=== PATIENT | female | born 1955 | race Caucasian/White ===

== ENCOUNTER 2019-09-16 08:37 | Outpatient (CLI) | payer OTHER, SELFPAY ==
--- NOTE | 2019-09-16 08:45 | USCV_ITS ---
Eda Gann Age: 64 Gender: F : 1955 Exam Date: 09/16/2019 09:03 Ordering Phys: Jess Green MD ([email or web address]) Technologist: Sally Porter [place] [facility] [place]: heart disease. atherosclerosis BP: / HR: 49 Rhythm: Sinus Technical Quality: Good MEASUREMENTS (Male / Female) Normal Values 2D ECHO LV Diastolic Diameter PLAX 4.3 cm 4.2 - 5.9 / 3.9 - 5.3 cm LV Systolic Diameter PLAX 2.2 cm IVS Diastolic Thickness 0.7 cm 0.6 - 1.0 / 0.6 - 0.9 cm IVS Systolic Thickness 1.8 cm LVPW Diastolic Thickness 1.2 cm 0.6 - 1.0 / 0.6 - 0.9 cm LVPW Systolic Thickness 1.7 cm LVOT Diameter 2.0 cm LV Ejection Fraction 2D Teich 79.7 % LV Ejection Fraction MOD 2C 79.7 % LV Ejection Fraction 2C AL 80.2 % LA Diameter 2.0 cm LA Width 2.8 cm LA Height 4.9 cm RA Width 2.8 cm RA Height 3.9 cm M-MODE LV Diastolic Diameter MM 5.1 cm 4.2 - 5.9 / 3.9 - 5.3 cm LV Systolic Diameter MM 3.0 cm LV Ejection Fraction MM Teich 72.5 % IVS Diastolic Thickness MM 0.7 cm 0.6 - 1.0 / 0.6 - 0.9 cm IVS Systolic Thickness MM 1.3 cm LVPW Diastolic Thickness MM 1.1 cm 0.6 - 1.0 / 0.6 - 0.9 cm LVPW Systolic Thickness MM 2.0 cm Aortic Annulus Diameter 2.3 cm LA Ao Ratio MM 0.9 MV E Point Septal Separation 1.1 cm DOPPLER AV Peak Velocity 162.0 cm/s LVOT Peak Velocity 104.0 cm/s AV Area Cont Eq vti 2.1 cm squared AV Area Cont Eq pk 2.0 cm squared MV Peak Velocity 130.0 cm/s MV Area PHT 3.7 cm squared Mitral E to A Ratio 1.2 MV E' Velocity 95.0 cm/s TR Peak Velocity 100.0 cm/s TR Peak Gradient 4.0 mmHg Right Atrial Pressure 3.0 mmHg Pulmonary Artery Systolic Pressu 7.0 mmHg PV Peak Velocity 108.0 cm/s RV Acceleration Time 0.1 s FINDINGS Left Ventricle Normal left ventricular size and systolic function, EF 79 %. No regional wall motion abnormalities. Right Ventricle The right ventricle is normal in size and function. Right Atrium The right atrium is normal in size. Left Atrium The left atrium is normal in size. Mitral Valve Trace to mild mitral valve regurgitation. Aortic Valve Moderate aortic valve regurgitation. Thickened aortic valve. Tricuspid Valve Structurally normal tricuspid valve without significant stenosis or regurgitation. Pulmonary artery systolic pressure is normal. Pulmonic Valve No gross abnormalities noted Pericardium Normal pericardium without effusion. Aorta Normal ascending aorta dimension. CONCLUSIONS Normal left ventricular size and systolic function, EF 79 %. No regional wall motion abnormalities. Thickened aortic valves Moderate aortic valve regurgitation. Trace to mild mitral valve regurgitation. There is no pericardial effusion. There are no intracardiac masses. No previous study is available for comparison. Dr Jess Green MD [facility] (Electronically Signed) Final Date: 17 September 2019 18:15 S
--- NOTE | 2019-09-16 08:51 | USCV_ITS ---
Eda Gann Age: 64 Gender: F : 1955 Exam Date: 09/16/2019 09:28 Ordering Phys: Jess Green MD ([email or web address]) Technologist: Sally Porter [place] [facility] [place]: old CVA, carotid stenosis Risk Factors: Previous Vascular Surgery: Right Brachial BP: / Left Brachial BP: / Right Left Velocity (cm/s) Spectral Plaque Velocity (cm/s) Spectral Plaque Syst/Diast Broadening Syst/Diast Broadening 118.00/23.20 Prox CCA 66.20 / 7.70 92.60/ 20.90 Hetro Mid CCA 45.10 / 5.40 86.00/ 19.80 Homo Distal CCA 77.70 / 10.90 Hetro 129.00/35.70 Hetro Prox ICA 653.20/ 203.20 Hetro 115.00/26.40 Mid ICA 302.70/ 90.30 Hetro 69.50/ 17.60 Distal ICA 80.80 / 19.40 79.40 ECA 101.20 1.09 ICA/CCA 8.46 Antegrade Vertebral Antegrade 44.30/ 7.00 cm/s 99.10/ 14.50 cm/s Tri Subclavian Tri 172.5 114.4 0 0 FINDINGS Heavy heterogeneous plaques of the left bifurcation and proximal internal carotid artery. Moderate heavy plaque at the right bifurcation and proximal internal carotid artery. Mild diffuse plaques in the common carotid arteries bilaterally. Antegrade flow in the vertebral arteries bilaterally. Normal Doppler flow velocities in the external carotid arteries bilaterally CONCLUSIONS Heavy heterogeneous plaques of the left bifurcation and proximal internal carotid artery with velocity elevation consistent with 80-99% stenosis. Moderate heavy plaque at the right bifurcation and proximal internal carotid arterywith velocity elevation consistent with 50-79% stenosis. Mild diffuse plaques in the common carotid arteries bilaterally. No previous studies are available for comparison. Dr Jess Green MD [facility] (Electronically Signed) Final Date: 18 September 2019 06:53 S
== END 2019-09-16 08:38 | disposition home or self-care (01) ==
LOC: RAD 08:42
PROVIDERS: PCP Family Medicine; Visit Provider Internal Medicine Cardiovascular Disease
DX: I25.119 Atherosclerotic heart disease of native coronary artery with unspecified angina pectoris (principal); I65.23 Occlusion and stenosis of bilateral carotid arteries; I08.0 Rheumatic disorders of both mitral and aortic valves
CPT/HCPCS: 93306; 93880

== ENCOUNTER 2020-12-28 09:38 | Outpatient (CLI) | payer MEDICAID, SELFPAY ==
--- NOTE | 2020-12-28 10:00 | CT_ITS ---
WS: [id number] CT ANGIOGRAM CEREBRAL AND CAROTID ARTERIES HISTORY: H54.7 - Unspecified visual loss TECHNIQUE: CT angiogram is performed of the carotid and cerebral arteries. During arterial injection imaging is obtained from the skull vertex to the aortic arch in 1.25 mm imaging. Coronal and sagittal reformats are submitted. Additional multi planar reformats of the carotid and cerebral arteries are submitted, MIP imaging also reviewed. NASCET criteria utilized. All CT scans at [facility] use at least one of these dose optimization techniques: automated exposure control; mA and/or kV ad justment per patient size (includes targeted exams where dose is matched to clinical indication); or iterative reconstruction. CONTRAST: Visipaque 320; 95 mL IV. DLP: 2971.73 mGy.cm COMPARISON: None available. Noncontrast CT of the brain is negative for acute hemorrhage. No mass effect. Ventricles are normal s ize. Carotid Angiogram: Right carotid: Common carotid artery: Short segment of the proximal RIGHT common carotid artery is poorly opacified but this is due to artifact from patient's shoulders. Otherwise. Mild atherosclerotic plaque. Internal carotid artery: Small amount of calcified plaque at the bifurcation. External carotid artery: Patent. Left carotid: Common carotid artery: Small amount of calcified plaque at the origin. Mild atherosclerotic plaque in the mid common carotid artery but no high-grade stenosis. Internal carotid artery: Short segment very high-grade stenosis involving the origin of the LEFT ICA. Stenosis estimated at 90%. External carotid artery: Patent. Right vertebral artery: Small amount of plaque at the origin. No stenosis or occlusion. Left vertebral artery: Unremarkable. Arises normally from the subclavian artery. Subclavian arteries: Calcified plaque at the origins. No high-grade stenosis. Upper thorax: Chronic emphysema. Thyroid gland: Normal. Osseous structures: Reversal the normal cervical lordosis centered at C4-5. Mild encroachment upon th e ventral cervical canal due to osteophytes at C5 and C6. CEREBRAL ANGIOGRAM: Intracranial vertebral arteries: Normal with no significant atherosclerosis. Basilar artery: No significant stenosis or occlusion. No aneurysm. Intracranial Internal carotid arteries: Moderate amount of calcified plaque through the cavernous and supraclinoid carotid arteries. Stenosis near 50% on the LEFT and under 50% on the RIGHT. Middle cerebral arteries: Normal. Anterior cerebral arteries and ACOM: Normal. Posterior cerebral arteries and PCOM's: Normal. Dural venous sinuses are normally enhancing. Mastoid air cells: Small amount of soft tissue in the LEFT mastoid air cells. No destruction. Paranasal sinuses: Normal. Calvarium: Normal. Soft tissue nodule in the LEFT frontal scalp measuring 7 mm. Probably benign sebac eous cyst. CT/CT angio headneck* [id number] IMPRESSION: 1. High-grade stenosis proximal LEFT ICA, 90%. 2. Mild atherosclerotic plaque through the intracranial carotid arteries. Slig htly greater on the LEFT than the RIGHT. 3. No intracranial hemorrhage or edema. Notified Jess Green MD at 12/28/2020 12:02 PM.
[2020-12-28 10:47] LABS: Blood Urea Nitrogen 14 mg/dL (8-23); Glomerular Filtration Rate 63.2 mL/min (90-130)
[2020-12-28] MEDS: iodixanol 320 mg/mL 100mL Btl IV (11:04)
== END 2020-12-28 09:39 | disposition home or self-care (01) ==
LOC: RAD 09:44
PROVIDERS: PCP Family Medicine; Visit Provider Internal Medicine Cardiovascular Disease
DX: H54.7 Unspecified visual loss (principal); Z01.812 Encounter for preprocedural laboratory examination; I65.23 Occlusion and stenosis of bilateral carotid arteries
CPT/HCPCS: 36415; 70496; 70498; 82565; 84520

== ENCOUNTER → 2021-01-01 11:23 | Outpatient (BNVA) | payer MEDICAID, SELFPAY | PROVIDERS: PCP Family Medicine; Visit Provider Thoracic Surgery (Cardiothoracic Vascular Surgery) | DX: I65.23 Occlusion and stenosis of bilateral carotid arteries (principal); Z20.822 Contact with and (suspected) exposure to COVID-19 | CPT/HCPCS: 87635 ==

== ENCOUNTER 2021-01-06 15:52 | Inpatient (IN) | payer MEDICAID, SELFPAY ==
[2021-01-01 12:16] VITALS: BMI 25.7
--- NOTE | 2021-01-01 12:43 | ECG_ITS ---
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 Measurements Intervals [place] Rate: 79 P: 76 CT: 152 QRS: 75 QRSD: 90 T: 60 QT: 398 QTc: 457 Interpretive Statements SINUS RHYTHM POSSIBLE LEFT ATRIAL ENLARGEMENT [-0.1mV P WAVE IN V1/V2] Compared to ECG 05/15/2017 12:08:26 No significant changes Electronically Signed On 01-01-2021 14:24:01 CDT by Maria D Dowling M.D. [id number]
--- NOTE | 2021-01-01 12:49 | P.ANESASSM_ITS ---
Pre-Anesthetic Assessment Pre-Anesthetic Assessment: Height/Weight: Height 1.6 m Weight 65.771 kg Preop Diagnosis: Left carotid artery stenosis Proposed Procedure: Operation Date: 01/06/21 12:00 Proposed Procedures p left Carotid Endarterectomy(Left) - El Pierce MD Familial anesthetic complications: PONV Social: Social History: Tobacco and No alcohol Exam: Pre-Anes Outpt Exam: alert, oriented x 3, clear to auscultation bilaterally and regular rate & rhythm Airway: Cervical ROM: WNL MP: 3 Dentition: False Pulmonary: Pulmonary: COPD CV/HEM: CV/HEM: Angina (Stable), CAD (stent > 1 year), CHF and HTN Comments: Patient is wearing a holter monitor for tachycardia and sob/dizziness. Prerna aware. It comes off january 08 Metabolic: Metabolic: Hyperlipidemia Neuropsych: Neuropsych: TIA (yaers ago) Comments: LETICIA PFSH Anesthesia PFSH: Medical History Abuse of smoked substance Anxiety ASHD (arteriosclerotic heart disease) Atherosclerotic heart disease of [place] coronary artery with angina pectoris The EKG done today showed sinus bradycardia with a rate of [address]-T changes. Benign essential HTN Carotid artery stenosis with cerebral infarction over 8 weeks ago History of CVA in 2008? came to [facility] [place] Chronic diastolic heart failure secondary to coronary artery disease Congestive heart failure COPD (chronic obstructive pulmonary disease) Dementia has appointment to see Neurology on September 12 Heart attack Hyperthyroidism Intermittent palpitations Mixed hyperlipidemia Surgical History H/O tubal ligation History of appendectomy History of heart artery stent Hx of cholecystectomy Hx of tonsillectomy Family History Mother CAD (coronary artery disease) Lung disease Grandmother Cancer Dementia Stroke Diabetes Grandfather Cancer Family/Other Dementia Other Hyperlipidemia Hypertension Denies family history of Clotting disorder Chronic kidney disease (CKD) Suicide Anesthesia complication Bleeding disorder Social History Smoking and tobacco status: current some day smoker Alcohol intake: never Data Anesthesia Cardiac Studies: Holter Monitor 09/23/19
[2021-01-01 13:30] LABS: Add Urine Microscopic? NO; Charge for UA Resulting for Rev
[2021-01-01 13:34] LABS: Basophils # 0.1 10^3/uL (0.0-0.1); Basophils % 0.4 %; Eosinophils # 0.3 10^3/uL (0.0-0.8); Eosinophils % 2.3 %; Hematocrit 45.7 % (37.0-47.0); Hemoglobin 16.1 g/dL (11.5-15.3); Lymphocytes # 3.8 10^3/uL (0.8-4.8); Mean Corpuscular HGB Conc 35.2 g/dL (30.0-36.0); Mean Corpuscular Hemoglobin 33.7 pg (28.0-34.0); Mean Corpuscular Volume 95.6 fL (81-99); Mean Platelet Volume 9.4 fL (7.4-10.4); Monocytes # 1.2 10^3/uL (0.2-0.9); Neutrophils # 8.08 10^3/uL (1.8-7.7); Nucleated Red Blood Cells % 0 %; Platelet Count 390 10^3/cmm (130-400); Red Blood Count 4.78 10^6/uL (4.1-5.3); Red Cell Distribution Width 13.6 % (12.1-15.1); White Blood Count 13.5 10^3/uL (4.0-10.0)
[2021-01-01 13:36] LABS: Bilirubin Urine Neg (Negative); Blood Urine Neg (Negative); Glucose Urine UA Norm (Normal); Ketones Urine Negative (Negative); Leukocyte Esterase Urine Negative (Negative); Nitrate Urine Negative (Negative); Protein Urine Neg (Negative); Specific Gravity, Urine 1.005 (1.005-1.030); Urine Appearance Clear (CLEAR); Urine Color Yellow (Yellow); Urobilinogen Urine Norm (Negative); pH Urine 7 (5-7)
[2021-01-01 13:47] LABS: INR 0.85 (0.8-1.2)
[2021-01-01 13:53] LABS: Anion Gap 17.8 (5-19); Blood Urea Nitrogen 10 mg/dL (8-23); Calcium 9.2 mg/dL (8.5-10.5); Carbon Dioxide 23 mmol/L (22-29); Chloride 95 mmol/L (98-107); Glomerular Filtration Rate 72.4 mL/min (90-130); Glucose 102 mg/dL (65-115); Osmolality Calculated 273 mOsm/kg (285-295); Potassium 3.8 mmol/L (3.5-5.1); Sodium 132 mmol/L (136-145)
[2021-01-06] VITALS (82 sets, daily range): BP systolic 89–147; BP diastolic 36–115; PULSE 69–91; RESP 11–30; TEMP 36.5–36.6; O2SAT 89–97
--- NOTE | 2021-01-06 10:43 | XR_ITS ---
WS: [id number] Chest 2 views, 01/06/2021 Clinical Data: Left carotid endarterectomy Comparison: Portable chest, 05/15/2017. Findings: No nodules, masses or effusions are seen. The heart is normal. The pulmonary vascularity is not increased. No pneumonia or pneumothorax is seen. The diaphragms are flattened. There are clips i n the right upper quadrant from a cholecystectomy. XR/XR chest 2V* [id number] Impression: Hyperinflation.
[2021-01-06] MEDS: sodium chloride 0.9% 1,000 ML 30 ML IV (11:28)
--- NOTE | 2021-01-06 12:04 | W.PM.OPSUD ---
Surgery/Procedure H&P Update DATE OF PROCEDURE: January 06, 2021 DATE H&P PERFORMED: 01/01/21 H&P UPDATE INFORMATION: I have reviewed H&P completed within last 30 days, I have examined patient prior to procedure and No changes to prior documentation PREOP DIAGNOSIS: Left carotid artery stenosis PLANNED PROCEDURE: Operation Date: 01/06/21 12:00 Proposed Procedures p left Carotid Endarterectomy(Left) - El Pierce MD
[2021-01-06] MEDS: scopolamine 1.5 Patch 1 PATCH TRANSDERMA (12:30)
--- NOTE | 2021-01-06 12:49 | P.ANESUD_ITS ---
Pre-Anesthetic Update Pre-Anesthetic Assessment: Date of Surgery/Procedure: 01/06/21 Preop Delia gnosis: Left carotid artery stenosis Proposed Procedure: Operation Date: 01/06/21 12:00 Proposed Procedures p left Carotid Endarterectomy(Left) - El Pierce MD Any changes to Pre-Anesthetic Assessment?: No Last Intake: Intake Last Liquid Date 01/05/21 Last Liquid Time 22:30 Last Solid Date 01/05/21 Last Solid Time 22:30 Labs Last 48hrs: Laboratory Results - last 48 hr 01/01/21 12:39 Blood Type O Negative Rho(D) Type Negative / 0 Antibody Screen Negative Crossmatch See Detail Vitals: Temperature 97.7 F 01/06/21 10:53 Temperature Source Temporal Artery S can 01/06/21 10:53 Pulse Rate 79 01/06/21 10:53 Pulse Rhythm 01/06/21 10:53 Pulse Strength 3+ Normal 01/06/21 10:53 Respiratory Rate 16 01/06/21 10:53 Blood Pressure 147/60 01/06/21 10:53 Blood Pressure Cecy n 89 01/06/21 10:53 Pulse Oximetry 97 01/06/21 10:53 Oxygen Delivery Me thod 01/06/21 10:53 Exam: Pre-Anes Outpt Exam: alert, oriented x 3, clear to auscultation bilaterally and regular rate & rhythm Cardiac Studies: Holter Monitor 09/23/19
--- NOTE | 2021-01-06 12:49 | ANES.PROC ---
Anesthesia Procedures Procedure/Date: 01/06/21 Arterial Line: Time Out Performed: Yes Consent: requested by attending/covering physician, from patient, risks and benefits reviewed and patient agrees to proceed Size (Gauge): 20 Technique Used: guide wire technique Post-Procedure: dry sterile dressing placed Patient Tolerated Procedure: well Complications: other (hematoma) Site: left and radial Additional Comments: Attempted right radial several times, ultimately successful on left with US.
[2021-01-06] MEDS: vancomycin 1,000 MG SDV 1000 MG IRRIGATION (13:17)
--- NOTE | 2021-01-06 14:43 | SUR.OPER ---
1430 attempted to call family (jeanne bobby) and there was no answer.
--- NOTE | 2021-01-06 14:52 | SUR.OPER ---
1452 report given to rach ellis, all questions answered, ready to recieve pt.
--- NOTE | 2021-01-06 15:57 | ANE.PACU2 ---
Inpatient post-anesthesia follow up: Airway intact: Yes Vital signs: Temperature 97.7 F Pulse Rate 79 Respiratory Rate 16 Blood Pressure 147/60 Pulse Oximetry 97 Oxygen Delivery Me thod Room Air Oxygen Flow Rate Fraction of Inspir ed Oxygen Hydration adequate: Yes Nausea and vomiting: No Pain level: 2 Additional Comments: Sedated, BP stable, ICU.
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
[2021-01-06] MEDS: morphine 4 mg/mL SDV 1 mL 1 MG IVP ×2 (17:18→20:12)
[2021-01-06] MEDS: lactated ringers 1,000 ML 75 ML IV (17:19)
[2021-01-06] MEDS: aspirin 81 mg Chew Tablet PO (17:52)
--- NOTE | 2021-01-06 18:35 | PC.NURSE ---
Patient was brought to unit at 1518. Patient was drowsy and not following commands at that time. Art line and JUNIOR drain in place and patient . Dressing around incision on left neck was dry and intact. Before leaving room patient was able to follow commands and had no neurological deficits.
[2021-01-06] MEDS: ceFAZolin 1,000 MG in sodium chloride 0.9% (plus) 50 ML 100 MG IV (20:13)
[2021-01-06] MEDS: HYDROcodone-acetaminophen 5-325 mg Tablet 1 TAB PO (23:16)
[2021-01-07] VITALS (39 sets, daily range): BP systolic 145; BP diastolic 67; PULSE 66–104; RESP 14–24; TEMP 36.6–36.8; O2SAT 89–99
--- NOTE | 2021-01-07 03:00 | PC.NURSE ---
Art line removed per MD Kari orders. Patient tolerated fine. Line in tact. Insertion site cleansed and dressed with no observable bleeding. Site assessed frequently after removal. No episodes to report.
[2021-01-07] MEDS: morphine 4 mg/mL SDV 1 mL 1 MG IVP (03:17)
[2021-01-07] MEDS: ceFAZolin 1,000 MG in sodium chloride 0.9% (plus) 50 ML 100 MG IV (03:18)
--- NOTE | 2021-01-07 06:36 | PM.PN ---
Subjective Subjective: Interval history: POD #1 status post left carotid endarterectomy with patch angioplasty. Rested well last night. Postoperative discomfort under good control. Neurologically intact. Low JUNIOR drain output. Vitals/I&O/Wt Last Vital Signs Temp 98.3 F 01/07/21 03:38 Pulse 86 01/07/21 06:00 Resp 18 01/07/21 05:40 BP 145/67 01/07/21 06:15 Pulse Ox 95 01/07/21 06:15 01/06/21 01/06/21 01/07/21 14:59 22:59 06:59 Intake Total 50 / 50 600 / 650 1150 / 1800 Output Total 200 / 200 1415 / 1615 Balance 50 / 50 400 / 450 -265 / 185 Physical Exam Neck/C-Spine: OTHER: Minimal postoperative swelling. No ecchymosis. JUNIOR drain was removed. Incision is clean, dry, and intact. Incision painted with Betadine and recovered. Neuro: COMMON NORMALS: no focal motor deficits and no sensory deficits noted OTHER: Tongue is midline with protrusion. Face is symmetrical. Voice quality is normal. No swallowing difficulties. Urinary Catheter Management^: [place]: Cath Placed During This Visit: yes Reason for Continuing Indwelling Catheter: Accurate Measurement of Urinary Output in Critically Ill Patients Urinary Catheter Date of Insertion: 01/06/21 Urinary Catheter Time of Insertion: 12:45 Data : 01/01/21 13:00 01/01/21 13:00 A&P Assessment and plan (1) S/P carotid endarterectomy: POD #1 status post left carotid endarterectomy Plan: Breakfast this morning. DC [place] catheter. Will discharge home today. Follow-up in my clinic in 1 week. Status: Acute Attestations Medical Necessity Statement*: POD #1 status post left carotid endarterectomy Time Spent in Patient Care: 16 - 35 minutes Procedures Arterial Line Size (Gauge): 20 Coding Level of Care Code Acute Rehabilitation Physician for Michelleg Fwjeremie Diagnoses S/P carotid endarterectomy Z98.890
--- NOTE | 2021-01-07 06:38 | P.DS_ITS ---
Discharge Providers Date of Admission: 01/06/21 15:52 Date of Discharge: January 07, 2021 Attending Provider at Admission: El Pierce MD Attending Provider at Discharge: El Pierce MD Primary Care Provider: Bull Vásquez Diagnoses at Discharge Discharge Diagnosis (1) S/P carotid endarterectomy: Status: Acute Reason for Visit Reason for Visit: left Carotid Endarterectomy Hospital Course Hospital Course Ms. Gann is a pleasant 65-year-old female referred to our service for a high- grade left ICA stenosis of greater than 90% with a string sign on CTA of the neck performed on December 28. She underwent careful outpatient evaluation and was electively admitted for planned endarterectomy. This was performed yesterday on January 06. Postoperatively, she remained neurologically intact. She convalesced in the ICU for close neurological evaluation. She did well overnight. No phonation or swallowing difficulties. Low JUNIOR drain output. Face is symmetrical. Tongue is midline with protrusion. JUNIOR drain was discontinued this morning. Vital signs are stable. She did receive aspirin last night and again this morning. She will be discharged home today in stable condition. She will follow-up in my clinic in 1 week. Physical Exam Const: COMMON NORMALS: patient oriented x3 Neck/C-Spine: OTHER: Surgical incision line is clean, dry, and intact. Minimal swelling. No ecchymosis. Resp: COMMON NORMALS: normal respiratory effort, No retractions and clear to auscultation bilaterally AUSCULTATION: clear to auscultation bilaterally Cardio: COMMON NORMALS: regular rate, regular rhythm, S1 normal heart sound present, No murmurs present (Cardio) and No rub (Cardio) RATE: regular rate RHYTHM: regular rhythm HEART SOUNDS: S1 normal heart sound present Neuro: COMMON NORMALS: patient oriented x3, moves all extremities, no focal motor deficits and no sensory deficits noted OTHER: Tongue is midline with protrusion. Patient is symmetrical. No swallowing or phonation difficulties. Urinary Catheter Management^: Sev[place]: Cath Placed During This Visit: yes Reason for Continuing Indwelling Catheter: Accurate Measurement of Urinary Output in Critically Ill Patients Urinary Catheter Date of Insertion: 01/06/21 Urinary Catheter Time of Insertion: 12:45 Discharge Data Data Completed and Pending: Completed Studies During Hospitalization Category Date Time Status XR chest 2V* 7104 6 Routine Exams 01/06/21 10:43 Completed Pending at discharge Category Date Time Status Leukocyte Reduced RBC Routine Lab 01/01/21 12:39 Results Type and Screen - Cardiac Routine Lab 01/01/21 12:39 Results Pathology: Surgic al [PTH] Routine Pth 01/06/21 15:26 Ordered Labs from last 24 hours 01/01/21 12:39 Blood Type O Negative Rho(D) Type Negative / 0 Antibody Screen Negative Crossmatch See Detail Vitals: Last Vital Signs Temp 98.3 F 01/07/21 03:38 Pulse 86 01/07/21 06:00 Resp 18 01/07/21 05:40 BP 145/67 01/07/21 06:15 Pulse Ox 95 01/07/21 06:15 Discharge Plan Discharge Patient Disposition: Home Condition: Stable Prescriptions: New hydrocodone-acetaminophen 5-325 mg Tablet 1 tab PO Q6H PRN (Reason: Moderate Pain) Qty: 16 RF: 0 Continued cetirizine [24Hour Allergy] 10 mg tablet 10 mg PO DAILY RF: 0 Combivent Respimat 20-100 mcg/actuation mist 1 puff INHALATION Q6H RF: 0 hydrochlorothiazide 25 mg tablet 25 mg PO DAILY RF: 0 ibuprofen 600 mg tablet 600 mg PO Q8H PRN (Reason: Pain) RF: 0 nitroglycerin [Nitrostat] 0.4 mg tablet, sublingual 0.4 mg SUBLINGUAL Q5M PRN (Reason: Chest Pain) RF: 0 simvastatin 20 mg tablet 20 mg PO DAILY RF: 0 metoprolol tartrate 25 mg tablet 25 mg PO DAILY RF: 0 fluticasone propion-salmeterol [Advair Diskus] 250-50 mcg/dose blister with device 1 inh inhalation BID RF: 0 diphenhydramine HCl [Benadryl] 25 mg capsule 25 mg PO Q8H Qty: 3 RF: 0 Aspirin Low Dose 81 mg PO DAILY RF: 0 Discharge Orders: Discharge Order (Routine); Ordered 01/07/21 Ordered By: El Pierce Referrals: El Pierce MD [Physician] - 1 week Discharge Diet: Usual diet Discharge Activity: Limit activity as instructed Patient Instructions: Opioid Safety Activity Restrictions/Additional Instructions: May remove bandage in 2 days May begin daily showers in 2 days No swimming or tub baths x 2 weeks No ointments on incision Report drainage, redness, heat, increased pain, or swelling to clinic No heavy lifting or pulling x2 weeks Discharge Attestations Time Spent in Discharge Care*: less than 30 min Specific Discharge Activities: educating patient, discussing with casework manager/social workers/dc planners, documenting/other paperwork and evaluating patient/reviewing data Time Spent in Smoking Cessation: 3 to 10 minutes Status at Discharge: Cognitive status at discharge: cognitively intact , Behavioral status at discharge: cooperative , Functional status at discharge: independent ambulation Overall status at discharge: patient is back to baseline Quality Metrics Clinical Quality Measures During this hospital stay, did patient experience: None Coding Level of Care Code Acute Chg FW DC note Diagnoses S/P carotid endarterectomy Z98.890
--- NOTE | 2021-01-07 06:41 | PC.NURSE ---
MD Kari at bedside rounding on patient. JUNIOR Drain removed by MD without incident. Dressing placed over site. Sevilla removed by RN with 10mL removed from balloon. New orders received to give pt baby aspirin. Plan is to discharge later this AM.
[2021-01-07] MEDS: HYDROcodone-acetaminophen 5-325 mg Tablet 1 TAB PO (07:07)
[2021-01-07] MEDS: aspirin 81 mg Chew Tablet PO (07:37)
--- NOTE | 2021-01-07 08:57 | PC.CHAP ---
Pastoral Care Encounter/Spiritual Assessment Type of Contact [] Declined helicopter dispatcher visit [] Patient/Family/Request visit [] Outpatient visit [] Follow-up visit [] Physician referral [] Code/Alert [x] Routine visit [] Staff referral [] Actively dying [] Patient sleeping [x] Family support [] [] Out of room [] Palliative care [] [] Receiving care in room [] Pre-surgical visit [] Trauma [] Long length of stay [x] ICU visit [] Other: Relational/Emotional Strength [] Patient feels connected with others/family/visitors/staff [] Distress [] Loneliness/isolation [] Abandonment Spirituality of Patient [x] Person of Rowena [] Attends Gnosticism of their Rowena [] Believes in Prayer [] Reads Bible or Adventist materials [] There are Spiritual issues to be addressed Invertebrate Paleontologist Interventions [x] Prayer [x] Active listening [x] Non-anxious presence [x] Spiritual/emotional support [] Crisis/trauma care [] Spiritual counseling [] Bereavement support [] Provided bereavement packet [] Provided Bible/devotional materials [] Provided toy/stuffed animal, coloring book to patient or family member [] Provided Communion [] Anointing/[place] [] Salvation [x] Completed spiritual assessment [] Other: Impact on Illness or Injury [] Angry [] Fearful [] Anxious [] Often cries [] Exhaustion [] Unable to work [] Unable to attend quaker [] Unable to walk/stand [] Unable to read [] Unable to drive [] Unable to eat/drink [] Unable to sleep [] Unable to be with family [] Patient intubated [] Other: Summary patient feeling so much better...very encouraged Time spent with patient
[2021-01-07] MEDS: atorvastatin 40 mg Tablet 20 MG PO (09:30)
[2021-01-07] MEDS: hydroCHLOROthiazide 25 mg Tablet PO (09:30)
[2021-01-07] MEDS: cetirizine 10 mg Tablet PO (09:30)
[2021-01-07] MEDS: metoprolol tartrate 25 mg Tablet PO (09:30)
[2021-01-07] MEDS: pantoprazole DR 40 mg Tablet PO (09:30)
--- NOTE | 2021-01-08 09:49 | PC.RESP ---
SMOKING CESSATION AND PULMONARY REHAB INFORMATION SENT TO PATIENT.
== END 2021-01-07 10:05 | disposition home or self-care (01) | DRG 39 ==
LOC: ICU 15:53
PROVIDERS: Admitting Provider Thoracic Surgery (Cardiothoracic Vascular Surgery); PCP Family Medicine; Visit Provider Thoracic Surgery (Cardiothoracic Vascular Surgery)
PROC: 03CL0ZZ Extirpation of Matter from Left Internal Carotid Artery, Open Approach (ICD-10-PCS; CPT 35301; principal; 2021-01-06 12:00)
DX: I65.22 Occlusion and stenosis of left carotid artery (principal); Z79.82 Long term (current) use of aspirin
CPT/HCPCS: 36415; 51702; 71046; 80048; 81003; 85025; 85610; 86850; 86900; 86920; 88304; 88311; 93005; 94640; 96365; J0330; J0360; J0690; J1100; J1170; J2270; J2405; J2704; J3010; J3370; J3490; J3535; J7030

== ENCOUNTER 2021-02-05 08:10 | Outpatient (CLI) | payer MEDICAID, SELFPAY ==
[2021-02-05 08:43] VITALS: BMI 24.4
--- NOTE | 2021-02-05 08:43 | ECG_ITS ---
[facility] Test Date: 2021-02-05 Pat Name: Eda Gann Department: Room: Gender: Female Beach Attendant: : 1955 Requested By: Jess Green Order Number: [id number] Hector MD: Jess Green M.D. Interpretive Statements NAME OF STUDY: LEXISCAN SESTAMIBI STRESS TEST INDICATION: Shortness of Breath, PROCEDURE: At the baseline, the EKG revealed normal sinus rhythm with normal ST Ts. The baseline blood pressure was 138/65 mm Hg with a heart rate of 65 beats/min. Lexiscan was infused over a period of 20 seconds. A total of 0.4 milligrams of Lexiscan was infused. The stress phase was continued for a total of 5 minutes. Heart rate at the end of the stress phase was 91 with a blood pressure 139/64. The EKG at the peak infusion revealed no significant changes. Sestamibi was injected 20 seconds after the Lexiscan infusion. Blood pressure at the end of the recovery phase was 172/68 with a heart rate of 64 per minute. CONCLUSION: 1. No significant EKG changes with the LexiScan infusion 2. No LexiScan induced chest pain or cardiac arrhythmia 3. Normal blood pressure and heart rate response 4. Sestamibi/sestamibi perfusion scan pending; see separate report. Electronically Signed On 02-05-2021 16:47:59 CDT by Jess Green M.D. [email or web address]
--- NOTE | 2021-02-05 08:44 | NMCV_ITS ---
NM mau perf SPECT r/s* [id number] Eda Gann Age: 66 Gender: F : 1955 Exam Date: 02/05/2021 09:16 Ordering Phys: Jess Green MD ([email or web address]) Technologist: ANNA Martinez Exam Location: [facility] Indications: SHORTNESS OF BREATH STRESS TEST Please see separate stress test report in [facility] for full findings IMAGE PROTOCOL Rest/Stress 1 Lexiscan Day Radiopharmaceutical Dose (mCi) Administration Site Administered by Rest: Tc-99m 10.8 IV ANNA Martinez Sestamibi Stress:Tc-99m 32.5 IV ANNA Martinez Sestamibi Rest: 05-Feb-2021 60 Discovery 630 Stress: 05-Feb-2021 30 Discovery 630 0.4mg Lexiscan. Images obtained in supine and prone position. SPECT RESULTS Technical Quality: Excellent Raw Data Analysis: Normal Image Corrections: No attenuation or motion correction applied Summed Stress Score: 0 Summed Rest Score: 5 Summed Difference Score: 0 PERFUSION FINDINGS Small areas of decreased tracer uptake in the apical inferior, apical septal and LV apex. No significant reversibility was noted in these regions. FUNCTIONAL RESULTS (calculated via Gated SPECT) Stress Image LV EF (%): 64 Stress EDV (mL):84 TID: 1.06 Stress ESV (mL):30 FUNCTIONAL FINDINGS: Segmental wall motion analysis revealing no gross wall motion normalities. IMPRESSIONS 1. Myocardial perfusion imaging revealing small areas of persistent decreasesed tracer uptake in the apical segments, suggestive of myocardial scarring versus attenuation artifact . 2. Normal LV ejection fraction of 64%. 3. LV wall motion analysis revealing no gross wall motion normalities. 4. Normal LV volume. No significant coronary ischemia, based on the above findings Dr Jess Green MD [facility] (Electronically Signed) Final Date: 05 February 2021 15:41 S
[2021-02-05] MEDS: regadenoson 0.4 Mg/5 ml Syringe IVP (10:24)
[2021-02-05] MEDS: ondansetron 2 mg/ML SDV 2 mL 4 MG IVP (10:24)
[2021-02-05 10:32] VITALS: BP 172/68; PULSE 84
== END 2021-02-05 08:11 | disposition home or self-care (01) ==
LOC: CDL 08:14
PROVIDERS: PCP Internal Medicine; Visit Provider Internal Medicine Cardiovascular Disease
DX: R06.02 Shortness of breath (principal)
CPT/HCPCS: 78452; 93017; A9500; J2405; J2785

== ENCOUNTER 2021-02-22 09:09 | Outpatient (CLI) | payer MEDICAID, SELFPAY ==
[2021-02-22 10:07] LABS: Chol HDL Ratio 3.35 mg/dL (0.0-4.40); Cholesterol 161 mg/dL (0-200); HDL Cholesterol 48 mg/dL (60-100); LDL Cholesterol Calculated 82 mg/dL (50-129); Triglycerides 154 mg/dL (0-150); VLDL Cholestrol Calculation 31 mg/dL (0-30)
== END 2021-02-22 09:10 | disposition home or self-care (01) ==
LOC: LAB 09:15
PROVIDERS: PCP Internal Medicine; Visit Provider Internal Medicine Cardiovascular Disease
DX: E78.2 Mixed hyperlipidemia (principal)
CPT/HCPCS: 36415; 80061

== ENCOUNTER 2021-03-19 13:10 | Outpatient (CLI) | payer MEDICAID, SELFPAY ==
--- NOTE | 2021-03-19 13:30 | USCV_ITS ---
Eda Gann Age: 66 Gender: F : 1955 Exam Date: 03/19/2021 13:20 Ordering Phys: El Pierce MD (Andy) [place][email or web address] [place] Technologist: Hannah Lozano Exam Location: [facility] [place] Indication: OCCLUSION AND STENOSIS OF CAROTID ARTERIES Risk Factors: Previous Vascular Surgery: L CEA 2020 Right Brachial BP: / Left Brachial BP: / Right Left Velocity (cm/s) Spectral Plaque Velocity (cm/s) Spectral Plaque Syst/Diast Broadening Syst/Diast Broadening 118.00/19.80 Prox CCA 115.70/ 24.10 106.20/28.00 Mid CCA 106.60/ 22.90 107.80/25.00 Distal CCA 97.40 / 21.80 119.70/20.10 Prox ICA 75.70 / 12.30 90.55/ 25.75 Mid ICA 86.90 / 15.30 95.90/ 29.80 Distal ICA 61.80 / 13.30 102.50 ECA 307.90 1.13 ICA/CCA 0.82 Antegrade Vertebral Antegrade 69.10/ 17.10 cm/s 89.40/ 16.90 cm/s Tri Subclavian Bi 150.5 156.7 0 0 CONCLUSIONS Right ICA stenosis <50%. Mild calcified atheromatous plaque right carotid bulb/ICA. Left ICA stenosis <50%. Mild atheromatous plaque left carotid bulb/ICA. Normal antegrade Doppler flow noted in the right vertebral artery. Normal antegrade Doppler flow noted in the left vertebral artery. Maykel Castillo MD (Electronically Signed) Final Date: 19 March 2021 17:14 S
== END 2021-03-19 13:11 | disposition home or self-care (01) ==
LOC: US 13:13
PROVIDERS: PCP Family Medicine; Visit Provider Thoracic Surgery (Cardiothoracic Vascular Surgery)
DX: I65.23 Occlusion and stenosis of bilateral carotid arteries (principal)
CPT/HCPCS: 93880

== ENCOUNTER 2021-03-22 10:00 | Outpatient (CLI) | payer MEDICAID, SELFPAY ==
--- NOTE | 2021-03-22 10:15 | USCV_ITS ---
Eda Gann Age: 66 Gender: F : 1955 Exam Date: 03/22/2021 10:20 Ordering Phys: Jess Green MD ([email or web address]/[facility]) Technologist: Karina Meza [place] [facility] [place]: PVD, BLE WEAKNESS Risk Factors: Previous Vascular Surgery: RIGHT LEFT BP: 115.0 / BP: 117.0/ 0 0 Waveform Velocity (cm/s) Velocity (cm/s) Waveform Triphasic 93.2 Iliac Prox 113.8 Triphasic Biphasic 86.9 Iliac Mid 116.2 Triphasic Biphasic 98.3 Iliac Distal 113.4 Biphasic Biphasic 106.3 MIXER OPERATOR VACUUM PAN SALT 165.9 Biphasic Biphasic 81.6 SFA Prox 144.6 Biphasic Biphasic 80.0 SFA Mid 155.1 Triphasic Biphasic 47.3 SFA Dist 118.0 Biphasic Biphasic 38.1 POP 64.8 Biphasic Biphasic 28.9 FIELD SERVICE COORDINATOR 72.6 Biphasic Biphasic 30.2 DPA 69.2 Biphasic 0.8 JUSTIN 0.9 FINDINGS Right Pop Fossa Espinoza's cyst seen-hypoechoic area measuring 2.96 x 0.82 cm Mild to moderate diffuse plaques in the iliac and femoral arteries bilaterally. Minimally diminished resting ABIs bilaterally of 0.8 on the right side and 0.9 on the left side CONCLUSIONS 1. Mild to moderate diffuse plaques in the iliac and femoral arteries bilaterally. 2. Abnormal resting ABIs bilaterally, suggesting mild peripheral artery disease No similar previous studies are available for comparison Dr Jess Green MD [facility] (Electronically Signed) Final Date: 24 March 2021 07:17 S
== END 2021-03-22 10:01 | disposition home or self-care (01) ==
LOC: US 10:01
PROVIDERS: PCP Family Medicine; Visit Provider Internal Medicine Cardiovascular Disease
DX: I73.9 Peripheral vascular disease, unspecified (principal); R53.1 Weakness; I70.8 Atherosclerosis of other arteries
CPT/HCPCS: 93925

== ENCOUNTER 2021-10-07 13:20 | Outpatient (CLI) | payer MEDICARE, MEDICAID, SELFPAY ==
--- NOTE | 2021-10-07 13:31 | USCV_ITS ---
Eda Gann Age: 66 Gender: F : 1955 Exam Date: 10/07/2021 13:38 Ordering Phys: El Pierce MD (Andy) ([email or web address]/[facility] [place]) Technologist: OLVIN Exam Location[place] [facility] [place] Indication: H/O LT CEA, EVAL FOR STENOSIS Risk Factors: Previous Vascular Surgery: Right Brachial BP: / Left Brachial BP: / Right Left Velocity (cm/s) Spectral Plaque Velocity (cm/s) Spectral Plaque Syst/Diast Broadening Syst/Diast Broadening 86.30/ 12.80 Prox CCA 103.60/ 16.50 118.80/15.40 Mid CCA 97.00 / 17.60 86.30/ 12.80 Distal CCA 100.30/ 16.50 87.20/ 17.80 Prox ICA 75.10 / 11.00 77.70/ 18.60 Mid ICA 80.60 / 20.20 87.00/ 22.50 Distal ICA 68.40 / 20.90 70.10 ECA 160.00 0.73 ICA/CCA 0.78 Antegrade Vertebral Antegrade 52.80/ 11.70 cm/s 35.00/ 6.20 cm/s Tri Subclavian Tri 188.3 182.9 0 0 FINDINGS Comparison:. 03/19/21 No significant elevation of systolic or diastolic velocities. Mild bilateral atheromatous plaque, no progression since the prior exam. Antegrade vertebral arteries. CONCLUSIONS Bilateral ICA stenosis less than 50%. No interval change in stenosis since prior exam. Dr. Jeannine Story DO (Electronically Signed) Final Date: 07 October 2021 16:05 S
== END 2021-10-07 13:21 | disposition home or self-care (01) ==
PROVIDERS: PCP Family Medicine; Visit Provider Thoracic Surgery (Cardiothoracic Vascular Surgery)
DX: I65.23 Occlusion and stenosis of bilateral carotid arteries (principal)
CPT/HCPCS: 93880

== ENCOUNTER → 2021-10-28 09:55 | Outpatient (BNVA) | payer MEDICARE, MEDICAID, SELFPAY | PROVIDERS: PCP Family Medicine; Visit Provider Thoracic Surgery (Cardiothoracic Vascular Surgery) | DX: Z98.890 Other specified postprocedural states (principal); F17.210 Nicotine dependence, cigarettes, uncomplicated | CPT/HCPCS: 99212; 99213 ==

== ENCOUNTER 2022-09-07 12:15 | Outpatient (CLI) | payer MEDICARE, MEDICAID, SELFPAY ==
--- NOTE | 2022-09-07 12:45 | USCV_ITS ---
Eda Gann Age: 67 Gender: F : 1955 Exam Date: 09/07/2022 12:27 Ordering Phys: El Pierce MD (Andy) [email or web address] [place] Technologist: ADELAIDA [place] [facility] [place]ication: HISTORY OF LCEA Risk Factors: Previous Vascular Surgery: Right Brachial BP: / Left Brachial BP: / Right Left Velocity (cm/s) Spectral Plaque Velocity (cm/s) Spectral Plaque Syst/Diast Broadening Syst/Diast Broadening 77.90/ 18.30 Homo Prox CCA 117.50/ 27.10 Hetro 142.00/26.90 Mid CCA 86.50 / 21.90 151.00/12.00 Distal CCA 76.20 / 21.90 Hetro 134.50/29.90 Prox ICA 142.60/ 25.50 Hetro 115.10/19.40 Mid ICA 113.70/ 27.20 76.90/ 17.40 Distal ICA 115.40/ 32.20 124.10 ECA 246.50 0.95 ICA/CCA 1.65 Antegrade Vertebral Antegrade 55.90/ 18.30 cm/s 71.90/ 11.20 cm/s Bi Subclavian Bi 131.7 252.3 0 0 FINDINGS Comparison:. 10/07/21. Increase in amount of soft plaque in the right CCA since the prior exam. Otherwise diffuse bilateral scattered calcified plaque and intimal thickening throughout the common carotid arteries and extending through the bifurcation. Antegrade vertebral arteries. CONCLUSIONS Bilateral ICA stenosis less than 50%. Increase in soft plaque right CCA. Dr. Jeannine Story DO (Electronically Signed) Final Date: 07 September 2022 15:04 S
== END 2022-09-07 12:16 | disposition home or self-care (01) ==
LOC: RAD 12:20
PROVIDERS: PCP Family Medicine; Visit Provider Thoracic Surgery (Cardiothoracic Vascular Surgery)
DX: I65.23 Occlusion and stenosis of bilateral carotid arteries (principal)
CPT/HCPCS: 93880

== ENCOUNTER → 2022-11-24 10:13 | Outpatient (BNVA) | payer MEDICARE, MEDICAID, SELFPAY | PROVIDERS: PCP Family Medicine; Visit Provider Thoracic Surgery (Cardiothoracic Vascular Surgery) | DX: Z98.890 Other specified postprocedural states (principal); F17.200 Nicotine dependence, unspecified, uncomplicated | CPT/HCPCS: 99213 ==

== ENCOUNTER 2023-07-18 13:14 | Outpatient (CLI) | payer OTHER, MEDICAID, SELFPAY ==
--- NOTE | 2023-07-18 13:23 | XR_ITS ---
WS: [id number] SCREENING DEXA SCAN [facility] CLINICAL INFORMATION: SCREENING FOR OSTEOPOROSIS COMPARISON: None. FINDINGS: The L1-L4 bone mineral density measures 1.114 g/cm2. This corresponds to a T score score of -0.6 and Z score of 1.3. Left femoral neck bone mineral density measures 1.003 g/cm2. This corresponds to a T score of 0.0 and Z score of 1.4. Right femoral neck bone mineral density measures 0.893 g/cm2. This corresponds to a T score -0.9of an d Z score of 0.5. Mean femoral neck bone mineral density measures 0.948 g/cm2. This corresponds to a T score of -0.5 an d Z score of 1.0. IMPRESSION: Normal bone mineralization. Patient's FRAX calculated 10 year probability for major osteoporotic fracture is 14.8% and osteoporot ic hip fracture is 2.8%.
== END 2023-07-18 13:15 | disposition home or self-care (01) ==
LOC: RAD 13:15
PROVIDERS: PCP Family Medicine; Visit Provider Nurse Practitioner Family
DX: Z13.820 Encounter for screening for osteoporosis (principal)
CPT/HCPCS: 77080

== ENCOUNTER 2023-07-26 08:44 | Outpatient (CLI) | payer OTHER, MEDICAID, SELFPAY ==
--- NOTE | 2023-07-26 08:50 | CT_ITS ---
WS: [id number] LDCT LUNG CANCER SCREENING HISTORY: HX OF TOBACCO USE/NICOTINE DEPENDENCE,CIGARETTES TECHNIQUE: Axial imaging performed from the apices to 1 cm below the costophrenic angles. Coronal and sagittal reformats are submitted with axial MIP series. All CT scans at [facility] use at least one of these dose optimization techniques: automated exposure control; mA and/or kV adjustment per patient size (includes targeted exams where dose is matched to clinical indication); or iterativ e reconstruction. DLP: 52.09 mGy.cm DIvol: Mean CTDIvol: 0.90 (mGy) COMPARISON: None available. Diagnostic quality: Satisfactory Lungs: Hyperexpanded lungs from emphysema. 7 mm nodule RIGHT upper lobe closely associated with the b ronchus. This is best seen on image 112 of series 4. There are a few additional small, noncalcified n odules towards the apex which are less than 4 mm. There are a few calcified granulomata also. Heart: Normal size heart with no pericardial effusion.. No pericardial effusion. Coronary artery calc ifications. Other findings: Small mediastinal and hilar lymph nodes. No adenopathy. No effusion. Small hiatal her sue. No adrenal mass. Prior cholecystectomy. IMPRESSION: CT/CT lung screening 99117 LUNG-RADS: 3-Probably Benign FOLLOW UP: 6 Month LDCT OTHER FINDINGS (S MODIFIER): None.
== END 2023-07-26 08:45 | disposition home or self-care (01) ==
LOC: RAD 08:45
PROVIDERS: PCP Family Medicine; Visit Provider Nurse Practitioner Family
DX: F17.210 Nicotine dependence, cigarettes, uncomplicated (principal)
CPT/HCPCS: 71271

== ENCOUNTER 2024-05-09 18:10 | Emergency (ER) | payer MEDICARE, MEDICAID, SELFPAY ==
[2024-05-09 19:06] VITALS: BP 131/52; PULSE 68; TEMP 36.7; O2SAT 92; BMI 23.8
--- NOTE | 2024-05-09 19:27 | XRR_ITS ---
PROCEDURE INFORMATION: Exam: XR Right Foot Exam date and time: 05/09/2024 7:36 PM Age: 69 years old Clinical indication: Pain; Foot; Right TECHNIQUE: Imaging protocol: Radiologic exam of the right foot. Views: 3 or more views. COMPARISON: No relevant prior studies available. FINDINGS: Bones/joints: Normal. Soft tissues: Normal. XR/XR foot RT min 3V* [id number] IMPRESSION: No acute findings.
--- NOTE | 2024-05-09 19:27 | USR_ITS ---
PROCEDURE INFORMATION: Exam: US Duplex Right Lower Extremity Veins, Limited Exam date and time: 05/09/2024 8:51 PM Age: 69 years old Clinical indication: Pain; Leg, lower; Right; Additional info: Atraumatic pain radiating proximally TECHNIQUE: Imaging protocol: Real-time duplex ultrasound of the right extremity with 2-D lawrence scale, color Doppler flow and spectral waveform analysis including responses to compression and other maneuvers (when performed) with image documentation. Limited exam was focused on the right lower extremity veins. COMPARISON: CR (LOW EXM, ) 05/09/2024 7:36 PM FINDINGS: Right deep veins: Unremarkable. The common femoral, femoral, proximal profunda femoral and popliteal veins are patent without thrombus. Normal Doppler waveforms. Normal compressibility and/or augmentation response. Visualized posterior tibial peroneal veins of the calf appear unremarkable. Superficial veins: Greater saphenous vein at the saphenofemoral junction is patent without thrombus. Soft tissues: Unremarkable. US/[place] [id number] IMPRESSION: No evidence of deep vein thrombosis.
--- NOTE | 2024-05-09 19:32 | ED_ITS ---
HPI - Extremity Problem General: Chief complaint: Extremity Problem,Nontraumatic Stated complaint: right foot is Time Seen by Provider: 05/09/24 19:05 Source: patient Mode of arrival: ambulatory Limitations: no limitations History of Present Illness: Patient is a 69-year-old female who presents to the emergency department complaining of atraumatic right lower extremity pain and numbness beginning today. She denies prolonged sedentary lifestyle, recent long trips, or other history of blood clots. She denies any injury or trauma. She states that she took an edible before coming in and this did improve her pain quite a bit, however when she was having pain it was reportedly debilitating. Pain is reported to be to the right dorsal foot, but does note that it seems to wrap around to her calf at 1 point and radiate up to the back of her right knee. She is also reporting swelling. She does have a history of atherosclerotic disease. She denies personal history of diabetes but states her A1c has been running high, has never been told she has neuropathy. MD Complaint: extremity pain and extremity swelling Onset (ago): hour(s) Location: right and lower extremity Radiation: proximal Exacerbating factors: range of motion Associated symptoms: Deny chest pain, fever(s) or rash Related Data Home Medications Medication Instructions Recorded Confirmed hydrochlorothiazide 25 mg tablet 25 mg PO DAILY 08/19/19 11/24/22 ibuprofen 600 mg tablet 600 mg PO Q8H PRN Pain 08/19/19 11/24/22 nitroglycerin 0.4 mg sublingual 0.4 mg sublingual Q5M PRN Chest 08/19/19 11/24/22 tablet (Nitrostat) Pain cetirizine 10 mg tablet (24Hour 10 mg PO DAILY 10/23/19 11/24/22 Allergy) metoprolol tartrate 25 mg tablet 25 mg PO DAILY 12/09/20 11/24/22 fluticasone 250 mcg-salmeterol 50 1 inh inhalation BID 01/01/21 11/24/22 mcg/dose blistr powdr for inhalation (Advair Diskus) Aspirin Low Dose 81 mg PO DAILY 01/06/21 11/24/22 alprazolam 0.5 mg tablet (Xanax) 0.5 mg PO BID PRN 10/28/21 11/24/22 albuterol sulfate 2.5 mg/3 mL 2.5 mg inhalation Q4H PRN 11/24/22 11/24/22 (0.083 %) solution for nebulization donepezil 10 mg tablet 10 mg PO DAILY 11/24/22 11/24/22 fluoxetine 20 mg capsule 20 mg PO DAILY 11/24/22 11/24/22 rosuvastatin 20 mg tablet 20 mg PO DAILY 11/24/22 11/24/22 Previous Rx's Medication Instructions Recorded diphenhydramine HCl 25 mg capsule 25 mg PO Q8H #3 caps 12/09/20 (Benadryl) isosorbide mononitrate 30 mg 15 mg (1/2 x 30 mg) PO DAILY #45 02/09/21 tablet,extended release 24 hr tabs ipratropium 20 mcg-albuterol 100 1 puff inhalation Q6H #4 grams 02/22/21 mcg/actuation mist for inhalation (Combivent Respimat) naproxen 500 mg tablet 500 mg PO BID PRN pain #30 tabs 05/09/24 Allergies Allergy/AdvReac Type Severity Reaction Status Date / Time nalbuphine [From N[place]] Allergy Unknown unknown Verified 05/09/24 19:15 shellfish derived Allergy Unknown unknown Verified 05/09/24 19:15 Iodinated Contrast Media Allergy thought I Verified 05/09/24 19:15 was going to Review of Systems General: Reports: 10 or more systems reviewed and unremarkable except in HPI and below Const: Denies: fever(s) or chills Card: Denies: chest pain Resp: Denies: dyspnea or productive cough GI: Denies: abdominal pain, nausea, vomiting or diarrhea : Denies: flank pain Musc: Reports: extremity pain and extremity swelling; Denies: neck pain, back pain, joint pain, joint swelling, joint redness, joint warmth, limited range of motion or muscle weakness Skin/Breast: Denies: rash Neuro: Denies: headache(s), numbness in extremities or weakness in extremities PFSH ED PFSH: Medical History Intermittent palpitations Carotid artery stenosis with cerebral infarction over 8 weeks ago History of CVA in 2008? [place] [facility] [place] smoked substance Chronic diastolic heart failure secondary to coronary artery disease Atherosclerotic heart disease of [place] coronary artery with angina pectoris The EKG done today showed sinus bradycardia with a rate of [address]-T changes. Mixed hyperlipidemia Benign essential HTN Dementia has appointment to see Neurology on September 12 Hyperthyroidism Heart attack Anxiety Congestive heart failure COPD (chronic obstructive pulmonary disease) ASHD (arteriosclerotic heart disease) Surgical History S/P carotid endarterectomy Hx of tonsillectomy History of appendectomy Hx of cholecystectomy History of heart artery stent H/O tubal ligation Family History Mother CAD (coronary artery disease) Lung disease Grandmother Cancer Dementia Stroke Diabetes Grandfather Cancer Family/Other Dementia Other Hyperlipidemia Hypertension Denies family history of Clotting disorder Chronic kidney disease (CKD) Suicide Anesthesia complication Bleeding disorder Social History Smoking and tobacco/nicotine status: current every day tobacco/nicotine user Alcohol intake: never Substance/Drug Use: never Physical Exam Const: COMMON NORMALS: no acute distress, patient oriented x3 and no limitations GENERAL APPEARANCE: cooperative, comfortable and well developed ORIENTATION/CONSCIOUSNESS: Yes awake, Yes oriented to person, Yes oriented to place and Yes oriented to time HENMT: COMMON NORMALS: normocephalic, atraumatic and hearing grossly normal bilaterally HEAD & SCALP: normocephalic and atraumatic Eye: COMMON NORMALS: Equal, round and reactive pupils present, EOMs intact bilaterally and conjunctivae normal CONJUNCTIVA: Yes conjunctivae normal PUPIL: Yes Equal, round and reactive pupils present Neck/C-Spine: COMMON NORMALS: full ROM, supple and no JVD Resp: COMMON NORMALS: normal respiratory effort, No retractions, No use of accessory muscles and clear to auscultation bilaterally AUSCULTATION: clear to auscultation bilaterally Cardio: COMMON NORMALS: no JVD, regular rate, regular rhythm, No clicks present (Cardio), No murmurs present (Cardio) and No rub (Cardio) RATE: regular rate RHYTHM: regular rhythm Extremity: COMMON NORMALS: normal to inspection, full ROM and capillary refill normal NARRATIVE EXTREMITY EXAM: Weak pulses bilaterally, very mild reproducible tenderness to palpation of the dorsum of the right foot. No significant calf tenderness to palpation, no swelling noted. Good strength. Endorsing some diminished sensation to the plantar aspect of the right foot. Neuro: COMMON NORMALS: patient oriented x3, moves all extremities and no focal motor deficits SENSORIUM/ORIENTATION: Yes oriented to person, Yes oriented to place and Yes oriented to time Psych: COMMON NORMALS: mental status grossly normal and Normal thought process present THOUGHT PROCESS: Normal thought process present Skin: COMMON NORMALS: no rashes or lesions noted GENERAL SKIN EXAM: no rashes or lesions noted Course Vital Signs: Vital signs: Vital Signs Temperature 98.1 F 05/09/24 19:06 Pulse Rate 59 L 05/09/24 21:30 Respiratory Rate 14 05/09/24 21:30 Blood Pressure 121/56 05/09/24 21:30 Pulse Oximetry 97 05/09/24 21:30 Oxygen Delivery Me thod Room Air 05/09/24 19:06 MDM - Extremity (Nontraumatic) Medical Decision Making Patient presenting with atraumatic right lower extremity pain. Ultrasound ruled out a clot, and her x-rays were negative. She does not have a history of diabetes, but does state that her last A1c was very high and she has been told she may have prediabetes. Cannot rule out that this is a peripheral neuropathy, though unlikely due to it being unilateral. She also noted a history of plantar fasciitis, no previous surgeries or fractures to the foot. She did report quite a bit of relief after taking an edible and essentially has been pain-free throughout the ED stay, so I informed her to follow-up with primary care for further evaluation. Does not seem to be any emergent cause of her pain at this time, but did give her return precautions. Lab Data Radiology Impressions Foot X-Ray 05/09/24 19:27 IMPRESSION: No acute findings. Venous Duplex 05/09/24 19:27 IMPRESSION: No evidence of deep vein thrombosis. All radiology interpretation(s) finalized by discharge Discharge Plan Discharge Patient Disposition: Home Clinical Impression: Acute pain of right lower extremity Condition: Stable Prescriptions: New naproxen 500 mg tablet 500 mg PO BID PRN (Reason: pain) Qty: 30 0RF No Action cetirizine [24Hour Allergy] 10 mg tablet 10 mg PO DAILY alprazolam [Xanax] 0.5 mg tablet 0.5 mg PO BID PRN hydrochlorothiazide 25 mg tablet 25 mg PO DAILY ibuprofen 600 mg tablet 600 mg PO Q8H PRN (Reason: Pain) nitroglycerin [Nitrostat] 0.4 mg tablet, sublingual 0.4 mg SUBLINGUAL Q5M PRN (Reason: Chest Pain) metoprolol tartrate 25 mg tablet 25 mg PO DAILY fluticasone propion-salmeterol [Advair Diskus] 250-50 mcg/dose blister with device 1 inh inhalation BID rosuvastatin 20 mg tablet 20 mg PO DAILY donepezil 10 mg tablet 10 mg PO DAILY fluoxetine 20 mg capsule 20 mg PO DAILY albuterol sulfate 2.5 mg /3 mL (0.083 %) solution for nebulization 2.5 mg inhalation Q4H PRN diphenhydramine HCl [Benadryl] 25 mg capsule 25 mg PO Q8H Qty: 3 0RF Rx Instructions: Take 1 capsule by mouth every 8 hrs x 3 doses prior to CTA head/neck isosorbide mononitrate 30 mg tablet extended release 24 hr 15 mg PO DAILY Qty: 45 3RF Combivent Respimat 20-100 mcg/actuation mist 1 puff INHALATION Q6H Qty: 4 3RF Aspirin Low Dose 81 mg PO DAILY Discharge Orders: Discharge ED (Routine); Ordered 05/09/24 Ordered By: Storm Quiroz Referrals: Dae Singh Jr, MD [Primary Care Provider] - Patient Instructions: Pain Management Activity Restrictions/Additional Instructions: Take medications as prescribed. Continue your home medications. Elevate the extremity and apply ice/heat. Please follow-up with primary care as discussed for further evaluation. If you develop any shortness of breath, severe worsening of pain, or other symptoms please return for reevaluation. Coding Level of Care Code ED Vice President Of Development for Yuli Beauchamp
[2024-05-09 21:30] VITALS: BP 121/56; PULSE 59; RESP 14; O2SAT 97
== END 2024-05-09 21:27 | disposition home or self-care (01) ==
PROVIDERS: Emergency Provider Physician Assistant; PCP Family Medicine
DX: M79.661 Pain in right lower leg (principal); Z79.82 Long term (current) use of aspirin; I25.119 Atherosclerotic heart disease of native coronary artery with unspecified angina pectoris; I11.0 Hypertensive heart disease with heart failure; I50.32 Chronic diastolic (congestive) heart failure; Z72.0 Tobacco use; J44.9 Chronic obstructive pulmonary disease, unspecified
CPT/HCPCS: 73630; 93971; 99284

== ENCOUNTER 2024-10-27 16:20 | Inpatient (IN) | payer MEDICARE, MEDICAID, SELFPAY ==
[2024-10-27] VITALS (24 sets, daily range): BP systolic 100–163; BP diastolic 40–72; PULSE 60–83; RESP 12–25; TEMP 36.4; O2SAT 88–99; BMI 29.2
--- NOTE | 2024-10-27 16:24 | XRR_ITS ---
PROCEDURE INFORMATION: Exam: XR Chest Exam date and time: 10/27/2024 5:05 PM Age: 69 years old Clinical indication: Shortness of breath; Respiratory failure; Possible sepsis TECHNIQUE: Imaging protocol: Radiologic exam of the chest. Views: 1 view. COMPARISON: CT lung screening [id number] 07/26/2023 9:05 AM FINDINGS: Lungs: Unremarkable. No consolidation or mass. Pleural spaces: Unremarkable. No pleural effusion. No pneumothorax. Heart/Mediastinum: Unremarkable. No cardiomegaly. Bones/joints: Unremarkable. XR/XR chest 1V portable [id number] IMPRESSION: No acute findings.
[2024-10-27 16:26] LABS: Glucose Point of Care 225 mg/dL (70-110)
--- NOTE | 2024-10-27 16:27 | W.ED.SOB ---
HPI - SOB/Dyspnea General: Chief Complaint: Shortness of Breath/Dyspnea Stated Complaint: unresponsive Time Seen by Provider: 10/27/24 16:24 History of Present Illness: HPI Narrative: 69-year-old female brought in from [facility] by EMS. EMS reports that staff had noticed she was short of breath. When they went to check on her later, she was reportedly unconscious. When EMS arrived, she was minimally responsive but breathing and had a pulse. They report that she had V. tach when they arrived. They have 150 mg of amiodarone hanging. The patient appeared obtunded coming into the emergency department but as soon as we got her to the room, a single sternal rub woke her up and she was able to maintain a sitting position. She reports she feels nauseated and feels like she is going to vomit. She reports she does have a headache. She has a significant amount of crackles and increased work of breathing with accessory muscle usage. Her oxygenation is actually 97% on room air. She does have a long smoking history. Over the 15-minute transport, EMS says she never said a word. They had her on a nonrebreather mask on arrival. They do not have any rhythm strips capturing the V. tach. They state that the monitor alarmed for V. tach and she seemed to get weaker all of a sudden. They were getting out CPR equipment anticipating a code but she never lost her pulse. Therefore they initiated amiodarone (she's gotten about 75mg). On arrival, she's in NSR. Pt does have dementia and is in memory care unit. Related Data Home Medications ?Medication ?Instructions ?Recorded ?Confirmed hydrochlorothiazide 25 mg tablet 25 mg PO DAILY 08/19/19 11/24/22 ibuprofen 600 mg tablet 600 mg PO Q8H PRN Pain 08/19/19 11/24/22 nitroglycerin 0.4 mg sublingual 0.4 mg sublingual Q5M PRN Chest 08/19/19 11/24/22 tablet (Nitrostat) Pain cetirizine 10 mg tablet (24Hour 10 mg PO DAILY 10/23/19 11/24/22 Allergy) metoprolol tartrate 25 mg tablet 25 mg PO DAILY 12/09/20 11/24/22 fluticasone 250 mcg-salmeterol 50 1 inh inhalation BID 01/01/21 11/24/22 mcg/dose blistr powdr for inhalation (Advair Diskus) Aspirin Low Dose 81 mg PO DAILY 01/06/21 11/24/22 alprazolam 0.5 mg tablet (Xanax) 0.5 mg PO BID PRN 10/28/21 11/24/22 albuterol sulfate 2.5 mg/3 mL 2.5 mg inhalation Q4H PRN 11/24/22 11/24/22 (0.083 %) solution for nebulization donepezil 10 mg tablet 10 mg PO DAILY 11/24/22 11/24/22 fluoxetine 20 mg capsule 20 mg PO DAILY 11/24/22 11/24/22 rosuvastatin 20 mg tablet 20 mg PO DAILY 11/24/22 11/24/22 Previous Rx's ?Medication ?Instructions ?Recorded diphenhydramine HCl 25 mg capsule 25 mg PO Q8H #3 caps 12/09/20 (Benadryl) isosorbide mononitrate 30 mg 15 mg (1/2 x 30 mg) PO DAILY #45 02/09/21 tablet,extended release 24 hr tabs ipratropium 20 mcg-albuterol 100 1 puff inhalation Q6H #4 grams 02/22/21 mcg/actuation mist for inhalation (Combivent Respimat) naproxen 500 mg tablet 500 mg PO BID PRN pain #30 tabs 05/09/24 Allergies Allergy/AdvReac Type Severity Reaction Status Date / Time nalbuphine (From Nubain) Allergy Unknown unknown Verified 05/09/24 19:15 shellfish derived Allergy Unknown unknown Verified 05/09/24 19:15 Iodinated Contrast Media Allergy thought I Verified 05/09/24 19:15 was going to Review of Systems General: Reports: ROS unobtainable due to medical condition (resp distress) and ROS unobtainable due to mental status (dementia) PFSH ED PFSH: Medical History Intermittent palpitations Carotid artery stenosis with cerebral infarction over 8 weeks ago History of CVA in 2008? [place] [facility] [place] of [place] substance Chronic diastolic heart failure secondary to coronary artery disease Atherosclerotic heart disease of [place] coronary artery with angina pectoris The EKG done today showed sinus bradycardia with a rate of [address]-T changes. Mixed hyperlipidemia Benign essential HTN Dementia has appointment to see Neurology on September 12 Hyperthyroidism Heart attack Anxiety Congestive heart failure COPD (chronic obstructive pulmonary disease) ASHD (arteriosclerotic heart disease) Surgical History S/P carotid endarterectomy Hx of tonsillectomy History of appendectomy Hx of cholecystectomy History of heart artery stent H/O tubal ligation Family History Mother CAD (coronary artery disease) Lung disease Grandmother Cancer Dementia Stroke Diabetes Grandfather Cancer Family/Other Dementia Other Hyperlipidemia Hypertension Denies family history of Clotting disorder Chronic kidney disease (CKD) Suicide Anesthesia complication Bleeding disorder Social History Smoking and tobacco/nicotine status: current every day tobacco/nicotine user Alcohol intake: never Substance/Drug Use: never Physical Exam Narrative: EXAM NARRATIVE: Patient appeared unconscious originally coming into the emergency department. I gave her a single rub on the sternum and she woke up. She is now maintaining a seated position by herself and moving all extremities. She does know her name and that she is in the hospital. Her skin is warm, flushed, clammy. Her pupils are equal and round. Her heart rate is in the 80s and feels regular. She has increased work of breathing with respiratory distress, accessory muscle use, prolonged expiratory phase, crackles. There is a small amount of JVD. No significant peripheral edema. No calf tenderness or swelling. Const: COMMON NORMALS: no limitations and well nourished HENMT: COMMON NORMALS: normocephalic, atraumatic and external ears normal HEAD & SCALP: normocephalic and atraumatic EXTERNAL EAR: Yes external ears normal MOUTH: no muffled voice Eye: COMMON NORMALS: conjunctivae normal and no scleral icterus CONJUNCTIVA: Yes conjunctivae normal Neck/C-Spine: GENERAL: Yes normal visual inspection and Yes trachea midline Cardio: COMMON NORMALS: regular rate and regular rhythm RATE: regular rate RHYTHM: regular rhythm GI: COMMON NORMALS: Soft to palpation and non-tender PALPATION: Yes Soft to palpation and No Guarding due to palpation present (GI) Extremity: COMMON NORMALS: normal to inspection Neuro: COMMON NORMALS: moves all extremities, no focal motor deficits and no sensory deficits noted SPEECH: speech normal Skin: COMMON NORMALS: no rashes or lesions noted, turgor normal and no jaundice GENERAL SKIN EXAM: no rashes or lesions noted and turgor normal Course Vital Signs: Vital signs: Vital Signs Temperature 97.6 F 10/27/24 16:25 Pulse Rate 63 10/27/24 18:00 Respiratory Rate 14 10/27/24 18:00 Blood Pressure 104/51 10/27/24 18:00 Pulse Oximetry 89 L 10/27/24 18:00 Oxygen Delivery Me thod BiPAP 10/27/24 17:15 Oxygen Flow Rate 3 10/27/24 16:25 Fraction of Inspir ed Oxygen 40 10/27/24 17:50 MDM - SOB/Dyspnea Medical Decision Making Differential diagnosis includes hypoxia, hypercapnia, arrhythmia, CHF, pneumonia, respiratory distress, pulmonary hypertension, pericardial effusion, pleural effusion, pneumothorax, sepsis, large differential diagnosis. EKG obtained at 1624 shows sinus rhythm, rate 78, QRS 89 ms, normal axis, QTc within normal limits, no concerning ST segment elevations, some minimal concave upward ST depressions CT head without was obtained due to the loss of consciousness. No subarachnoid hemorrhage visualized. I do not see any acute disease. Radiology to over read. Chest x-ray 1 view. EP interpretation. Not hyperexpanded. No infiltrates. No pneumothorax. No pulmonary edema. No effusions. D-dimer slightly elevated. CT angiogram of the chest was performed. EP interpretation. I do not see any pulmonary emboli. Minimal dependent atelectasis right lower lung. I did not see any sign of pneumonia. White blood cell count is normal, hemoglobin normal, platelets normal. ABG after about 45 minutes of BiPAP still showed a respiratory acidosis. Patient ended up needing supplemental oxygen soon after arrival. It was like she was hyperoxygenated and as that resolved, she needed more supplemental oxygen. She was up to 50% FiO2 on her BiPAP for a while and it is being reduced as tolerated. Anion gap is 25.6 with a normal bicarb. The glucose is elevated at 205. Unlikely DKA. More likely to be metabolic acidosis from the elevated lactate. Lactate level is 5.6. Patient did have altered mental status. The working diagnosis at this point is that the patient had hypoxia and hypercapnia that led to her altered mental status. She has transaminitis. We do not have any old LFTs. Her T. bili is normal; it is not an obstructive process. I am guessing that she had low perfusion. There is also the question of whether she had V. tach. This certainly would have caused a lactic acidosis and potentially shock liver. Patient's troponin was not significantly elevated. Her urine did have some white blood cells and bacteria. Possible UTI but would be unlikely to be the cause of her symptoms today. She does not appear to be in heart failure. Therefore she was given IV fluid resuscitation for her lactate. I did order blood cultures. We are going to repeat her lactic after the IV fluids are finished. I discussed with Dr. Del Valle, hospitalist. At this time we are going to empirically cover her with antibiotics and admit her to the ICU while we are monitoring for any arrhythmias, underlying infection, treating for COPD exacerbation, correcting her on BiPAP, etc. Lab Data 10/27/24 16:37 10/27/24 16:37 Labs/Radiology: Radiology Impressions Chest X-Ray 10/27/24 16:24 IMPRESSION: No acute findings. Laboratory Results WBC 7.49 10^3/uL (3.29-11.43) 10/27/24 16:37 RBC 4.25 10^6/uL (3.85-5.65) 10/27/24 16:37 Hgb 12.20 g/dL (11.27-16.99) 10/27/24 16:37 Hct 39.1 % (36-47) 10/27/24 16:37 MCV 92.0 fl (85-98) 10/27/24 16:37 MCH 28.7 pg (27-33) 10/27/24 16:37 MCHC 31.2 g/dL (30-55) 10/27/24 16:37 RDW 17.7 % (12.1-15.1) H 10/27/24 16:37 Plt Count 303 10^3/cmm (157-399) 10/27/24 16:37 MPV 9.5 fL (7.4-10.4) 10/27/24 16:37 Neut % (Auto) 49.5 % 10/27/24 16:37 Lymph % (Auto) 31.0 % 10/27/24 16:37 Wells % (Auto) 8.7 % 10/27/24 16:37 Eos % (Auto) 9.2 % 10/27/24 16:37 Baso % (Auto) 1.2 % 10/27/24 16:37 Neut # (Auto) 3.71 10^3/uL (1.8-7.7) 10/27/24 16:37 Lymph # (Auto) 2.3 10^3/uL (0.8-4.8) 10/27/24 16:37 Wells # (Auto) 0.7 10^3/uL (0.2-0.9) 10/27/24 16:37 Eos # (Auto) 0.7 10^3/uL (0.0-0.8) 10/27/24 16:37 Baso # (Auto) 0.1 10^3/uL (0.0-0.1) 10/27/24 16:37 Nucleated RBC % (auto) 0 % 10/27/24 16:37 Nucleated RBCs # 0.0 /100WBC 10/27/24 16:37 PT 12.40 SECONDS (12.1-14.9) 10/27/24 16:37 INR 0.86 (0.8-1.2) 10/27/24 16:37 D-Dimer 0.86 ug/mLFEU (0-0.59) H 10/27/24 16:37 Specimen Type Arterial 10/27/24 16:58 Sample Site Brachial, right 10/27/24 16:58 ABG pH 7.29 (7.35-7.45) L 10/27/24 16:58 ABG pCO2 60.6 mmHg (35-45) H* 10/27/24 16:58 ABG pO2 81.8 mmHg (80.0-100.0) 10/27/24 16:58 ABG PO2/FiO2 Ratio 163 10/27/24 16:58 ABG HCO3 29.3 mmol/L (22-26) H 10/27/24 16:58 ABG O2 Saturation 94.3 10/27/24 16:58 ABG Base Excess 1.4 mmol/L (-2.0-2.0) 10/27/24 16:58 Boris Test N/a 10/27/24 16:58 A-a O2 Gradient 25.7 mmHg (5-10) H 10/27/24 16:58 Hematocrit 39.1 % (37-47) 10/27/24 16:58 Hgb O2 Saturation 92.6 % (95-100) L 10/27/24 16:58 Carboxyhemoglobin 0.8 %THgb (0.4-20.1) 10/27/24 16:58 Methemoglobin 1.0 % (0.4-1.5) 10/27/24 16:58 Total Hemoglobin 12.8 g/dL (12-16) 10/27/24 16:58 Sodium 137.0 mmol/L (131-143) 10/27/24 16:58 Potassium 3.7 mmol/L (3.5-5.0) 10/27/24 16:58 Glucose 147.0 mg/dL (70-115) H 10/27/24 16:58 Ionized Calcium 1.2 mmol/L (1.1-1.4) 10/27/24 16:58 O2 Delivery Device Bipap 10/27/24 16:58 FiO2 50.0 % 10/27/24 16:58 Pantograph Setter ID Amh 10/27/24 16:58 Sodium 137 mmol/L (136-145) 10/27/24 16:37 Potassium 4.6 mmol/L (3.5-5.1) 10/27/24 16:37 Chloride 94 mmol/L (98-107) L 10/27/24 16:37 Carbon Dioxide 22 mmol/L (22-29) 10/27/24 16:37 Anion Gap 25.6 (5-19) H 10/27/24 16:37 BUN 11 mg/dL (8-23) 10/27/24 16:37 Creatinine 1.1 mg/dL (0.5-0.9) H 10/27/24 16:37 GFR Calculation 49.5 mL/min (90-130) L 10/27/24 16:37 Glucose 205 mg/dL (65-115) H 10/27/24 16:37 POC Glucose 225 mg/dL (70-110) H 10/27/24 16:22 Calculated Osmolality 289 mOsm/kg (285-295) 10/27/24 16:37 Lactic Acid 5.6 mmol/L (0.5-2.2) H* 10/27/24 16:37 Calcium 9.3 mg/dL (8.5-10.5) 10/27/24 16:37 Phosphorus 8.5 mg/dL (2.5-4.5) H* 10/27/24 16:37 Magnesium 2.6 mg/dL (1.7-2.3) H 10/27/24 16:37 Total Bilirubin 0.3 mg/dL (0.15-1.2) 10/27/24 16:37 AST 91 U/L (0-32) H 10/27/24 16:37 ALT 152 U/L (0-33) H 10/27/24 16:37 Alkaline Phosphatase 137 U/L (35-105) H 10/27/24 16:37 Troponin T Baseline 11 ng/L (0-10) H 10/27/24 16:37 NT-Pro-B Natriuret Pep 541 pg/mL (0-125) H 10/27/24 16:37 Total Protein 7.1 g/dL (6.6-8.7) 10/27/24 16:37 Albumin 4.7 g/dL (3.5-5.2) 10/27/24 16:37 Globulin 2.4 g/dL (1.3-4.6) 10/27/24 16:37 Urine Color Yellow (Yellow) 10/27/24 17:35 Urine Appearance Clear (CLEAR) 10/27/24 17:35 Urine pH 6.0 (5-7) 10/27/24 17:35 Ur Specific [place] 1.017 (1.005-1.030) 10/27/24 17:35 Urine Protein 3+ (Negative) A 10/27/24 17:35 Urine Glucose (UA) 1+ (Normal) H 10/27/24 17:35 Urine Ketones Negative (Negative) 10/27/24 17:35 Urine Blood 1+ (Negative) A 10/27/24 17:35 Urine Nitrate Negative (Negative) 10/27/24 17:35 Urine Bilirubin Negative (Negative) 10/27/24 17:35 Urine Urobilinogen 0.2 mg/dL (Negative) 10/27/24 17:35 Ur Leukocyte Esterase Negative (Negative) 10/27/24 17:35 Urine RBC 0-2 /hpf (0-2) 10/27/24 17:35 Urine WBC 11-20 /hpf (0-5) H 10/27/24 17:35 Ur Squamous Epith Cells 6-10 /hpf (0-5) 10/27/24 17:35 Amorphous Sediment Not Reportable 10/27/24 17:35 Urine Bacteria 1+ /hpf (NONE) H 10/27/24 17:35 Hyaline Casts 11.57 /lpf 10/27/24 17:35 Coarse Granular Casts 5-10 /lpf H 10/27/24 17:35 XR interpretation done by ED provider, pending radiology final review Critical Care Time Critical Care Time: Critical Care Time: Yes Total Critical Care Time: 60 Attestation: This case had a high probability of a clinically significant, sudden, or life threatening deterioration of this patient's condition which required my full and direct attention, intervention and personal management. Patient had altered mental status, possible ventricular tachycardia, acute hypoxic hypercapnic respiratory failure Discharge Plan Discharge Patient Disposition: Admitted As Inpatient Admit Provider: Viraj Sarkar Clinical Impression: Altered level of consciousness, Acute respiratory failure with hypoxia and hypercapnia, COPD with acute exacerbation, Acidosis, lactic, Transaminitis, Abnormal urinalysis Condition: Stable Coding Level of Care Code ED Wrapper Rewinder for Yuli Beauchamp
--- NOTE | 2024-10-27 16:30 | ECG_ITS ---
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 Measurements Intervals [place] Rate: 78 P: 69 MA: 150 QRS: 76 QRSD: 89 T: 67 QT: 385 QTc: 440 Interpretive Statements SINUS RHYTHM LOW QRS VOLTAGE IN PRECORDIAL LEADS [QRS DEFLECTION < 1.0 mV IN CHEST LEADS] MINIMAL ST DEPRESSION [0.025+ mV ST DEPRESSION] INTERPRETATION BASED ON A DEFAULT AGE OF 40 YEARS Compared to ECG 01/01/2021 12:47:29 Low QRS voltage now present ST (T wave) deviation now present Electronically Signed On 10-30-2024 20:08:41 CDT by Jess Green M.D. [email or web address] [id number]
[2024-10-27] MEDS: ondansetron 2 mg/ML SDV 2 mL 4 MG IVP (16:42)
[2024-10-27] MEDS: ipratropium-albuterol 3 mL Neb INHALATION ×2 (16:45→21:12)
[2024-10-27 16:46] LABS: Basophils # 0.1 10^3/uL (0.0-0.1); Basophils % 1.2 %; Eosinophils # 0.7 10^3/uL (0.0-0.8); Eosinophils % 9.2 %; Hematocrit 39.1 % (36-47); Lymphocytes # 2.3 10^3/uL (0.8-4.8); Mean Corpuscular HGB Conc 31.2 g/dL (30-55); Mean Corpuscular Hemoglobin 28.7 pg (27-33); Mean Platelet Volume 9.5 fL (7.4-10.4); Monocytes # 0.7 10^3/uL (0.2-0.9); Monocytes % 8.7 %; Neutrophils # 3.71 10^3/uL (1.8-7.7); Neutrophils % 49.5 %; Nucleated Red Blood Cells % 0 %; Platelet Count 303 10^3/cmm (157-399); Red Blood Count 4.25 10^6/uL (3.85-5.65); Red Cell Distribution Width 17.7 % (12.1-15.1); White Blood Count 7.49 10^3/uL (3.29-11.43)
[2024-10-27 16:57] LABS: INR 0.86 (0.8-1.2)
[2024-10-27 17:02] LABS: Lactic Sepsis W/Reflex 5.6 mmol/L (0.5-2.2); Troponin(5th) Baseline 11 ng/L (0-10)
[2024-10-27 17:04] LABS: D Dimer 0.86 ug/mLFEU (0-0.59)
[2024-10-27 17:10] LABS: ABG PCO2 60.6 mmHg (35-45); ABG PH Result 7.29 (7.35-7.45); Alveolar-Arterial Oxygen Gradi 25.7 mmHg (5-10); Arterial Blood Gas Hematocrit 39.1 % (37-47); Base Excess ABG 1.4 mmol/L (-2.0-2.0); Blood Gas Operator Identificat AMH; Blood Gas Sample Site Brachial, right; Blood Gas Sample Type Arterial; Carboxyhemoglobin 0.8 %THgb (0.4-20.1); HCO3 ABG 29.3 mmol/L (22-26); HGB O2 Sat 92.6 % (95-100); Ionized Calcium Level - ABG 1.2 mmol/L (1.1-1.4); Oxygen Device BIPAP; Oxygen Saturation ABG 94.3; PO2 ABG 81.8 mmHg (80.0-100.0); PO2 FiO2 Ratio Arterial Blood 163; Potassium Level - ABG 3.7 mmol/L (3.5-5.0); Total Hemoglobin 12.8 g/dL (12-16)
[2024-10-27 17:14] LABS: Alanine Aminotransferase 152 U/L (0-33); Albumin Level 4.7 g/dL (3.5-5.2); Alkaline Phosphatase 137 U/L (35-105); Blood Urea Nitrogen 11 mg/dL (8-23); Calcium 9.3 mg/dL (8.5-10.5); Carbon Dioxide 22 mmol/L (22-29); Chloride 94 mmol/L (98-107); Creatinine Clr Calc Pharmacy 46.2946; Globulin 2.4 g/dL (1.3-4.6); Glomerular Filtration Rate 49.5 mL/min (90-130); Glucose 205 mg/dL (65-115); Magnesium 2.6 mg/dL (1.7-2.3); NT Pro B Type Natriuretic Pept 541 pg/mL (0-125); Osmolality Calculated 289 mOsm/kg (285-295); Sodium 137 mmol/L (136-145); Total Bilirubin 0.3 mg/dL (0.15-1.2); Total Protein 7.1 g/dL (6.6-8.7)
[2024-10-27 17:16] LABS: Anion Gap 25.6 (5-19); Aspartate Amino Transferase 91 U/L (0-32); Potassium 4.6 mmol/L (3.5-5.1)
[2024-10-27 17:17] LABS: Phosphorus 8.5 mg/dL (2.5-4.5)
[2024-10-27 17:28] LABS: Reflex Lactate Order REFLEX LACTIC ORDERD
--- NOTE | 2024-10-27 17:40 | CTR_ITS ---
PROCEDURE INFORMATION: Exam: CTA Chest With Contrast Exam date and time: 10/27/2024 6:13 PM Age: 69 years old Clinical indication: Shortness of breath; Additional info: Loc + resp failure TECHNIQUE: Imaging protocol: Computed tomographic angiography of the chest with contrast. Exam focused on the arteries. 3D rendering (Not supervised by radiologist): MIP and/or 3D reconstructed images were created by the technologist. Radiation optimization: All CT scans at this facility use at least one of these dose optimization techniques: automated exposure control; mA and/or kV adjustment per patient size (includes targeted exams where dose is matched to clinical indication); or iterative reconstruction. Contrast material: OMNIPAQUE 350; Contrast volume: 55 ml; Contrast route: INTRAVENOUS (IV); COMPARISON: CT lung screening [id number] 07/26/2023 9:05 AM RADIATION DOSE METRICS: Total DLP (mGy-cm): 1068.18 FINDINGS: Pulmonary arteries: Evaluation for pulmonary thromboembolism is limited beyond the segmental level due to respiratory motion. No evidence of PE. Aorta: No evidence of aneurysmal dilatation. Detailed evaluation for acute aortic abnormality is limited by the paucity of intraluminal contrast given tailoring of the exam for evaluation of PE. Thyroid: Grossly unremarkable. Lungs: No focal consolidation. Mild-moderate emphysematous changes. There is mild bronchial wall thickening bilaterally, particularly in the lower lobes as well as the posterior segment right upper lobe (for example, image 198 of series 6). Pleural spaces: No evidence of pleural effusion. No pneumothorax. Heart: No cardiomegaly. No pericardial effusion. Mediastinal space: No evidence of mediastinal mass, fluid collection or hematoma. Lymph nodes: Multiple raising mildly prominent mediastinal and hilar nodes, possibly reactive. Bones/joints: No evidence of acute fracture or aggressive osseous lesion. Soft tissues: No evidence of fluid collection or hematoma in the superficial soft tissues. Other findings: No evidence of acute abnormality in the upper abdomen. CT/CT angio chest PE protcl [id number] IMPRESSION: 1. No evidence of PE. 2. Bronchial wall thickening raising the question of bronchitis. There is focal irregular bronchial wall thickening in the posterior segment right upper lobe. Consider follow-up CT of the chest in 4-6 weeks to assess for improvement. 3. Emphysematous changes. The presence of pulmonary emphysema on CT is an independent risk factor for lung cancer. In the absence of a history or active diagnosis of lung cancer, it is recommended that this patient with emphysema be evaluated for enrollment in a low dose CT lung cancer screening program.
--- NOTE | 2024-10-27 17:40 | CTR_ITS ---
PROCEDURE INFORMATION: Exam: CT Head Without Contrast Exam date and time: 10/27/2024 6:11 PM Age: 69 years old Clinical indication: Altered mental status/memory loss; Confusion or disorientation; Additional info: AMS TECHNIQUE: Imaging protocol: Computed tomography of the head without contrast. Radiation optimization: All CT scans at this facility use at least one of these dose optimization techniques: automated exposure control; mA and/or kV adjustment per patient size (includes targeted exams where dose is matched to clinical indication); or iterative reconstruction. COMPARISON: CT angio headneck* [id number] 12/28/2020 11:01 AM RADIATION DOSE METRICS: Total DLP (mGy-cm): 289 FINDINGS: Brain: No evidence of intra-axial or extra-axial hemorrhage. No mass effect or midline shift. Focal right cerebellar hemispheric encephalomalacia. Vu-white differentiation is otherwise maintained. Basilar cisterns are patent. Cerebral ventricles: No hydrocephalus. Paranasal sinuses: The visualized paranasal sinuses are well aerated. Mastoid air cells: The visualized mastoids and middle ears are clear. Bones: Calvarium is intact. No evidence of acute fracture. Soft tissues: No gross soft tissue abnormality. CT/CT head wo con* [id number] IMPRESSION: 1. No acute intracranial abnormality.
[2024-10-27 17:41] LABS: Bilirubin Urine Negative (Negative); Blood Urine 1+ (Negative); Glucose Urine UA 1+ (Normal); Ketones Urine Negative (Negative); Leukocyte Esterase Urine Negative (Negative); Nitrate Urine Negative (Negative); Protein Urine 3+ (Negative); Specific Gravity, Urine 1.017 (1.005-1.030); Urine Appearance Clear (CLEAR); Urine Color Yellow (Yellow); Urobilinogen Urine 0.2 mg/dL (Negative)
[2024-10-27 17:43] LABS: Add Urine Microscopic? YES; Bacteria Urine 1+ /hpf; Hyaline Casts Urine 11.57 /lpf; RBC Urine 0-2 /hpf (0-2)
[2024-10-27 17:53] LABS: UA Slide Review UA Slide Review Perf
[2024-10-27 17:54] LABS: Add Urine Culture? Yes
[2024-10-27] MEDS: sodium chloride 0.9% 1,000 ML 999 ML IV ×2 (17:56→18:10)
[2024-10-27] MEDS: methylPREDNISolone sod succ 125 mg/2 mL INJ IVP (17:57)
[2024-10-27] MEDS: diphenhydrAMINE 50 mg/mL SDV 1mL 25 MG IVP (17:59)
[2024-10-27] MEDS: acetaminophen 1,000 MG/100 ML PIGGYBACK 400 MG IV (18:00)
[2024-10-27] MEDS: cefTRIAXone 2,000 mg SDV 2000 MG IVP (18:00)
[2024-10-27] MEDS: azithromycin 250 MG in sodium chloride 0.9% 250 ML IV (18:05)
[2024-10-27] MEDS: iohexol 350 mg/mL 500 mL Btl (per mL) IV (18:25)
--- NOTE | 2024-10-27 18:47 | ECG_ITS ---
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 Measurements Intervals [place] Rate: 64 P: 76 SC: 168 QRS: 75 QRSD: 90 T: 52 QT: 448 QTc: 464 Interpretive Statements SINUS RHYTHM NONSPECIFIC T-WAVE ABNORMALITY Compared to ECG 10/27/2024 16:24:48 T-wave abnormality now present ST (T wave) deviation no longer present Electronically Signed On 10-30-2024 20:01:40 CDT by Jess Green M.D. [id number] [id number]
[2024-10-27 18:52] LABS: Estmated Average Glucose 143; Hemoglobin A1C 6.6 % (4.0-6.0)
[2024-10-27 19:01] LABS: Troponin 5 2HR 36.89 ng/L (0-10)
[2024-10-27 19:06] LABS: Troponin 5 2HR Delta 25.89 ABS# (0-10)
[2024-10-27 19:08] LABS: Procalcitonin 0.08 ng/mL (0-0.5); Thyroid Stimulating Hormone 3.83 uIU/mL (0.27-4.20); Vitamin B12 555 pg/mL (232-1245)
[2024-10-27] MEDS: piperacillin-tazobactam 3.375 GM in sodium chloride 0.9% (plus) 50 ML IV (19:12)
[2024-10-27] MEDS: heparin 5,000 unit/mL INJ 1 mL 5000 UNIT SUBCUT (19:13)
[2024-10-27] MEDS: pantoprazole 40 mg SDV IVP (19:13)
--- NOTE | 2024-10-27 19:14 | PM.HP ---
Providers/Chief Complaint Admitting Physician: Viraj Sarkar MD Primary Care Provider: Dae Singh Jr, MD Chief Complaint: unresponsive History of Present Illness Eda Gann is a 69 year old female with past medical history of advanced dementia, intermediate resident, COPD, hypertension, carotid artery stenosis post enterectomy, Hypothyroidism, diastolic congestive heart failure presents to the ER from intermediate today because of altered mental status. As per the report from the nursing staff at intermediate she was reportedly unconscious. When EMS arrived she was minimally responsive but was able to maintain her airway. Apparently en route patient had an episode of V. tach. She was started on 150 of amiodarone. On presentation to the ER patient was somnolent but responded and woke up to sternal rub and was able to sit up by herself. She reported nausea, vomiting, difficulty in breathing and headache. In the ER she was found to be in normal sinus rhythm. ABG showed hypercapnia so patient was placed on BiPAP. Currently on examination patient is on BiPAP, waking up to verbal stimulus but not able to have conversation. Review of Systems General: Reports: ROS unobtainable due to mental status Medications/Allergies Home Medications ?Medication ?Instructions ?Recorded ?Confirmed ?Last Taken ?Type hydrochlorothiazide 25 mg tablet 25 mg PO DAILY 08/19/19 11/24/22 01/05/21 History ibuprofen 600 mg tablet 600 mg PO Q8H PRN Pain 08/19/19 11/24/22 01/05/21 History nitroglycerin 0.4 mg sublingual 0.4 mg sublingual Q5M PRN Chest 08/19/19 11/24/22 Unknown History tablet (Nitrostat) Pain cetirizine 10 mg tablet (24Hour 10 mg PO DAILY 10/23/19 11/24/22 01/05/21 History Allergy) diphenhydramine HCl 25 mg capsule 25 mg PO Q8H #3 caps 12/09/20 11/24/22 Unknown Rx (Benadryl) metoprolol tartrate 25 mg tablet 25 mg PO DAILY 12/09/20 11/24/22 01/06/21 08:00 History fluticasone 250 mcg-salmeterol 50 1 inh inhalation BID 01/01/21 11/24/22 01/05/21 History mcg/dose blistr powdr for inhalation (Advair Diskus) Aspirin Low Dose 81 mg PO DAILY 01/06/21 11/24/22 01/06/21 08:00 History isosorbide mononitrate 30 mg 15 mg (1/2 x 30 mg) PO DAILY #45 02/09/21 11/24/22 Unknown Rx tablet,extended release 24 hr tabs ipratropium 20 mcg-albuterol 100 1 puff inhalation Q6H #4 grams 02/22/21 11/24/22 Unknown Rx mcg/actuation mist for inhalation (Combivent Respimat) alprazolam 0.5 mg tablet (Xanax) 0.5 mg PO BID PRN 10/28/21 11/24/22 Unknown History albuterol sulfate 2.5 mg/3 mL 2.5 mg inhalation Q4H PRN 11/24/22 11/24/22 Unknown History (0.083 %) solution for nebulization donepezil 10 mg tablet 10 mg PO DAILY 11/24/22 11/24/22 Unknown History fluoxetine 20 mg capsule 20 mg PO DAILY 11/24/22 11/24/22 Unknown History rosuvastatin 20 mg tablet 20 mg PO DAILY 11/24/22 11/24/22 Unknown History naproxen 500 mg tablet 500 mg PO BID PRN pain #30 tabs 05/09/24 Unknown Rx Allergies Allergy/AdvReac Type Severity Reaction Status Date / Time nalbuphine (From Nubain) Allergy Unknown unknown Verified 05/09/24 19:15 shellfish derived Allergy Unknown unknown Verified 05/09/24 19:15 Iodinated Contrast Media Allergy thought I Verified 05/09/24 19:15 was going to PFSH Acute PFSH: Medical History (Updated 10/27/24 @ 22:45 by Viraj Sarkar MD) Intermittent palpitations Carotid artery stenosis with cerebral infarction over 8 weeks ago History of CVA in 2008? came to [facility] Abuse of smoked substance Chronic diastolic heart failure secondary to coronary artery disease Atherosclerotic heart disease of [place] coronary artery with angina pectoris The EKG done today showed sinus bradycardia with a rate of [address]-T changes. Mixed hyperlipidemia Benign essential HTN Dementia has appointment to see Neurology on September 12 Hyperthyroidism Heart attack Anxiety Congestive heart failure COPD (chronic obstructive pulmonary disease) ASHD (arteriosclerotic heart disease) Surgical History (Updated 10/27/24 @ 22:45 by Viraj Sarkar MD) History of surgery on wrist S/P carotid endarterectomy Hx of tonsillectomy History of appendectomy Hx of cholecystectomy History of heart artery stent H/O tubal ligation Family History Mother CAD (coronary artery disease) Lung disease Grandmother Cancer Dementia Stroke Diabetes Grandfather Cancer Family/Other Dementia Other Hyperlipidemia Hypertension Denies family history of Clotting disorder Chronic kidney disease (CKD) Suicide Anesthesia complication Bleeding disorder Social History Smoking and tobacco/nicotine status: current every day tobacco/nicotine user Alcohol intake: never Substance/Drug Use: never Vitals/I&O/Wt Last Vital Signs Temp 97.6 F 10/27/24 16:25 Pulse 80 10/27/24 18:56 Resp 14 10/27/24 18:00 BP 117/57 10/27/24 18:56 Pulse Ox 91 10/27/24 18:56 O2 Del Method BiPAP 10/27/24 17:15 O2 Flow Rate 3 10/27/24 16:25 FiO2 40 10/27/24 17:50 10/27/24 10/27/24 10/27/24 06:59 14:59 22:59 Intake Total 333.1 / 333.1 Balance 333.1 / 333.1 Weight last 48 hrs Weight 72.575 kg Physical Exam Narrative: General: No acute distress on BiPAP ventilation HEENT: PERRLA, pupils bilaterally equal and reactive Chest: Bronchial breath sounds all over lung [place] with occasional rhonchi, coarse crackles present bilaterally right more than left mostly in lower zone CVS: S1-S2 regular, no murmurs, no tachycardia, no gallops, no rubs Abdomen: Soft, nontender, no organomegaly, bowel sounds present Neuro: No focal deficits, no facial deformity, moving all limbs on BiPAP Data 10/27/24 16:37 10/27/24 16:37 Micro: Microbiology 10/27/24 17:11 Blood Culture - Preliminary Blood SPECIMEN COLLECTED 10/27/24 16:37 Blood Culture - Preliminary Blood SPECIMEN COLLECTED A&P Assessment and plan (1) Acute respiratory failure with hypoxia and hypercapnia: (2) Altered mental status: (3) COPD with acute exacerbation: (4) Chronic diastolic heart failure secondary to coronary artery disease: (5) Benign essential HTN: (6) Arrhythmia: (7) Transaminitis: Plan 69-year-old female with past medical history of COPD, chronic smoker, CAD, diastolic heart failure was sent into the ER from [facility] today because of altered mental status, decreased responsiveness was found to have possible arrhythmia en route to the ER and found to be in hypercapnic hypoxic respiratory failure. Acute hypoxic and hypercapnic respiratory failure: Most likely in setting of COPD exacerbation. Cannot rule out mild diastolic heart failure. D-dimer mildly elevated. Associated with respiratory acidosis. Continue with BiPAP ventilation for now. Repeat ABG in 2 hours. Check CTA given D-dimer elevated to rule out PE, pneumonia. Check sputum culture, blood culture, MRSA swab, respiratory viral panel. Empirically start patient on IV Zosyn for now. If MRSA swab positive will add vancomycin. Solu-Medrol 40 mg every 6 hourly. DuoNeb every 6 hour, Pulmicort twice daily. Patient received 1 L of IV fluid bolus in the ER. Hold off on fluids. Check echocardiogram. Strict input output charting, daily weights. Fluid restriction to less than 1500 cc. Arrhythmia: Possible arrhythmia though no rhythm strips available. Does have occasional VPC. Currently normal sinus rhythm. Check troponin cycle. Echocardiogram as above. If troponin cycled positive or echocardiogram shows regional wall motion normality will start on heparin drip. Monitor electrolytes. Maintain potassium around 4, magnesium around 2. Telemetry. Transaminitis: Unknown cause. Check liver ultrasound, hepatitis panel. Could be in setting of congestive heart failure. CODE STATUS: Full code as per paperwork. NPO. Heparin for DVT prophylaxis. Protonix or PUD prophylaxis. PDMP PDMP Reviewed: Not Reviewed Attestations Medical Necessity Statement*: Admission for more than 2 midnights for management of acute on chronic hypoxic and hypercapnic respiratory failure in setting of COPD exacerbation, altered mental status, arrhythmia Critical Care Time: The high probability of a clinically significant, sudden or life threatening deterioration of the patient's [pulmonary, cardiac] system(s) required my full and direct attention, intervention and personal management. The critical care time is as shown. This time is in addition to time spent performing any reported procedures but includes the following: [x] Data and vital sign review and interpretation [x] Patient assessment, examination and intervention [x] Documentation [x] Medication orders and management Critical Care Time (min): 80 Coding Level of Care Code Acute Code for Chg Fwd Diagnoses Acute respiratory failure with hypoxia and hypercapnia J96.01; J96.02 Altered mental status R41.82 COPD with acute exacerbation J44.1 Chronic diastolic heart failure secondary to coronary artery disease I50.32; I25.10 Benign essential HTN I10 Arrhythmia I49.9 Transaminitis R74.01
[2024-10-27 19:19] LABS: Iron 73 ug/dL (37-145)
[2024-10-27 19:26] LABS: Total Iron Binding Capacity 424.00001 mcg/dl; Unsaturated Iron Binding > 351 ug/dL (112-347)
[2024-10-27 19:58] LABS: Hepatitis A Antibody IgM Non-Reactive (Nonreactive); Hepatitis B Core AB, Total Non-Reactive (Nonreactive); Hepatitis B Surface AB < 3.5 (11.5-1000); Hepatitis B Surface Antigen Non-Reactive (Nonreactive); Hepatitis C Virus Antibody Non-Reactive (Nonreactive)
[2024-10-27 20:19] LABS: Lactic Acid level (Lactate) 3.4 mmol/L (0.5-2.2)
[2024-10-27 20:22] LABS: Glucose Point of Care 128 mg/dL (70-110)
[2024-10-27] MEDS: heparin drip 25,000 UNIT/500 ML PREMIX 18 UNIT IV (21:02)
[2024-10-27 21:27] LABS: ABG PCO2 54.4 mmHg (35-45); ABG PH Result 7.27 (7.35-7.45); Base Excess ABG -2.3 mmol/L (-2.0-2.0); Blood Gas Allen Test Pos; Blood Gas Operator Identificat JDB; Blood Gas Sample Site Radial, right; Blood Gas Sample Type Arterial; Carboxyhemoglobin 0.9 %THgb (0.4-20.1); HGB O2 Sat 93.3 % (95-100); Ionized Calcium Level - ABG 1.1 mmol/L (1.1-1.4); Oxygen Device NC; Oxygen Saturation ABG 95.1; Potassium Level - ABG 3.5 mmol/L (3.5-5.0); Total Hemoglobin 10.4 g/dL (12-16)
[2024-10-27 22:52] LABS: Troponin 5 6HR 70.86 ng/L (0-10)
[2024-10-27 22:55] LABS: Troponin 5 6HR Delta 59.86 ng/L (0-12)
[2024-10-27 23:09] LABS: Amphetamines Screen Urine Negative (Negative); Barbiturates Screen Urine Negative (Negative); Benzodiazepines Screen Urine Positive (Negative); Cocaine Screen Urine Negative (Negative); Opiate Screen Urine Positive (Negative); PCP Screen Urine Negative (Negative); THC Screen Urine Positive (Negative)
[2024-10-27 23:19] LABS: MRSA PCR OZH (swab) MRSA Detected (Not Detecte)
--- NOTE | 2024-10-27 23:33 | ECG_ITS ---
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 Measurements Intervals [place] Rate: 63 P: 79 IN: 177 QRS: 76 QRSD: 90 T: 89 QT: 435 QTc: 448 Interpretive Statements SINUS RHYTHM NONSPECIFIC ST & T-WAVE ABNORMALITY Compared to ECG 10/27/2024 18:47:49 No significant changes Electronically Signed On 10-30-2024 20:00:28 CDT by Jess Green M.D. [email or web address]
[2024-10-27 23:46] LABS: Adenovirus Not Detected (NOT DETECT); Chlamydia Pneumoniae Not Detected (NOT DETECT); Coronavirus 229E,HKU1,NL63,OC4 Not Detected (NOT DETECT); Human Metapneumovirus Not Detected (NOT DETECT); Human Rhinovirus/Enterovirus Detected (NOT DETECT); Influenza A Not Detected (NOT DETECT); Influenza A H1 Not Detected (NOT DETECT); Influenza A H1-2009 Not Detected (NOT DETECT); Influenza A H3 Not Detected (NOT DETECT); Influenza B Not Detected (NOT DETECT); Mycoplasma Pneumoniae Not Detected (NOT DETECT); Parainfluenza Virus Type 1 Not Detected (NOT DETECT); Parainfluenza Virus Type 2 Not Detected (NOT DETECT); Parainfluenza Virus Type 3 Not Detected (NOT DETECT); Parainfluenza Virus Type 4 Not Detected (NOT DETECT); Respiratory Syncytial Virus A Not Detected (NOT DETECT); Respiratory Syncytial Virus B Not Detected (NOT DETECT); SARS-COV-2 Not Detected (NOT DETECT)
[2024-10-28] VITALS (56 sets, daily range): BP systolic 95–141; BP diastolic 36–61; PULSE 60–86; RESP 0–30; TEMP 36.4–37; O2SAT 78–99
[2024-10-28] MEDS: methylPREDNISolone sod succ 40 mg/mL INJ IVP ×4 (00:44→17:57)
[2024-10-28 00:58] LABS: Glucose Point of Care 161 mg/dL (70-110)
[2024-10-28] MEDS: insulin lispro 100 unit/1 mL SUBCUT ×4 (01:14→21:15)
[2024-10-28] MEDS: ipratropium-albuterol 3 mL Neb INHALATION ×4 (02:51→19:15)
[2024-10-28 04:37] LABS: Basophils % 0.1 %; Eosinophils % 0.1 %; Hematocrit 32.9 % (36-47); Lymphocytes # 0.5 10^3/uL (0.8-4.8); Mean Corpuscular HGB Conc 32.2 g/dL (30-55); Mean Corpuscular Volume 89.9 fl (85-98); Mean Platelet Volume 9.7 fL (7.4-10.4); Monocytes # 0.1 10^3/uL (0.2-0.9); Monocytes % 1.1 %; Neutrophils # 8.34 10^3/uL (1.8-7.7); Nucleated Red Blood Cells % 0 %; Platelet Count 265 10^3/cmm (157-399); Red Blood Count 3.66 10^6/uL (3.85-5.65); Red Cell Distribution Width 17.5 % (12.1-15.1); White Blood Count 8.97 10^3/uL (3.29-11.43)
[2024-10-28] MEDS: piperacillin-tazobactam 3.375 GM in sodium chloride 0.9% (plus) 50 ML IV ×3 (04:40→17:55)
[2024-10-28 04:55] LABS: Alanine Aminotransferase 108 U/L (0-33); Albumin Level 3.9 g/dL (3.5-5.2); Alkaline Phosphatase 88 U/L (35-105); Anion Gap 16.8 (5-19); Aspartate Amino Transferase 45 U/L (0-32); Blood Urea Nitrogen 12 mg/dL (8-23); Calcium 7.8 mg/dL (8.5-10.5); Carbon Dioxide 22 mmol/L (22-29); Chloride 100 mmol/L (98-107); Chol HDL Ratio 1.97 mg/dL (0.0-4.40); Cholesterol 136 mg/dL (0-200); Creatinine Clr Calc Pharmacy 53.6809; Globulin 2.4 g/dL (1.3-4.6); Glomerular Filtration Rate 62.5 mL/min (90-130); Glucose 158 mg/dL (65-115); HDL Cholesterol 69 mg/dL (60-100); LDL Cholesterol Calculated 59 mg/dL (50-129); LDL HDL Ratio 0.86 RATIO (0.00-3.22); Magnesium 1.9 mg/dL (1.7-2.3); Osmolality Calculated 283 mOsm/kg (285-295); Phosphorus 2.7 mg/dL (2.5-4.5); Potassium 3.8 mmol/L (3.5-5.1); Sodium 135 mmol/L (136-145); Total Bilirubin 0.2 mg/dL (0.15-1.2); Total Protein 6.3 g/dL (6.6-8.7); Triglycerides 38 mg/dL (0-150)
[2024-10-28 04:56] LABS: Partial Thromboplastin Time 93.5 SECONDS (23.9-36.7)
[2024-10-28 05:02] LABS: Procalcitonin 0.42 ng/mL (0-0.5)
[2024-10-28 06:02] LABS: Folate Level 12.5 ng/mL (4.8-37.3)
[2024-10-28] MEDS: morphine 4 mg/mL SDV 1 mL 2 MG IVP ×4 (07:22→21:16)
[2024-10-28 08:13] LABS: Glucose Point of Care 158 mg/dL (70-110)
[2024-10-28] MEDS: aspirin 81 mg EC Tablet PO (09:02)
[2024-10-28] MEDS: budesonide 0.5 mg/2 mL Neb INHALATION ×2 (09:50→19:15)
[2024-10-28 11:11] LABS: HIV 1 & 2 Antibody Non-Reactive (Non-Reactiv); HIV 1 & 2 Antigen Non-Reactive (Non-Reactiv)
[2024-10-28 11:13] LABS: Hepatitis C Virus Antibody Non-Reactive (Nonreactive)
[2024-10-28 11:14] LABS: Hepatitis B Surface Antigen Non-Reactive (Nonreactive)
[2024-10-28 11:22] LABS: Glucose Point of Care 158 mg/dL (70-110)
--- NOTE | 2024-10-28 12:15 | P.PN_ITS ---
Subjective 2 Subjective: Patient was seen this morning, she is alert oriented x 3, following all commands, denies any fevers, chills, no cough she does report a history of CAD status post stenting, no chest pain this morning, discussed events resulting in hospitalization, currently denies any palpitations Vitals/I&O/Wt Last Vital Signs Temp 97.6 F 10/28/24 08:30 Pulse 75 10/28/24 09:50 Resp 14 10/28/24 11:14 BP 126/42 10/28/24 09:00 Pulse Ox 95 10/28/24 11:14 O2 Del Method Nasal Cannula 10/28/24 09:50 O2 Flow Rate 2 10/28/24 09:50 FiO2 40 10/28/24 03:00 10/27/24 10/28/24 10/28/24 22:59 06:59 14:59 Intake Total 1333.1 / 1333.1 465 / 1798.1 50 / 50 Balance 1333.1 / 1333.1 465 / 1798.1 50 / 50 Weight last 48 hrs Weight 64.864 kg Weight 64.864 kg Weight 65 kg Weight 72.575 kg Physical Exam 2 Const: COMMON NORMALS: no acute distress and patient oriented x3 Resp: COMMON NORMALS: normal respiratory effort, No retractions and No use of accessory muscles AUSCULTATION: crackles and wheezes Cardio: COMMON NORMALS: regular rate, regular rhythm, S1 normal heart sound present and S2 normal heart sound present RATE: regular rate RHYTHM: r egular rhythm HEART SOUNDS: S1 normal heart sound present and S2 normal heart sound present GI: COMMON NORMALS: Normal to inspection, nondistended, normoactive bowel sounds present and non-tender Extremity: COMMON NORMALS: no pedal edema Neuro: COMMON NORMALS: patient oriented x3, CN's II-XII intact bilaterally and moves all extremities Psych: COMMON NORMALS: mental status grossly normal Urinary Catheter Management: [place]: Cath Placed During This Visit: yes Urinary Catheter Date of Insertion: 10/27/24 Urinary Catheter Time of Insertion: 22:00 Data 10/28/24 04:29 10/28/24 04:29 Micro: Microbiology 10/27/24 17:35 Urine Culture - Preliminary Urine,Clean Catch 10/27/24 17:35 Bacterial Antigens - Final Urine Kidney 10/28/24 04:30 Gram Stain - Final Sputum - Expectorated Sputum 10/27/24 17:11 Blood Culture - Preliminary Blood SPECIMEN COLLECTED 10/27/24 16:37 Blood Culture - Preliminary Blood SPECIMEN COLLECTED A&P Assessment and plan (1) Acute respiratory failure with hypoxia and hypercapnia: (2) Altered mental status: (3) COPD with acute exacerbation: (4) Chronic diastolic heart failure secondary to coronary artery disease: (5) Benign essential HTN: (6) Arrhythmia: (7) Transaminitis: (8) Acute encephalopathy: (9) Ventricular tachycardia: Plan 69-year-old female with past medical history of COPD, chronic smoker, CAD, diastolic heart failure [facility] because of altered mental status, decreased responsiveness was found to have possible arrhythmia en route to the ER and found to be in hypercapnic hypoxic respiratory failure. Unresponsive episode, ventricular tachycardia - Status post 150 mg amiodarone - Converted to normal sinus rhythm - Continue telemetry monitoring NSTEMI - With history of CAD status post stenting - Continue aspirin, statin, beta-briseida - Heparin drip - Cardiac echo Acute hypoxic and hypercapnic respiratory failure: Component of COPD Component of CHF, systolic diastolic Pneumonia CT/CT angio chest PE protcl [id number] IMPRESSION: 1. No evidence of PE. 2. Bronchial wall thickening raising the question of bronchitis. There is focal irregular bronchial wall thickening in the posterior segment right upper lobe. Consider follow-up CT of the chest in 4-6 weeks to assess for improvement. 3. Emphysematous changes. The presence of pulmonary emphysema on CT is an independent risk factor for lung cancer. In the absence of a history or active diagnosis of lung cancer, it is recommended that this patient with emphysema be evaluated for enrollment in a low dose CT lung cancer screening program. Plan - Continue BiPAP as needed - Continue Zosyn -MRSA nares positive start vancomycin - Monitor respiratory status closely - Solu-Medrol 40 mg IV every 8 hours - DuoNeb, Pulmicort - Patient appears euvolemic hold off on further diuresis Transaminitis: Liver ultrasound CODE STATUS: Full code as per paperwork. NPO. Heparin for DVT prophylaxis. Protonix or PUD prophylaxis. PDMP PDMP Reviewed: Not Reviewed Attestations 2 Medical Necessity Statement*: Plan for today, monitor clinically, PT OT, cardiac monitoring cardiology consulted, IV antibiotics, heparin drip, cardiac echo Patient requires hospitalization for unresponsive episode, bacterial tachycardia, NSTEMI, acute respiratory failure, pneumonia Diagnoses Acute respiratory failure with hypoxia and hypercapnia J96.01; J96.02 Altered mental status R41.82 COPD with acute exacerbation J44.1 Chronic diastolic heart failure secondary to coronary artery disease I50.32; I25.10 Benign essential HTN I10 Arrhythmia I49.9 Transaminitis R74.01 Acute encephalopathy G93.40 Ventricular tachycardia I47.20
--- NOTE | 2024-10-28 12:33 | PM.CONSULT ---
Providers/Reason For Consult Consulting Physician/Specialty*: Eugenie Green MD/cardiology Reason for Consult*: Patient with CHF, elevated troponin T and history of PCI Requesting Physician: Dr. Aguilar Attending Physician: Logan Aguilar MD Primary Care Provider: Dae Singh Jr, MD History of Present Illness History of Present Illness Eda Gann is a 69 year old female who is admitted to the hospital through the emergency room where she presented with the complaints of shortness of breath and altered mental status. She was found to have features of COPD exacerbation and congestive heart failure. She also has an elevated troponin T. Cardiology consult is requested for further cardiac evaluation and recommendations. This patient has a history of atherosclerotic heart diseas and diastolic heart failure. [facility]. According the patient, she was sent to the [facility] after surgical intervention for clot removal in her leg, elsewhere. Subsequently she got infected at the surgical site. So she was admitted to the [facility] for recuperation. As per the patient, she was getting short of breath yesterday and was wanting to get a nebulizer treatment. While waiting for the breathing treatment, she became more short of breath and? Passed out. Patient does not recall the details afterwards. She was brought to the emergency room by ambulance. Patient was found to have some altered mental status and poor oxygenation in the emergency room. She was placed on BiPAP. Her oxygenation has significantly improved. She never had any chest pain. No palpitations. En route to the hospital, she fairly had a an episode of irregular tachycardia. She was placed on IV amiodarone. Currently she seems to be staying in the normal sinus rhythm. Her initial troponin T level was within normal limits. Patient had a 2-hour delta of 29 and 6-hour delta of 60. She has a history of coronary disease which was diagnosed in 2010 when she presented with an acute myocardial infarction complicated with heart failure. She underwent angiogram followed by PCI of the circumflex artery. Since then, she apparently missed any active cardiac follow-up up until 2019 when she was seen by me in the office. Subsequent to this visit, she canceled many of the follow-up appointments. The exact reasons are not known. She has not had a recent cardiac evaluations. She denies any chest pain or chest tightness. No palpitations, dizziness or syncopal episodes. Has a history of hypertension, dyslipidemia, coronary artery disease and heart failure as mentioned above, COPD, carotid artery disease, status post carotid endarterectomy [place] [address] Pierce. She used to smoke a pack a day for 45 years or so. She quit a year ago. No alcohol abuse or any other substance abuse. Review of Systems Narrative: CONSTITUTIONAL: No fever or chills. EYES: No blurring of vision or other visual disturbances lately. ENT: No hoarseness of voice, auditory disturbances or sore throat. CARDIOVASCULAR: As mentioned above. RESPIRATORY: As mentioned above GASTROINTESTINAL: No hematemesis or melena. GENITOURINARY: No dysuria or hematuria. INTEGUMENTARY: No skin rashes or history of skin cancer. NEURO: She has a remote history of seizure disorder PSYCHIATRIC: No history of psychosis or major depression. HEMATOLOGIC: No bleeding disorders or significant anemia. ENDOCRINE: No history of polyuria or polydipsia. MUSCULOSKELETAL: No recent joint pain or swelling. ALLERGY/IMMUNOLOGY: As mentioned above. Medications/Allergies Home Medications ?Medication ?Instructions ?Recorded ?Confirmed ?Last Taken ?Type metoprolol tartrate 25 mg tablet 12.5 mg PO BID 12/09/20 10/28/24 01/06/21 08:00 History alprazolam 0.5 mg tablet (Xanax) 0.5 mg PO Q8H PRN Anxiety 10/28/21 10/28/24 10/27/24 History aluminum-mag hydroxide-simethicone 30 ml PO Q4H PRN Constipation 10/28/24 10/28/24 Unknown History 400 mg-400 mg-40 mg/5 mL oral susp (Mylanta Maximum Strength) aspirin 81 mg tablet,delayed 81 mg PO DAILY 10/28/24 10/28/24 Unknown History release bisacodyl 5 mg tablet,delayed 10 mg PO DAILY 10/28/24 10/28/24 Unknown History release (Dulcolax (bisacodyl)) donepezil 10 mg tablet 10 mg PO DAILY 10/28/24 10/28/24 Unknown History duloxetine 60 mg capsule,delayed 60 mg PO DAILY 10/28/24 10/28/24 Unknown History release fluticasone 250 mcg-salmeterol 50 1 ea inhalation BID 10/28/24 10/28/24 Unknown History mcg/dose blistr powdr for inhalation (Advair Diskus) gabapentin 400 mg capsule 400 mg PO BID 10/28/24 10/28/24 10/27/24 History hydrochlorothiazide 25 mg tablet 25 mg PO DAILY 10/28/24 10/28/24 Unknown History hydrocodone 5 mg-acetaminophen 325 1 tab PO Q6H PRN Pain 10/28/24 10/28/24 10/27/24 History mg tablet ipratropium 20 mcg-albuterol 100 1 puff inhalation QID 10/28/24 10/28/24 Unknown History mcg/actuation mist for inhalation (Combivent Respimat) isosorbide dinitrate 30 mg tablet 30 mg PO QAM 10/28/24 10/28/24 10/27/24 History loperamide 2 mg tablet 2 mg PO Q4H PRN Constipation 10/28/24 10/28/24 Unknown History magnesium 250 mg tablet 250 mg PO DAILY 10/28/24 10/28/24 Unknown History melatonin 3 mg capsule 3 mg PO DAILY 10/28/24 10/28/24 Unknown History ondansetron HCl 4 mg tablet 4 mg PO Q4H PRN Nausea 10/28/24 10/28/24 Unknown History rosuvastatin 10 mg tablet 10 mg PO DAILY 10/28/24 10/28/24 10/26/24 History Allergies Allergy/AdvReac Type Severity Reaction Status Date / Time nalbuphine (From [place]) Allergy Unknown unknown Verified 05/09/24 19:15 shellfish derived Allergy Unknown unknown Verified 05/09/24 19:15 Iodinated Contrast Media Allergy thought I Verified 05/09/24 19:15 was going to Current Medications Generic Name Dose Route Start Last Admin Trade Name Freq PRN Reason Stop Dose Admin Albuterol/Ipratropium 3 ml 10/27/24 20:00 10/28/24 09:50 Ipratropium-Albuterol 3 Ml Neb INHALATION 3 ml Q6H.RESP HERB Administration Aspirin 81 mg 10/28/24 09:00 10/28/24 09:02 Aspirin 81 Mg Ec Tablet PO 81 mg DAILY HERB Administration Budesonide 0.5 mg 10/28/24 09:00 10/28/24 09:50 Budesonide 0.5 Mg/2 Ml Neb INHALATION 0.5 mg BID HERB Administration Docusate Sodium 100 mg 10/28/24 09:00 10/28/24 09:01 Docusate Sodium 100 Mg Capsule PO Not Given BID HERB Piperacillin Sod/Tazobactam 50 mls @ 12.5 mls/hr 10/27/24 18:22 10/28/24 09:43 Sod 3.375 gm/ Sodium Chloride IV 12.5 mls/hr Q8H HERB Administration Heparin Sodium/Sodium Chloride 25,000 unit in 500 mls @ 0 mls/hr 10/27/24 21:00 10/28/24 06:12 Heparin Drip IV 11.54 unit/kg/hr CONT HERB 15 mls/hr Titration Protocol Per Protocol Insulin Human Lispro 0 unit 10/27/24 18:51 10/28/24 09:02 Insulin Lispro 100 Unit/1 Ml SUBCUT 2 unit Q6H HERB Administration Protocol Methylprednisolone Sodium Succinate 40 mg 10/28/24 00:00 10/28/24 06:13 Methylprednisolone Sod Succ 40 Mg/Ml Inj IVP 40 mg Q6H HERB Administration Morphine Sulfate 2 mg 10/27/24 18:51 10/28/24 11:14 Morphine 4 Mg/Ml Sdv 1 Ml IVP 2 mg Q4H PRN Administration SEVERE PAIN Pantoprazole Sodium 40 mg 10/27/24 18:51 10/27/24 19:13 Pantoprazole 40 Mg Sdv IVP 40 mg Q24H HERB Administration PFSH Acute PFSH: Medical History Intermittent palpitations Carotid artery stenosis with cerebral infarction over 8 weeks ago History of CVA in 2008? came to [facility] Abuse of smoked substance Chronic diastolic heart failure secondary to coronary artery disease Atherosclerotic heart disease of [place] coronary artery with angina pectoris The EKG done today showed sinus bradycardia with a rate of [address]-T changes. Mixed hyperlipidemia Benign essential HTN Dementia has appointment to see Neurology on September 12 Hyperthyroidism Heart attack Anxiety Congestive heart failure COPD (chronic obstructive pulmonary disease) ASHD (arteriosclerotic heart disease) Surgical History History of surgery on wrist S/P carotid endarterectomy Hx of tonsillectomy History of appendectomy Hx of cholecystectomy History of heart artery stent H/O tubal ligation Family History Mother CAD (coronary artery disease) Lung disease Grandmother Cancer Dementia Stroke Diabetes Grandfather Cancer Family/Other Dementia Other Hyperlipidemia Hypertension Denies family history of Clotting disorder Chronic kidney disease (CKD) Suicide Anesthesia complication Bleeding disorder Social History Smoking and tobacco/nicotine status: current every day tobacco/nicotine user Alcohol intake: never Substance/Drug Use: never Vitals/I&O/Wt Last Vital Signs Temp 98.0 F 10/28/24 12:00 Pulse 71 10/28/24 12:00 Resp 17 10/28/24 12:00 BP 134/53 10/28/24 12:00 Pulse Ox 95 10/28/24 11:14 O2 Del Method Nasal Cannula 10/28/24 09:50 O2 Flow Rate 2 10/28/24 09:50 FiO2 40 10/28/24 03:00 10/27/24 10/28/24 10/28/24 22:59 06:59 14:59 Intake Total 1333.1 / 1333.1 465 / 1798.1 50 / 50 Balance 1333.1 / 1333.1 465 / 1798.1 50 / 50 Weight last 48 hrs Weight 143 lb Weight 143 lb Weight 143 lb 4.807 oz Weight 160 lb Physical Exam Narrative: GENERAL: The patient is alert and oriented times three. Not in any acute distress. HEENT: No significant pallor, icterus or lymphadenopathy.Oral cavity: There are no mucous membrane lesions. NECK: Trachea appears to be central. No masses noted. No JVD or thyromegaly appreciated. RESPIRATORY: Chest is symmetrical. No intercostals muscle retraction or any accessory muscle activation. There is no chest wall tenderness. Breath sounds are heard bilaterally. No rales or rhonchi heard. No evidence of any consolidation. BREASTS: Deferred. HEART: The heart sounds are normal. No S3 or S4. No significant murmurs. No pericardial rub ABDOMEN: No vessel pulsations or distention. No tenderness. No organomegaly appreciated. Bowel sounds are normally heard. : Deferred. RECTAL: Deferred. LYMPHATIC: No lymphadenopathy noted in the neck. EXTREMITIES: No edema or cyanosis. Peripheral pulses are palpable but weak bilaterally MUSCULOSKELETAL: No acute joint deformities or swelling SKIN: There are no significant rashes or ecchymosis NEUROPSYCHIATRIC: The patient is alert and oriented x3. Appears to be in a good mood. No tremors or rigidity noted. Urinary Catheter Management: [place] Latex: Cath Placed During This Visit: yes Urinary Catheter Date of Insertion: 10/27/24 Urinary Catheter Time of Insertion: 22:00 Data 10/28/24 04:29 10/28/24 04:29 Other Labs: Laboratory Last Values WBC 8.97 10^3/uL (3.29-11.43) 10/28/24 04:29 RBC 3.66 10^6/uL (3.85-5.65) L 10/28/24 04:29 Hgb 10.60 g/dL (11.27-16.99) L 10/28/24 04:29 Hct 32.9 % (36-47) L 10/28/24 04:29 MCV 89.9 fl (85-98) 10/28/24 04: MCH 29.0 pg (27-33) 10/28/24 04:29 MCHC 32.2 g/dL (30-55) 10/28/24 04:29 RDW 17.5 % (12.1-15.1) H 10/28/24 04:29 Plt Count 265 10^3/cmm (157-399) 10/28/24 04:29 MPV 9.7 fL (7.4-10.4) 10/28/24 04: Neut % (Auto) 93.0 % 10/28/24 04: Lymph % (Auto) 5.0 % 10/28/24 04:29 [place] % (Auto) 1.1 % 10/28/24 04:29 Eos % (Auto) 0.1 % 10/28/24 04:29 Baso % (Auto) 0.1 % 10/28/24 04:29 Neut # (Auto) 8.34 10^3/uL (1.8-7.7) H 10/28/24 04:29 Lymph # (Auto) 0.5 10^3/uL (0.8-4.8) L 10/28/24 04:29 [place] # (Auto) 0.1 10^3/uL (0.2-0.9) L 10/28/24 04:29 Eos # (Auto) 0.0 10^3/uL (0.0-0.8) 10/28/24 04:29 Baso # (Auto) 0.0 10^3/uL (0.0-0.1) 10/28/24 04: Nucleated RBC % (auto) 0 % 10/28/24 04: Nucleated RBCs # 0.0 /100WBC 10/28/24 04:29 PT 12.40 SECONDS (12.1-14.9) 10/27/24 16:37 INR 0.86 (0.8-1.2) 10/27/24 16:37 APTT 78.5 SECONDS (23.9-36.7) H 10/28/24 11:57 D-Dimer 0.86 ug/mLFEU (0-0.59) H 10/27/24 16:37 Specimen Type Arterial 10/27/24 21:15 Sample Site Radial, right 10/27/24 21:15 ABG pH 7.27 (7.35-7.45) L 10/27/24 21:15 ABG pCO2 54.4 mmHg (35-45) H 10/27/24 21:15 ABG pO2 84.0 mmHg (80.0-100.0) 10/27/24 21:15 ABG PO2/FiO2 Ratio 163 10/27/24 16:58 ABG HCO3 25.0 mmol/L (22-26) 10/27/24 21:15 ABG O2 Saturation 95.1 10/27/24 21:15 ABG Base Excess -2.3 mmol/L (-2.0-2.0) L 10/27/24 21:15 Boris Test Pos 10/27/24 21:15 A-a O2 Gradient Not Reportable 10/27/24 21:15 Hematocrit 32.0 % (37-47) L 10/27/24 21:15 Hgb O2 Saturation 93.3 % (95-100) L 10/27/24 21:15 Carboxyhemoglobin 0.9 %THgb (0.4-20.1) 10/27/24 21:15 Methemoglobin 1.0 % (0.4-1.5) 10/27/24 21:15 Total Hemoglobin 10.4 g/dL (12-16) L 10/27/24 21:15 Sodium 139.0 mmol/L (131-143) 10/27/24 21:15 Potassium 3.5 mmol/L (3.5-5.0) 10/27/24 21:15 Glucose 133.0 mg/dL (70-115) H 10/27/24 21:15 Ionized Calcium 1.1 mmol/L (1.1-1.4) 10/27/24 21:15 O2 Delivery Device Nc 10/27/24 21:15 O2 Liters/Min 3.0 % 10/27/24 21:15 FiO2 50.0 % 10/27/24 16:58 Funeral Counselor ID Jdb 10/27/24 21:15 Sodium 135 mmol/L (136-145) L 10/28/24 04:29 Potassium 3.8 mmol/L (3.5-5.1) 10/28/24 04:29 Chloride 100 mmol/L (98-107) 10/28/24 04:29 Carbon Dioxide 22 mmol/L (22-29) 10/28/24 04:29 Anion Gap 16.8 (5-19) 10/28/24 04:29 BUN 12 mg/dL (8-23) 10/28/24 04:29 Creatinine 0.9 mg/dL (0.5-0.9) 10/28/24 04:29 GFR Calculation 62.5 mL/min (90-130) L 10/28/24 04:29 Glucose 158 mg/dL (65-115) H 10/28/24 04:29 POC Glucose 158 mg/dL (70-110) H 10/28/24 11:18 Estimat Average Glucose 143 10/27/24 16:37 Hemoglobin A1c 6.6 % (4.0-6.0) H 10/27/24 16:37 Calculated Osmolality 283 mOsm/kg (285-295) L 10/28/24 04:29 Lactic Acid 5.6 mmol/L (0.5-2.2) H* 10/27/24 16:37 Lactic Acid (Sepsis) 3.4 mmol/L (0.5-2.2) H 10/27/24 19:55 Calcium 7.8 mg/dL (8.5-10.5) L 10/28/24 04:29 Phosphorus 2.7 mg/dL (2.5-4.5) D 04/21/25 04: Magnesium 1.9 mg/dL (1.7-2.3) 10/28/24 04:29 Iron 73 ug/dL (37-145) 10/27/24 16:37 TIBC 424.08149 mcg/dl 10/27/24 16:37 % Saturation 17.0 % (20-50) L 10/27/24 16:37 Unsat Iron Binding > 351 ug/dL (112-347) H 10/27/24 16:37 Total Bilirubin 0.2 mg/dL (0.15-1.2) 10/28/24 04:29 AST 45 U/L (0-32) H 10/28/24 04:29 ALT 108 U/L (0-33) H 10/28/24 04:29 Alkaline Phosphatase 88 U/L (35-105) 10/28/24 04:29 Troponin T Baseline 11 ng/L (0-10) H 10/27/24 16:37 Troponin T 120 Minute 36.89 ng/L (0-10) H 10/27/24 18:29 Delta Troponin T 25.89 ABS# (0-10) H* 10/27/24 18:29 Troponin T Hi Sens 6Hr 70.86 ng/L (0-10) H 10/27/24 22:29 Troponin T Hi Sens 6Hr Delta 59.86 ng/L (0-12) H* 10/27/24 22:29 NT-Pro-B Natriuret Pep 541 pg/mL (0-125) H 10/27/24 16:37 Total Protein 6.3 g/dL (6.6-8.7) L 10/28/24 04:29 Albumin 3.9 g/dL (3.5-5.2) 10/28/24 04:29 Globulin 2.4 g/dL (1.3-4.6) 10/28/24 04:29 Triglycerides 38 mg/dL (0-150) 10/28/24 04:29 Cholesterol 136 mg/dL (0-200) 10/28/24 04:29 LDL Cholesterol, Calc 59 mg/dL (50-129) 10/28/24 04:29 HDL Cholesterol 69 mg/dL (60-100) 10/28/24 04:29 LDL/HDL Ratio 0.86 RATIO (0.00-3.22) 10/28/24 04: Cholesterol/HDL Ratio 1.97 mg/dL (0.0-4.40) 10/28/24 04: Vitamin B12 555 pg/mL (232-1245) 10/27/24 16:37 Folate 12.5 ng/mL (4.8-37.3) 10/28/24 04: Procalcitonin 0.42 ng/mL (0-0.5) 10/28/24 04: TSH 3.83 uIU/mL (0.27-4.20) 10/27/24 16:37 Urine Color Yellow (Yellow) 10/27/24 17:35 Urine Appearance Clear (CLEAR) 10/27/24 17: Urine pH 6.0 (5-7) 10/27/24 17:35 Ur Specific [place] 1.017 (1.005-1.030) 10/27/24 17:35 Urine Protein 3+ (Negative) A 10/27/24 17: Urine Glucose (UA) 1+ (Normal) H 10/27/24 17:35 Urine Ketones Negative (Negative) 10/27/24 17:35 Urine Blood 1+ (Negative) A 10/27/24 17: Urine Nitrate Negative (Negative) 10/27/24 17: Urine Bilirubin Negative (Negative) 10/27/24 17:35 Urine Urobilinogen 0.2 mg/dL (Negative) 10/27/24 17:35 Ur Leukocyte Esterase Negative (Negative) 10/27/24 17:35 Urine RBC 0-2 /hpf (0-2) 10/27/24 17:35 Urine WBC 11-20 /hpf (0-5) H 10/27/24 17:35 Ur Squamous Epith Cells 6-10 /hpf (0-5) 10/27/24 17:35 Amorphous Sediment Not Reportable 10/27/24 17:35 Urine Bacteria 1+ /hpf (NONE) H 10/27/24 17:35 Hyaline Casts 11.57 /lpf 10/27/24 17:35 Coarse Granular Casts 5-10 /lpf H 10/27/24 17:35 Nasal MRSA (PCR) Mrsa detected (Not Detecte) A 10/27/24 21:25 Urine Opiates Screen Positive ng/mL (Negative) H 10/27/24 21:25 Ur Barbiturates Screen Negative ng/mL (Negative) 10/27/24 21:25 Ur Phencyclidine Scrn Negative ng/mL (Negative) 10/27/24 21:25 Ur Amphetamines Screen Negative ng/mL (Negative) 10/27/24 21:25 U Benzodiazepines Scrn Positive ng/mL (Negative) H 10/27/24 21:25 Urine Cocaine Screen Negative ng/mL (Negative) 10/27/24:25 U Marijuana (THC) Screen Positive ng/mL (Negative) H 10/27/24 21:25 Adenovirus (PCR) Not detected (NOT DETECT) 10/27/24 21: C. pneumoniae DNA (PCR) Not detected (NOT DETECT) 10/27/24: Coronavirus 229E (PCR) Not detected (NOT DETECT) 10/27/24 21:25 Hepatitis A IgM Ab Non-reactive (Nonreactive) 10/27/24 16:37 Hep Bs Antigen Non-reactive (Nonreactive) 10/28/24 09:50 Hep Bs Antibody < 3.5 (11.5-1000) L 10/27/24 16:37 Hep B Core Total Ab Non-reactive (Nonreactive) 10/27/24 16:37 Hepatitis C Antibody Non-reactive (Nonreactive) 10/28/24 09:50 HIV 1&2 Ab & HIV 1 Ag Non-reactive (Non-Reactiv) 10/28/24 09:50 HIV 1&2 Antibody Non-reactive (Non-Reactiv) 10/28/24 09:50 Human Metapneumovir PCR Not detected (NOT DETECT) 10/27/24:25 Influenza A (H1) PCR Not detected (NOT DETECT) 10/27/24 21:25 Influ A (H1/09) PCR Not detected (NOT DETECT) 10/27/24 21: Influenza A (H3) PCR Not detected (NOT DETECT) 10/27/24:25 Influenza Type A (PCR) Not detected (NOT DETECT) 10/27/24 21:25 Influenza Type B (PCR) Not detected (NOT DETECT) 10/27/24 21:25 M. pneumoniae (PCR) Not detected (NOT DETECT) 10/27/24: Parainfluenza 1 (PCR) Not detected (NOT DETECT) 10/27/24 21:25 Parainfluenza 2 (PCR) Not detected (NOT DETECT) 10/27/24 21:25 Parainfluenza 3 (PCR) Not detected (NOT DETECT) 10/27/24 21:25 Parainfluenza 4 (PCR) Not detected (NOT DETECT) 10/27/24 21:25 RSV Type A (PCR) Not detected (NOT DETECT) 10/27/24 21:25 RSV Type B (PCR) Not detected (NOT DETECT) 10/27/24 21:25 Entero/Rhino (PCR) Detected (NOT DETECT) A 10/27/24 21:25 SARS-CoV-2 (PCR) Not detected (NOT DETECT) 10/27/24 21:25 Micro: Microbiology 10/27/24 17:35 Urine Culture - Preliminary Urine,Clean Catch 10/27/24 17:35 Bacterial Antigens - Final Urine Kidney 10/28/24 04:30 Gram Stain - Final Sputum - Expectorated Sputum 10/27/24 17:11 Blood Culture - Preliminary Blood SPECIMEN COLLECTED 10/27/24 16:37 Blood Culture - Preliminary Blood SPECIMEN COLLECTED Other data: The EKG revealed sinus rhythm with some nonspecific T wave changes. A&P Assessment and plan (1) Elevated troponin: The elevated troponin T could be related to non-ST elevation myocardial infarction. The EKG changes are nonspecific. In view of the patient's history of previous HI and PCI, this is a very likely possibility. Possibility of a type II HI also is a consideration. Patient mated with subcu Lovenox, beta-briseida, aspirin, Plavix, statin and other symptomatic measures. (2) Atherosclerotic heart disease of [place] coronary artery without angina pectoris: Patient had PCI of the circumflex artery in 2011. May consider repeat angiogram, if the echocardiogram shows significant wall motion abnormalities.. Qualifiers: [place] vs. transplanted heart: [place] heart Qualified Code(s): I25.10 - Atherosclerotic heart disease of [place] coronary artery without angina pectoris (3) Ventricular tachycardia: Hypoxia/ischemia causing the arrhythmia is a consideration. Since the patient has no recurrence of arrhythmia, I may hold off on any medication changes at this time. Current medications may be continued. (4) Peripheral arterial disease: Clinically stable. Continue on the current management. (5) Chronic diastolic heart failure secondary to coronary artery disease: Patient currently has no evidence of any decompensated heart failure. May continue on the current management (6) Mixed hyperlipidemia: Continue on the current management. (7) Benign essential HTN: Currently normotensive. Will continue on the current medications. (8) S/P carotid endarterectomy: The most recent Doppler examination in 2022 revealed less than 50% stenosis bilaterally. (9) Acute on chronic diastolic heart failure: Currently the heart failure seems to be compensated. Continue the current management. Plan Echocardiogram today. Continue on the medications as mentioned above. Based on the clinical progress, further recommendations will be made. Thank you for the opportunity to evaluate this patient and make these recommendations PDMP PDMP Reviewed: Not Reviewed Consult Attestations Medical Necessity Statement: Patient requires continued hospital stay for close monitoring and further management Coding Level of Care Code 47634 Diagnoses Elevated troponin R79.89 Atherosclerosis of [place] coronary artery of [place] heart without angina pectoris I25.10 [place] vs. transplanted heart: [place] heart Ventricular tachycardia I47.20 Peripheral arterial disease I73.9 Chronic diastolic heart failure secondary to coronary artery disease I50.32; I25.10 Mixed hyperlipidemia E78.2 Benign essential HTN I10 S/P carotid endarterectomy Z98.890 Acute on chronic diastolic heart failure I50.33 Time Spent (min) 65
--- NOTE | 2024-10-28 12:33 | PHA.VACGOAL ---
Vancomycin Goal - Goal Vancomycin Goal:: 15-20 mg/L Vancomycin Indication:: Other - Therapy Current therapy:: Pip/Tazo Day of therpy:: Day []of [] . Actual body weight (kg): 143 lb - Data Labs: WBC 8.97 10^3/uL (3.29-11.43) 10/28/24 04:29 RBC 3.66 10^6/uL (3.85-5.65) L 10/28/24 04:29 Hgb 10.60 g/dL (11.27-16.99) L 10/28/24 04:29 Hct 32.9 % (36-47) L 10/28/24 04:29 MCV 89.9 fl (85-98) 10/28/24 04:29 MCH 29.0 pg (27-33) 10/28/24 04:29 MCHC 32.2 g/dL (30-55) 10/28/24 04:29 RDW 17.5 % (12.1-15.1) H 10/28/24 04:29 Sodium 135 mmol/L (136-145) L 10/28/24 04:29 Potassium 3.8 mmol/L (3.5-5.1) 10/28/24 04:29 Chloride 100 mmol/L (98-107) 10/28/24 04:29 Carbon Dioxide 22 mmol/L (22-29) 10/28/24 04:29 Anion Gap 16.8 (5-19) 10/28/24 04:29 BUN 12 mg/dL (8-23) 10/28/24 04:29 Creatinine 0.9 mg/dL (0.5-0.9) 10/28/24 04:29 GFR Calculation 62.5 mL/min (90-130) L 10/28/24 04:29 Laboratory Tests 10/27/24 21:25 Nasal MRSA (PCR) Mrsa detected A Last dialysis session:: N/A Treatment plan:: new consult Regimen:: INITIAL LOADING DOSE OF 2000 MG X 1 MAINTENANCE DOSE OF 500 MG Q12H PER DOSING PROTOCOL Follow up:: WILL CONTINUE TO MONITOR AND FOLLOW UP DAILY
[2024-10-28 12:34] LABS: Partial Thromboplastin Time 78.5 SECONDS (23.9-36.7)
[2024-10-28] MEDS: metoprolol tartrate 25 mg Tablet 12.5 MG PO (12:58)
[2024-10-28] MEDS: vancomycin 2,000 MG/400 ML PIGGYBACK 200 MG IV (12:58)
[2024-10-28] MEDS: ALPRAZolam 0.5 mg Tablet PO ×2 (13:13→21:16)
[2024-10-28 17:43] LABS: Glucose Point of Care 152 mg/dL (70-110)
[2024-10-28] MEDS: gabapentin 400 mg Capsule PO (17:53)
--- NOTE | 2024-10-28 18:11 | USCV_ITS ---
Eda Gann Age: 69 Gender: F : 1955 Exam Date: 10/28/2024 08:24 Ordering Phys: Viraj Sarkar MD Technologist: [place]am [place] [facility] [place]: CHF BP: 105 / 39 HR: 64 Rhythm: Sinus Technical Quality: Adequate MEASUREMENTS (Male / Female) Normal Values 2D ECHO LV Diastolic Diameter PLAX 5.6 cm 4.2 - 5.9 / 3.9 - 5.3 cm IVS Diastolic Thickness 0.8 cm 0.6 - 1.0 / 0.6 - 0.9 cm IVS Systolic Thickness 1.8 cm LVPW Diastolic Thickness 0.8 cm 0.6 - 1.0 / 0.6 - 0.9 cm LVPW Systolic Thickness 1.2 cm LVOT Diameter 2.0 cm LV Ejection Fraction 2D Teich 66.3 % LV Ejection Fraction MOD 4C 71.0 % LV Ejection Fraction MOD 2C 59.1 % LV Ejection Fraction 2C AL 59.0 % LA Diameter 2.9 cm RA Systolic Volume 4C AL 27.7 ml RA Systolic Volume 4C MOD 27.0 ml LA Sys Volume AL 51.1 cm cubed LA Sys Volume Index AL 30.0 cm cubed/m squared Aorta at Sinotubular Diameter 2.6 cm IVC Diameter 1.6 cm M-MODE LA Ao Ratio MM 1.4 AV Cusp Separation MM 1.1 cm DOPPLER AV Peak Velocity 182.0 cm/s LVOT Peak Velocity 121.0 cm/s AV Area Cont Eq vti 2.5 cm squared AV Area Cont Eq pk 2.2 cm squared MV Peak Velocity 165.0 cm/s MV Area PHT 3.1 cm squared Mitral E to A Ratio 0.9 TR Peak Velocity 95.0 cm/s TR Peak Gradient 3.6 mmHg TV Peak E Velocity 79.0 cm/s PV Peak Velocity 91.0 cm/s FINDINGS Left Ventricle Normal left ventricular size with a borderline low ejection fraction of 50 to 55%, visual. Relative hypokinesis of the septum. Mild left ventricular hypertrophy. Grade I/IV diastolic dysfunction (abnormal relaxation filling pattern), normal to mildly elevated filling pressures. Right Ventricle Normal right ventricular size and systolic function. Right Atrium Normal right atrial size. Left Atrium Mildly increased left atrial size. Mitral Valve Trace mitral valve regurgitation. Aortic Valve Mild aortic valve regurgitation. Thickened aortic valve. Tricuspid Valve No gross abnormalities noted Pulmonic Valve Pulmonic valve not well visualized. Pericardium No pericardial effusion. Aorta Normal aortic annulus size. IVC Normal IVC dimension with <50% respiratory change of the inferior vena cava. CONCLUSIONS Normal left ventricular size with a borderline low ejection fraction of 50 to 55%, visual. Relative hypokinesis of the septum. Mild left ventricular hypertrophy. Grade I/IV diastolic dysfunction (abnormal relaxation filling pattern), normal to mildly elevated filling pressures. Mildly increased left atrial size. Mild aortic valve regurgitation. Thickened aortic valve. Trace mitral valve regurgitation. Compared to the study from 09/16/2019, there appears to be a drop in the LV ejection fraction. Dr Jess Green MD [facility] (Electronically Signed) Final Date: 29 October 2024 08:20 S
[2024-10-28 18:44] LABS: Partial Thromboplastin Time 56.9 SECONDS (23.9-36.7)
--- NOTE | 2024-10-28 18:50 | PC.NURSE ---
PTT order placed per protocol for 2359.
--- NOTE | 2024-10-28 19:13 | US_ITS ---
WS: [id number] Exam: US liver [id number] Date/Time of Exam: 10/28/2024 7:59 AM Reason For Exam: transaminitis The liver is unremarkable and measures 14.5 cm in greatest dimension. No intrahepatic ductal dilatation. No hepatic nodules or masses identified. The common bile duct is not dilated and measures 7 mm in greatest diameter. The IVC is patent. Hepatopetal flow in the portal vein. Normal-appearing RIGHT kidney measures 8.8 x 4.5 x 5 cm. Abdominal aorta was normal in caliber. No masses in the region of the pancreas. Gallbladder surgically absent. US/US liver [id number] IMPRESSION: 1. Unremarkable hepatic sonogram.
[2024-10-28 21:03] LABS: Glucose Point of Care 188 mg/dL (70-110)
[2024-10-28] MEDS: pantoprazole 40 mg SDV IVP (21:14)
[2024-10-28] MEDS: donepezil 5 MG Tablet 10 MG PO (21:15)
[2024-10-28] MEDS: atorvastatin 40 mg Tablet PO (21:15)
[2024-10-28] MEDS: duloxetine 60 mg Capsule PO (21:16)
[2024-10-29] VITALS (18 sets, daily range): BP systolic 122–164; BP diastolic 38–58; PULSE 63–81; RESP 13–22; TEMP 36.4–36.8; O2SAT 92–98
[2024-10-29 00:19] LABS: Partial Thromboplastin Time 49.4 SECONDS (23.9-36.7)
[2024-10-29] MEDS: vancomycin 500 MG in sodium chloride 0.9% (plus) 100 ML 200 MG IV (00:51)
[2024-10-29] MEDS: methylPREDNISolone sod succ 40 mg/mL INJ IVP ×2 (00:51→06:17)
[2024-10-29] MEDS: piperacillin-tazobactam 3.375 GM in sodium chloride 0.9% (plus) 50 ML IV ×3 (02:05→20:31)
[2024-10-29] MEDS: morphine 4 mg/mL SDV 1 mL 2 MG IVP ×4 (02:06→22:21)
[2024-10-29] MEDS: ipratropium-albuterol 3 mL Neb INHALATION ×4 (02:17→20:15)
[2024-10-29] MEDS: heparin drip 25,000 UNIT/500 ML PREMIX 15 UNIT IV (04:59)
[2024-10-29 06:03] LABS: Glucose Point of Care 176 mg/dL (70-110)
--- NOTE | 2024-10-29 06:22 | ECG_ITS ---
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 Measurements Intervals [place] Rate: 66 P: 74 SD: 159 QRS: 70 QRSD: 94 T: -59 QT: 452 QTc: 475 Interpretive Statements SINUS RHYTHM ST DEVIATION AND MODERATE T-WAVE ABNORMALITY, CONSIDER INFERIOR ISCHEMIA [-0.1+ mV T-WAVE IN II/aVF] Compared to ECG 10/27/2024 23:33:42 Possible ischemia now present T-wave abnormality still present Electronically Signed On 10-29-2024 21:21:56 CDT by Jess Green M.D. [email or web address]
[2024-10-29] MEDS: ALPRAZolam 0.5 mg Tablet PO ×2 (06:48→16:49)
[2024-10-29 07:19] LABS: Partial Thromboplastin Time 59.2 SECONDS (23.9-36.7)
[2024-10-29 07:22] LABS: Basophils % 0.1 %; Hematocrit 33.3 % (36-47); Lymphocytes # 0.7 10^3/uL (0.8-4.8); Lymphocytes % 3.8 %; Mean Corpuscular HGB Conc 31.8 g/dL (30-55); Mean Corpuscular Hemoglobin 29.3 pg (27-33); Mean Platelet Volume 9.6 fL (7.4-10.4); Monocytes # 0.5 10^3/uL (0.2-0.9); Monocytes % 2.7 %; Neutrophils # 16.27 10^3/uL (1.8-7.7); Neutrophils % 92.8 %; Nucleated Red Blood Cells % 0 %; Platelet Count 276 10^3/cmm (157-399); Red Blood Count 3.62 10^6/uL (3.85-5.65); Red Cell Distribution Width 18.2 % (12.1-15.1); White Blood Count 17.53 10^3/uL (3.29-11.43)
[2024-10-29 07:31] LABS: NT Pro B Type Natriuretic Pept 2916 pg/mL (0-125); Procalcitonin 0.28 ng/mL (0-0.5)
[2024-10-29 07:41] LABS: Alanine Aminotransferase 76 U/L (0-33); Albumin Level 4.2 g/dL (3.5-5.2); Alkaline Phosphatase 71 U/L (35-105); Anion Gap 16.7 (5-19); Aspartate Amino Transferase 23 U/L (0-32); Blood Urea Nitrogen 11 mg/dL (8-23); Calcium 8.4 mg/dL (8.5-10.5); Carbon Dioxide 26 mmol/L (22-29); Chloride 99 mmol/L (98-107); Creatinine Clr Calc Pharmacy 60.9383; Globulin 2.6 g/dL (1.3-4.6); Glomerular Filtration Rate 83.5 mL/min (90-130); Glucose 154 mg/dL (65-115); Magnesium 2.1 mg/dL (1.7-2.3); Osmolality Calculated 288 mOsm/kg (285-295); Phosphorus 2.6 mg/dL (2.5-4.5); Potassium 3.7 mmol/L (3.5-5.1); Sodium 138 mmol/L (136-145); Total Bilirubin 0.2 mg/dL (0.15-1.2); Total Protein 6.8 g/dL (6.6-8.7)
[2024-10-29 07:45] LABS: C Reactive Protein 3.9 mg/L (0.0-4.9)
[2024-10-29] MEDS: donepezil 5 MG Tablet 10 MG PO (08:50)
[2024-10-29] MEDS: insulin lispro 100 unit/1 mL SUBCUT ×2 (08:51→16:49)
[2024-10-29] MEDS: aspirin 81 mg EC Tablet PO (08:52)
[2024-10-29] MEDS: docusate sodium 100 mg Capsule PO (08:52)
[2024-10-29] MEDS: gabapentin 400 mg Capsule PO ×2 (08:52→16:34)
[2024-10-29] MEDS: duloxetine 60 mg Capsule PO (08:53)
[2024-10-29] MEDS: metoprolol tartrate 25 mg Tablet 12.5 MG PO ×2 (08:53→16:35)
[2024-10-29] MEDS: budesonide 0.5 mg/2 mL Neb INHALATION ×2 (08:56→20:15)
--- NOTE | 2024-10-29 09:32 | PM.PN ---
Subjective Subjective: patient is feeling better. No chest pain or chest tightness. Shortness of breath is improving. Remaining afebrile. Vitals are stable. Medications: Medication Review Details: Current Medications Acetaminophen (Acetaminophen 325 Mg Tablet) 650 mg PO Q6H PRN PRN Reason: Mild/Mod Pain Or Temp >/= 101 Albuterol/Ipratropium (Ipratropium-Albuterol 3 Ml Neb) 3 ml INHALATION Q6H.RESP [facility] Last Admin: 10/29/24 08:56 Dose: 3 ml Alprazolam (Alprazolam 0.5 Mg Tablet) 0.5 mg PO Q8H PRN PRN Reason: Anxiety Last Admin: 10/29/24 06:48 Dose: 0.5 mg Aspirin (Aspirin 81 Mg Ec Tablet) 81 mg PO DAILY [facility] Last Admin: 10/29/24 08:52 Dose: 81 mg Atorvastatin Calcium (Atorvastatin 40 Mg Tablet) 40 mg PO BEDTIME [facility] Last Admin: 10/28/24 21:15 Dose: 40 mg Budesonide (Budesonide 0.5 Mg/2 Ml Neb) 0.5 mg INHALATION BID [facility] Last Admin: 10/29/24 08:56 Dose: 0.5 mg Docusate Sodium (Docusate Sodium 100 Mg Capsule) 100 mg PO BID [facility] Last Admin: 10/29/24 08:52 Dose: 100 mg Donepezil HCl (Donepezil 5 Mg Tablet) 10 mg PO DAILY [facility] Last Admin: 10/29/24 08:50 Dose: 10 mg Duloxetine HCl (Duloxetine 60 Mg Capsule) 60 mg PO DAILY [facility] Last Admin: 10/29/24 08:53 Dose: 60 mg Gabapentin (Gabapentin 400 Mg Capsule) 400 mg PO BID [facility] Last Admin: 10/29/24 08:52 Dose: 400 mg Glucagon (Glucagon 1 Mg/Ml Kit 1 Ml) 1 mg IM ONCE PRN; Protocol PRN Reason: Adult Acute Hypoglycemia Nursing Prot. Heparin Sodium (Porcine) (Heparin 5,000 Unit/Ml Inj 1 Ml) 0 unit IVP PRN PRN; Protocol PRN Reason: Heparin Weight Based Protocol -Subsequent Bolus Piperacillin Sod/Tazobactam (Sod 3.375 gm/ Sodium Chloride) 50 mls @ 12.5 mls/hr IV Q8H [facility] Last Infusion: 10/29/24 06:40 Dose: Infused Dextrose (D5w) 500 mls @ 0 mls/hr IV ONCE PRN; Protocol PRN Reason: Adult Acute Hypoglycemia Prot Dextrose (D10w) 125 mls @ 750 mls/hr IV PRN PRN; Protocol PRN Reason: Adult Acute Hypoglycemia Nursing Protocol Dextrose (D10w) 250 mls @ 1,000 mls/hr IV PRN PRN; Protocol PRN Reason: Adult Acute Hypoglycemia Nursing Protocol Heparin Sodium/Sodium Chloride (Heparin Drip) 25,000 unit in 500 mls @ 0 mls/hr IV CONT HERB; Protocol Last Admin: 10/29/24 04:59 Dose: 11.54 unit/kg/hr, 15 mls/hr Vancomycin HCl 750 mg/ Sodium (Chloride) 250 mls @ 250 mls/hr IV Q12H HERB Insulin Human Lispro (Insulin Lispro 100 Unit/1 Ml) 0 unit SUBCUT WM&BEDTIME HERB; Protocol Last Admin: 10/29/24 08:51 Dose: 2 unit Lactulose (Lactulose Oral Liq 20 Gm/30 Ml Udc) 10 gm PO DAILY PRN; Protocol PRN Reason: Constipation (see protocol) Magnesium Hydroxide (Magnesium Hydroxide 30 Ml Udc) 30 ml PO DAILY PRN; Protocol PRN Reason: Constipation (see protocol) Metoprolol Tartrate (Metoprolol Tartrate 25 Mg Tablet) 12.5 mg PO BID [facility] Last Admin: 10/29/24 08:53 Dose: 12.5 mg Morphine Sulfate (Morphine 4 Mg/Ml Sdv 1 Ml) 2 mg IVP Q4H PRN PRN Reason: SEVERE PAIN Last Admin: 10/29/24 06:18 Dose: 2 mg Ondansetron HCl (Ondansetron 2 Mg/Ml Sdv 2 Ml) 4 mg IVP Q6H PRN PRN Reason: vomiting, or N/V if npo Pantoprazole Sodium (Pantoprazole 40 Mg Sdv) 40 mg IVP Q24H [facility] Last Admin: 10/28/24 21:14 Dose: 40 mg Prednisone (Prednisone 20 Mg Tablet) 40 mg PO DAILY [facility] Vitals/I&O/Wt Last Vital Signs Temp 97.8 F 10/29/24 07:15 Pulse 70 10/29/24 08:00 Resp 16 10/29/24 08:00 BP 138/52 10/29/24 07:15 Pulse Ox 92 10/29/24 08:00 O2 Del Method Nasal Cannula 10/29/24 08:00 O2 Flow Rate 3 10/29/24 08:00 FiO2 40 10/28/24 03:00 10/28/24 10/29/24 10/29/24 22:59 06:59 14:59 Intake Total 486.567 / 682.567 646.95 / 1329.517 360 / 360 Output Total 1000 / 1000 Balance 486.567 / 682.567 -353.05 / 329.517 360 / 360 Weight last 48 hrs Weight 146 lb 1.6 oz Weight 143 lb Weight 143 lb Weight 143 lb 4.807 oz Weight 160 lb Physical Exam Narrative: GENERAL: The patient is alert and oriented times three. Not in any acute distress. HEENT: No significant pallor, icterus or lymphadenopathy.Oral cavity: There are no mucous membrane lesions. NECK: Trachea appears to be central. No masses noted. No JVD or thyromegaly appreciated. RESPIRATORY: Chest is symmetrical. No intercostals muscle retraction or any accessory muscle activation. There is no chest wall tenderness. Breath sounds are heard bilaterally. No rales or rhonchi heard. No evidence of any consolidation. BREASTS: Deferred. HEART: The heart sounds are normal. No S3 or S4. No significant murmurs. No pericardial rub ABDOMEN: No vessel pulsations or distention. No tenderness. No organomegaly appreciated. Bowel sounds are normally heard. : Deferred. RECTAL: Deferred. LYMPHATIC: No lymphadenopathy noted in the neck. EXTREMITIES: No edema or cyanosis. Peripheral pulses are palpable but weak bilaterally MUSCULOSKELETAL: No acute joint deformities or swelling SKIN: There are no significant rashes or ecchymosis NEUROPSYCHIATRIC: The patient is alert and oriented x3. Appears to be in a good mood. No tremors or rigidity noted. Urinary Catheter Management: [place] Latex: Cath Placed During This Visit: yes Reason for Continuing Indwelling Catheter: Accurate Measurement of Urinary Output in Critically Ill Patients Urinary Catheter Date of Insertion: 10/27/24 Urinary Catheter Time of Insertion: 22:00 Data 10/29/24 06:55 10/29/24 06:55 Other Labs: Laboratory Last Values WBC 17.53 10^3/uL (3.29-11.43) H 10/29/24 06:55 RBC 3.62 10^6/uL (3.85-5.65) L 10/29/24 06:55 Hgb 10.60 g/dL (11.27-16.99) L 10/29/24 06:55 Hct 33.3 % (36-47) L 10/29/24 06:55 MCV 92.0 fl (85-98) 10/29/24 06:55 MCH 29.3 pg (27-33) 10/29/24 06:55 MCHC 31.8 g/dL (30-55) 10/29/24 06:55 RDW 18.2 % (12.1-15.1) H 10/29/24 06:55 Plt Count 276 10^3/cmm (157-399) 10/29/24 06:55 MPV 9.6 fL (7.4-10.4) 10/29/24 06:55 Neut % (Auto) 92.8 % 10/29/24 06:55 Lymph % (Auto) 3.8 % 10/29/24 06:55 [place] % (Auto) 2.7 % 10/29/24 06:55 Eos % (Auto) 0.0 % 10/29/24 06:55 Baso % (Auto) 0.1 % 10/29/24 06:55 Neut # (Auto) 16.27 10^3/uL (1.8-7.7) H 10/29/24 06:55 Lymph # (Auto) 0.7 10^3/uL (0.8-4.8) L 10/29/24 06:55 [place] # (Auto) 0.5 10^3/uL (0.2-0.9) 10/29/24 06:55 Eos # (Auto) 0.0 10^3/uL (0.0-0.8) 10/29/24 06:55 Baso # (Auto) 0.0 10^3/uL (0.0-0.1) 10/29/24 06:55 Nucleated RBC % (auto) 0 % 10/29/24 06:55 Nucleated RBCs # 0.0 /100WBC 10/29/24 06:55 PT 12.40 SECONDS (12.1-14.9) 10/27/24 16:37 INR 0.86 (0.8-1.2) 10/27/24 16:37 APTT 59.2 SECONDS (23.9-36.7) H 10/29/24 06:55 D-Dimer 0.86 ug/mLFEU (0-0.59) H 10/27/24 16:37 Specimen Type Arterial 10/27/24 21:15 Sample Site Radial, right 10/27/24 21:15 ABG pH 7.27 (7.35-7.45) L 10/27/24 21:15 ABG pCO2 54.4 mmHg (35-45) H 10/27/24 21:15 ABG pO2 84.0 mmHg (80.0-100.0) 10/27/24 21:15 ABG PO2/FiO2 Ratio 163 10/27/24 16:58 ABG HCO3 25.0 mmol/L (22-26) 10/27/24 21:15 ABG O2 Saturation 95.1 10/27/24 21:15 ABG Base Excess -2.3 mmol/L (-2.0-2.0) L 10/27/24 21:15 Boris Test Pos 10/27/24 21:15 A-a O2 Gradient Not Reportable 10/27/24 21:15 Hematocrit 32.0 % (37-47) L 10/27/24 21:15 Hgb O2 Saturation 93.3 % (95-100) L 10/27/24 21:15 Carboxyhemoglobin 0.9 %THgb (0.4-20.1) 10/27/24 21:15 Methemoglobin 1.0 % (0.4-1.5) 10/27/24 21:15 Total Hemoglobin 10.4 g/dL (12-16) L 10/27/24 21:15 Sodium 139.0 mmol/L (131-143) 10/27/24 21:15 Potassium 3.5 mmol/L (3.5-5.0) 10/27/24 21:15 Glucose 133.0 mg/dL (70-115) H 10/27/24 21:15 Ionized Calcium 1.1 mmol/L (1.1-1.4) 10/27/24 21:15 O2 Delivery Device Nc 10/27/24 21:15 O2 Liters/Min 3.0 % 10/27/24 21:15 FiO2 50.0 % 10/27/24 16:58 Firmware Engineer ID [id number] 10/27/24 21:15 Sodium 138 mmol/L (136-145) 10/29/24 06:55 Potassium 3.7 mmol/L (3.5-5.1) 10/29/24 06:55 Chloride 99 mmol/L (98-107) 10/29/24 06:55 Carbon Dioxide 26 mmol/L (22-29) 10/29/24 06:55 Anion Gap 16.7 (5-19) 10/29/24 06:55 BUN 11 mg/dL (8-23) 10/29/24 06:55 Creatinine 0.7 mg/dL (0.5-0.9) 10/29/24 06:55 GFR Calculation 83.5 mL/min (90-130) L 10/29/24 06:55 Glucose 154 mg/dL (65-115) H 10/29/24 06:55 POC Glucose 176 mg/dL (70-110) H 10/29/24 05:53 Estimat Average Glucose 143 10/27/24 16:37 Hemoglobin A1c 6.6 % (4.0-6.0) H 10/27/24 16:37 Calculated Osmolality 288 mOsm/kg (285-295) 10/29/24 06:55 Lactic Acid 5.6 mmol/L (0.5-2.2) H* 10/27/24 16:37 Lactic Acid (Sepsis) 3.4 mmol/L (0.5-2.2) H 10/27/24 19:55 Calcium 8.4 mg/dL (8.5-10.5) L 10/29/24 06:55 Phosphorus 2.6 mg/dL (2.5-4.5) 10/29/24 06:55 Magnesium 2.1 mg/dL (1.7-2.3) 10/29/24 06:55 Iron 73 ug/dL (37-145) 10/27/24 16:37 TIBC 424.89424 mcg/dl 10/27/24 16:37 % Saturation 17.0 % (20-50) L 10/27/24 16:37 Unsat Iron Binding > 351 ug/dL (112-347) H 10/27/24 16:37 Total Bilirubin 0.2 mg/dL (0.15-1.2) 10/29/24 06:55 AST 23 U/L (0-32) 10/29/24 06:55 ALT 76 U/L (0-33) H 10/29/24 06:55 Alkaline Phosphatase 71 U/L (35-105) 10/29/24 06:55 Troponin T Baseline 11 ng/L (0-10) H 10/27/24 16:37 Troponin T 120 Minute 36.89 ng/L (0-10) H 10/27/24 18:29 Delta Troponin T 25.89 ABS# (0-10) H* 10/27/24 18:29 Troponin T Hi Sens 6Hr 70.86 ng/L (0-10) H 10/27/24 22:29 Troponin T Hi Sens 6Hr Delta 59.86 ng/L (0-12) H* 10/27/24 22:29 C-Reactive Protein 3.9 mg/L (0.0-4.9) 10/29/24 06:55 NT-Pro-B Natriuret Pep 2916 pg/mL (0-125) H 10/29/24 06:55 Total Protein 6.8 g/dL (6.6-8.7) 10/29/24 06:55 Albumin 4.2 g/dL (3.5-5.2) 10/29/24 06:55 Globulin 2.6 g/dL (1.3-4.6) 10/29/24 06:55 Triglycerides 38 mg/dL (0-150) 10/28/24 04:29 Cholesterol 136 mg/dL (0-200) 10/28/24 04:29 LDL Cholesterol, Calc 59 mg/dL (50-129) 10/28/24 04:29 HDL Cholesterol 69 mg/dL (60-100) 10/28/24 04:29 LDL/HDL Ratio 0.86 RATIO (0.00-3.22) 10/28/24 04:29 Cholesterol/HDL Ratio 1.97 mg/dL (0.0-4.40) 10/28/24 04:29 Vitamin B12 555 pg/mL (232-1245) 10/27/24 16:37 Folate 12.5 ng/mL (4.8-37.3) 10/28/24 04:29 Procalcitonin 0.28 ng/mL (0-0.5) 10/29/24 06:55 TSH 3.83 uIU/mL (0.27-4.20) 10/27/24 16:37 Urine Color Yellow (Yellow) 10/27/24 17:35 Urine Appearance Clear (CLEAR) 10/27/24 17:35 Urine pH 6.0 (5-7) 10/27/24 17:35 Ur Specific [place] 1.017 (1.005-1.030) 10/27/24 17:35 Urine Protein 3+ (Negative) A 10/27/24 17:35 Urine Glucose (UA) 1+ (Normal) H 10/27/24 17:35 Urine Ketones Negative (Negative) 10/27/24 17:35 Urine Blood 1+ (Negative) A 10/27/24 17:35 Urine Nitrate Negative (Negative) 10/27/24 17:35 Urine Bilirubin Negative (Negative) 10/27/24 17:35 Urine Urobilinogen 0.2 mg/dL (Negative) 10/27/24 17:35 Ur Leukocyte Esterase Negative (Negative) 10/27/24 17:35 Urine RBC 0-2 /hpf (0-2) 10/27/24 17:35 Urine WBC 11-20 /hpf (0-5) H 10/27/24 17:35 Ur Squamous Epith Cells 6-10 /hpf (0-5) 10/27/24 17:35 Amorphous Sediment Not Reportable 10/27/24 17:35 Urine Bacteria 1+ /hpf (NONE) H 10/27/24 17:35 Hyaline Casts 11.57 /lpf 10/27/24 17:35 Coarse Granular Casts 5-10 /lpf H 10/27/24 17:35 Nasal MRSA (PCR) [place] detected (Not Detecte) A 10/27/24 21:25 Urine Opiates Screen Positive ng/mL (Negative) H 10/27/24 21:25 Ur Barbiturates Screen Negative ng/mL (Negative) 10/27/24 21:25 Ur Phencyclidine Scrn Negative ng/mL (Negative) 10/27/24 21:25 Ur Amphetamines Screen Negative ng/mL (Negative) 10/27/24 21:25 U Benzodiazepines Scrn Positive ng/mL (Negative) H 10/27/24 21:25 Urine Cocaine Screen Negative ng/mL (Negative) 10/27/24 21:25 U Marijuana (THC) Screen Positive ng/mL (Negative) H 10/27/24 21:25 Adenovirus (PCR) Not detected (NOT DETECT) 10/27/24 21: C. pneumoniae DNA (PCR) Not detected (NOT DETECT) 10/27/24 21: Coronavirus 229E (PCR) Not detected (NOT DETECT) 10/27/24 21:25 Hepatitis A IgM Ab Non-reactive (Nonreactive) 10/27/24 16:37 Hep Bs Antigen Non-reactive (Nonreactive) 10/28/24 09:50 Hep Bs Antibody < 3.5 (11.5-1000) L 10/27/24 16:37 Hep B Core Total Ab Non-reactive (Nonreactive) 10/27/24 16:37 Hepatitis C Antibody Non-reactive (Nonreactive) 10/28/24 09:50 HIV 1&2 Ab & HIV 1 Ag Non-reactive (Non-Reactiv) 10/28/24 09:50 HIV 1&2 Antibody Non-reactive (Non-Reactiv) 10/28/24 09:50 Human Metapneumovir PCR Not detected (NOT DETECT) 10/27/24 21: Influenza A (H1) PCR Not detected (NOT DETECT) 10/27/24 21: Influ A (H1/09) PCR Not detected (NOT DETECT) 10/27/24 21: Influenza A (H3) PCR Not detected (NOT DETECT) 10/27/24 21:25 Influenza Type A (PCR) Not detected (NOT DETECT) 10/27/24 21: Influenza Type B (PCR) Not detected (NOT DETECT) 10/27/24 21: M. pneumoniae (PCR) Not detected (NOT DETECT) 10/27/24 21:25 Parainfluenza 1 (PCR) Not detected (NOT DETECT) 10/27/24 21:25 Parainfluenza 2 (PCR) Not detected (NOT DETECT) 10/27/24 21:25 Parainfluenza 3 (PCR) Not detected (NOT DETECT) 10/27/24 21:25 Parainfluenza 4 (PCR) Not detected (NOT DETECT) 10/27/24 21:25 RSV Type A (PCR) Not detected (NOT DETECT) 10/27/24 21: RSV Type B (PCR) Not detected (NOT DETECT) 04/20/25 21:25 Entero/Rhino (PCR) Detected (NOT DETECT) A 10/27/24 21:25 SARS-CoV-2 (PCR) Not detected (NOT DETECT) 10/27/24 21:25 Micro: Microbiology 10/27/24 17:11 Blood Culture - Preliminary Blood NEGATIVE TO DATE 10/27/24 16:37 Blood Culture - Preliminary Blood NEGATIVE TO DATE 10/27/24 17:35 Urine Culture - Preliminary Urine,Clean Catch 10/27/24 17:35 Bacterial Antigens - Final Urine Kidney 10/28/24 04:30 Gram Stain - Final Sputum - Expectorated Sputum Other data: Echocardiogram from 10/28/2024 Normal left ventricular size with a borderline low ejection fraction of 50 to 55%, visual. Relative hypokinesis of the septum. Mild left ventricular hypertrophy. Grade I/IV diastolic dysfunction (abnormal relaxation filling pattern), normal to mildly elevated filling pressures. Mildly increased left atrial size. Mild aortic valve regurgitation. Thickened aortic valve. Trace mitral valve regurgitation. Compared to the study from 09/16/2019, there appears to be a drop in the LV ejection fractio A&P Assessment and plan (1) Elevated troponin: The elevated troponin T could be related to non-ST elevation myocardial infarction. The EKG changes are nonspecific. In view of the patient's history of previous VA and PCI, this is a very likely possibility. Possibility of a type II VA also is a consideration. Patient mated with subcu Lovenox, beta-briseida, aspirin, Plavix, statin and other symptomatic measures. The echocardiogram revealed LV ejection fraction of 50 to 55%. This seems to be a significant change from the study on 09/16/2019 (2) Atherosclerotic heart disease of [place] coronary artery without angina pectoris: Patient had PCI of the circumflex artery in 2011. In view of the elevated troponin T and the abnormal echocardiogram, in order to further evaluate the coronary status, a cardiac catheterization would be appropriate. Qualifiers: [place] vs. transplanted heart: [place] heart Qualified Code(s): I25.10 - Atherosclerotic heart disease of [place] coronary artery without angina pectoris (3) Ventricular tachycardia: Hypoxia/ischemia causing the arrhythmia is a consideration. Since the patient has no recurrence of arrhythmia, I may hold off on any medication changes at this time. Current medications may be continued. (4) Peripheral arterial disease: Clinically stable. Continue on the current management. (5) Chronic diastolic heart failure secondary to coronary artery disease: Patient currently has no evidence of any decompensated heart failure. May continue on the current management. (6) Mixed hyperlipidemia: Continue on the current management. (7) Benign essential HTN: Currently normotensive. Will continue on the current medications. (8) S/P carotid endarterectomy: The most recent Doppler examination in 2022 revealed less than 50% stenosis bilaterally. (9) Acute on chronic diastolic heart failure: Currently the heart failure seems to be compensated. Continue the current management. Plan in view of the elevated troponin T and the abnormal echocardiogram, in order to further evaluate the coronary status, a cardiac catheterization would be a better diagnosis test. this was discussed with the patient in detail which she understood well. At this point, we may hold off on any invasive procedures till the infection is properly treated.. May continue on the current management for the time being. PDMP PDMP Reviewed: Not Reviewed Attestations Medical Necessity Statement*: Deferred to the primary Coding Level of Care Code 70814 Diagnoses Elevated troponin R79.89 Atherosclerosis of [place] coronary artery of [place] heart without angina pectoris I25.10 [place] vs. transplanted heart: [place] heart Ventricular tachycardia I47.20 Peripheral arterial disease I73.9 Chronic diastolic heart failure secondary to coronary artery disease I50.32; I25.10 Mixed hyperlipidemia E78.2 Benign essential HTN I10 S/P carotid endarterectomy Z98.890 Acute on chronic diastolic heart failure I50.33
--- NOTE | 2024-10-29 10:41 | PC.CHAP ---
Pastoral Care Encounter/Spiritual Assessment Type of Contact [] Declined fish farm manager visit [] Patient/Family/Request visit [] Outpatient visit [] Follow-up visit [] Physician referral [] Code/Alert [x] Routine visit [] Staff referral [] Actively dying [] Patient sleeping [] Family support [] [] Out of room [] Palliative care [] [] Receiving care in room [] Pre-surgical visit [] Trauma [] Long length of stay [] ICU visit [] Other: Relational/Emotional Strength [x] Patient feels connected with others/family/visitors/staff [] Distress [] Loneliness/isolation [] Abandonment Spirituality of Patient [x] Person of [place] [] Attends Anglican of their [place] [x] Believes in Prayer [] Reads Bible or Religion materials [] There are Spiritual issues to be addressed [employer]oir [employer] Advisor Interventions [x] Prayer [x] Active listening [] Non-anxious presence [x] Spiritual/emotional support [] Crisis/trauma care [] Spiritual counseling [] Bereavement support [] Provided bereavement packet [] Provided Bible/devotional materials [] Provided toy/stuffed animal, coloring book to patient or family member [] Provided Communion [] Anointing/[place] [] Salvation [x] Completed spiritual assessment [] Other: Impact on Illness or Injury [] Angry [] Fearful [] Anxious [] Often cries [] Exhaustion [] Unable to work [] Unable to attend congregation [] Unable to walk/stand [] Unable to read [] Unable to drive [] Unable to eat/drink [] Unable to sleep [] Unable to be with family [] Patient intubated [] Other: Summary Time spent with patient 5 vmin
[2024-10-29 11:45] LABS: Glucose Point of Care 139 mg/dL (70-110)
[2024-10-29] MEDS: FUROsemide 10 mg/mL SDV 4mL 40 MG IVP (12:18)
[2024-10-29] MEDS: VANCOMYCIN ADD-Vantage 750 MG in 0.9% NaCl ADD-Vantage 250 ML 250 MG IV (12:18)
[2024-10-29 13:28] LABS: Add Urine Microscopic? NO
[2024-10-29 13:45] LABS: Bilirubin Urine Negative (Negative); Blood Urine Negative (Negative); Glucose Urine UA Negative (Normal); Ketones Urine Negative (Negative); Leukocyte Esterase Urine Negative (Negative); Nitrate Urine Negative (Negative); Protein Urine Negative (Negative); Specific Gravity, Urine 1.006 (1.005-1.030); Urine Appearance Clear (CLEAR); Urine Color Yellow (Yellow); Urobilinogen Urine 0.2 mg/dL (Negative); pH Urine 6.5 (5-7)
[2024-10-29 13:50] LABS: Add Urine Culture? No; Bacteria Urine None Seen /hpf; Charge for UA Resulting for Rev; Hyaline Casts Urine 0-4 /lpf; RBC Urine 0-2 /hpf (0-2); Squamous Epithelial Cell Urine 0-5 /hpf (0-5); WBC Urine 0-5 /hpf (0-5)
--- NOTE | 2024-10-29 15:34 | PM.PN ---
Subjective Subjective: Patient was seen this morning, she is alert oriented x 3, following commands, does report edema, some shortness of breath, no chest pain, she does report episodes like hot flashes during the night, Vitals/I&O/Wt Last Vital Signs Temp 98.2 F 10/29/24 11:24 Pulse 80 10/29/24 14:00 Resp 22 H 10/29/24 14:00 BP 145/47 10/29/24 11:24 Pulse Ox 94 10/29/24 14:00 O2 Del Method Nasal Cannula 10/29/24 14:00 O2 Flow Rate 3 10/29/24 14:00 FiO2 40 10/28/24 03:00 10/29/24 10/29/24 10/29/24 06:59 14:59 22:59 Intake Total 646.95 / 1329.517 980.75 / 980.75 Output Total 1000 / 1000 Balance -353.05 / 329.517 980.75 / 980.75 Weight last 48 hrs Weight 66.27 kg Weight 64.864 kg Weight 64.864 kg Weight 65 kg Weight 72.575 kg Physical Exam Const: COMMON NORMALS: no acute distress and patient oriented x3 Resp: COMMON NORMALS: normal respiratory effort, No retractions, No use of accessory muscles and clear to auscultation bilaterally AUSCULTATION: clear to auscultation bilaterally Cardio: COMMON NORMALS: regular rate, regular rhythm, S1 normal heart sound present and S2 normal heart sound present RATE: regular rate RHYTHM: regular rhythm HEART SOUNDS: S1 normal heart sound present and S2 normal heart sound present GI: COMMON NORMALS: Normal to inspection, nondistended, normoactive bowel sounds present and non-tender Extremity: COMMON NORMALS: no pedal edema Neuro: COMMON NORMALS: patient oriented x3 Psych: COMMON NORMALS: mental status grossly normal Urinary Catheter Management: [place] Latex: Cath Placed During This Visit: yes Reason for Continuing Indwelling Catheter: Accurate Measurement of Urinary Output in Critically Ill Patients Urinary Catheter Date of Insertion: 10/27/24 Urinary Catheter Time of Insertion: 22:00 Data 10/29/24 06:55 10/29/24 06:55 Micro: Microbiology 10/28/24 04:30 Gram Stain - Final Sputum - Expectorated Sputum Sputum Culture - Preliminary 10/27/24 17:35 Urine Culture - Final Urine,Clean Catch 10/27/24 17:11 Blood Culture - Preliminary Blood NEGATIVE TO DATE 10/27/24 16:37 Blood Culture - Preliminary Blood NEGATIVE TO DATE A&P Assessment and plan (1) Acute respiratory failure with hypoxia and hypercapnia: (2) Altered mental status: (3) COPD with acute exacerbation: (4) Chronic diastolic heart failure secondary to coronary artery disease: (5) Benign essential HTN: (6) Arrhythmia: (7) Transaminitis: (8) Acute encephalopathy: (9) Ventricular tachycardia: Plan 69-year-old female with past medical history of COPD, chronic smoker, CAD, diastolic heart failure was sent into the ER from skilled nursing today because of altered mental status, decreased responsiveness was found to have possible arrhythmia en route to the ER and found to be in hypercapnic hypoxic respiratory failure. Unresponsive episode, ventricular tachycardia - Status post 150 mg amiodarone - Converted to normal sinus rhythm - Continue telemetry monitoring NSTEMI - With history of CAD status post stenting - Continue aspirin, statin, beta-briseida - Heparin drip - Cardiac echo CONCLUSIONS Normal left ventricular size with a borderline low ejection fraction of 50 to 55%, visual. Relative hypokinesis of the septum. Mild left ventricular hypertrophy. Grade I/IV diastolic dysfunction (abnormal relaxation filling pattern), normal to mildly elevated filling pressures. Mildly increased left atrial size. Mild aortic valve regurgitation. Thickened aortic valve. Trace mitral valve regurgitation. Compared to the study from 09/16/2019, there appears to be a drop in the LV ejection fraction. - Will await cardiology's recommendation Acute hypoxic and hypercapnic respiratory failure: Component of COPD Component of CHF, systolic diastolic Pneumonia CT/CT angio chest PE protcl [id number] IMPRESSION: 1. No evidence of PE. 2. Bronchial wall thickening raising the question of bronchitis. There is focal irregular bronchial wall thickening in the posterior segment right upper lobe. Consider follow-up CT of the chest in 4-6 weeks to assess for improvement. 3. Emphysematous changes. The presence of pulmonary emphysema on CT is an independent risk factor for lung cancer. In the absence of a history or active diagnosis of lung cancer, it is recommended that this patient with emphysema be evaluated for enrollment in a low dose CT lung cancer screening program. Plan - Continue BiPAP as needed - Continue Zosyn -MRSA nares positive , vancomycin - Monitor respiratory status closely - De-escalate to prednisone 40 mg daily - DuoNeb, Pulmicort - Fluid overloaded today Lasix Transaminitis: Liver ultrasound CODE STATUS: Full code as per paperwork. Cardiac diet Heparin for DVT prophylaxis. Protonix or PUD prophylaxis. Patient requires hospitalization for acute hypoxic respiratory failure, NSTEMI, nonsustained V. tach PDMP PDMP Reviewed: Not Reviewed Attestations Medical Necessity Statement*: Patient requires hospitalization for acute hypoxic respiratory failure, NSTEMI, nonsustained V. tach Diagnoses Acute respiratory failure with hypoxia and hypercapnia J96.01; J96.02 Altered mental status R41.82 COPD with acute exacerbation J44.1 Chronic diastolic heart failure secondary to coronary artery disease I50.32; I25.10 Benign essential HTN I10 Arrhythmia I49.9 Transaminitis R74.01 Acute encephalopathy G93.40 Ventricular tachycardia I47.20
[2024-10-29 15:49] LABS: Glucose Point of Care 169 mg/dL (70-110)
[2024-10-29] MEDS: pantoprazole 40 mg SDV IVP (19:09)
[2024-10-29 20:03] LABS: Glucose Point of Care 122 mg/dL (70-110)
[2024-10-29] MEDS: heparin 5,000 unit/mL INJ 1 mL IVP (20:30)
[2024-10-29] MEDS: atorvastatin 40 mg Tablet PO (20:30)
[2024-10-30] VITALS (14 sets, daily range): BP systolic 128–185; BP diastolic 47–77; PULSE 57–91; RESP 16–21; TEMP 36.4–36.7; O2SAT 89–99
[2024-10-30] MEDS: ALPRAZolam 0.5 mg Tablet PO ×4 (01:09→21:50)
[2024-10-30] MEDS: VANCOMYCIN ADD-Vantage 750 MG in 0.9% NaCl ADD-Vantage 250 ML 250 MG IV ×2 (02:09→13:09)
[2024-10-30] MEDS: ipratropium-albuterol 3 mL Neb INHALATION ×4 (02:18→21:15)
[2024-10-30 02:21] LABS: Basophils % 0.1 %; Eosinophils % 0.1 %; Hematocrit 32.2 % (36-47); Lymphocytes # 0.8 10^3/uL (0.8-4.8); Lymphocytes % 5.2 %; Mean Corpuscular Hemoglobin 29.2 pg (27-33); Mean Corpuscular Volume 91.2 fl (85-98); Mean Platelet Volume 9.5 fL (7.4-10.4); Monocytes # 0.9 10^3/uL (0.2-0.9); Monocytes % 6.1 %; Neutrophils # 13.44 10^3/uL (1.8-7.7); Neutrophils % 87.8 %; Nucleated Red Blood Cells % 0 %; Platelet Count 284 10^3/cmm (157-399); Red Blood Count 3.53 10^6/uL (3.85-5.65); Red Cell Distribution Width 18.2 % (12.1-15.1); White Blood Count 15.31 10^3/uL (3.29-11.43)
[2024-10-30 02:43] LABS: Partial Thromboplastin Time 88.4 SECONDS (23.9-36.7)
[2024-10-30 02:47] LABS: Alanine Aminotransferase 59 U/L (0-33); Albumin Level 4.2 g/dL (3.5-5.2); Alkaline Phosphatase 66 U/L (35-105); Anion Gap 12.4 (5-19); Aspartate Amino Transferase 18 U/L (0-32); Blood Urea Nitrogen 17 mg/dL (8-23); Calcium 8.6 mg/dL (8.5-10.5); Carbon Dioxide 31 mmol/L (22-29); Chloride 98 mmol/L (98-107); Creatinine Clr Calc Pharmacy 54.1674; Globulin 2.5 g/dL (1.3-4.6); Glomerular Filtration Rate 62.5 mL/min (90-130); Glucose 131 mg/dL (65-115); Magnesium 2.1 mg/dL (1.7-2.3); Osmolality Calculated 289 mOsm/kg (285-295); Phosphorus 2.3 mg/dL (2.5-4.5); Potassium 3.4 mmol/L (3.5-5.1); Sodium 138 mmol/L (136-145); Total Bilirubin 0.2 mg/dL (0.15-1.2); Total Protein 6.7 g/dL (6.6-8.7)
[2024-10-30 03:00] LABS: NT Pro B Type Natriuretic Pept 3012 pg/mL (0-125)
--- NOTE | 2024-10-30 04:09 | PC.NURSE ---
Patient was having anxiety and stated that she would like for her xanax to be q6hr instead of q8hr. Dr Sanchez was notified of patient request and new orders where placed.
[2024-10-30] MEDS: piperacillin-tazobactam 3.375 GM in sodium chloride 0.9% (plus) 50 ML IV ×3 (05:22→21:49)
[2024-10-30 06:26] LABS: Glucose Point of Care 124 mg/dL (70-110)
[2024-10-30] MEDS: budesonide 0.5 mg/2 mL Neb INHALATION ×2 (08:10→21:15)
[2024-10-30] MEDS: gabapentin 400 mg Capsule PO ×2 (08:34→16:51)
[2024-10-30] MEDS: potassium chloride ER 20 mEq Tablet PO (08:34)
[2024-10-30] MEDS: aspirin 81 mg EC Tablet PO (08:34)
[2024-10-30] MEDS: docusate sodium 100 mg Capsule PO (08:34)
[2024-10-30] MEDS: FUROsemide 10 mg/mL SDV 2mL 20 MG IVP (08:34)
[2024-10-30] MEDS: metoprolol tartrate 25 mg Tablet 12.5 MG PO ×2 (08:35→16:51)
[2024-10-30] MEDS: donepezil 5 MG Tablet 10 MG PO (08:35)
[2024-10-30] MEDS: predniSONE 20 mg Tablet 40 MG PO (08:35)
[2024-10-30] MEDS: duloxetine 60 mg Capsule PO (08:35)
--- NOTE | 2024-10-30 08:53 | PM.PN ---
Subjective Subjective: Patient is feeling okay. Remains afebrile. No chest pain or chest tightness. The white cell count is elevated to 15,000. No arrhythmias on the monitor. Medications: Medication Review Details: Current Medications Acetaminophen (Acetaminophen 325 Mg Tablet) 650 mg PO Q6H PRN PRN Reason: Mild/Mod Pain Or Temp >/= 101 Albuterol/Ipratropium (Ipratropium-Albuterol 3 Ml Neb) 3 ml INHALATION Q6H.RESP HERB Last Admin: 10/30/24 08:10 Dose: 3 ml Alprazolam (Alprazolam 0.5 Mg Tablet) 0.5 mg PO Q6H PRN PRN Reason: Anxiety Last Admin: 10/30/24 01:09 Dose: 0.5 mg Aspirin (Aspirin 81 Mg Ec Tablet) 81 mg PO DAILY HERB Last Admin: 10/30/24 08:34 Dose: 81 mg Atorvastatin Calcium (Atorvastatin 40 Mg Tablet) 40 mg PO BEDTIME HERB Last Admin: 10/29/24 20:30 Dose: 40 mg Budesonide (Budesonide 0.5 Mg/2 Ml Neb) 0.5 mg INHALATION BID.RESPIRATORY HERB Last Admin: 10/30/24 08:10 Dose: 0.5 mg Docusate Sodium (Docusate Sodium 100 Mg Capsule) 100 mg PO BID HERB Last Admin: 10/30/24 08:34 Dose: 100 mg Donepezil HCl (Donepezil 5 Mg Tablet) 10 mg PO DAILY HERB Last Admin: 10/30/24 08:35 Dose: 10 mg Duloxetine HCl (Duloxetine 60 Mg Capsule) 60 mg PO DAILY HERB Last Admin: 10/30/24 08:35 Dose: 60 mg Gabapentin (Gabapentin 400 Mg Capsule) 400 mg PO BID HERB Last Admin: 10/30/24 08:34 Dose: 400 mg Glucagon (Glucagon 1 Mg/Ml Kit 1 Ml) 1 mg IM ONCE PRN; Protocol PRN Reason: Adult Acute Hypoglycemia Nursing Prot. Heparin Sodium (Porcine) (Heparin 5,000 Unit/Ml Inj 1 Ml) 0 unit IVP PRN PRN; Protocol PRN Reason: Heparin Weight Based Protocol -Subsequent Bolus Last Admin: 10/29/24 20:30 Dose: 2,600 unit Piperacillin Sod/Tazobactam (Sod 3.375 gm/ Sodium Chloride) 50 mls @ 12.5 mls/hr IV Q8H HERB Last Admin: 10/30/24 05:22 Dose: 12.5 mls/hr Dextrose (D5w) 500 mls @ 0 mls/hr IV ONCE PRN; Protocol PRN Reason: Adult Acute Hypoglycemia Prot Dextrose (D10w) 125 mls @ 750 mls/hr IV PRN PRN; Protocol PRN Reason: Adult Acute Hypoglycemia Nursing Protocol Dextrose (D10w) 250 mls @ 1,000 mls/hr IV PRN PRN; Protocol PRN Reason: Adult Acute Hypoglycemia Nursing Protocol Heparin Sodium/Sodium Chloride (Heparin Drip) 25,000 unit in 500 mls @ 0 mls/hr IV CONT HERB; Protocol Last Admin: 10/30/24 06:15 Dose: Not Given Vancomycin HCl 750 mg/ Sodium (Chloride) 250 mls @ 250 mls/hr IV Q12H [facility] Last Infusion: 10/30/24 04:07 Dose: Infused Insulin Human Lispro (Insulin Lispro 100 Unit/1 Ml) 0 unit SUBCUT WM&BEDTIME [facility]; Protocol Last Admin: 10/30/24 08:28 Dose: Not Given Lactulose (Lactulose Oral Liq 20 Gm/30 Ml Udc) 10 gm PO DAILY PRN; Protocol PRN Reason: Constipation (see protocol) Magnesium Hydroxide (Magnesium Hydroxide 30 Ml Udc) 30 ml PO DAILY PRN; Protocol PRN Reason: Constipation (see protocol) Metoprolol Tartrate (Metoprolol Tartrate 25 Mg Tablet) 12.5 mg PO BID [facility] Last Admin: 10/30/24 08:35 Dose: 12.5 mg Morphine Sulfate (Morphine 4 Mg/Ml Sdv 1 Ml) 2 mg IVP Q4H PRN PRN Reason: SEVERE PAIN Last Admin: 10/29/24 22:21 Dose: 2 mg Ondansetron HCl (Ondansetron 2 Mg/Ml Sdv 2 Ml) 4 mg IVP Q6H PRN PRN Reason: vomiting, or N/V if npo Pantoprazole Sodium (Pantoprazole 40 Mg Sdv) 40 mg IVP Q24H [facility] Last Admin: 10/29/24 19:09 Dose: 40 mg Prednisone (Prednisone 20 Mg Tablet) 40 mg PO DAILY [facility] Last Admin: 10/30/24 08:35 Dose: 40 mg Vitals/I&O/Wt Last Vital Signs Temp 97.8 F 10/30/24 07:56 Pulse 62 10/30/24 08:10 Resp 18 10/30/24 08:10 BP 160/63 10/30/24 07:56 Pulse Ox 98 10/30/24 08:10 O2 Del Method Nasal Cannula 10/30/24 08:10 O2 Flow Rate 3 10/30/24 08:10 FiO2 40 10/28/24 03:00 10/29/24 10/30/24 10/30/24 22:59 06:59 14:59 Intake Total 565.2 / 1545.95 402.133 / 1948.083 Output Total 500 / 500 Balance 65.2 / 1045.95 402.133 / 1448.083 Weight last 48 hrs Weight 148 lb 9.6 oz Weight 146 lb 1.6 oz Physical Exam Narrative: GENERAL: The patient is alert and oriented times three. Not in any acute distress. HEENT: No significant pallor, icterus or lymphadenopathy.Oral cavity: There are no mucous membrane lesions. NECK: Trachea appears to be central. No masses noted. No JVD or thyromegaly appreciated. RESPIRATORY: Extensive bilateral expiratory wheezing. BREASTS: Deferred. HEART: The heart sounds are normal. No S3 or S4. No significant murmurs. No pericardial rub ABDOMEN: No vessel pulsations or distention. No tenderness. No organomegaly appreciated. Bowel sounds are normally heard. : Deferred. RECTAL: Deferred. LYMPHATIC: No lymphadenopathy noted in the neck. EXTREMITIES: No edema or cyanosis. Peripheral pulses are palpable but weak bilaterally MUSCULOSKELETAL: No acute joint deformities or swelling SKIN: There are no significant rashes or ecchymosis NEUROPSYCHIATRIC: The patient is alert and oriented x3. Appears to be in a good mood. No tremors or rigidity noted. Urinary Catheter Management: [place] Latex: Cath Placed During This Visit: yes, but has since been removed by the nurse Reason for Continuing Indwelling Catheter: Decision to DC Catheter Urinary Catheter Date of Insertion: 10/27/24 Urinary Catheter Time of Insertion: 22:00 Date Urinary Catheter Removed: 10/29/24 Time Urinary Catheter Discontinued: 19:15 Data 10/30/24 02:06 10/30/24 02:06 Other Labs: Laboratory Last Values WBC 15.31 10^3/uL (3.29-11.43) H 10/30/24 02:06 RBC 3.53 10^6/uL (3.85-5.65) L 10/30/24 02:06 Hgb 10.30 g/dL (11.27-16.99) L 10/30/24 02:06 Hct 32.2 % (36-47) L 10/30/24 02:06 MCV 91.2 fl (85-98) 10/30/24 02:06 MCH 29.2 pg (27-33) 10/30/24 02:06 MCHC 32.0 g/dL (30-55) 10/30/24 02:06 RDW 18.2 % (12.1-15.1) H 10/30/24 02:06 Plt Count 284 10^3/cmm (157-399) 10/30/24 02:06 MPV 9.5 fL (7.4-10.4) 10/30/24 02:06 Neut % (Auto) 87.8 % 10/30/24 02:06 Lymph % (Auto) 5.2 % 10/30/24 02:06 Riley % (Auto) 6.1 % 10/30/24 02:06 Eos % (Auto) 0.1 % 10/30/24 02:06 Baso % (Auto) 0.1 % 10/30/24 02:06 Neut # (Auto) 13.44 10^3/uL (1.8-7.7) H 10/30/24 02:06 Lymph # (Auto) 0.8 10^3/uL (0.8-4.8) 10/30/24 02:06 Riley # (Auto) 0.9 10^3/uL (0.2-0.9) 10/30/24 02:06 Eos # (Auto) 0.0 10^3/uL (0.0-0.8) 10/30/24 02:06 Baso # (Auto) 0.0 10^3/uL (0.0-0.1) 10/30/24 02:06 Nucleated RBC % (auto) 0 % 10/30/24 02:06 Nucleated RBCs # 0.0 /100WBC 10/30/24 02:06 PT 12.40 SECONDS (12.1-14.9) 10/27/24 16:37 INR 0.86 (0.8-1.2) 10/27/24 16:37 APTT 88.4 SECONDS (23.9-36.7) H D 10/30/24 02:02 D-Dimer 0.86 ug/mLFEU (0-0.59) H 10/27/24 16:37 Specimen Type Arterial 10/27/24 21:15 Sample Site Radial, right 10/27/24 21:15 ABG pH 7.27 (7.35-7.45) L 10/27/24 21:15 ABG pCO2 54.4 mmHg (35-45) H 10/27/24 21:15 ABG pO2 84.0 mmHg (80.0-100.0) 10/27/24 21:15 ABG PO2/FiO2 Ratio 163 10/27/24 16:58 ABG HCO3 25.0 mmol/L (22-26) 10/27/24 21:15 ABG O2 Saturation 95.1 10/27/24 21:15 ABG Base Excess -2.3 mmol/L (-2.0-2.0) L 10/27/24 21:15 Boris Test Pos 10/27/24 21:15 A-a O2 Gradient Not Reportable 10/27/24 21:15 Hematocrit 32.0 % (37-47) L 10/27/24 21:15 Hgb O2 Saturation 93.3 % (95-100) L 10/27/24 21:15 Carboxyhemoglobin 0.9 %THgb (0.4-20.1) 10/27/24 21:15 Methemoglobin 1.0 % (0.4-1.5) 10/27/24 21:15 Total Hemoglobin 10.4 g/dL (12-16) L 10/27/24 21:15 Sodium 139.0 mmol/L (131-143) 10/27/24 21:15 Potassium 3.5 mmol/L (3.5-5.0) 10/27/24 21:15 Glucose 133.0 mg/dL (70-115) H 10/27/24 21:15 Ionized Calcium 1.1 mmol/L (1.1-1.4) 10/27/24 21:15 O2 Delivery Device Nc 10/27/24 21:15 O2 Liters/Min 3.0 % 10/27/24 21:15 FiO2 50.0 % 10/27/24 16:58 Infection Control Specialist ID [email or web address] 10/27/24 21:15 Sodium 138 mmol/L (136-145) 10/30/24 02:06 Potassium 3.4 mmol/L (3.5-5.1) L 10/30/24 02:06 Chloride 98 mmol/L (98-107) 10/30/24 02:06 Carbon Dioxide 31 mmol/L (22-29) H 10/30/24 02:06 Anion Gap 12.4 (5-19) 10/30/24 02:06 BUN 17 mg/dL (8-23) 10/30/24 02:06 Creatinine 0.9 mg/dL (0.5-0.9) 10/30/24 02:06 GFR Calculation 62.5 mL/min (90-130) L 10/30/24 02:06 Glucose 131 mg/dL (65-115) H 10/30/24 02:06 POC Glucose 124 mg/dL (70-110) H 10/30/24 06:04 Estimat Average Glucose 143 10/27/24 16:37 Hemoglobin A1c 6.6 % (4.0-6.0) H 10/27/24 16:37 Calculated Osmolality 289 mOsm/kg (285-295) 10/30/24 02:06 Lactic Acid 5.6 mmol/L (0.5-2.2) H* 10/27/24 16:37 Lactic Acid (Sepsis) 3.4 mmol/L (0.5-2.2) H 10/27/24 19:55 Calcium 8.6 mg/dL (8.5-10.5) 10/30/24 02:06 Phosphorus 2.3 mg/dL (2.5-4.5) L 10/30/24 02:06 Magnesium 2.1 mg/dL (1.7-2.3) 10/30/24 02:06 Iron 73 ug/dL (37-145) 10/27/24 16:37 TIBC 424.12721 mcg/dl 10/27/24 16:37 % Saturation 17.0 % (20-50) L 10/27/24 16:37 Unsat Iron Binding > 351 ug/dL (112-347) H 10/27/24 16:37 Total Bilirubin 0.2 mg/dL (0.15-1.2) 10/30/24 02:06 AST 18 U/L (0-32) 10/30/24 02:06 ALT 59 U/L (0-33) H 10/30/24 02:06 Alkaline Phosphatase 66 U/L (35-105) 10/30/24 02:06 Troponin T Baseline 11 ng/L (0-10) H 10/27/24 16:37 Troponin T 120 Minute 36.89 ng/L (0-10) H 10/27/24 18:29 Delta Troponin T 25.89 ABS# (0-10) H* 10/27/24 18:29 Troponin T Hi Sens 6Hr 70.86 ng/L (0-10) H 10/27/24 22:29 Troponin T Hi Sens 6Hr Delta 59.86 ng/L (0-12) H* 10/27/24 22:29 C-Reactive Protein 3.0 mg/L (0.0-4.9) 10/30/24 02:06 NT-Pro-B Natriuret Pep 3012 pg/mL (0-125) H 10/30/24 02:06 Total Protein 6.7 g/dL (6.6-8.7) 10/30/24 02:06 Albumin 4.2 g/dL (3.5-5.2) 10/30/24 02:06 Globulin 2.5 g/dL (1.3-4.6) 10/30/24 02:06 Triglycerides 38 mg/dL (0-150) 10/28/24 04:29 Cholesterol 136 mg/dL (0-200) 10/28/24 04:29 LDL Cholesterol, Calc 59 mg/dL (50-129) 10/28/24 04:29 HDL Cholesterol 69 mg/dL (60-100) 10/28/24 04:29 LDL/HDL Ratio 0.86 RATIO (0.00-3.22) 10/28/24 04:29 Cholesterol/HDL Ratio 1.97 mg/dL (0.0-4.40) 10/28/24 04:29 Vitamin B12 555 pg/mL (232-1245) 10/27/24 16:37 Folate 12.5 ng/mL (4.8-37.3) 10/28/24 04:29 Procalcitonin 0.20 ng/mL (0-0.5) 10/30/24 02:06 TSH 3.83 uIU/mL (0.27-4.20) 10/27/24 16:37 Urine Color Yellow (Yellow) 10/29/24 13:05 Urine Appearance Clear (CLEAR) 10/29/24 13:05 Urine pH 6.5 (5-7) 10/29/24 13:05 Ur Specific [place] 1.006 (1.005-1.030) 10/29/24 13:05 Urine Protein Negative (Negative) 10/29/24 13:05 Urine Glucose (UA) Negative (Normal) 10/29/24 13:05 Urine Ketones Negative (Negative) 10/29/24 13:05 Urine Blood Negative (Negative) 10/29/24 13:05 Urine Nitrate Negative (Negative) 10/29/24 13:05 Urine Bilirubin Negative (Negative) 10/29/24 13:05 Urine Urobilinogen 0.2 mg/dL (Negative) 10/29/24 13:05 Ur Leukocyte Esterase Negative (Negative) 10/29/24 13:05 Urine RBC 0-2 /hpf (0-2) 10/29/24 13:05 Urine WBC 0-5 /hpf (0-5) 10/29/24 13:05 Ur Squamous Epith Cells 0-5 /hpf (0-5) 10/29/24 13:05 Amorphous Sediment Not Reportable 10/29/24 13:05 Urine Bacteria None seen /hpf (NONE) 10/29/24 13:05 Hyaline Casts 0-4 /lpf H 10/29/24 13:05 Coarse Granular Casts 5-10 /lpf H 10/27/24 17:35 Nasal MRSA (PCR) [place] detected (Not Detecte) A 10/27/24 21:25 Urine Opiates Screen Positive ng/mL (Negative) H 10/27/24 21:25 Ur Barbiturates Screen Negative ng/mL (Negative) 10/27/24 21:25 Ur Phencyclidine Scrn Negative ng/mL (Negative) 10/27/24 21:25 Ur Amphetamines Screen Negative ng/mL (Negative) 10/27/24 21:25 U Benzodiazepines Scrn Positive ng/mL (Negative) H 10/27/24 21:25 Urine Cocaine Screen Negative ng/mL (Negative) 10/27/24 U Marijuana (THC) Screen Positive ng/mL (Negative) H 10/27/24 Adenovirus (PCR) Not detected (NOT DETECT) 10/27/24 C. pneumoniae DNA (PCR) Not detected (NOT DETECT) 10/27/24 Coronavirus 229E (PCR) Not detected (NOT DETECT) 10/27/24: Hepatitis A IgM Ab Non-reactive (Nonreactive) 10/27/24 16:37 Hep Bs Antigen Non-reactive (Nonreactive) 10/28/24 09:50 Hep Bs Antibody < 3.5 (11.5-1000) L 10/27/24 16:37 Hep B Core Total Ab Non-reactive (Nonreactive) 10/27/24 16:37 Hepatitis C Antibody Non-reactive (Nonreactive) 10/28/24 09:50 HIV 1&2 Ab & HIV 1 Ag Non-reactive (Non-Reactiv) 10/28/24 09:50 HIV 1&2 Antibody Non-reactive (Non-Reactiv) 10/28/24 09:50 Human Metapneumovir PCR Not detected (NOT DETECT) 10/27/24 Influenza A (H1) PCR Not detected (NOT DETECT) 10/27/24: Influ A (H1/09) PCR Not detected (NOT DETECT) 10/27/24 Influenza A (H3) PCR Not detected (NOT DETECT) 10/27/24: Influenza Type A (PCR) Not detected (NOT DETECT) 10/27/24: Influenza Type B (PCR) Not detected (NOT DETECT) 10/27/24 M. pneumoniae (PCR) Not detected (NOT DETECT) 10/27/24: Parainfluenza 1 (PCR) Not detected (NOT DETECT) 10/27/24: Parainfluenza 2 (PCR) Not detected (NOT DETECT) 10/27/24 Parainfluenza 3 (PCR) Not detected (NOT DETECT) 10/27/24: Parainfluenza 4 (PCR) Not detected (NOT DETECT) 10/27/24: RSV Type A (PCR) Not detected (NOT DETECT) 10/27/24: RSV Type B (PCR) Not detected (NOT DETECT) 04/20/25 21:25 Entero/Rhino (PCR) Detected (NOT DETECT) A 10/27/24 21:25 SARS-CoV-2 (PCR) Not detected (NOT DETECT) 10/27/24 21:25 Micro: Microbiology 10/28/24 04:30 Gram Stain - Final Sputum - Expectorated Sputum Sputum Culture - Preliminary 10/27/24 17:35 Urine Culture - Final Urine,Clean Catch A&P Assessment and plan (1) Elevated troponin: The elevated troponin T could be related to non-ST elevation myocardial infarction. The EKG changes are nonspecific. In view of the patient's history of previous WA and PCI, this is a very likely possibility. Possibility of a type II WA also is a consideration. Patient mated with subcu Lovenox, beta-briseida, aspirin, Plavix, statin and other symptomatic measures. The echocardiogram revealed LV ejection fraction of 50 to 55%. This seems to be a significant change from the study on 09/16/2019 (2) Atherosclerotic heart disease of [place] coronary artery without angina pectoris: Patient had PCI of the circumflex artery in 2011. In view of the elevated troponin T and the abnormal echocardiogram, in order to further evaluate the coronary status, a cardiac catheterization would be appropriate. Patient is agreeable. I would like to see her respiratory status and possible pneumonia appropriately treated, before taking her to the [facility]. Qualifiers: [place] vs. transplanted heart: [place] heart Qualified Code(s): I25.10 - Atherosclerotic heart disease of [place] coronary artery without angina pectoris (3) Ventricular tachycardia: Hypoxia/ischemia causing the arrhythmia is a consideration. Since the patient has no recurrence of arrhythmia, I may hold off on any medication changes at this time. Current medications may be continued. (4) Peripheral arterial disease: Clinically stable. Continue on the current management. Currently has no specific symptoms. (5) Chronic diastolic heart failure secondary to coronary artery disease: Patient currently has no evidence of any decompensated heart failure. May continue on the current management. (6) Mixed hyperlipidemia: Continue on the current management. (7) Benign essential HTN: Currently normotensive. Will continue on the current medications. (8) S/P carotid endarterectomy: The most recent Doppler examination in 2022 revealed less than 50% stenosis bilaterally. (9) Acute on chronic diastolic heart failure: Currently the heart failure seems to be compensated. May be treated with IV Lasix on a as needed basis Plan Plavix 300 mg p.o. now followed by 75 mg p.o. daily Continue on your current medications. Will be reevaluating her respiratory status tomorrow. Optimize her bronchodilator treatment Cardiac catheterization, when the respiratory status is stable PDMP PDMP Reviewed: Not Reviewed Attestations Medical Necessity Statement*: Deferred to the primary Coding Level of Care Code 00795 Diagnoses Elevated troponin R79.89 Atherosclerosis of [place] coronary artery of [place] heart without angina pectoris I25.10 [place] vs. transplanted heart: [place] heart Ventricular tachycardia I47.20 Peripheral arterial disease I73.9 Chronic diastolic heart failure secondary to coronary artery disease I50.32; I25.10 Mixed hyperlipidemia E78.2 Benign essential HTN I10 S/P carotid endarterectomy Z98.890 Acute on chronic diastolic heart failure I50.33
[2024-10-30] MEDS: morphine 4 mg/mL SDV 1 mL 2 MG IVP ×2 (08:55→16:52)
--- NOTE | 2024-10-30 09:05 | PC.SOCIAL ---
IMM Updated Updated pt on IMM. No questions voiced. Provided pt a copy. Initialed, dated, & timed copy in chart.
[2024-10-30 09:21] LABS: Partial Thromboplastin Time 57.7 SECONDS (23.9-36.7)
[2024-10-30 11:53] LABS: Glucose Point of Care 140 mg/dL (70-110)
[2024-10-30 12:56] LABS: Vancomycin Trough 13.2 ug/mL (10-15)
--- NOTE | 2024-10-30 15:06 | P.PN_ITS ---
Subjective 2 Subjective: - Patient was seen this morning, she is alert oriented x 3, following all commands - Did have episodes of shortness of naeem th, but no chest pain, no palpitations - We discussed her leukocytosis she does not report that she has been under investigation for aspiration in the past, she tells me that at the group home she does a chin tuck, she is on aspiration precautions but she tells me that despite this she continues to have episodes of choking coughing at times with swallowing, no globus sensation, but she has not had more evaluation for her swallowing - Discussed the possibility of her pneum onia, her leukocytosis as a result of recurrent aspiration, aspiration pneumonitis, aspiration pneumonia - Discussed switching her diet to dyspha chencho diet, and having speech therapy see her, she is in agreement - She also reports severe anxiety since going to the group home, she has had anxiety episodes are difficult to control with with alprazolam, she takes it 0.5 3 times daily, at the group home she has been using it more scheduled, she is also on Cymbalta, gabapentin, she tells me that she has a severe anxiety episodes are very difficult to control at times, and that Xanax is not working anymore for - She denies any chest pain, we discusse d the plans on potentially proceeding with coronary angiography tomorrow as long as her respiratory status is stable and her white blood cell count continues to trend downward, discussed risk and benefits, she voiced understanding, all questions answered, agreed to proceed Vitals/I&O/Wt Last Vital Signs Temp 98.0 F 10/30/24 11:34 Pulse 91 10/30/24 13:25 Resp 18 10/30/24 13:18 BP 172/50 10/30/24 11:34 Pulse Ox 99 10/30/24 13:18 O2 Del Method Nasal Cannula 10/30/24 13:18 O2 Flow Rate 2 10/30/24 13:18 FiO2 40 10/28/24 03:00 10/30/24 10/30/24 10/30/24 06:59 14:59 22:59 Intake Total 402.133 / 1948.083 386.45 / 386.45 Balance 402.133 / 1448.083 386.45 / 386.45 Weight last 48 hrs Weight 67.404 kg Weight 66.27 kg Physical Exam 2 Const: COMMON NORMALS: no acute distress and patient oriented x3 Resp: COMMON NORMALS: normal respiratory effort, No retractions and No use of accessory muscles AUSCULTATION: wheezes Cardio: COMMON NORMALS: regular rate, regular rhythm, S1 normal heart sound present and S2 normal heart sound present RATE: regular rate RHYTHM: r egular rhythm HEART SOUNDS: S1 normal heart sound present and S2 normal heart sound present GI: COMMON NORMALS: Normal to inspection, nondistended, normoactive bowel sounds present and non-tender Extremity: COMMON NORMALS: no pedal edema Neuro: COMMON NORMALS: patient oriented x3 Psych: COMMON NORMALS: mental status grossly normal Urinary Catheter Management: [place] Latex: Cath Placed During This Visit: yes, but has since been removed by the nurse Reason for Continuing Indwelling Catheter: Decision to DC Catheter Urinary Catheter Date of Insertion: 10/27/24 Urinary Catheter Time of Insertion: 22:00 Date Urinary Catheter Removed: 10/29/24 Time Urinary Catheter Discontinued: 19:15 Data 10/30/24 02:06 10/30/24 02:06 Micro: Microbiology 10/28/24 04:30 Gram Stain - Final Sputum - Expectorated Sputum Sputum Culture - Final 10/27/24 17:35 Urine Culture - Final Urine,Clean Catch A&P Assessment and plan (1) Acute respiratory failure with hypoxia and hypercapnia: (2) Altered mental status: (3) COPD with acute exacerbation: (4) Chronic diastolic heart failure secondary to coronary artery disease: (5) Benign essential HTN: (6) Arrhythmia: (7) Transaminitis: (8) Acute encephalopathy: (9) Ventricular tachycardia: Plan 69-year-old female with past medical history of COPD, chronic smoker, CAD, diastolic heart failure was sent into the ER from group home today because of altered mental status, decreased responsiveness was found to have possible arrhythmia en route to the ER and found to be in hypercapnic hypoxic respiratory failure. Unresponsive episode, ventricular tachycardia - Status post 150 mg amiodarone - Converted to normal sinus rhythm - Continue telemetry monitoring - Plans on possible coronary angiography tomorrow NSTEMI - With history of CAD status post stenting - Continue aspirin, statin, beta-briseida - Heparin drip - Cardiac echo CONCLUSIONS Normal left ventricular size with a borderline low ejection fraction of 50 to 55%, visual. Relative hypokinesis of the septum. Mild left ventricular hypertrophy. Grade I/IV diastolic dysfunction (abnormal relaxation filling pattern), normal to mildly elevated filling pressures. Mildly increased left atrial size. Mild aortic valve regurgitation. Thickened aortic valve. Trace mitral valve regurgitation. Compared to the study from 09/16/2019, there appears to be a drop in the LV ejection fraction. - Possible coronary angiography tomorrow Acute hypoxic and hypercapnic respiratory failure: Component of COPD Component of CHF, systolic diastolic Pneumonia CT/CT angio chest PE protcl 92000 IMPRESSION: 1. No evidence of PE. 2. Bronchial wall thickening raising the question of bronchitis. There is focal irregular bronchial wall thickening in the posterior segment right upper lobe. Consider follow-up CT of the chest in 4-6 weeks to assess for improvement. 3. Emphysematous changes. The presence of pulmonary emphysema on CT is an independent risk factor for lung cancer. In the absence of a history or active diagnosis of lung cancer, it is recommended that this patient with emphysema be evaluated for enrollment in a low dose CT lung cancer screening program. Plan - Continue BiPAP as needed - Continue Zosyn -MRSA nares positive , vancomycin - Monitor respiratory status closely - De-escalate to prednisone 40 mg daily - DuoNeb, Pulmicort - Fluid overloaded today Lasix 1 dose Concerns for aspiration pneumonia/aspiration pneumonitis - Continue Zosyn as above - Aspiration precautions - Dysphagia level 4 diet, moderately thickened - Modified barium swallow - Speech therapy consulted - Budesonide Anxiety, depression, consult psychiatry, continue Xanax, duloxetine, gabapentin Transaminitis: Liver ultrasound no acute findings CODE STATUS: Full code as per paperwork. Cardiac diet Heparin for DVT prophylaxis. Protonix or PUD prophylaxis. Patient requires hospitalization for acute hypoxic respiratory failure, NSTEMI, nonsustained V. tach PDMP PDMP Reviewed: Last Reviewed 10/30/24 15:04 by Logan Aguilar MD Attestations 2 Medical Necessity Statement*: Patient requires hospitalization for acute hypoxic respiratory failure concerning for aspiration pneumonia, aspiration pneumonitis, with persistent wheezing, plans on coronary angiography given nonsustained V. tach of NSTEMI, fluid overload requiring Lasix, spoke to Dr. Cat, spoke to Dr. Green Diagnoses Acute respiratory failure with hypoxia and hypercapnia J96.01; J96.02 Altered mental status R41.82 COPD with acute exacerbation J44.1 Chronic diastolic heart failure secondary to coronary artery disease I50.32; I25.10 Benign essential HTN I10 Arrhythmia I49.9 Transaminitis R74.01 Acute encephalopathy G93.40 Ventricular tachycardia I47.20
[2024-10-30 15:54] LABS: Glucose Point of Care 144 mg/dL (70-110)
[2024-10-30] MEDS: heparin drip 25,000 UNIT/500 ML PREMIX 13 UNIT IV (16:10)
[2024-10-30 16:21] LABS: Partial Thromboplastin Time 37.9 SECONDS (23.9-36.7)
[2024-10-30] MEDS: heparin 5,000 unit/mL INJ 1 mL IVP (16:38)
[2024-10-30] MEDS: insulin lispro 100 unit/1 mL SUBCUT (16:51)
[2024-10-30 21:21] LABS: Glucose Point of Care 143 mg/dL (70-110)
[2024-10-30] MEDS: guaiFENesin 600 mg Tablet 1200 MG PO (21:50)
[2024-10-30] MEDS: clopidogrel 300 mg Tablet PO (21:50)
[2024-10-30] MEDS: atorvastatin 40 mg Tablet PO (21:50)
[2024-10-30] MEDS: pantoprazole 40 mg SDV IVP (21:50)
[2024-10-30 23:38] LABS: Partial Thromboplastin Time 94.3 SECONDS (23.9-36.7)
[2024-10-31] VITALS (18 sets, daily range): BP systolic 110–183; BP diastolic 47–72; PULSE 56–78; RESP 16–24; TEMP 36.3–36.6; O2SAT 91–100
[2024-10-31] MEDS: morphine 4 mg/mL SDV 1 mL 2 MG IVP ×4 (00:27→21:40)
[2024-10-31] MEDS: VANCOMYCIN ADD-Vantage 750 MG in 0.9% NaCl ADD-Vantage 250 ML 250 MG IV ×2 (00:27→12:46)
[2024-10-31 04:54] LABS: Basophils % 0.1 %; Eosinophils % 0.1 %; Hematocrit 34.8 % (36-47); Lymphocytes # 1.5 10^3/uL (0.8-4.8); Lymphocytes % 15.2 %; Mean Corpuscular HGB Conc 31.3 g/dL (30-55); Mean Corpuscular Hemoglobin 29.3 pg (27-33); Mean Corpuscular Volume 93.5 fl (85-98); Mean Platelet Volume 9.6 fL (7.4-10.4); Monocytes # 0.8 10^3/uL (0.2-0.9); Monocytes % 7.9 %; Neutrophils # 7.56 10^3/uL (1.8-7.7); Neutrophils % 76.2 %; Nucleated Red Blood Cells % 0 %; Platelet Count 281 10^3/cmm (157-399); Red Blood Count 3.72 10^6/uL (3.85-5.65); Red Cell Distribution Width 18.1 % (12.1-15.1); White Blood Count 9.92 10^3/uL (3.29-11.43)
[2024-10-31 05:08] LABS: Partial Thromboplastin Time 49.8 SECONDS (23.9-36.7)
[2024-10-31 05:20] LABS: Alanine Aminotransferase 45 U/L (0-33); Albumin Level 4.1 g/dL (3.5-5.2); Alkaline Phosphatase 59 U/L (35-105); Blood Urea Nitrogen 11 mg/dL (8-23); Calcium 8.3 mg/dL (8.5-10.5); Carbon Dioxide 29 mmol/L (22-29); Chloride 98 mmol/L (98-107); Creatinine Clr Calc Pharmacy 61.6807; Glomerular Filtration Rate 83.5 mL/min (90-130); Glucose 102 mg/dL (65-115); Osmolality Calculated 284 mOsm/kg (285-295); Sodium 137 mmol/L (136-145); Total Bilirubin 0.2 mg/dL (0.15-1.2); Total Protein 6.1 g/dL (6.6-8.7)
[2024-10-31 05:22] LABS: Anion Gap 13.9 (5-19); Aspartate Amino Transferase 19 U/L (0-32); Potassium 3.9 mmol/L (3.5-5.1)
[2024-10-31] MEDS: piperacillin-tazobactam 3.375 GM in sodium chloride 0.9% (plus) 50 ML IV ×3 (05:22→21:40)
[2024-10-31 05:25] LABS: NT Pro B Type Natriuretic Pept 4333 pg/mL (0-125)
[2024-10-31 05:26] LABS: Procalcitonin 0.11 ng/mL (0-0.5)
[2024-10-31 06:10] LABS: Glucose Point of Care 108 mg/dL (70-110)
[2024-10-31] MEDS: ipratropium-albuterol 3 mL Neb INHALATION ×3 (07:36→20:49)
[2024-10-31] MEDS: budesonide 0.5 mg/2 mL Neb INHALATION ×2 (07:36→20:49)
[2024-10-31] MEDS: predniSONE 20 mg Tablet 40 MG PO ×2 (07:54→15:12)
[2024-10-31] MEDS: donepezil 5 MG Tablet 10 MG PO (07:54)
[2024-10-31] MEDS: gabapentin 400 mg Capsule PO ×2 (07:54→16:51)
[2024-10-31] MEDS: ALPRAZolam 0.5 mg Tablet PO ×3 (07:55→21:40)
[2024-10-31] MEDS: clopidogrel 75 mg Tablet PO (07:55)
[2024-10-31] MEDS: metoprolol tartrate 25 mg Tablet 12.5 MG PO ×2 (07:56→16:50)
[2024-10-31] MEDS: aspirin 81 mg EC Tablet PO (07:56)
[2024-10-31] MEDS: guaiFENesin 600 mg Tablet 1200 MG PO ×2 (07:56→16:50)
[2024-10-31] MEDS: duloxetine 60 mg Capsule PO (07:56)
--- NOTE | 2024-10-31 08:49 | PM.PN ---
Subjective Subjective: Patient is feeling better. Still has significant wheezing in the lungs. She has a history of anaphylactic reaction to iodide. However with the premedications, she did not have any reactions in the past. Medications: Medication Review Details: Current Medications Acetaminophen (Acetaminophen 325 Mg Tablet) 650 mg PO Q6H PRN PRN Reason: Mild/Mod Pain Or Temp >/= 101 Albuterol/Ipratropium (Ipratropium-Albuterol 3 Ml Neb) 3 ml INHALATION Q6H.RESP HERB Last Admin: 10/31/24 07:36 Dose: 3 ml Alprazolam (Alprazolam 0.5 Mg Tablet) 0.5 mg PO Q6H PRN PRN Reason: Anxiety Last Admin: 10/31/24 07:55 Dose: 0.5 mg Aspirin (Aspirin 81 Mg Ec Tablet) 81 mg PO DAILY HERB Last Admin: 10/31/24 07:56 Dose: 81 mg Atorvastatin Calcium (Atorvastatin 40 Mg Tablet) 40 mg PO BEDTIME HERB Last Admin: 10/30/24 21:50 Dose: 40 mg Budesonide (Budesonide 0.5 Mg/2 Ml Neb) 0.5 mg INHALATION BID.RESPIRATORY HERB Last Admin: 10/31/24 07:36 Dose: 0.5 mg Clopidogrel Bisulfate (Clopidogrel 75 Mg Tablet) 75 mg PO DAILY HERB Last Admin: 10/31/24 07:55 Dose: 75 mg Docusate Sodium (Docusate Sodium 100 Mg Capsule) 100 mg PO BID HERB Last Admin: 10/30/24 17:01 Dose: Not Given Donepezil HCl (Donepezil 5 Mg Tablet) 10 mg PO DAILY HERB Last Admin: 10/31/24 07:54 Dose: 10 mg Duloxetine HCl (Duloxetine 60 Mg Capsule) 60 mg PO DAILY HERB Last Admin: 10/31/24 07:56 Dose: 60 mg Gabapentin (Gabapentin 400 Mg Capsule) 400 mg PO BID HERB Last Admin: 10/31/24 07:54 Dose: 400 mg Glucagon (Glucagon 1 Mg/Ml Kit 1 Ml) 1 mg IM ONCE PRN; Protocol PRN Reason: Adult Acute Hypoglycemia Nursing Prot. Guaifenesin (Guaifenesin 600 Mg Tablet) 1,200 mg PO BID PRN PRN Reason: congestion Last Admin: 10/31/24 07:56 Dose: 1,200 mg Heparin Sodium (Porcine) (Heparin 5,000 Unit/Ml Inj 1 Ml) 0 unit IVP PRN PRN; Protocol PRN Reason: Heparin Weight Based Protocol -Subsequent Bolus Last Admin: 10/30/24 16:38 Dose: 2,600 unit Piperacillin Sod/Tazobactam (Sod 3.375 gm/ Sodium Chloride) 50 mls @ 12.5 mls/hr IV Q8H HERB Last Admin: 10/31/24 05:22 Dose: 12.5 mls/hr Dextrose (D5w) 500 mls @ 0 mls/hr IV ONCE PRN; Protocol PRN Reason: Adult Acute Hypoglycemia Prot Dextrose (D10w) 125 mls @ 750 mls/hr IV PRN PRN; Protocol PRN Reason: Adult Acute Hypoglycemia Nursing Protocol Dextrose (D10w) 250 mls @ 1,000 mls/hr IV PRN PRN; Protocol PRN Reason: Adult Acute Hypoglycemia Nursing Protocol Heparin Sodium/Sodium Chloride (Heparin Drip) 25,000 unit in 500 mls @ 0 mls/hr IV CONT HERB; Protocol Last Titration: 10/31/24 05:27 Dose: 10.77 unit/kg/hr, 14 mls/hr Vancomycin HCl 750 mg/ Sodium (Chloride) 250 mls @ 250 mls/hr IV Q12H HERB Last Infusion: 10/31/24 01:49 Dose: Infused Insulin Human Lispro (Insulin Lispro 100 Unit/1 Ml) 0 unit SUBCUT WM&BEDTIME HERB; Protocol Last Admin: 10/31/24 07:41 Dose: Not Given Lactulose (Lactulose Oral Liq 20 Gm/30 Ml Udc) 10 gm PO DAILY PRN; Protocol PRN Reason: Constipation (see protocol) Magnesium Hydroxide (Magnesium Hydroxide 30 Ml Udc) 30 ml PO DAILY PRN; Protocol PRN Reason: Constipation (see protocol) Metoprolol Tartrate (Metoprolol Tartrate 25 Mg Tablet) 12.5 mg PO BID [facility] Last Admin: 10/31/24 07:56 Dose: 12.5 mg Morphine Sulfate (Morphine 4 Mg/Ml Sdv 1 Ml) 2 mg IVP Q4H PRN PRN Reason: SEVERE PAIN Last Admin: 10/31/24 00:27 Dose: 2 mg Ondansetron HCl (Ondansetron 2 Mg/Ml Sdv 2 Ml) 4 mg IVP Q6H PRN PRN Reason: vomiting, or N/V if npo Pantoprazole Sodium (Pantoprazole 40 Mg Sdv) 40 mg IVP Q24H [facility] Last Admin: 10/30/24 21:50 Dose: 40 mg Prednisone (Prednisone 20 Mg Tablet) 40 mg PO DAILY [facility] Last Admin: 10/31/24 07:54 Dose: 40 mg Vitals/I&O/Wt Last Vital Signs Temp 97.6 F 10/31/24 04:00 Pulse 67 10/31/24 07:51 Resp 18 10/31/24 07:38 BP 151/54 10/31/24 04:00 Pulse Ox 95 10/31/24 07:38 O2 Del Method Nasal Cannula 10/31/24 07:38 O2 Flow Rate 2 10/31/24 07:38 FiO2 40 10/28/24 03:00 10/30/24 10/31/24 10/31/24 22:59 06:59 14:59 Intake Total 141.534 / 527.984 938.567 / 1466.551 Balance 141.534 / 527.984 938.567 / 1466.551 Weight last 48 hrs Weight 149 lb 3.2 oz Weight 149 lb 14.4 oz Weight 148 lb 9.6 oz Physical Exam Narrative: GENERAL: The patient is alert and oriented times three. Not in any acute distress. HEENT: No significant pallor, icterus or lymphadenopathy.Oral cavity: There are no mucous membrane lesions. NECK: Trachea appears to be central. No masses noted. No JVD or thyromegaly appreciated. RESPIRATORY: Extensive bilateral expiratory wheezing. BREASTS: Deferred. HEART: The heart sounds are normal. No S3 or S4. No significant murmurs. No pericardial rub ABDOMEN: No vessel pulsations or distention. No tenderness. No organomegaly appreciated. Bowel sounds are normally heard. : Deferred. RECTAL: Deferred. LYMPHATIC: No lymphadenopathy noted in the neck. EXTREMITIES: No edema or cyanosis. Peripheral pulses are palpable but weak bilaterally MUSCULOSKELETAL: No acute joint deformities or swelling SKIN: There are no significant rashes or ecchymosis NEUROPSYCHIATRIC: The patient is alert and oriented x3. Appears to be in a good mood. No tremors or rigidity noted. Urinary Catheter Management: [place] Latex: Cath Placed During This Visit: yes, but has since been removed by the nurse Reason for Continuing Indwelling Catheter: Decision to DC Catheter Urinary Catheter Date of Insertion: 10/27/24 Urinary Catheter Time of Insertion: 22:00 Date Urinary Catheter Removed: 10/29/24 Time Urinary Catheter Discontinued: 19:15 Data 10/31/24 04:43 10/31/24 04:43 Other Labs: Laboratory Last Values WBC 9.92 10^3/uL (3.29-11.43) 10/31/24 04:43 RBC 3.72 10^6/uL (3.85-5.65) L 10/31/24 04:43 Hgb 10.90 g/dL (11.27-16.99) L 10/31/24 04:43 Hct 34.8 % (36-47) L 10/31/24 04:43 MCV 93.5 fl (85-98) 10/31/24 04:43 MCH 29.3 pg (27-33) 10/31/24 04:43 MCHC 31.3 g/dL (30-55) 10/31/24 04:43 RDW 18.1 % (12.1-15.1) H 10/31/24 04:43 Plt Count 281 10^3/cmm (157-399) 10/31/24 04:43 MPV 9.6 fL (7.4-10.4) 10/31/24 04:43 Neut % (Auto) 76.2 % 10/31/24 04:43 Lymph % (Auto) 15.2 % 10/31/24 04:43 [place] % (Auto) 7.9 % 10/31/24 04:43 Eos % (Auto) 0.1 % 10/31/24 04:43 Baso % (Auto) 0.1 % 10/31/24 04:43 Neut # (Auto) 7.56 10^3/uL (1.8-7.7) 10/31/24 04:43 Lymph # (Auto) 1.5 10^3/uL (0.8-4.8) 10/31/24 04:43 [place] # (Auto) 0.8 10^3/uL (0.2-0.9) 10/31/24 04:43 Eos # (Auto) 0.0 10^3/uL (0.0-0.8) 10/31/24 04:43 Baso # (Auto) 0.0 10^3/uL (0.0-0.1) 10/31/24 04:43 Nucleated RBC % (auto) 0 % 10/31/24 04:43 Nucleated RBCs # 0.0 /100WBC 10/31/24 04:43 PT 12.40 SECONDS (12.1-14.9) 10/27/24 16:37 INR 0.86 (0.8-1.2) 10/27/24 16:37 APTT 49.8 SECONDS (23.9-36.7) H 10/31/24 04:43 D-Dimer 0.86 ug/mLFEU (0-0.59) H 10/27/24 16:37 Specimen Type Arterial 10/27/24 21:15 Sample Site Radial, right 10/27/24 21:15 ABG pH 7.27 (7.35-7.45) L 10/27/24 21:15 ABG pCO2 54.4 mmHg (35-45) H 10/27/24 21:15 ABG pO2 84.0 mmHg (80.0-100.0) 10/27/24 21:15 ABG PO2/FiO2 Ratio 163 10/27/24 16:58 ABG HCO3 25.0 mmol/L (22-26) 10/27/24 21:15 ABG O2 Saturation 95.1 10/27/24 21:15 ABG Base Excess -2.3 mmol/L (-2.0-2.0) L 10/27/24 21:15 Boris Test Pos 10/27/24 21:15 A-a O2 Gradient Not Reportable 10/27/24 21:15 Hematocrit 32.0 % (37-47) L 10/27/24 21:15 Hgb O2 Saturation 93.3 % (95-100) L 10/27/24 21:15 Carboxyhemoglobin 0.9 %THgb (0.4-20.1) 10/27/24 21:15 Methemoglobin 1.0 % (0.4-1.5) 10/27/24 21:15 Total Hemoglobin 10.4 g/dL (12-16) L 10/27/24 21:15 Sodium 139.0 mmol/L (131-143) 10/27/24 21:15 Potassium 3.5 mmol/L (3.5-5.0) 10/27/24 21:15 Glucose 133.0 mg/dL (70-115) H 10/27/24 21:15 Ionized Calcium 1.1 mmol/L (1.1-1.4) 10/27/24 21:15 O2 Delivery Device Nc 10/27/24 21:15 O2 Liters/Min 3.0 % 10/27/24 21:15 FiO2 50.0 % 10/27/24 16:58 Traffic Routing Engineer ID [email or web address] 10/27/24 21:15 Sodium 137 mmol/L (136-145) 10/31/24 04:43 Potassium 3.9 mmol/L (3.5-5.1) 10/31/24 04:43 Chloride 98 mmol/L (98-107) 10/31/24 04:43 Carbon Dioxide 29 mmol/L (22-29) 10/31/24 04:43 Anion Gap 13.9 (5-19) 10/31/24 04:43 BUN 11 mg/dL (8-23) 10/31/24 04:43 Creatinine 0.7 mg/dL (0.5-0.9) 10/31/24 04:43 GFR Calculation 83.5 mL/min (90-130) L 10/31/24 04:43 Glucose 102 mg/dL (65-115) 10/31/24 04:43 POC Glucose 108 mg/dL (70-110) 10/31/24 05:58 Estimat Average Glucose 143 10/27/24 16:37 Hemoglobin A1c 6.6 % (4.0-6.0) H 10/27/24 16:37 Calculated Osmolality 284 mOsm/kg (285-295) L 10/31/24 04:43 Lactic Acid 5.6 mmol/L (0.5-2.2) H* 10/27/24 16:37 Lactic Acid (Sepsis) 3.4 mmol/L (0.5-2.2) H 10/27/24 19:55 Calcium 8.3 mg/dL (8.5-10.5) L 10/31/24 04:43 Phosphorus 2.3 mg/dL (2.5-4.5) L 10/30/24 02:06 Magnesium 2.1 mg/dL (1.7-2.3) 10/30/24 02:06 Iron 73 ug/dL (37-145) 10/27/24 16:37 TIBC 424.33299 mcg/dl 10/27/24 16:37 % Saturation 17.0 % (20-50) L 10/27/24 16:37 Unsat Iron Binding > 351 ug/dL (112-347) H 10/27/24 16:37 Total Bilirubin 0.2 mg/dL (0.15-1.2) 10/31/24 04:43 AST 19 U/L (0-32) 10/31/24 04:43 ALT 45 U/L (0-33) H 10/31/24 04:43 Alkaline Phosphatase 59 U/L (35-105) 10/31/24 04:43 Troponin T Baseline 11 ng/L (0-10) H 10/27/24 16:37 Troponin T 120 Minute 36.89 ng/L (0-10) H 10/27/24 18:29 Delta Troponin T 25.89 ABS# (0-10) H* 10/27/24 18:29 Troponin T Hi Sens 6Hr 70.86 ng/L (0-10) H 10/27/24 22:29 Troponin T Hi Sens 6Hr Delta 59.86 ng/L (0-12) H* 10/27/24 22:29 C-Reactive Protein 3.0 mg/L (0.0-4.9) 10/31/24 04:43 NT-Pro-B Natriuret Pep 4333 pg/mL (0-125) H 10/31/24 04:43 Total Protein 6.1 g/dL (6.6-8.7) L 10/31/24 04:43 Albumin 4.1 g/dL (3.5-5.2) 10/31/24 04:43 Globulin 2.0 g/dL (1.3-4.6) 10/31/24 04:43 Triglycerides 38 mg/dL (0-150) 10/28/24 04:29 Cholesterol 136 mg/dL (0-200) 10/28/24 04:29 LDL Cholesterol, Calc 59 mg/dL (50-129) 10/28/24 04:29 HDL Cholesterol 69 mg/dL (60-100) 10/28/24 04:29 LDL/HDL Ratio 0.86 RATIO (0.00-3.22) 10/28/24 04:29 Cholesterol/HDL Ratio 1.97 mg/dL (0.0-4.40) 10/28/24 04:29 Vitamin B12 555 pg/mL (232-1245) 10/27/24 16:37 Folate 12.5 ng/mL (4.8-37.3) 10/28/24 04:29 Procalcitonin 0.11 ng/mL (0-0.5) 10/31/24 04:43 TSH 3.83 uIU/mL (0.27-4.20) 10/27/24 16:37 Urine Color Yellow (Yellow) 10/29/24 13:05 Urine Appearance Clear (CLEAR) 10/29/24 13:05 Urine pH 6.5 (5-7) 10/29/24 13:05 Ur Specific [place] 1.006 (1.005-1.030) 10/29/24 13:05 Urine Protein Negative (Negative) 10/29/24 13:05 Urine Glucose (UA) Negative (Normal) 10/29/24 13:05 Urine Ketones Negative (Negative) 10/29/24 13:05 Urine Blood Negative (Negative) 10/29/24 13:05 Urine Nitrate Negative (Negative) 10/29/24 13:05 Urine Bilirubin Negative (Negative) 10/29/24 13:05 Urine Urobilinogen 0.2 mg/dL (Negative) 10/29/24 13:05 Ur Leukocyte Esterase Negative (Negative) 10/29/24 13:05 Urine RBC 0-2 /hpf (0-2) 10/29/24 13:05 Urine WBC 0-5 /hpf (0-5) 10/29/24 13:05 Ur Squamous Epith Cells 0-5 /hpf (0-5) 10/29/24 13:05 Amorphous Sediment Not Reportable 10/29/24 13:05 Urine Bacteria None seen /hpf (NONE) 10/29/24 13:05 Hyaline Casts 0-4 /lpf H 10/29/24 13:05 Coarse Granular Casts 5-10 /lpf H 10/27/24 17:35 Nasal MRSA (PCR) Mrsa detected (Not Detecte) A 10/27/24 21:25 Vancomycin Trough 13.2 ug/mL (10-15) 04/23/25 12:20 Urine Opiates Screen Positive ng/mL (Negative) H 10/27/24 21:25 Ur Barbiturates Screen Negative ng/mL (Negative) 10/27/24 21:25 Ur Phencyclidine Scrn Negative ng/mL (Negative) 10/27/24 21:25 Ur Amphetamines Screen Negative ng/mL (Negative) 10/27/24 21:25 U Benzodiazepines Scrn Positive ng/mL (Negative) H 10/27/24 21:25 Urine Cocaine Screen Negative ng/mL (Negative) 10/27/24 21:25 U Marijuana (THC) Screen Positive ng/mL (Negative) H 10/27/24 21:25 Adenovirus (PCR) Not detected (NOT DETECT) 10/27/24 21:25 C. pneumoniae DNA (PCR) Not detected (NOT DETECT) 10/27/24 21:25 Coronavirus 229E (PCR) Not detected (NOT DETECT) 10/27/24 21:25 Hepatitis A IgM Ab Non-reactive (Nonreactive) 10/27/24 16:37 Hep Bs Antigen Non-reactive (Nonreactive) 10/28/24 09:50 Hep Bs Antibody < 3.5 (11.5-1000) L 10/27/24 16:37 Hep B Core Total Ab Non-reactive (Nonreactive) 10/27/24 16:37 Hepatitis C Antibody Non-reactive (Nonreactive) 10/28/24 09:50 HIV 1&2 Ab & HIV 1 Ag Non-reactive (Non-Reactiv) 10/28/24 09:50 HIV 1&2 Antibody Non-reactive (Non-Reactiv) 10/28/24 09:50 Human Metapneumovir PCR Not detected (NOT DETECT) 10/27/24 21:25 Influenza A (H1) PCR Not detected (NOT DETECT) 10/27/24 21:25 Influ A (H1/09) PCR Not detected (NOT DETECT) 10/27/24 21:25 Influenza A (H3) PCR Not detected (NOT DETECT) 10/27/24 21:25 Influenza Type A (PCR) Not detected (NOT DETECT) 10/27/24 21:25 Influenza Type B (PCR) Not detected (NOT DETECT) 10/27/24 21:25 M. pneumoniae (PCR) Not detected (NOT DETECT) 10/27/24 21:25 Parainfluenza 1 (PCR) Not detected (NOT DETECT) 10/27/24 21:25 Parainfluenza 2 (PCR) Not detected (NOT DETECT) 10/27/24 21:25 Parainfluenza 3 (PCR) Not detected (NOT DETECT) 10/27/24 21:25 Parainfluenza 4 (PCR) Not detected (NOT DETECT) 10/27/24 21:25 RSV Type A (PCR) Not detected (NOT DETECT) 10/27/24 21:25 RSV Type B (PCR) Not detected (NOT DETECT) 10/27/24 21:25 Entero/Rhino (PCR) Detected (NOT DETECT) A 10/27/24 21:25 SARS-CoV-2 (PCR) Not detected (NOT DETECT) 10/27/24 21:25 Micro: Microbiology 10/28/24 04:30 Gram Stain - Final Sputum - Expectorated Sputum Sputum Culture - Final A&P Assessment and plan (1) Elevated troponin: Most likely related to non-ST elation myocardial infarction. Currently seems to be stable. Patient is on Plavix and aspirin. (2) Atherosclerotic heart disease of [place] coronary artery without angina pectoris: Patient had PCI of the circumflex artery in 2011. In view of the clinical presentation of non-ST elevation myocardial infarction and ventricular arrhythmia it would be appropriate to do a cardiac catheterization to reevaluate the coronary status and decide on further management Qualifiers: [place] vs. transplanted heart: [place] heart Qualified Code(s): I25.10 - Atherosclerotic heart disease of [place] coronary artery without angina pectoris (3) Ventricular tachycardia: Hypoxia/ischemia causing the arrhythmia is a consideration. Since the patient has no recurrence of arrhythmia, I may hold off on any medication changes at this time. Current medications may be continued. (4) Peripheral arterial disease: Clinically stable. Continue on the current management. Currently has no specific symptoms. (5) Chronic diastolic heart failure secondary to coronary artery disease: Patient currently has no evidence of any decompensated heart failure. May continue on the current management. (6) Mixed hyperlipidemia: Continue on the current management. (7) Benign essential HTN: The blood pressure stays in the normal range. Will continue on the current medications. (8) S/P carotid endarterectomy: The most recent Doppler examination in 2022 revealed less than 50% stenosis bilaterally. Plan , I discussed with the patient about the cardiac catheterization, possible risks, benefits and alternatives. The risk of bleeding, hematoma, vascular injury, myocardial infarction, myocardial perforation, malignant cardiac arrhythmias ,CVA, renal failure and other concomitant complications were explained in detail. Because of the history of bilaterality, she carries a higher risk for anaphylactic reaction even after premedication. Since she did not have any problems in the past with the premedications, we may go ahead with the procedure. Patient also understands that if she needs surgical revascularization, she needs to be transferred to another facility, since we do not have cardiac surgery available in this hospital at this time Prednisone 40 mg p.o. every 8 hours, famotidine 20 mg p.o. twice daily, Benadryl 25 mg p.o. 3 times daily Continue on her current medications. BMP in the morning. If she remains stable, will do the cardiac catheterization in the morning Based on the angiogram findings, further recommendations will be made PDMP PDMP Reviewed: Not Reviewed Attestations Medical Necessity Statement*: Patient requires continued hospital stay for close monitoring and further management Coding Level of Care Code 95634 Diagnoses Elevated troponin R79.89 Atherosclerosis of [place] coronary artery of [place] heart without angina pectoris I25.10 [place] vs. transplanted heart: [place] heart Ventricular tachycardia I47.20 Peripheral arterial disease I73.9 Chronic diastolic heart failure secondary to coronary artery disease I50.32; I25.10 Mixed hyperlipidemia E78.2 Benign essential HTN I10 S/P carotid endarterectomy Z98.890
[2024-10-31] MEDS: diphenhydrAMINE 25 mg Capsule PO ×2 (10:41→16:51)
[2024-10-31 11:13] LABS: Glucose Point of Care 131 mg/dL (70-110)
--- NOTE | 2024-10-31 14:23 | PM.PN ---
Subjective Subjective: Patient was seen this morning, she does report wheezing, no shortness of breath, no chest pain, no palpitations, no lightheadedness, no dizziness, no nausea, no vomiting Vitals/I&O/Wt Last Vital Signs Temp 97.6 F 10/31/24 12:00 Pulse 75 10/31/24 13:34 Resp 18 10/31/24 13:25 BP 182/62 10/31/24 12:00 Pulse Ox 98 10/31/24 13:25 O2 Del Method Nasal Cannula 10/31/24 13:25 O2 Flow Rate 2 10/31/24 13:25 FiO2 40 10/28/24 03:00 10/30/24 10/31/24 10/31/24 22:59 06:59 14:59 Intake Total 141.534 / 527.984 938.567 / 1466.551 420 / 420 Output Total 625 / 625 Balance 141.534 / 527.984 938.567 / 1466.551 -205 / -205 Weight last 48 hrs Weight 67.676 kg Weight 67.993 kg Weight 67.404 kg Physical Exam Const: COMMON NORMALS: no acute distress and patient oriented x3 Resp: COMMON NORMALS: normal respiratory effort, No retractions, No use of accessory muscles and clear to auscultation bilaterally AUSCULTATION: clear to auscultation bilaterally Cardio: COMMON NORMALS: regular rate, regular rhythm, S1 normal heart sound present and S2 normal heart sound present RATE: regular rate RHYTHM: regular rhythm HEART SOUNDS: S1 normal heart sound present and S2 normal heart sound present GI: COMMON NORMALS: Normal to inspection, nondistended, normoactive bowel sounds present and non-tender Extremity: COMMON NORMALS: no pedal edema Neuro: COMMON NORMALS: patient oriented x3 Psych: COMMON NORMALS: mental status grossly normal Urinary Catheter Management: [place] Latex: Cath Placed During This Visit: yes, but has since been removed by the nurse Reason for Continuing Indwelling Catheter: Decision to DC Catheter Urinary Catheter Date of Insertion: 10/27/24 Urinary Catheter Time of Insertion: 22:00 Date Urinary Catheter Removed: 10/29/24 Time Urinary Catheter Discontinued: 19:15 Data 10/31/24 04:43 10/31/24 04:43 Micro: Microbiology 10/28/24 04:30 Gram Stain - Final Sputum - Expectorated Sputum Sputum Culture - Final A&P Assessment and plan (1) Acute respiratory failure with hypoxia and hypercapnia: (2) Altered mental status: (3) COPD with acute exacerbation: (4) Chronic diastolic heart failure secondary to coronary artery disease: (5) Benign essential HTN: (6) Arrhythmia: (7) Transaminitis: (8) Acute encephalopathy: (9) Ventricular tachycardia: Plan 69-year-old female with past medical history of COPD, chronic smoker, CAD, diastolic heart failure was sent into the ER from correction today because of altered mental status, decreased responsiveness was found to have possible arrhythmia en route to the ER and found to be in hypercapnic hypoxic respiratory failure. Unresponsive episode, ventricular tachycardia - Status post 150 mg amiodarone - Converted to normal sinus rhythm - Continue telemetry monitoring - Plans on possible coronary angiography tomorrow NSTEMI - With history of CAD status post stenting - Continue aspirin, statin, beta-briseida - Heparin drip - Cardiac echo CONCLUSIONS Normal left ventricular size with a borderline low ejection fraction of 50 to 55%, visual. Relative hypokinesis of the septum. Mild left ventricular hypertrophy. Grade I/IV diastolic dysfunction (abnormal relaxation filling pattern), normal to mildly elevated filling pressures. Mildly increased left atrial size. Mild aortic valve regurgitation. Thickened aortic valve. Trace mitral valve regurgitation. Compared to the study from 09/16/2019, there appears to be a drop in the LV ejection fraction. - Possible coronary angiography tomorrow Acute hypoxic and hypercapnic respiratory failure: Component of COPD Component of CHF, systolic diastolic Pneumonia CT/CT angio chest PE protcl [id number] IMPRESSION: 1. No evidence of PE. 2. Bronchial wall thickening raising the question of bronchitis. There is focal irregular bronchial wall thickening in the posterior segment right upper lobe. Consider follow-up CT of the chest in 4-6 weeks to assess for improvement. 3. Emphysematous changes. The presence of pulmonary emphysema on CT is an independent risk factor for lung cancer. In the absence of a history or active diagnosis of lung cancer, it is recommended that this patient with emphysema be evaluated for enrollment in a low dose [place] lung cancer screening program. Plan - Continue BiPAP as needed - Continue Zosyn -MRSA nares positive , vancomycin - Monitor respiratory status closely - prednisone 40 mg daily - DuoNeb, Pulmicort - Fluid overloaded today Lasix 1 dose Concerns for aspiration pneumonia/aspiration pneumonitis - Continue Zosyn as above - Aspiration precautions - Dysphagia level 4 diet, moderately thickened - Modified barium swallow today - Speech therapy consulted - Budesonide Anxiety, depression, consult psychiatry, continue Xanax, duloxetine, gabapentin Transaminitis: Liver ultrasound no acute findings CODE STATUS: Full code as per paperwork. Cardiac diet Heparin for DVT prophylaxis. Protonix or PUD prophylaxis. Plan for today, add hydralazine 10 3 times daily, add 1 dose of Lasix, prednisone will be given, epi midnight, for angiogram tomorrow, modified barium swallow today PDMP PDMP Reviewed: Last Reviewed 10/30/24 15:04 by Logan Aguilar MD Attestations Medical Necessity Statement*: Patient requires hospitalization for acute respiratory failure, secondary to COPD, CHF, admitted midnight for angiogram tomorrow Diagnoses Acute respiratory failure with hypoxia and hypercapnia J96.01; J96.02 Altered mental status R41.82 COPD with acute exacerbation J44.1 Chronic diastolic heart failure secondary to coronary artery disease I50.32; I25.10 Benign essential HTN I10 Arrhythmia I49.9 Transaminitis R74.01 Acute encephalopathy G93.40 Ventricular tachycardia I47.20
--- NOTE | 2024-10-31 14:42 | FL_ITS ---
WS: [id number] Exam: FL barium swallow modifd [id number] Date/Time of Exam: 10/31/2024 11:39 AM Reason For Exam: Oral dysphagia Fluoroscopy time: 4min [id number] minutes # of spot films: 0 Modified barium swallow was performed in conjunction with the speech therapy service. The patient experienced penetration and aspiration of thin liquid barium on at least one episode of swallowing. The patient tolerated the remaining consistencies of barium mixture foodstuffs without difficulty. The patient swallowed a barium tablet without complication. FL/FL barium swallow modifd [id number] IMPRESSION: 1. The patient experienced penetration and aspiration with 1 episode of swallow ing thin liquid barium. A separate report will follow from the speech therapy service with recommendati ons.
[2024-10-31] MEDS: dilTIAZem 30 mg Tablet PO ×2 (15:12→21:39)
[2024-10-31] MEDS: FUROsemide 10 mg/mL SDV 4mL 40 MG IVP (15:12)
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
[2024-10-31 16:26] LABS: Partial Thromboplastin Time 36.8 SECONDS (23.9-36.7)
[2024-10-31] MEDS: heparin 5,000 unit/mL INJ 1 mL IVP (16:49)
[2024-10-31] MEDS: famotidine 20 mg Tablet 40 MG PO (16:50)
[2024-10-31 18:13] LABS: Glucose Point of Care 133 mg/dL (70-110)
[2024-10-31 20:11] LABS: Glucose Point of Care 181 mg/dL (70-110)
[2024-10-31] MEDS: atorvastatin 40 mg Tablet PO (21:39)
[2024-10-31] MEDS: insulin lispro 100 unit/1 mL SUBCUT (21:39)
[2024-10-31] MEDS: pantoprazole 40 mg SDV IVP (21:40)
[2024-10-31 22:07] LABS: Partial Thromboplastin Time 86.5 SECONDS (23.9-36.7)
[2024-11-01] VITALS (15 sets, daily range): BP systolic 135–159; BP diastolic 49–67; PULSE 56–77; RESP 15–25; TEMP 36.4–37; O2SAT 93–98
[2024-11-01] MEDS: VANCOMYCIN ADD-Vantage 750 MG in 0.9% NaCl ADD-Vantage 250 ML 250 MG IV (01:01)
[2024-11-01] MEDS: predniSONE 20 mg Tablet 40 MG PO ×2 (01:01→09:03)
[2024-11-01] MEDS: diphenhydrAMINE 25 mg Capsule PO (01:01)
[2024-11-01] MEDS: dilTIAZem 30 mg Tablet PO ×4 (01:02→21:07)
[2024-11-01] MEDS: heparin drip 25,000 UNIT/500 ML PREMIX 14 UNIT IV (02:10)
[2024-11-01] MEDS: ipratropium-albuterol 3 mL Neb INHALATION ×3 (02:21→20:40)
[2024-11-01] MEDS: piperacillin-tazobactam 3.375 GM in sodium chloride 0.9% (plus) 50 ML IV (04:36)
[2024-11-01] MEDS: ALPRAZolam 0.5 mg Tablet PO ×3 (04:37→18:21)
[2024-11-01] MEDS: morphine 4 mg/mL SDV 1 mL 2 MG IVP ×3 (04:37→22:46)
[2024-11-01 05:18] LABS: Hematocrit 35.1 % (36-47); Mean Corpuscular HGB Conc 32.2 g/dL (30-55); Mean Corpuscular Hemoglobin 28.8 pg (27-33); Mean Corpuscular Volume 89.3 fl (85-98); Mean Platelet Volume 9.7 fL (7.4-10.4); Monocytes # 0.5 10^3/uL (0.2-0.9); Monocytes % 5.5 %; Neutrophils # 7.22 10^3/uL (1.8-7.7); Neutrophils % 82.8 %; Nucleated Red Blood Cells % 0 %; Platelet Count 325 10^3/cmm (157-399); Red Blood Count 3.93 10^6/uL (3.85-5.65); Red Cell Distribution Width 17.4 % (12.1-15.1); White Blood Count 8.72 10^3/uL (3.29-11.43)
[2024-11-01 05:25] LABS: Partial Thromboplastin Time 53.9 SECONDS (23.9-36.7)
[2024-11-01 05:37] LABS: Alanine Aminotransferase 39 U/L (0-33); Albumin Level 4.4 g/dL (3.5-5.2); Alkaline Phosphatase 67 U/L (35-105); Anion Gap 16.6 (5-19); Aspartate Amino Transferase 14 U/L (0-32); Blood Urea Nitrogen 17 mg/dL (8-23); Calcium 8.8 mg/dL (8.5-10.5); Carbon Dioxide 31 mmol/L (22-29); Chloride 96 mmol/L (98-107); Creatinine Clr Calc Pharmacy 53.6633; Globulin 2.3 g/dL (1.3-4.6); Glomerular Filtration Rate 62.5 mL/min (90-130); Glucose 143 mg/dL (65-115); Osmolality Calculated 294 mOsm/kg (285-295); Potassium 3.6 mmol/L (3.5-5.1); Sodium 140 mmol/L (136-145); Total Bilirubin 0.3 mg/dL (0.15-1.2); Total Protein 6.7 g/dL (6.6-8.7)
[2024-11-01 05:39] LABS: NT Pro B Type Natriuretic Pept 4551 pg/mL (0-125)
[2024-11-01 06:07] LABS: Glucose Point of Care 163 mg/dL (70-110)
--- NOTE | 2024-11-01 07:00 | XACV_ITS ---
Exam Room: 2 Ht: 157 cm Wt: 68 kg BSA: 1.74 m2 Gender: Female : 1955 Any Known Allergies: Shellfish Exam Priority: Routine Procedure(s): Procedure Description: Diagnostic procedure Procedure Description: Left Heart Catheterization Procedure Description: Left ventriculography Procedure Description: Coronary Angiography Peter CARR; Diagnostic Cath Status: Urgent Diagnostic Findings * Left main is a medium caliber vessel with minimal intimal irregularities. No significant stenotic lesions. * The left-sided descending artery is a medium caliber vessel which appears to have mild diffuse disease in the mid and distal segment. The artery appears to wraparound the LV apex minimally. No significant is noted which were noted. It gives off multiple diagonal branches proximally. Mild to moderate diffuse disease were noted in the proximal segments of these arteries. No significant stenotic lesions.. * The circumflex artery appears to have mild diffuse disease proximally. It gives off 2 small obtuse marginal branches proximally. Then the artery appears to be totally occluded. * The right coronary artery is a medium caliber vessel, dominant with mild diffuse disease. Grade 2-3 [id number] collaterals were noted filling of the circumflex artery. * The LV gram was performed in ARVIZU projection. The LV cavity appears to be normal size. Mild diffuse hypokinesia of the inferolateral wall segment was noted. LVEDP was 32 mmHg. LV ejection fraction around 50%. Conclusions 1. 69-year-old white female with history of coronary disease and previous PCI, presenting with features of acute heart failure and non-ST ovation myocardial infarction. Patient underwent left heart catheterization with a left and right coronary angiogram and LV angiogram today. Findings are as follows. 2. Total occlusion of the mid circumflex artery. Mild diffuse disease in the other vessels. Grade 2-3 right to left collaterals filling up the circumflex artery. LV ejection fraction of 50%. LVEDP of 32 mmHg.. 3. I reviewed and discussed the cardiac catheterization data with Dr. Doherty. Since the patient has no chest pain and also since the artery iscompletely occluded with a fairly good collaterals, it was thought to be appropriate to continue the medical management at this point. Diagnostic RX Recommendation: medical therapy and/or counseling LV EDP: 32 mmHg Ventriculography Ejection Fraction: 50.0 % Pressures Phase:Rest AO : 161 / 48 ( 77 ) @ 9:22:00 AM 130 / 62 ( 90 ) @ 9:24:00 AM 175 / 57 ( 102 ) @ 9:34:00 AM 176 / 58 ( 102 ) @ 9:34:00 AM LV : 180 / 11 / 32 @ 9:33:00 AM 170 / 10 / 29 @ 9:34:00 AM 176 / 11 / 29 @ 9:34:00 AM Valves Phase:DefaultPhase AV : 1.0 @ 8:49:32 AM AV Mean Gradient: 0.0 @ 8:49:32 AM Clinical Evaluation EBL: 5mL-10mL Procedural Details Procedure Consent Obtained. Pre-Procedure Time Out. Identified patient by full name and date of as verbalized by the patient/guarantor. Does the consent match the physician's order: Yes. Accurate & Complete Informed Consent: Yes. Inpatient/Outpatient History & Physical on Chart: Yes. If H&P is completed, is and addenduem needed: No. Visualize and Verify Site with Patient/Guarantor: N/A. Relevant Radiology Images available: Yes. The risks, benefits, and alternatives of sedation and/or procedure were discussed by physician. The patient agrees to continue. Procedure started. [facility] Clinical Fraility Score: 4: Vulnerable. 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 Chest Pain Symptom Assessment: Atypical Angina. Cardiovascular Instability: No. Correct patient, site and procedure confirmed by cath team. Current diagnosis: NSTEMI. PERRLA. 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 Lungs clear x 5 lobes. IV Site on Arrival: 20 gauge in the right anticubital. IV Site on Arrival: 20 gauge in the left bicep. IV Fluids: 0.9% NaCl at KVO. 0 mL infused prior to field laborer. Pre Procedural Pulses: bilateral radial was 2+. Oxygen started at 2liters/min via nasal canula. right groin was prepped with chloroprep then draped in the usual sterile fashion. right radial was prepped with chloroprep then draped in the usual sterile fashion. Physician notified. Baseline sample Acquired. HR: 64 BPM. Patient's family unavailable. The spouse, Sonny, is supposed to be on his way to the hospital. His cell phone is on the chart if needed. Equipment: 6F - Radial. Cardiac Cath Pack. ACIST Manifold Kit Model BT [id number]. Heparinized Saline (2 units/mL), 1000 mL bag. Physician arrived. Physician scrubbed in. Immediate Pre-Procedure Time Out. Correct Patient: Yes; Correct Procedure: Yes; Correct Site: Yes; Correct Patient Position: Yes; Correct Supplies: Yes; Dried Flammable Prep: Yes; Blood Products Available: N/A. Lidocaine 1% infiltrated to the right radial. Arterial access obtained. ACT drawn. Results 149 seconds. Therapeutic limits - pre-heparin administration 90-150 seconds and monitoring heparin during a vascular procedure >250 seconds. A 5 luxembourger Jeremiah catheter in over the exchange J wire. A test dose of contrast was given per Dr. Green with no reactions noted. Multiple views taken of left coronary artery. Catheter redirected to the RCA. Catheter removed over the exchange J wire. A 5 luxembourger JR4 catheter in over the exchagne J wire. Multiple views taken of right coronary artery. Catheter redirected to the L, unable to cross aortic valve. Catheter removed over the exchange J wire. A 5 luxembourger Angled Pig catheter in over the exchange J wire. EDP Sample taken: LV 180/11,32; HR: 58 BPM; SpO2: 99%. LV gram performed in ARVIZU @ 10 mL/second for a total of 30 mL. EDP Sample taken: LV 170/10,29; HR: 54 BPM; SpO2: 99%. Pullback taken: LV 176/11,29; AO 175/57(102); Mean: 0mmHg, Peak to Peak: 1mmHg, SEP: 16sec/min; HR: 58 BPM; SpO2: 99%. Catheter removed over the exchange J wire. Dr. Doherty called to view cineography. Dr. Doherty here to view cineography. Physician scrubbed out. A TR Band was successful obtaining hemostatsis at the Right Radial artery insertion site. Post Procedure: Pulses reassessed and unchanged. PERRLA. 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 No VTE prophylaxis required. Medication's Wasted: Lidocaine 1% = 18 mL. Medication's Wasted: Nitro = 49.8 mg. Medication's Wasted: Heparin = 3000 units. Medication's Wasted: Other = Fentnayl 50 mcg. Total IV fluids: 50 mL. Post-op diagnosis: non-obstructive CAD. Complications: none. Estimated blood loss: 5mL-10mL. Responsiveness - Normal response to verbal stimuli; alert and oriented, PERRLA. Airway - Unaffected, no intervention required; spontaneous ventilation. Circulation: W/N/L, pulses unchanged. Nausea/Vomiting: No. Procedure completed. Patient transferred by bed to 1st floor. Vital chart was stopped. Access Site Site: Right Radial artery Sheath Size: 6 Fr Hemostasis Method: TR Band Hemostasis Success: Successful Procedure Medications Start: 8:12 AM Stop: 8:12 AM Medication: Versed Amount: 1 mg Route: I.V. Start: 8:12 AM Stop: 8:12 AM Medication: Fentanyl Amount: 50 mcg Route: I.V. Start: 8:17 AM Stop: 8:17 AM Medication: Solu-Medrol (methylprednisolone) Amount: 100 mg Route: I.V. Start: 8:18 AM Stop: 8:18 AM Medication: Verapamil Amount: 5 mg Route: I.A. Start: 8:18 AM Stop: 8:18 AM Medication: Nitrogylcerin Amount: 200 mcg Route: I.A. Start: 8:21 AM Stop: 8:21 AM Medication: Heparin Amount: 3000 units Route: I.V. Start: 8:29 AM Stop: 8:29 AM Medication: Versed Amount: 1 mg Route: I.V. I, the attending physician, have reviewed and verified all procedure medications. Yes, all medications given per verbal order History/Risk Factors Hypertension: Yes Dyslipidemia: Yes Peripheral Arterial Disease (PAD): Yes Myocardial Infarction (IL): No Obesity: No Renal Disease: No Tobacco Use: Current/Recent(w/in 1 year) Prior Interventions PCI: No CABG: No Valve Surgery: No Report Signatures Finalized by Dr Jess Green MD [facility] on 11/01/2024 11:05 AM
--- NOTE | 2024-11-01 07:00 | PM.PN ---
Subjective Subjective: The patient's breathing is much better. No chest pain or shortness of breath. Vitals are stable. Medications: Medication Review Details: Current Medications Acetaminophen (Acetaminophen 325 Mg Tablet) 650 mg PO Q6H PRN PRN Reason: Mild/Mod Pain Or Temp >/= 101 Albuterol/Ipratropium (Ipratropium-Albuterol 3 Ml Neb) 3 ml INHALATION Q6H.RESP HERB Last Admin: 11/01/24 02:21 Dose: 3 ml Alprazolam (Alprazolam 0.5 Mg Tablet) 0.5 mg PO Q6H PRN PRN Reason: Anxiety Last Admin: 11/01/24 04:37 Dose: 0.5 mg Aspirin (Aspirin 81 Mg Ec Tablet) 81 mg PO DAILY [facility] Last Admin: 10/31/24 07:56 Dose: 81 mg Atorvastatin Calcium (Atorvastatin 40 Mg Tablet) 40 mg PO BEDTIME HERB Last Admin: 10/31/24 21:39 Dose: 40 mg Budesonide (Budesonide 0.5 Mg/2 Ml Neb) 0.5 mg INHALATION BID.RESPIRATORY HERB Last Admin: 10/31/24 20:49 Dose: 0.5 mg Clopidogrel Bisulfate (Clopidogrel 75 Mg Tablet) 75 mg PO DAILY [facility] Last Admin: 10/31/24 07:55 Dose: 75 mg Diltiazem HCl (Diltiazem 30 Mg Tablet) 30 mg PO Q6H [facility] Last Admin: 11/01/24 01:02 Dose: 30 mg Docusate Sodium (Docusate Sodium 100 Mg Capsule) 100 mg PO BID [facility] Last Admin: 10/31/24 16:52 Dose: Not Given Donepezil HCl (Donepezil 5 Mg Tablet) 10 mg PO DAILY [facility]B Last Admin: 10/31/24 07:54 Dose: 10 mg Duloxetine HCl (Duloxetine 60 Mg Capsule) 60 mg PO DAILY [facility]B Last Admin: 10/31/24 07:56 Dose: 60 mg Famotidine (Famotidine 20 Mg Tablet) 40 mg PO BID HERB Stop: 11/01/24 09:01 Last Admin: 10/31/24 16:50 Dose: 40 mg Gabapentin (Gabapentin 400 Mg Capsule) 400 mg PO BID [facility] Last Admin: 10/31/24 16:51 Dose: 400 mg Glucagon (Glucagon 1 Mg/Ml Kit 1 Ml) 1 mg IM ONCE PRN; Protocol PRN Reason: Adult Acute Hypoglycemia Nursing Prot. Guaifenesin (Guaifenesin 600 Mg Tablet) 1,200 mg PO BID PRN PRN Reason: congestion Last Admin: 10/31/24 16:50 Dose: 1,200 mg Heparin Sodium (Porcine) (Heparin 5,000 Unit/Ml Inj 1 Ml) 0 unit IVP PRN PRN; Protocol PRN Reason: Heparin Weight Based Protocol -Subsequent Bolus Last Admin: 10/31/24 16:49 Dose: 2,600 unit Piperacillin Sod/Tazobactam (Sod 3.375 gm/ Sodium Chloride) 50 mls @ 12.5 mls/hr IV Q8H HERB Last Admin: 11/01/24 04:36 Dose: 12.5 mls/hr Dextrose (D5w) 500 mls @ 0 mls/hr IV ONCE PRN; Protocol PRN Reason: Adult Acute Hypoglycemia Prot Dextrose (D10w) 125 mls @ 750 mls/hr IV PRN PRN; Protocol PRN Reason: Adult Acute Hypoglycemia Nursing Protocol Dextrose (D10w) 250 mls @ 1,000 mls/hr IV PRN PRN; Protocol PRN Reason: Adult Acute Hypoglycemia Nursing Protocol Heparin Sodium/Sodium Chloride (Heparin Drip) 25,000 unit in 500 mls @ 0 mls/hr IV CONT HERB; Protocol Last Titration: 11/01/24 05:44 Dose: 11.54 unit/kg/hr, 15 mls/hr Vancomycin HCl 750 mg/ Sodium (Chloride) 250 mls @ 250 mls/hr IV Q12H HERB Last Infusion: 11/01/24 02:08 Dose: Infused Insulin Human Lispro (Insulin Lispro 100 Unit/1 Ml) 0 unit SUBCUT WM&BEDTIME HERB; Protocol Last Admin: 10/31/24 21:39 Dose: 2 unit Lactulose (Lactulose Oral Liq 20 Gm/30 Ml Udc) 10 gm PO DAILY PRN; Protocol PRN Reason: Constipation (see protocol) Magnesium Hydroxide (Magnesium Hydroxide 30 Ml Udc) 30 ml PO DAILY PRN; Protocol PRN Reason: Constipation (see protocol) Metoprolol Tartrate (Metoprolol Tartrate 25 Mg Tablet) 12.5 mg PO BID HERB Last Admin: 10/31/24 16:50 Dose: 12.5 mg Morphine Sulfate (Morphine 4 Mg/Ml Sdv 1 Ml) 2 mg IVP Q4H PRN PRN Reason: SEVERE PAIN Last Admin: 11/01/24 04:37 Dose: 2 mg Ondansetron HCl (Ondansetron 2 Mg/Ml Sdv 2 Ml) 4 mg IVP Q6H PRN PRN Reason: vomiting, or N/V if npo Pantoprazole Sodium (Pantoprazole 40 Mg Sdv) 40 mg IVP Q24H HERB Last Admin: 10/31/24 21:40 Dose: 40 mg Prednisone (Prednisone 20 Mg Tablet) 40 mg PO DAILY HERB Last Admin: 10/31/24 07:54 Dose: 40 mg Prednisone (Prednisone 20 Mg Tablet) 40 mg PO Q8H HERB Stop: 11/01/24 08:01 Last Admin: 11/01/24 01:01 Dose: 40 mg Vitals/I&O/Wt Last Vital Signs Temp 97.5 F L 11/01/24 04:00 Pulse 60 11/01/24 04:00 Resp 18 11/01/24 04:37 BP 135/67 11/01/24 04:00 Pulse Ox 94 11/01/24 04:00 O2 Del Method Nasal Cannula 11/01/24 04:00 O2 Flow Rate 2 11/01/24 02:21 FiO2 40 10/28/24 03:00 10/31/24 11/01/24 11/01/24 22:59 06:59 14:59 Intake Total 662.167 / 1082.167 403.132 / 1485.299 Output Total 1500 / 2125 Balance -837.833 / -1042.833 403.132 / -639.701 Weight last 48 hrs Weight 143 lb 3.2 oz Weight 149 lb 3.2 oz Weight 149 lb 14.4 oz Physical Exam Narrative: GENERAL: The patient is alert and oriented times three. Not in any acute distress. HEENT: No significant pallor, icterus or lymphadenopathy.Oral cavity: There are no mucous membrane lesions. NECK: Trachea appears to be central. No masses noted. No JVD or thyromegaly appreciated. RESPIRATORY: Extensive bilateral expiratory wheezing. BREASTS: Deferred. HEART: The heart sounds are normal. No S3 or S4. No significant murmurs. No pericardial rub ABDOMEN: No vessel pulsations or distention. No tenderness. No organomegaly appreciated. Bowel sounds are normally heard. : Deferred. RECTAL: Deferred. LYMPHATIC: No lymphadenopathy noted in the neck. EXTREMITIES: No edema or cyanosis. Peripheral pulses are palpable but weak bilaterally MUSCULOSKELETAL: No acute joint deformities or swelling SKIN: There are no significant rashes or ecchymosis NEUROPSYCHIATRIC: The patient is alert and oriented x3. Appears to be in a good mood. No tremors or rigidity noted. Urinary Catheter Management: [place] Latex: Cath Placed During This Visit: yes, but has since been removed by the nurse Reason for Continuing Indwelling Catheter: Decision to DC Catheter Urinary Catheter Date of Insertion: 10/27/24 Urinary Catheter Time of Insertion: 22:00 Date Urinary Catheter Removed: 10/29/24 Time Urinary Catheter Discontinued: 19:15 Data 11/01/24 04:35 11/01/24 04:35 Other Labs: Laboratory Last Values WBC 8.72 10^3/uL (3.29-11.43) 11/01/24 04:35 RBC 3.93 10^6/uL (3.85-5.65) 11/01/24 04:35 Hgb 11.30 g/dL (11.27-16.99) 11/01/24 04:35 Hct 35.1 % (36-47) L 11/01/24 04:35 MCV 89.3 fl (85-98) 11/01/24 04:35 MCH 28.8 pg (27-33) 11/01/24 04:35 MCHC 32.2 g/dL (30-55) 11/01/24 04:35 RDW 17.4 % (12.1-15.1) H 11/01/24 04:35 Plt Count 325 10^3/cmm (157-399) 11/01/24 04:35 MPV 9.7 fL (7.4-10.4) 11/01/24 04:35 Neut % (Auto) 82.8 % 11/01/24 04:35 Lymph % (Auto) 11.0 % 11/01/24 04:35 [place] % (Auto) 5.5 % 11/01/24 04:35 Eos % (Auto) 0.0 % 11/01/24 04:35 Baso % (Auto) 0.0 % 11/01/24 04:35 Neut # (Auto) 7.22 10^3/uL (1.8-7.7) 11/01/24 04:35 Lymph # (Auto) 1.0 10^3/uL (0.8-4.8) 11/01/24 04:35 [place] # (Auto) 0.5 10^3/uL (0.2-0.9) 11/01/24 04:35 Eos # (Auto) 0.0 10^3/uL (0.0-0.8) 11/01/24 04:35 Baso # (Auto) 0.0 10^3/uL (0.0-0.1) 11/01/24 04:35 Nucleated RBC % (auto) 0 % 11/01/24 04:35 Nucleated RBCs # 0.0 /100WBC 11/01/24 04:35 PT 12.40 SECONDS (12.1-14.9) 10/27/24 16:37 INR 0.86 (0.8-1.2) 10/27/24 16:37 APTT 53.9 SECONDS (23.9-36.7) H 11/01/24 04:35 D-Dimer 0.86 ug/mLFEU (0-0.59) H 10/27/24 16:37 Specimen Type Arterial 10/27/24 21:15 Sample Site Radial, right 10/27/24 21:15 ABG pH 7.27 (7.35-7.45) L 10/27/24 21:15 ABG pCO2 54.4 mmHg (35-45) H 10/27/24 21:15 ABG pO2 84.0 mmHg (80.0-100.0) 10/27/24 21:15 ABG PO2/FiO2 Ratio 163 10/27/24 16:58 ABG HCO3 25.0 mmol/L (22-26) 10/27/24 21:15 ABG O2 Saturation 95.1 10/27/24 21:15 ABG Base Excess -2.3 mmol/L (-2.0-2.0) L 10/27/24 21:15 Boris Test Pos 10/27/24 21:15 A-a O2 Gradient Not Reportable 10/27/24 21:15 Hematocrit 32.0 % (37-47) L 10/27/24 21:15 Hgb O2 Saturation 93.3 % (95-100) L 10/27/24 21:15 Carboxyhemoglobin 0.9 %THgb (0.4-20.1) 10/27/24 21:15 Methemoglobin 1.0 % (0.4-1.5) 10/27/24 21:15 Total Hemoglobin 10.4 g/dL (12-16) L 10/27/24 21:15 Sodium 139.0 mmol/L (131-143) 10/27/24 21:15 Potassium 3.5 mmol/L (3.5-5.0) 10/27/24 21:15 Glucose 133.0 mg/dL (70-115) H 10/27/24 21:15 Ionized Calcium 1.1 mmol/L (1.1-1.4) 10/27/24 21:15 O2 Delivery Device Nc 10/27/24 21:15 O2 Liters/Min 3.0 % 10/27/24 21:15 FiO2 50.0 % 10/27/24 16:58 Account Strategist ID [id number] 10/27/24 21:15 Sodium 140 mmol/L (136-145) 11/01/24 04:35 Potassium 3.6 mmol/L (3.5-5.1) 11/01/24 04:35 Chloride 96 mmol/L (98-107) L 11/01/24 04:35 Carbon Dioxide 31 mmol/L (22-29) H 11/01/24 04:35 Anion Gap 16.6 (5-19) 11/01/24 04:35 BUN 17 mg/dL (8-23) 11/01/24 04:35 Creatinine 0.9 mg/dL (0.5-0.9) 11/01/24 04:35 GFR Calculation 62.5 mL/min (90-130) L 11/01/24 04:35 Glucose 143 mg/dL (65-115) H 11/01/24 04:35 POC Glucose 163 mg/dL (70-110) H 11/01/24 05:54 Estimat Average Glucose 143 10/27/24 16:37 Hemoglobin A1c 6.6 % (4.0-6.0) H 10/27/24 16:37 Calculated Osmolality 294 mOsm/kg (285-295) 11/01/24 04:35 Lactic Acid 5.6 mmol/L (0.5-2.2) H* 10/27/24 16:37 Lactic Acid (Sepsis) 3.4 mmol/L (0.5-2.2) H 10/27/24 19:55 Calcium 8.8 mg/dL (8.5-10.5) 11/01/24 04:35 Phosphorus 2.3 mg/dL (2.5-4.5) L 10/30/24 02:06 Magnesium 2.1 mg/dL (1.7-2.3) 10/30/24 02:06 Iron 73 ug/dL (37-145) 10/27/24 16:37 TIBC 424.74263 mcg/dl 10/27/24 16:37 % Saturation 17.0 % (20-50) L 10/27/24 16:37 Unsat Iron Binding > 351 ug/dL (112-347) H 10/27/24 16:37 Total Bilirubin 0.3 mg/dL (0.15-1.2) 11/01/24 04:35 AST 14 U/L (0-32) 11/01/24 04:35 ALT 39 U/L (0-33) H 11/01/24 04:35 Alkaline Phosphatase 67 U/L (35-105) 11/01/24 04:35 Troponin T Baseline 11 ng/L (0-10) H 10/27/24 16:37 Troponin T 120 Minute 36.89 ng/L (0-10) H 10/27/24 18:29 Delta Troponin T 25.89 ABS# (0-10) H* 10/27/24 18:29 Troponin T Hi Sens 6Hr 70.86 ng/L (0-10) H 10/27/24 22:29 Troponin T Hi Sens 6Hr Delta 59.86 ng/L (0-12) H* 10/27/24 22:29 C-Reactive Protein 3.0 mg/L (0.0-4.9) 11/01/24 04:35 NT-Pro-B Natriuret Pep 4551 pg/mL (0-125) H 11/01/24 04:35 Total Protein 6.7 g/dL (6.6-8.7) 11/01/24 04:35 Albumin 4.4 g/dL (3.5-5.2) 11/01/24 04:35 Globulin 2.3 g/dL (1.3-4.6) 11/01/24 04:35 Triglycerides 38 mg/dL (0-150) 10/28/24 04:29 Cholesterol 136 mg/dL (0-200) 10/28/24 04:29 LDL Cholesterol, Calc 59 mg/dL (50-129) 10/28/24 04: HDL Cholesterol 69 mg/dL (60-100) 10/28/24 04: LDL/HDL Ratio 0.86 RATIO (0.00-3.22) 10/28/24 04: Cholesterol/HDL Ratio 1.97 mg/dL (0.0-4.40) 10/28/24 04:29 Vitamin B12 555 pg/mL (232-1245) 10/27/24 16:37 Folate 12.5 ng/mL (4.8-37.3) 10/28/24 04: Procalcitonin 0.11 ng/mL (0-0.5) 10/31/24 04:43 TSH 3.83 uIU/mL (0.27-4.20) 10/27/24 16:37 Urine Color Yellow (Yellow) 10/29/24 13:05 Urine Appearance Clear (CLEAR) 10/29/24 13:05 Urine pH 6.5 (5-7) 10/29/24 13:05 Ur Specific [place] 1.006 (1.005-1.030) 10/29/24 13:05 Urine Protein Negative (Negative) 10/29/24 13:05 Urine Glucose (UA) Negative (Normal) 10/29/24 13:05 Urine Ketones Negative (Negative) 10/29/24 13:05 Urine Blood Negative (Negative) 10/29/24 13:05 Urine Nitrate Negative (Negative) 10/29/24 13:05 Urine Bilirubin Negative (Negative) 10/29/24 13:05 Urine Urobilinogen 0.2 mg/dL (Negative) 10/29/24 13:05 Ur Leukocyte Esterase Negative (Negative) 10/29/24 13:05 Urine RBC 0-2 /hpf (0-2) 10/29/24 13:05 Urine WBC 0-5 /hpf (0-5) 10/29/24 13:05 Ur Squamous Epith Cells 0-5 /hpf (0-5) 10/29/24 13:05 Amorphous Sediment Not Reportable 10/29/24 13:05 Urine Bacteria None seen /hpf (NONE) 10/29/24 13:05 Hyaline Casts 0-4 /lpf H 10/29/24 13:05 Coarse Granular Casts 5-10 /lpf H 10/27/24 17:35 Nasal MRSA (PCR) Mr[place] detected (Not Detecte) A 10/27/24 21:25 Vancomycin Trough 13.2 ug/mL (10-15) 10/30/24 12:20 Urine Opiates Screen Positive ng/mL (Negative) H 10/27/24 21:25 Ur Barbiturates Screen Negative ng/mL (Negative) 10/27/24 21:25 Ur Phencyclidine Scrn Negative ng/mL (Negative) 10/27/24 21:25 Ur Amphetamines Screen Negative ng/mL (Negative) 10/27/24 21:25 U Benzodiazepines Scrn Positive ng/mL (Negative) H 10/27/24 21:25 Urine Cocaine Screen Negative ng/mL (Negative) 10/27/24 21:25 U Marijuana (THC) Screen Positive ng/mL (Negative) H 10/27/24 21:25 Adenovirus (PCR) Not detected (NOT DETECT) 10/27/24 21:25 C. pneumoniae DNA (PCR) Not detected (NOT DETECT) 10/27/24 21:25 Coronavirus 229E (PCR) Not detected (NOT DETECT) 10/27/24 21:25 Hepatitis A IgM Ab Non-reactive (Nonreactive) 10/27/24 16:37 Hep Bs Antigen Non-reactive (Nonreactive) 10/28/24 09:50 Hep Bs Antibody < 3.5 (11.5-1000) L 10/27/24 16:37 Hep B Core Total Ab Non-reactive (Nonreactive) 10/27/24 16:37 Hepatitis C Antibody Non-reactive (Nonreactive) 10/28/24 09:50 HIV 1&2 Ab & HIV 1 Ag Non-reactive (Non-Reactiv) 10/28/24 09:50 HIV 1&2 Antibody Non-reactive (Non-Reactiv) 10/28/24 09:50 Human Metapneumovir PCR Not detected (NOT DETECT) 10/27/24 21:25 Influenza A (H1) PCR Not detected (NOT DETECT) 10/27/24 21:25 Influ A (H1/09) PCR Not detected (NOT DETECT) 10/27/24 21:25 Influenza A (H3) PCR Not detected (NOT DETECT) 10/27/24 21:25 Influenza Type A (PCR) Not detected (NOT DETECT) 10/27/24 21:25 Influenza Type B (PCR) Not detected (NOT DETECT) 10/27/24 21:25 M. pneumoniae (PCR) Not detected (NOT DETECT) 10/27/24:25 Parainfluenza 1 (PCR) Not detected (NOT DETECT) 10/27/24:25 Parainfluenza 2 (PCR) Not detected (NOT DETECT) 10/27/24 21:25 Parainfluenza 3 (PCR) Not detected (NOT DETECT) 10/27/24:25 Parainfluenza 4 (PCR) Not detected (NOT DETECT) 10/27/24:25 RSV Type A (PCR) Not detected (NOT DETECT) 10/27/24:25 RSV Type B (PCR) Not detected (NOT DETECT) 10/27/24: Entero/Rhino (PCR) Detected (NOT DETECT) A 10/27/24:25 SARS-CoV-2 (PCR) Not detected (NOT DETECT) 10/27/24 21:25 A&P Assessment and plan (1) Elevated troponin: Most likely related to non-ST elation myocardial infarction. Currently seems to be stable. Patient is on Plavix and aspirin. Continue on the current medication for the time being. (2) Atherosclerotic heart disease of [place] coronary artery without angina pectoris: Patient had PCI of the circumflex artery in 2011. In view of the clinical presentation of non-ST elevation myocardial infarction and ventricular arrhythmia it would be appropriate to do a cardiac catheterization to reevaluate the coronary status and decide on further management Scheduled for the angiogram today Qualifiers: [place] vs. transplanted heart: [place] heart Qualified Code(s): I25.10 - Atherosclerotic heart disease of [place] coronary artery without angina pectoris (3) Ventricular tachycardia: Hypoxia/ischemia causing the arrhythmia is a consideration. Since the patient has no recurrence of arrhythmia, I may hold off on any medication changes at this time. Current medications may be continued. (4) Peripheral arterial disease: Clinically stable. Continue on the current management. Currently has no specific symptoms. (5) Chronic diastolic heart failure secondary to coronary artery disease: Patient currently has no evidence of any decompensated heart failure. May continue on the current management. (6) Mixed hyperlipidemia: Continue on the current management. (7) Benign essential HTN: The blood pressure stays in the normal range. Will continue on the current medications. (8) S/P carotid endarterectomy: The most recent Doppler examination in 2022 revealed less than 50% stenosis bilaterally. Plan , I discussed with the patient about the cardiac catheterization, possible risks, benefits and alternatives. The risk of bleeding, hematoma, vascular injury, myocardial infarction, myocardial perforation, malignant cardiac arrhythmias ,CVA, renal failure and other concomitant complications were explained in detail. Because of the history of iodine allergy, she carries a higher risk for anaphylactic reaction even after premedication. Since she did not have any problems in the past with the premedications, we may go ahead with the procedure. Patient also understands that if she needs surgical revascularization, she needs to be transferred to another facility, since we do not have cardiac surgery available in this hospital at this time Patient is scheduled for the angiogram this morning Based on the angiogram findings, further management decisions will be made PDMP PDMP Reviewed: Not Reviewed Attestations Medical Necessity Statement*: My stay Coding Level of Care Code 04339 Diagnoses Elevated troponin R79.89 Atherosclerosis of [place] coronary artery of [place] heart without angina pectoris I25.10 [place] vs. transplanted heart: [place] heart Ventricular tachycardia I47.20 Peripheral arterial disease I73.9 Chronic diastolic heart failure secondary to coronary artery disease I50.32; I25.10 Mixed hyperlipidemia E78.2 Benign essential HTN I10 S/P carotid endarterectomy Z98.890
--- NOTE | 2024-11-01 07:04 | W.PM.OPSUD ---
Surgery/Procedure H&P Update DATE OF PROCEDURE: November 01, 2024 DATE H&P PERFORMED: 10/28/24 H&P UPDATE INFORMATION: I have reviewed H&P completed within last 30 days, I have examined patient prior to procedure, No changes to prior documentation and Changes to prior documentation as noted here CHANGES TO PREVIOUS DOCUMENTATION: Patient has bilateral expiratory wheezing, significant improved from yesterday PREOP DIAGNOSIS: Atherosclerotic heart disease PRIMARY INDICATION FOR PROCEDURE: NSTEMI, diastolic heart failure, previous PCI, drop in the LV ejection fraction PLANNED PROCEDURE: Left heart catheterization with left and right coronary angiogram PATIENT REASSESSED PRIOR TO SEDATION, WITH NO CHANGE NOTED: Yes PHYSICAL EXAM: alert, oriented x 3 and clear to auscultation bilaterally (Expiratory wheeze bilaterally) AIRWAY EVAL/ANESTHESIA PLAN: normal airway, see other exam findings, ASA III, Monitored Anesthesia, Local Anesthesia, Risks, benefits & alternatives of sedation and/or procedure discussed and Patient agrees to continue as planned
--- NOTE | 2024-11-01 08:03 | PC.NURSE ---
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
--- NOTE | 2024-11-01 08:48 | PM.OP ---
Operative Report Date of procedure: November 01, 2024 Surgeon: Jess Green MD Procedure: Patient underwent left heart catheterization with left and right coronary angiogram and LV angiogram. She was found to have total occlusion of the circumflex artery proximally. Mild disease in the other vessels. LV ejection fraction around 50%. LVEDP of 32 mmHg. Reviewed and discussed the cardiac catheterization data with Dr. Doherty. It was decided to treat her medically. Patient tolerated the procedure very well and with no complications
--- NOTE | 2024-11-01 08:51 | PC.NURSE ---
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
[2024-11-01] MEDS: guaiFENesin 600 mg Tablet 1200 MG PO (09:01)
[2024-11-01] MEDS: clopidogrel 75 mg Tablet PO (09:01)
[2024-11-01] MEDS: aspirin 81 mg EC Tablet PO (09:01)
[2024-11-01] MEDS: gabapentin 400 mg Capsule PO ×2 (09:02→17:33)
[2024-11-01] MEDS: donepezil 5 MG Tablet 10 MG PO (09:02)
[2024-11-01] MEDS: famotidine 20 mg Tablet 40 MG PO (09:02)
[2024-11-01] MEDS: metoprolol tartrate 25 mg Tablet 12.5 MG PO ×2 (09:02→17:33)
[2024-11-01] MEDS: duloxetine 60 mg Capsule PO (09:02)
--- NOTE | 2024-11-01 10:14 | PC.SOCIAL ---
IMM Update Updated pt on IMM. No questions voiced. Provided pt a copy. Initialed, dated, & timed copy in chart.
[2024-11-01 11:26] LABS: Glucose Point of Care 190 mg/dL (70-110)
[2024-11-01] MEDS: insulin lispro 100 unit/1 mL SUBCUT ×2 (12:42→17:33)
[2024-11-01] MEDS: LORazepam 2 mg/mL INJ 1 mL 0.5 MG IVP (12:42)
[2024-11-01] MEDS: FUROsemide 10 mg/mL SDV 4mL 40 MG IVP (12:43)
--- NOTE | 2024-11-01 15:58 | PC.NURSE ---
Patient returned from phlebotomist lab assistant with a right radial TR-band. Air is slowly removed 2 ml's at a time. TR-band is removed and a dressing of 2x2 and tegaderm is applied. Patient tolerated well. Patient is reeducated that she is not to use her right Wrist/hand for 24 hours. She states understanding.
--- NOTE | 2024-11-01 15:59 | P.PN_ITS ---
Subjective 2 Subjective: Patient was seen this morning, currently she is status post cath, complains of wheezing, shortness of breath, she is sitting up in bed as she feels short of breath, she feels her airways are tight, no nasal flaring, no intercostal retractions, no suprasternal retractions, no facial swelling, no trouble swallowing, no tongue swelling, she feels that she is having anxiety attack the alprazolam has helped to some degree but it stopped working, we discussed trying a dose of Ativan, giving her a dose of Lasix, she is in agreement, she tells me that she feels like she is having a panic attack after her angiogram, the Xanax has not seemed to help, does tell me that Ativan has worked in the past is agreeable to try Ativan Vitals/I&O/Wt Last Vital Signs Temp 97.9 F 11/01/24 12:00 Pulse 77 11/01/24 13:15 Resp 18 11/01/24 13:08 BP 150/62 11/01/24 12:00 Pulse Ox 94 11/01/24 13:08 O2 Del Method Nasal Cannula 11/01/24 13:08 O2 Flow Rate 2 11/01/24 13:08 FiO2 40 10/28/24 03:00 11/01/24 11/01/24 11/01/24 06:59 14:59 22:59 Intake Total 403.132 / 1485.299 32.75 / 32.75 Balance 403.132 / -639.701 32.75 / 32.75 Weight last 48 hrs Weight 64.954 kg Weight 67.676 kg Weight 67.993 kg Physical Exam 2 Const: COMMON NORMALS: no acute distress and patient oriented x3 Resp: COMMON NORMALS: normal respiratory effort, No retractions and No use of accessory muscles AUSCULTATION: wheezes OTHER: Diffuse wheezing in all lung [place], nasal flaring, suprasternal retractions, intercostal retractions, on 2 L, mild respiratory failure Cardio: COMMON NORMALS: regular rate, regular rhythm, S1 normal heart sound present and S2 normal heart sound present RATE: regular rate RHYTHM: r egular rhythm HEART SOUNDS: S1 normal heart sound present and S2 normal heart sound present GI: COMMON NORMALS: Normal to inspection, nondistended, normoactive bowel sounds present and non-tender Extremity: COMMON NORMALS: no pedal edema Neuro: COMMON NORMALS: patient oriented x3 Psych: COMMON NORMALS: mental status grossly normal Urinary Catheter Management: [place] Latex: Cath Placed During This Visit: yes, but has since been removed by the nurse Reason for Continuing Indwelling Catheter: Decision to DC Catheter Urinary Catheter Date of Insertion: 10/27/24 Urinary Catheter Time of Insertion: 22:00 Date Urinary Catheter Removed: 10/29/24 Time Urinary Catheter Discontinued: 19:15 Data 11/01/24 04:35 11/01/24 04:35 A&P Assessment and plan (1) Acute respiratory failure with hypoxia and hypercapnia: (2) Altered mental status: (3) COPD with acute exacerbation: (4) Chronic diastolic heart failure secondary to coronary artery disease: (5) Benign essential HTN: (6) Arrhythmia: (7) Transaminitis: (8) Acute encephalopathy: (9) Ventricular tachycardia: Plan 69-year-old female with past medical history of COPD, chronic smoker, CAD, diastolic heart failure was sent into the ER from long term today because of altered mental status, decreased responsiveness was found to have possible arrhythmia en route to the ER and found to be in hypercapnic hypoxic respiratory failure. Unresponsive episode, ventricular tachycardia - Status post 150 mg amiodarone - Converted to normal sinus rhythm - Continue telemetry monitoring - Coronary angiogram, total occlusion of the circumflex artery proximally, mild disease in other vessels, LV function 50%, medically managed NSTEMI - With history of CAD status post stenting - Continue aspirin, statin, beta-briseida - Heparin drip completed - Cardiac echo CONCLUSIONS Normal left ventricular size with a borderline low ejection fraction of 50 to 55%, visual. Relative hypokinesis of the septum. Mild left ventricular hypertrophy. Grade I/IV diastolic dysfunction (abnormal relaxation filling pattern), normal to mildly elevated filling pressures. Mildly increased left atrial size. Mild aortic valve regurgitation. Thickened aortic valve. Trace mitral valve regurgitation. Compared to the study from 09/16/2019, there appears to be a drop in the LV ejection fraction. - Coronary angiography as above ? Aspirin, statin, Plavix Acute hypoxic and hypercapnic respiratory failure: Component of COPD Component of CHF, systolic diastolic Pneumonia CT/CT angio chest PE protcl [id number] IMPRESSION: 1. No evidence of PE. 2. Bronchial wall thickening raising the question of bronchitis. There is focal irregular bronchial wall thickening in the posterior segment right upper lobe. Consider follow-up CT of the chest in 4-6 weeks to assess for improvement. 3. Emphysematous changes. The presence of pulmonary emphysema on CT is an independent risk factor for lung cancer. In the absence of a history or active diagnosis of lung cancer, it is recommended that this patient with emphysema be evaluated for enrollment in a low dose CT lung cancer screening program. Plan - Continue BiPAP as needed - De-escalate to Augmentin -MRSA nares positive , vancomycin - Monitor respiratory status closely - prednisone 40 mg daily - DuoNeb, Pulmicort - Fluid overloaded today Lasix 1 dose Concerns for aspiration pneumonia/aspiration pneumonitis - Continue Zosyn as above - Aspiration precautions - Dysphagia level 4 diet, moderately thickened - Modified barium swallow FL/FL barium swallow modifd [id number] IMPRESSION: 1. The patient experienced penetration and aspiration with 1 episode of swallowing thin liquid barium. - Speech therapy consulted -Concerns for possible esophageal dysmotility, discussed with speech therapy -Will try Cardizem 60 every 6 - Budesonide Anxiety, depression, consult psychiatry, continue Xanax, duloxetine, gabapentin Transaminitis: Liver ultrasound no acute findings CODE STATUS: Full code as per paperwork. Cardiac diet Heparin for DVT prophylaxis. Protonix or PUD prophylaxis. Plan for today, due to acute wheezing, respiratory failure, will continue to monitor as inpatient continued nebulizer treatments, steroids, antibiotics, 1 dose Lasix, 1 dose Ativan due to severe anxiety, currently in mild respiratory failure, monitor closely, no facial swelling no tongue swelling, no new rashes so I doubt it being an allergic reaction to iodine from Cardiac catheterization, and she has been premedicated with steroids PDMP PDMP Reviewed: Last Reviewed 10/30/24 15:04 by Logan Aguilar MD Attestations 2 Medical Necessity Statement*: Patient requires hospitalization to acute respiratory failure, wheezing, status post cath Diagnoses Acute respiratory failure with hypoxia and hypercapnia J96.01; J96.02 Altered mental status R41.82 COPD with acute exacerbation J44.1 Chronic diastolic heart failure secondary to coronary artery disease I50.32; I25.10 Benign essential HTN I10 Arrhythmia I49.9 Transaminitis R74.01 Acute encephalopathy G93.40 Ventricular tachycardia I47.20
[2024-11-01 17:14] LABS: Glucose Point of Care 232 mg/dL (70-110)
[2024-11-01] MEDS: amoxicillin-clav 875-125 mg Tablet 1 TAB PO (17:34)
--- NOTE | 2024-11-01 19:19 | W.PM.NPUPNS ---
Subjective NPU Subjective: Patient presented today reporting that things are going okay. We discussed the importance of her returning to her facility and managing her anxiety appropriately. We talked about concerns related to any increases in her Xanax and that ultimately she should probably be off of Xanax. We talked about getting a geriatric psychiatrist that would be able to keep those kinds of issues in mind. We also discussed the importance of her getting a therapist to process some recent losses as well as longstanding issues. She denied any side effects to her medication we discussed the possibility of other antidepressants as well as the appropriateness of increasing her Cymbalta. She denied any side effects to her medications. Mental Status Exam MSE Comments: This a well-nourished, well-developed white female in hospital scrubs with limited appropriate grooming and eye contact. No abnormal movements except for mild psychomotor agitation. Mostly cooperative with exam and in mild distress. Speech was more normal rate and volume. Mood described as feeling anxious about the situation, affect congruent. Thought process organized. Thought content: Patient denied suicidality or homicidal ideation, there were no delusions reported or noted. No auditory or visual hallucinations reported. Reports long-standing anxiety, exacerbated by recent health issues and experiences in the custodial, affecting focus and processing. History of depression with recent exacerbation due to health situation. No current thoughts to hurt or kill self or others. No current visual hallucinations. Recent nightmares for two weeks, causing distress and requiring 's presence at night. Some memory issues leading to paranoia about the trustworthiness of others. Mood reported as good today. Attention and concentration are mostly intact and memory is appearing mostly reliable but none were formally tested. She is alert and oriented ?3. Insight and judgment are mostly fair and impulse control is limited. Vitals/I&O/Wt Last Vital Signs Temp 97.6 F 11/01/24 19:35 Pulse 64 11/01/24 19:35 Resp 25 H 11/01/24 19:35 BP 155/53 11/01/24 19:35 Pulse Ox 93 11/01/24 19:35 O2 Del Method Nasal Cannula 11/01/24 19:35 O2 Flow Rate 2 11/01/24 19:35 FiO2 40 10/28/24 03:00 11/01/24 14:59 Intake Total 32.75 / 32.75 Balance 32.75 / 32.75 Weight last 48 hrs Weight 64.954 kg Weight 67.676 kg Weight 67.993 kg Physical Exam Urinary Catheter Management: [place] Latex: Cath Placed During This Visit: yes, but has since been removed by the nurse Reason for Continuing Indwelling Catheter: Decision to DC Catheter Urinary Catheter Date of Insertion: 10/27/24 Urinary Catheter Time of Insertion: 22:00 Date Urinary Catheter Removed: 10/29/24 Time Urinary Catheter Discontinued: 19:15 Data NPU 11/02/24 04:55 11/02/24 04:55 Micro: Microbiology 10/27/24 17:11 Blood Culture - Final Blood NO GROWTH AFTER 5 DAYS 10/27/24 16:37 Blood Culture - Final Blood NO GROWTH AFTER 5 DAYS Microbiology 10/27/24 17:11 Blood Blood Culture - Final NO GROWTH AFTER 5 DAYS 10/27/24 16:37 Blood Blood Culture - Final NO GROWTH AFTER 5 DAYS A&P Assessment and plan (1) Depression: (2) PTSD (post-traumatic stress disorder): (3) Cannabis use disorder: (4) Nicotine use disorder: Plan This is a 69-year-old white female with a long history of anxiety and PTSD who presents with a bout of anxiety related to an event that happened at her custodial. The patient is experiencing anxiety, which has been a long-standing issue since childhood, characterized by constant worrying and difficulty focusing. There is also a history of depression, which has recently been exacerbated by a health situation. The patient reports experiencing paranoia related to memory issues and recent nightmares, which have been occurring for the past two weeks, coinciding with the anniversary of a traumatic family event. The patient has a history of PTSD, which has flared up recently, likely related to past trauma and recent family losses. There is no current suicidal ideation, but there have been occasional passive thoughts of not waking up. The patient also reports stress-induced cardiomyopathy, as discussed with Doctor Aguilar. 1. Continue current medication. Would recommend increasing Cymbalta to 90 mg daily and continue to discuss the need to eliminate Xanax as a medication for anxiety moving forward considering replacements with propranolol, or BuSpar, or Neurontin, or Vistaril, and addressed the concerns for respiratory depression with benzodiazepines. 2. Consider alternative to Xanax for her anxiety given her age and respiratory status. 3. No need for acute inpatient psychiatric services. Need for referral to psychiatrist for management of her anxiety hopefully a geriatric psychiatrist will appreciate the challenges that come with benzodiazepines at her age especially with her medical conditions. Also should be referred to a mental health therapist to discuss the many challenges that she experiences related to losses. 4. Will continue to follow. PDMP PDMP Reviewed: Not Reviewed Attestations NPU Medical Necessity Statement*: N/A. Please see primary team note for medical necessity. Coding Level of Care Code Acute Code for [facility] Fwd Diagnoses Depression F32.A PTSD (post-traumatic stress disorder) F43.10 Cannabis use disorder F12.90 Nicotine use disorder F17.200
[2024-11-01] MEDS: budesonide 0.5 mg/2 mL Neb INHALATION (20:40)
[2024-11-01 20:51] LABS: Glucose Point of Care 114 mg/dL (70-110)
[2024-11-01] MEDS: atorvastatin 40 mg Tablet PO (21:07)
[2024-11-01] MEDS: pantoprazole 40 mg SDV IVP (21:09)
[2024-11-01] MEDS: enoxaparin 40 mg/0.4 mL Syringe SUBCUT (21:17)
[2024-11-02] VITALS (8 sets, daily range): BP systolic 118–163; BP diastolic 50–57; PULSE 64–87; RESP 15–24; TEMP 36.4–36.9; O2SAT 94–97
[2024-11-02] MEDS: ALPRAZolam 0.5 mg Tablet PO ×2 (00:22→08:54)
[2024-11-02] MEDS: dilTIAZem 30 mg Tablet PO ×2 (01:50→08:53)
[2024-11-02] MEDS: ipratropium-albuterol 3 mL Neb INHALATION ×2 (02:05→08:34)
[2024-11-02] MEDS: morphine 4 mg/mL SDV 1 mL 2 MG IVP (05:06)
[2024-11-02 05:15] LABS: Basophils % 0.1 %; Hematocrit 34.4 % (36-47); Lymphocytes % 8.4 %; Mean Corpuscular HGB Conc 32.3 g/dL (30-55); Mean Corpuscular Hemoglobin 29.2 pg (27-33); Mean Corpuscular Volume 90.5 fl (85-98); Mean Platelet Volume 9.6 fL (7.4-10.4); Monocytes # 1.2 10^3/uL (0.2-0.9); Monocytes % 10.6 %; Neutrophils # 9.04 10^3/uL (1.8-7.7); Neutrophils % 79.4 %; Nucleated Red Blood Cells % 0 %; Platelet Count 285 10^3/cmm (157-399); Red Cell Distribution Width 17.4 % (12.1-15.1); White Blood Count 11.37 10^3/uL (3.29-11.43)
[2024-11-02 05:34] LABS: Alanine Aminotransferase 28 U/L (0-33); Alkaline Phosphatase 69 U/L (35-105); Blood Urea Nitrogen 15 mg/dL (8-23); Calcium 8.9 mg/dL (8.5-10.5); Carbon Dioxide 32 mmol/L (22-29); Chloride 94 mmol/L (98-107); Creatinine Clr Calc Pharmacy 54.3585; Globulin 2.5 g/dL (1.3-4.6); Glomerular Filtration Rate 62.5 mL/min (90-130); Glucose 119 mg/dL (65-115); Osmolality Calculated 286 mOsm/kg (285-295); Sodium 137 mmol/L (136-145); Total Bilirubin 0.2 mg/dL (0.15-1.2); Total Protein 6.5 g/dL (6.6-8.7)
[2024-11-02 05:35] LABS: Anion Gap 14.4 (5-19); Aspartate Amino Transferase 10 U/L (0-32); Potassium 3.4 mmol/L (3.5-5.1)
[2024-11-02 05:57] LABS: NT Pro B Type Natriuretic Pept 2184 pg/mL (0-125)
[2024-11-02 06:52] LABS: Glucose Point of Care 158 mg/dL (70-110)
[2024-11-02] MEDS: budesonide 0.5 mg/2 mL Neb INHALATION (08:34)
[2024-11-02] MEDS: aspirin 81 mg EC Tablet PO (08:51)
[2024-11-02] MEDS: donepezil 5 MG Tablet 10 MG PO (08:52)
[2024-11-02] MEDS: amoxicillin-clav 875-125 mg Tablet 1 TAB PO (08:52)
[2024-11-02] MEDS: gabapentin 400 mg Capsule PO (08:53)
[2024-11-02] MEDS: predniSONE 20 mg Tablet 40 MG PO (08:53)
[2024-11-02] MEDS: metoprolol tartrate 25 mg Tablet 12.5 MG PO (08:53)
[2024-11-02] MEDS: duloxetine 60 mg Capsule PO (08:53)
[2024-11-02] MEDS: clopidogrel 75 mg Tablet PO (08:53)
[2024-11-02] MEDS: insulin lispro 100 unit/1 mL SUBCUT (08:54)
--- NOTE | 2024-11-02 10:37 | P.DS_ITS ---
Discharge Providers Date of Admission: 10/27/24 18:04 Date of Discharge: November 02, 2024 Attending Provider at Admission: Viraj Sarkar MD Attending Provider at Discharge: Logan Aguilar MD Primary Care Provider: Dae Singh Jr, MD Diagnoses at Discharge Discharge Diagnosis (1) Acute respiratory failure with hypoxia and hypercapnia: Status: Acute (2) Altered mental status: Status: Acute (3) COPD with acute exacerbation: Status: Acute (4) Chronic diastolic heart failure secondary to coronary artery disease: Status: Acute (5) Benign essential HTN: Status: Acute (6) Arrhythmia: Status: Acute (7) Transaminitis: Status: Acute (8) Acute encephalopathy: Status: Acute (9) Ventricular tachycardia: Status: Acute Reason for Visit Reason for Visit: unresponsive Hospital Course Hospital Course 69-year-old female with past medical history of COPD, chronic smoker, CAD, diastolic heart failure was sent into the ER from long-term today because of altered mental status, decreased responsiveness was found to have possible arrhythmia en route to the ER and found to be in hypercapnic hypoxic respiratory failure. This is a 69-year-old female who presents [facility] for unresponsive episode, ventricular tachycardia - She was managed as inpatient, aspirin, statin, beta-briseida, heparin drip, due to elevated troponins, cardiology was consulted, -No recurrent arrhythmia events - Underwent coronary angiography found to have total occlusion of the circumflex artery proximally. Mild disease in the other vessels. LV ejection fraction around 50%. LVEDP of 32 mmHg - Which will be medically managed on aspirin, statin, Plavix, metoprolol with a close follow-up with cardiology as outpatient - She will be discharged with close follow-up with primary care provider She was found to have acute hypoxic respiratory failure multifactorial from COPD, systolic and diastolic CHF, pneumonia, requiring broad-spectrum antibiotic therapy, IV steroids, IV diuresis. Overall patient's clinical condition improved, will be discharged on prednisone burst, Lasix therapy, with close foll ow-up with primary care provider, and cardiology as outpatient There was concerns for aspiration during hospitalization, she underwent a modified barium swallow, which showed findings concerning for esophageal dysmotility. Will discharge her on Cardizem,, monitor for aspiration as outpatient, discharge to nursing home facility Concern for aspiration pneumonia/aspiration pneumonitis, managed with antibiotics as above NSTEMI as above, echocardiogram shows EF to 50 to 55%, relative hypokinesis of the septum, discharged with instructions as above For anxiety, psychiatry was consulted, discharged on Xanax 0.5 mg every 6 hours as needed Physical Exam Const: COMMON NORMALS: no acute distress and patient oriented x3 Resp: COMMON NORMALS: normal respiratory effort, No retractions, No use of accessory muscles and clear to auscultation bilaterally AUSCULTATION: clear to auscultation bilaterally Cardio: COMMON NORMALS: regular rate, regular rhythm, S1 normal heart sound present and S2 normal heart sound present RATE: regular rate RHYTHM: regular rhythm HEART SOUNDS: S1 normal heart sound present and S2 normal heart sound present GI: COMMON NORMALS: Normal to inspection, nondistended, normoactive bowel sounds present and non-tender Extremity: COMMON NORMALS: no pedal edema Neuro: COMMON NORMALS: patient oriented x3 Psych: COMMON NORMALS: mental status grossly normal Urinary Catheter Management: [place] Latex: Cath Placed During This Visit: yes, but has since been removed by the nurse Reason for Continuing Indwelling Catheter: Decision to DC Catheter Urinary Catheter Date of Insertion: 10/27/24 Urinary Catheter Time of Insertion: 22:00 Date Urinary Catheter Removed: 10/29/24 Time Urinary Catheter Discontinued: 19:15 Discharge Data Studies Completed and Pending Completed Studies During Hospitalization Category Date Time Status CT angio chest PE protcl [id number] Stat Cat Scan 10/27/24 17:[address] head wo con* [id number] Stat Cat Scan 10/27/24 17:40 Completed [employer]PER[employer] HELPER request for service Routine Exams 11/01/24 07:00 Completed FL barium swallow modifd [id number] Routine Exams 10/31/24 14:42 Completed XR chest 1V portable [id number] Stat Exams 10/27/24 16:24 Completed CV. echo complete* [id number] Routine Ultrasound 10/28/24 18:11 Completed US liver [id number] Routine Ultrasound 10/28/24 19:13 Completed Pending at discharge Category Date Time Status C Reactive Protein AM LABS Lab 11/03/24 04:00 Ordered NT Pro B Type Natriuretic Pept QAM Lab 11/03/24 06:00 Ordered Radiology Impressions Chest X-Ray 10/27/24 16:24 IMPRESSION: No acute findings. Chest CTA 10/27/24 17:40 IMPRESSION: 1. No evidence of PE. 2. Bronchial wall thickening raising the question of bronchitis. There is focal irregular bronchial wall thickening in the posterior segment right upper lobe. Consider follow-up CT of the chest in 4-6 weeks to assess for improvement. 3. Emphysematous changes. The presence of pulmonary emphysema on CT is an independent risk factor for lung cancer. In the absence of a history or active diagnosis of lung cancer, it is recommended that this patient with emphysema be evaluated for enrollment in a low dose CT lung cancer screening program. Head CT 10/27/24 17:40 IMPRESSION: 1. No acute intracranial abnormality. Liver Ultrasound 10/28/24 19:13 IMPRESSION: 1. Unremarkable hepatic sonogram. Modified Barium Swallow 10/31/24 14:42 IMPRESSION: 1. The patient experienced penetration and aspiration with 1 episode of swallowing thin liquid barium. A separate report will follow from the speech therapy service with recommendations. Laboratory Results WBC 11.37 10^3/uL (3.29-11.43) 11/02/24 04:55 RBC 3.80 10^6/uL (3.85-5.65) L 11/02/24 04:55 Hgb 11.10 g/dL (11.27-16.99) L 11/02/24 04:55 Hct 34.4 % (36-47) L 11/02/24 04:55 MCV 90.5 fl (85-98) 11/02/24 04:55 MCH 29.2 pg (27-33) 11/02/24 04:55 MCHC 32.3 g/dL (30-55) 11/02/24 04:55 RDW 17.4 % (12.1-15.1) H 11/02/24 04:55 Plt Count 285 10^3/cmm (157-399) 11/02/24 04:55 MPV 9.6 fL (7.4-10.4) 11/02/24 04:55 Neut % (Auto) 79.4 % 11/02/24 04:55 Lymph % (Auto) 8.4 % 11/02/24 04:55 Will % (Auto) 10.6 % 11/02/24 04:55 Eos % (Auto) 0.0 % 11/02/24 04:55 Baso % (Auto) 0.1 % 11/02/24 04:55 Neut # (Auto) 9.04 10^3/uL (1.8-7.7) H 11/02/24 04:55 Lymph # (Auto) 1.0 10^3/uL (0.8-4.8) 11/02/24 04:55 Will # (Auto) 1.2 10^3/uL (0.2-0.9) H 11/02/24 04:55 Eos # (Auto) 0.0 10^3/uL (0.0-0.8) 11/02/24 04:55 Baso # (Auto) 0.0 10^3/uL (0.0-0.1) 11/02/24 04:55 Nucleated RBC % (auto) 0 % 11/02/24 04:55 Nucleated RBCs # 0.0 /100WBC 11/02/24 04:55 PT 12.40 SECONDS (12.1-14.9) 10/27/24 16:37 INR 0.86 (0.8-1.2) 10/27/24 16:37 APTT 53.9 SECONDS (23.9-36.7) H 11/01/24 04:35 D-Dimer 0.86 ug/mLFEU (0-0.59) H 10/27/24 16:37 Specimen Type Arterial 10/27/24 21:15 Sample Site Radial, right 10/27/24 21:15 ABG pH 7.27 (7.35-7.45) L 10/27/24 21:15 ABG pCO2 54.4 mmHg (35-45) H 10/27/24 21:15 ABG pO2 84.0 mmHg (80.0-100.0) 10/27/24 21:15 ABG PO2/FiO2 Ratio 163 10/27/24 16:58 ABG HCO3 25.0 mmol/L (22-26) 10/27/24 21:15 ABG O2 Saturation 95.1 10/27/24 21:15 ABG Base Excess -2.3 mmol/L (-2.0-2.0) L 10/27/24 21:15 Boris Test Pos 10/27/24 21:15 A-a O2 Gradient Not Reportable 10/27/24 21:15 Hematocrit 32.0 % (37-47) L 10/27/24 21:15 Hgb O2 Saturation 93.3 % (95-100) L 10/27/24 21:15 Carboxyhemoglobin 0.9 %THgb (0.4-20.1) 10/27/24 21:15 Methemoglobin 1.0 % (0.4-1.5) 10/27/24 21:15 Total Hemoglobin 10.4 g/dL (12-16) L 10/27/24 21:15 Sodium 139.0 mmol/L (131-143) 10/27/24 21:15 Potassium 3.5 mmol/L (3.5-5.0) 10/27/24 21:15 Glucose 133.0 mg/dL (70-115) H 10/27/24 21:15 Ionized Calcium 1.1 mmol/L (1.1-1.4) 10/27/24 21:15 O2 Delivery Device Nc 10/27/24 21:15 O2 Liters/Min 3.0 % 10/27/24 21:15 FiO2 50.0 % 10/27/24 16:58 Fitness And Wellness Coordinator ID [email or web address] 10/27/24 21:15 Sodium 137 mmol/L (136-145) 11/02/24 04:55 Potassium 3.4 mmol/L (3.5-5.1) L 11/02/24 04:55 Chloride 94 mmol/L (98-107) L 11/02/24 04:55 Carbon Dioxide 32 mmol/L (22-29) H 11/02/24 04:55 Anion Gap 14.4 (5-19) 11/02/24 04:55 BUN 15 mg/dL (8-23) 11/02/24 04:55 Creatinine 0.9 mg/dL (0.5-0.9) 11/02/24 04:55 GFR Calculation 62.5 mL/min (90-130) L 11/02/24 04:55 Glucose 119 mg/dL (65-115) H 11/02/24 04:55 POC Glucose 158 mg/dL (70-110) H 11/02/24 06:31 Estimat Average Glucose 143 10/27/24 16:37 Hemoglobin A1c 6.6 % (4.0-6.0) H 10/27/24 16:37 Calculated Osmolality 286 mOsm/kg (285-295) 11/02/24 04:55 Lactic Acid 5.6 mmol/L (0.5-2.2) H* 04/20/25 16:37 Lactic Acid (Sepsis) 3.4 mmol/L (0.5-2.2) H 10/27/24 19:55 Calcium 8.9 mg/dL (8.5-10.5) 11/02/24 04:55 Phosphorus 2.3 mg/dL (2.5-4.5) L 10/30/24 02:06 Magnesium 2.1 mg/dL (1.7-2.3) 10/30/24 02:06 Iron 73 ug/dL (37-145) 10/27/24 16:37 TIBC 424.17976 mcg/dl 10/27/24 16:37 % Saturation 17.0 % (20-50) L 10/27/24 16:37 Unsat Iron Binding > 351 ug/dL (112-347) H 10/27/24 16:37 Total Bilirubin 0.2 mg/dL (0.15-1.2) 11/02/24 04:55 AST 10 U/L (0-32) 11/02/24 04:55 ALT 28 U/L (0-33) 11/02/24 04:55 Alkaline Phosphatase 69 U/L (35-105) 11/02/24 04:55 Troponin T Baseline 11 ng/L (0-10) H 10/27/24 16:37 Troponin T 120 Minute 36.89 ng/L (0-10) H 10/27/24 18:29 Delta Troponin T 25.89 ABS# (0-10) H* 10/27/24 18:29 Troponin T Hi Sens 6Hr 70.86 ng/L (0-10) H 10/27/24 22:29 Troponin T Hi Sens 6Hr Delta 59.86 ng/L (0-12) H* 10/27/24 22:29 C-Reactive Protein 3.0 mg/L (0.0-4.9) 11/02/24 04:55 NT-Pro-B Natriuret Pep 2184 pg/mL (0-125) H 11/02/24 04:55 Total Protein 6.5 g/dL (6.6-8.7) L 11/02/24 04:55 Albumin 4.0 g/dL (3.5-5.2) 11/02/24 04:55 Globulin 2.5 g/dL (1.3-4.6) 11/02/24 04:55 Triglycerides 38 mg/dL (0-150) 10/28/24 04:29 Cholesterol 136 mg/dL (0-200) 10/28/24 04:29 LDL Cholesterol, Calc 59 mg/dL (50-129) 10/28/24 04:29 HDL Cholesterol 69 mg/dL (60-100) 10/28/24 04:29 LDL/HDL Ratio 0.86 RATIO (0.00-3.22) 10/28/24 04:29 Cholesterol/HDL Ratio 1.97 mg/dL (0.0-4.40) 10/28/24 04:29 Vitamin B12 555 pg/mL (232-1245) 10/27/24 16:37 Folate 12.5 ng/mL (4.8-37.3) 10/28/24 04:29 Procalcitonin 0.11 ng/mL (0-0.5) 10/31/24 04:43 TSH 3.83 uIU/mL (0.27-4.20) 10/27/24 16:37 Urine Color Yellow (Yellow) 10/29/24 13:05 Urine Appearance Clear (CLEAR) 10/29/24 13:05 Urine pH 6.5 (5-7) 10/29/24 13:05 Ur Specific Lynd 1.006 (1.005-1.030) 10/29/24 13:05 Urine Protein Negative (Negative) 10/29/24 13:05 Urine Glucose (UA) Negative (Normal) 10/29/24 13:05 Urine Ketones Negative (Negative) 10/29/24 13:05 Urine Blood Negative (Negative) 10/29/24 13:05 Urine Nitrate Negative (Negative) 10/29/24 13:05 Urine Bilirubin Negative (Negative) 10/29/24 13:05 Urine Urobilinogen 0.2 mg/dL (Negative) 10/29/24 13:05 Ur Leukocyte Esterase Negative (Negative) 10/29/24 13:05 Urine RBC 0-2 /hpf (0-2) 10/29/24 13:05 Urine WBC 0-5 /hpf (0-5) 10/29/24 13:05 Ur Squamous Epith Cells 0-5 /hpf (0-5) 10/29/24 13:05 Amorphous Sediment Not Reportable 10/29/24 13:05 Urine Bacteria None seen /hpf (NONE) 10/29/24 13:05 Hyaline Casts 0-4 /lpf H 10/29/24 13:05 Coarse Granular Casts 5-10 /lpf H 10/27/24 17:35 Nasal MRSA (PCR) Mrsa detected (Not Detecte) A 10/27/24 21:25 Vancomycin Trough 13.2 ug/mL (10-15) 10/30/24 12:20 Urine Opiates Screen Positive ng/mL (Negative) H 10/27/24 21:25 Ur Barbiturates Screen Negative ng/mL (Negative) 10/27/24 21:25 Ur Phencyclidine Scrn Negative ng/mL (Negative) 10/27/24 21:25 Ur Amphetamines Screen Negative ng/mL (Negative) 10/27/24 21:25 U Benzodiazepines Scrn Positive ng/mL (Negative) H 10/27/24 21:25 Urine Cocaine Screen Negative ng/mL (Negative) 10/27/24 21:25 U Marijuana (THC) Screen Positive ng/mL (Negative) H 10/27/24 21:25 Adenovirus (PCR) Not detected (NOT DETECT) 10/27/24 21:25 C. pneumoniae DNA (PCR) Not detected (NOT DETECT) 10/27/24 21:25 Coronavirus 229E (PCR) Not detected (NOT DETECT) 10/27/24 21:25 Hepatitis A IgM Ab Non-reactive (Nonreactive) 10/27/24 16:37 Hep Bs Antigen Non-reactive (Nonreactive) 10/28/24 09:50 Hep Bs Antibody < 3.5 (11.5-1000) L 10/27/24 16:37 Hep B Core Total Ab Non-reactive (Nonreactive) 10/27/24 16:37 Hepatitis C Antibody Non-reactive (Nonreactive) 10/28/24 09:50 HIV 1&2 Ab & HIV 1 Ag Non-reactive (Non-Reactiv) 10/28/24 09:50 HIV 1&2 Antibody Non-reactive (Non-Reactiv) 10/28/24 09:50 Human Metapneumovir PCR Not detected (NOT DETECT) 10/27/24 21:25 Influenza A (H1) PCR Not detected (NOT DETECT) 10/27/24 21:25 Influ A (H1/09) PCR Not detected (NOT DETECT) 10/27/24 21:25 Influenza A (H3) PCR Not detected (NOT DETECT) 10/27/24 21:25 Influenza Type A (PCR) Not detected (NOT DETECT) 10/27/24 21:25 Influenza Type B (PCR) Not detected (NOT DETECT) 10/27/24 21:25 M. pneumoniae (PCR) Not detected (NOT DETECT) 10/27/24 21:25 Parainfluenza 1 (PCR) Not detected (NOT DETECT) 10/27/24 21:25 Parainfluenza 2 (PCR) Not detected (NOT DETECT) 10/27/24 21:25 Parainfluenza 3 (PCR) Not detected (NOT DETECT) 10/27/24 21:25 Parainfluenza 4 (PCR) Not detected (NOT DETECT) 10/27/24 21:25 RSV Type A (PCR) Not detected (NOT DETECT) 10/27/24 21:25 RSV Type B (PCR) Not detected (NOT DETECT) 10/27/24 21:25 Entero/Rhino (PCR) Detected (NOT DETECT) A 10/27/24 21:25 SARS-CoV-2 (PCR) Not detected (NOT DETECT) 10/27/24 21:25 Vitals Last Vital Signs Temp 98.4 F 11/02/24 08:00 Pulse 73 11/02/24 08:35 Resp 18 11/02/24 08:35 BP 163/50 11/02/24 08:00 Pulse Ox 97 11/02/24 08:35 O2 Del Method Nasal Cannula 11/02/24 08:35 O2 Flow Rate 2 11/02/24 08:35 FiO2 40 10/28/24 03:00 Discharge Plan Discharge Patient Disposition: Xfer SNF Condition: Stable Prescriptions: New clopidogrel 75 mg Tablet 75 mg PO DAILY 30 Days Qty: 30 0RF insulin lispro [Humalog U-100 Insulin] 100 unit/mL Solution See Rx Instructions .ROUTE .COMPLEX Qty: 10 0RF Rx Instructions: Inject, subcut, 3 times daily, after meals, based on low-dose sliding scale diltiazem HCl 30 mg Tablet 30 mg PO Q6H 30 Days Qty: 120 0RF amoxicillin-pot clavulanate 875-125 mg Tablet 1 tab PO BID 5 Days Qty: 10 0RF prednisone 20 mg Tablet 40 mg PO DAILY 5 Days Qty: 10 0RF nitroglycerin 0.4 mg Tablet, Sublingual 0.4 mg sublingual Q5M PRN (Reason: Chest Pain) 30 Days Qty: 30 0RF furosemide [Lasix] 40 mg tablet 40 mg PO QAM PRN (Reason: edema) 30 Days Qty: 30 0RF Rx Instructions: For shortness of breath, or edema or weight gain more than 3 pounds potassium chloride [Klor-Con 10] 10 mEq tablet extended release 10 meq PO DAILY PRN (Reason: with lasix as needed) 30 Days Qty: 30 0RF ipratropium-albuterol 0.5 mg-3 mg(2.5 mg base)/3 mL solution for nebulization 3 ml inhalation Q4H PRN (Reason: shortness of breath) Qty: 180 0RF budesonide 0.5 mg/2 mL suspension for nebulization 0.5 mg inhalation BID PRN (Reason: wheezing) 30 Days Qty: 60 0RF Continued metoprolol tartrate 25 mg tablet 12.5 mg PO BID Rx Instructions: GIVE 1/2 TABLET BY MOUTH TWO TIMES DAILY HOLD IF SBP < THAN 100 hydrocodone-acetaminophen 5-325 mg Tablet 1 tab PO Q6H PRN (Reason: Pain) ondansetron HCl 4 mg Tablet 4 mg PO Q4H PRN (Reason: Nausea) loperamide 2 mg Tablet 2 mg PO Q4H PRN (Reason: Constipation) Rx Instructions: administer after each loose stool until symptoms controlled; do not exceed 8 mg per 24 hrs alum-mag hydroxide-simeth [Mylanta Maximum Strength] 400-400-40 mg/5 mL S uspension 30 ml PO Q4H PRN (Reason: Constipation) fluticasone propion-salmeterol [Advair Diskus] 250-50 mcg/dose blister with device 1 ea INHALATION BID donepezil 10 mg Tablet 10 mg PO DAILY gabapentin 400 mg capsule 400 mg PO BID aspirin 81 mg Tablet,Delayed Release (Dr/Ec) 81 mg PO DAILY bisacodyl [Dulcolax (bisacodyl)] 5 mg Tablet,Delayed Release (Dr/Ec) 10 mg PO DAILY magnesium 250 mg Tablet 250 mg PO DAILY rosuvastatin 10 mg tablet 10 mg PO DAILY duloxetine 60 mg Capsule,Delayed Release(Dr/Ec) 60 mg PO DAILY Combivent Respimat 20-100 mcg/actuation mist 1 puff INHALATION QID melatonin 3 mg Capsule 3 mg PO DAILY isosorbide dinitrate 30 mg tablet 30 mg PO QAM Changed alprazolam [Xanax] 0.5 mg tablet 0.5 mg PO Q6H PRN (Reason: Anxiety) Qty: 30 0RF Discontinued hydrochlorothiazide 25 mg tablet 25 mg PO DAILY Discharge Orders: Discharge Order (Routine); Ordered 11/02/24 Ordered By: Logan Aguilar Referrals: [facility] [Outside] Dayana Aponte NP [Nurse Practitioner] - 11/14/24 1:30 pm Jess Green MD [Physician] - 1 week Dae Singh Jr, MD [Primary Care Provider] - 11/11/24 11:30 am Pilo Dickinson DO [Physician] - 4-7 days Discharge Diet: Cardiac Discharge Activity: Resume usual activity Patient Instructions: Opioid Safety Activity Restrictions/Additional Instructions: - Please follow-up with cardiology - Please follow-up with primary care - Please use Xanax sparingly for anxiety - If you have chest pain please go to emergency room Discharge Attestations Time Spent in Discharge Care*: greater than 30 min Status at Discharge: Cognitive status at discharge: cognitively intact , Behavioral status at discharge: cooperative , Quality Metrics Clinical Quality Measures [ No reported AMI, CVA or VTE this stay] Coding Level of Care Code 32665 Total time (in minutes) for Discharge: 45 Diagnoses Acute respiratory failure with hypoxia and hypercapnia J96.01; J96.02 Altered mental status R41.82 COPD with acute exacerbation J44.1 Chronic diastolic heart failure secondary to coronary artery disease I50.32; I25.10 Benign essential HTN I10 Arrhythmia I49.9 Transaminitis R74.01 Acute encephalopathy G93.40 Ventricular tachycardia I47.20
== END 2024-11-02 12:15 | disposition skilled nursing facility (03) | DRG 280 ==
LOC: ER 18:18 → ICU 18:19 → CSU 10-28 22:15
PROVIDERS: Internal Medicine; Internal Medicine Cardiovascular Disease; Admitting Provider Student in an Organized Health Care Education/Training Program; Emergency Provider Emergency Medicine; PCP Family Medicine; Visit Provider Family Medicine
PROC: B2111ZZ Fluoroscopy of Multiple Coronary Arteries using Low Osmolar Contrast (ICD-10-PCS; principal; 2024-11-01 12:00)
DX: I21.4 Non-ST elevation (NSTEMI) myocardial infarction (principal); I50.33 Acute on chronic diastolic (congestive) heart failure; J96.01 Acute respiratory failure with hypoxia; J96.02 Acute respiratory failure with hypercapnia; J69.0 Pneumonitis due to inhalation of food and vomit; J44.1 Chronic obstructive pulmonary disease with (acute) exacerbation; G93.40 Encephalopathy, unspecified; I47.20 Ventricular tachycardia, unspecified; E87.20 Acidosis, unspecified; I25.10 Atherosclerotic heart disease of native coronary artery without angina pectoris; I11.0 Hypertensive heart disease with heart failure; R74.01 Elevation of levels of liver transaminase levels; K22.89 Other specified disease of esophagus; F12.90 Cannabis use, unspecified, uncomplicated; F43.10 Post-traumatic stress disorder, unspecified; F32.A Depression, unspecified; F41.9 Anxiety disorder, unspecified; I73.9 Peripheral vascular disease, unspecified; E03.9 Hypothyroidism, unspecified; E78.2 Mixed hyperlipidemia; I25.2 Old myocardial infarction; I65.29 Occlusion and stenosis of unspecified carotid artery; F03.90 Unspecified dementia, unspecified severity, without behavioral disturbance, psychotic disturbance, mood disturbance, and anxiety; Z91.041 Radiographic dye allergy status; Z95.5 Presence of coronary angioplasty implant and graft; Z79.02 Long term (current) use of antithrombotics/antiplatelets; Z79.82 Long term (current) use of aspirin; Z87.891 Personal history of nicotine dependence; Z86.718 Personal history of other venous thrombosis and embolism; Z86.73 Personal history of transient ischemic attack (TIA), and cerebral infarction without residual deficits; Z81.8 Family history of other mental and behavioral disorders; Z82.0 Family history of epilepsy and other diseases of the nervous system; Z81.1 Family history of alcohol abuse and dependence
CPT/HCPCS: 36415; 36416; 36600; 51702; 70450; 71045; 71275; 74230; 76705; 80051; 80053; 80061; 80202; 80306; 81001; 81003; 82330; 82607; 82746; 82805; 82962; 83036; 83540; 83550; 83605; 83735; 83880; 84100; 84145; 84443; 84484; 85025; 85347; 85378; 85610; 85730; 86140; 86403; 86705; 86706; 86709; 86803; 87040; 87070; 87086; 87205; 87340; 87486; 87581; 87633; 87806; 92523; 92526; 92610; 92611; 93005; 93306; 93458; 94640; 94660; 94664; 96365; 96367; 96372; 96374; 96375; 96376; 97116; 97161; 97165; 97530; 99152; 99153; 99291; A9270; C1769; C1887; C1894; J0131; J0456; J0696; J1200; J1644; J1650; J1815; J1940; J2060; J2250; J2270; J2405; J2470; J2543; J2919; J3010; J3370; J3372; J3490; J7030; J7050; J7512; J7626; J9999; Q9967

== ENCOUNTER 2024-11-28 10:16 | Outpatient (CLI) | payer OTHER, MEDICAID, SELFPAY ==
--- NOTE | 2024-11-28 10:20 | MM_ITS ---
WS: [id number] SCREENING DIGITAL BREAST TOMOSYNTHESIS MAMMOGRAM WITH CAD HISTORY: SCREEN COMPARISON: None available. Bilateral CC and MLO with tomosynthesis and synthetic mammography submitted. Computer aided detection analyzed. Breast composition: There are scattered areas of fibroglandular density. Partially obscured minimally increased density mass upper outer quadrant LEFT breast at an anterior depth measures 7 x 6 x 6 mm. No associated calcifications or distortion. There is an additional 5 mm nodule with very slight spiculation central to the RIGHT nipple seen only on the CC projection. Otherwise benign calcifications. MM/MM [facility] tomosynthesis [id number] IMPRESSION: BI-RADS: 0 - Incomplete: Need additional imaging evaluation. FOLLOW UP: Need Additional Imaging LEFT breast: Spot compression views (CC and MLO). True ML. Ultrasound to follow if abnormality persists. RIGHT breast: Spot compression views (CC ). True ML. Ultrasound to follow if ab normality persists.
== END 2024-11-28 10:17 | disposition home or self-care (01) ==
LOC: RAD 10:18
PROVIDERS: PCP Electrodiagnostic Medicine; Visit Provider Electrodiagnostic Medicine
DX: Z12.31 Encounter for screening mammogram for malignant neoplasm of breast (principal); R92.323 Mammographic fibroglandular density, bilateral breasts; N63.21 Unspecified lump in the left breast, upper outer quadrant; N63.10 Unspecified lump in the right breast, unspecified quadrant; R92.1 Mammographic calcification found on diagnostic imaging of breast
CPT/HCPCS: 77063; 77067

== ENCOUNTER → 2024-12-04 09:38 | Outpatient (BNVA) | payer OTHER, MEDICAID, SELFPAY | PROVIDERS: PCP Electrodiagnostic Medicine; Visit Provider Podiatrist Foot & Ankle Surgery | DX: I73.9 Peripheral vascular disease, unspecified (principal); L60.3 Nail dystrophy; M77.41 Metatarsalgia, right foot; M77.42 Metatarsalgia, left foot; L90.9 Atrophic disorder of skin, unspecified | CPT/HCPCS: 11721; 99203 ==

== ENCOUNTER 2025-01-20 10:08 | Outpatient (CLI) | payer OTHER, MEDICAID, SELFPAY ==
--- NOTE | 2025-01-20 10:14 | MM_ITS ---
WS: [id number] ADDITIONAL VIEWS BILATERAL MAMMOGRAM WITH DIGITAL BREAST TOMOSYNTHESIS. LEFT breast ultrasound, limited HISTORY: MASSES OF BOTH BREASTS COMPARISON: 11/28/2024 Spot compression views RIGHT and LEFT breasts in CC, MLO projections and true ML submitted with digital breast tomosynthesis and SM. Breast composition: There are scattered areas of fibroglandular density. LEFT: Well-circumscribed slightly hyperdense mass persists upper outer quadrant LEFT breast at a middle depth measures 9 x 8 x 6 mm. No suspicious grouping of calcifications. RIGHT: Spiculated mass seen only on the RIGHT CC projection does not persist with additional imaging. LEFT breast ultrasound, limited. Hypoechoic ovoid mass is identified at 1:00, 1 cm from the nipple. Mass measures 0.8 x 0.8 x 0.4 cm. No increased vascularity. No suspicious shadowing. MM/MM diag BI tomosynthesis [id number] IMPRESSION: BI-RADS: 4 - Suspicious Finding - Biopsy Should Be Considered. FOLLOW UP: Biopsy Recommended Ultrasound guided biopsy recommended solid LEFT breast mass at 1:00.
== END 2025-01-20 10:09 | disposition home or self-care (01) ==
LOC: RAD 10:09
PROVIDERS: PCP Electrodiagnostic Medicine; Visit Provider Electrodiagnostic Medicine
DX: N63.21 Unspecified lump in the left breast, upper outer quadrant (principal)
CPT/HCPCS: 76642; 77062; G0279

== ENCOUNTER 2025-01-20 12:07 | Outpatient (CLI) | payer OTHER, MEDICAID, SELFPAY | END 2025-01-20 12:08 | disposition home or self-care (01) | LOC: SPT 12:08 | PROVIDERS: PCP Electrodiagnostic Medicine; Visit Provider Podiatrist Foot & Ankle Surgery | DX: Z46.89 Encounter for fitting and adjustment of other specified devices (principal); M77.41 Metatarsalgia, right foot; M77.42 Metatarsalgia, left foot | CPT/HCPCS: L3030 ==

== ENCOUNTER 2025-02-05 10:43 | Outpatient (CLI) | payer OTHER, MEDICAID, SELFPAY ==
--- NOTE | 2025-02-05 10:47 | US_ITS ---
WS: [id number] ULTRASOUND-GUIDED LEFT BREAST BIOPSY HISTORY: New mass LEFT breast 1:00. COMPARISON: 01/20/2025 and 11/28/2024 Procedure, risks and complications are explained to the patient. Medications are reviewed. Consent is obtained. The mass in the LEFT breast is localized with ultrasound. Mass localizes to 1:00, 1 cm from the nipple. Skin is cleansed with ChloraPrep and anesthetized with 1% buffered lidocaine. Small dermatome is made. Under sterile conditions mass is biopsied with a 14-gauge Achieve needle. Multiple core biopsies are performed. Material placed in formalin and sent to pathology for review. No complications encountered. During the biopsy this mass became smaller in size. Breast tissue marker (Bard ultrasound enhanced ribbon): Single. Patient left the radiology suite with no complications. Patient is instructed to return to [facility] or call with any concerns. US/[place] [id number] IMPRESSION: 1. Uncomplicated core needle biopsy LEFT breast mass at 1:00. PATHOLOGY: Fibrocystic changes including duct ectasia, fibrosis and sclerosing adenosis. No atypia or malignancy. RECOMMENDATION: LEFT breast ultrasound follow-up in 6 months.
== END 2025-02-05 10:44 | disposition home or self-care (01) ==
LOC: RAD 10:45
PROVIDERS: PCP Electrodiagnostic Medicine; Visit Provider Electrodiagnostic Medicine
DX: R92.8 Other abnormal and inconclusive findings on diagnostic imaging of breast (principal); N63.20 Unspecified lump in the left breast, unspecified quadrant
CPT/HCPCS: 19083; 88305

== ENCOUNTER 2025-03-17 05:47 | Inpatient (IN) | payer OTHER, MEDICAID, SELFPAY ==
[2025-03-17] VITALS (22 sets, daily range): BP systolic 125–161; BP diastolic 52–75; PULSE 75–99; RESP 16–26; TEMP 36.4–36.6; O2SAT 91–100; BMI 22.6; BMI 23.7
--- NOTE | 2025-03-17 05:50 | XRR_ITS ---
PROCEDURE INFORMATION: Exam: XR Chest Exam date and time: 03/17/2025 5:58 AM Age: 70 years old Clinical indication: Shortness of breath; Prior surgery; Surgery date: 6+ months; Surgery type: Coronary stent; C/O SOB; Additional info: Dyspnea/cough TECHNIQUE: Imaging protocol: Radiologic exam of the chest. Views: 1 view. COMPARISON: CT angio chest PE prot [id number] 10/27/2024 6:13 PM FINDINGS: Lungs: Emphysematous lung changes. Hyperinflation. Negative for consolidation. Chronic small granuloma at the right lung base stable from prior. Pleural spaces: Unremarkable. No pleural effusion. No pneumothorax. Heart/Mediastinum: Unremarkable. No cardiomegaly. Bones/joints: Unremarkable. XR/XR chest 1V portable [id number] IMPRESSION: Negative for acute chest pathology.
--- NOTE | 2025-03-17 05:50 | ECG_ITS ---
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
--- OUTSIDE RECORDS SUMMARY | 2025-03-17 05:53 | XMS_ITS | Patient Health Record ---
Author Organization [facility] Address [address] [place] [address] Care Team Providers Care Mail Courier Name Role Phone Keo De Leon Unavailable [phone] Allergies Allergen (clinical drug ingredient) Drug/Non Drug Allergy documented on EMR Reaction Allergy Type Onset Date Status Shellfish (FN) Shellfish-derived Products Unknown Drug Allergy 03/16/2005 Active Reason For Referral No Information Medications Medication SIG (Take, Route, Frequency, Duration) Notes Start Date End Date Status Effexor XR 75 MG Capsule Extended Release 24 Hour Take 1 capsule(s) by mouth daily Oral; Duration: 30 Effexor XR 75mg Capsules, Extended Release Take 1 capsule(s) by mouth daily 08/30/2006 Active Ranitidine HCl 150 MG Tablet Take 1 tablet(s) by mouth bid Oral; Duration: 30 Ranitidine 150mg Tablet Take 1 tablet(s) by mouth bid 08/30/2006 Active Aspirin 81 MG Tablet Chewable 2 tab(s) po q pm Oral; Duration: 30 Aspirin 81mg Chewable Tablet 2 tab(s) po q pm 08/30/2006 Active Metoprolol Tartrate 50 MG Tablet Take 1 tablet(s) by mouth bid Oral; Duration: 30 Metoprolol 50mg Tablet 1 tab(s) po bid 03/16/2005 Active Norvasc 5 MG Tablet Take 1 tablet(s) by mouth daily Oral; Duration: 30 Norvasc 5mg Tablet Take 1 tablet(s) by mouth daily 08/30/2006 Active Atorvastatin Calcium 80 MG Tablet Take 1 tablet(s) by mouth daily Oral; Duration: 30 Atorvastatin Calcium 80mg Tablet Take 1 tablet(s) by mouth daily 08/30/2006 Active Problems Problem Type SNOMED Code ICD Code Onset Dates Problem Status W/U Status Risk Notes Problem Hypercholesterolemia (60900469) Hypercholesterolemia (272.0) 2006 Active confirmed [id number]- Problem Altered mental statu s (429479636) Altered mental status (780.09) 2006 Active confirmed [id number]- Problem PVD with claudication (440.21) 2006 Active confirmed [id number]- Problem Essential hypertension (63545438) Essential hypertension (401.1) 2006 Active confirmed [id number]- Problem Anxiety state (823282620) Anxiety state, unspecified (300.00) 2006 Problem resolved confirmed [id number]- Problem Esophageal reflux (511541885) Esophageal reflux (530.81) 2004 Problem resolved confirmed [id number]- Problem Constipation (29414730) Unspecified constipation (564.00) 2004 Problem resolved confirmed [id number]- Problem Hormone replacement therapy (559511896) Hormone replacement therapy (postmenopausal) (V07.4) 2004 Problem resolved confirmed [id number]- Problem Emphysema (49998184) Emphysema (492.8) 2004 Problem resolved confirmed [id number]- Problem Chronic insomnia (941695725) Chronic insomnia (307.42) 2004 Problem resolved confirmed [id number]- Problem Impaired glucose tolerance (0624124) Glucose intolerance (790.29) 2004 Problem resolved confirmed [id number]- Plan Of Treatment No Information
--- NOTE | 2025-03-17 06:02 | W.ED.SOB ---
HPI - SOB/Dyspnea General: Chief Complaint: Shortness of Breath/Dyspnea Stated Complaint: SOB Time Seen by Provider: 03/17/25 05:49 History of Present Illness: HPI Narrative: 62-year-old female presents emergency room with complaints of shortness of breath. She woke up short of breath this 40 felt like she could not breathe at all felt like I was going to . She called EMS EMS reported she had diffuse wheezing on their arrival she was given a DuoNeb and dexamethasone and route. Typically she wears 2 L/min by nasal cannula. On arrival here her sats at 2 L high today 2%. She denies any chest pain she recently had a lumbar compression fracture and has some mid to low back pain with any movement. No orthopnea no increased swelling in the lower extremities. Patient has had a productive cough recently. She has a known history of coronary artery disease with previous [place] she also has a history of congestive heart failure. Associated symptoms: Reports chest congestion and chest pain; Deny abdominal pain or fever(s) Related Data Home Medications ?Medication ?Instructions ?Recorded ?Confirmed metoprolol tartrate 25 mg tablet 12.5 mg PO BID 12/09/20 12/04/24 aluminum-mag hydroxide-simethicone 30 ml PO Q4H PRN Constipation 10/28/24 12/04/24 400 mg-400 mg-40 mg/5 mL oral susp (Mylanta Maximum Strength) aspirin 81 mg tablet,delayed 81 mg PO DAILY 10/28/24 12/04/24 release bisacodyl 5 mg tablet,delayed 10 mg PO DAILY 10/28/24 12/04/24 release (Dulcolax (bisacodyl)) donepezil 10 mg tablet 10 mg PO DAILY 10/28/24 12/04/24 duloxetine 60 mg capsule,delayed 60 mg PO DAILY 10/28/24 12/04/24 release fluticasone 250 mcg-salmeterol 50 1 ea inhalation BID 10/28/24 12/04/24 mcg/dose blistr powdr for inhalation (Advair Diskus) gabapentin 400 mg capsule 400 mg PO BID 10/28/24 12/04/24 hydrocodone 5 mg-acetaminophen 325 1 tab PO Q6H PRN Pain 10/28/24 12/04/24 mg tablet ipratropium 20 mcg-albuterol 100 1 puff inhalation QID 10/28/24 12/04/24 mcg/actuation mist for inhalation (Combivent Respimat) isosorbide dinitrate 30 mg tablet 30 mg PO QAM 10/28/24 12/04/24 loperamide 2 mg tablet 2 mg PO Q4H PRN Constipation 10/28/24 12/04/24 magnesium 250 mg tablet 250 mg PO DAILY 10/28/24 12/04/24 melatonin 3 mg capsule 3 mg PO DAILY 10/28/24 12/04/24 ondansetron HCl 4 mg tablet 4 mg PO Q4H PRN Nausea 10/28/24 12/04/24 rosuvastatin 10 mg tablet 10 mg PO DAILY 10/28/24 12/04/24 Previous Rx's ?Medication ?Instructions ?Recorded alprazolam 0.5 mg tablet (Xanax) 0.5 mg PO Q6H PRN Anxiety #30 tabs 11/01/24 insulin lispro 100 unit/mL See Rx Instructions .Route 11/01/24 subcutaneous solution (Humalog .COMPLEX #10 mL U-100 Insulin) ipratropium 0.5 mg-albuterol 3 mg 3 ml inhalation Q4H PRN shortness 11/02/24 (2.5 mg base)/3 mL nebulization of breath #180 mL soln Sole Sopports #1 ea 12/04/24 Allergies Allergy/AdvReac Type Severity Reaction Status Date / Time nalbuphine (From [facility]) Allergy Unknown unknown Verified 12/04/24 09:55 shellfish derived Allergy Unknown unknown Verified 12/04/24 09:55 Iodinated Contrast Media Allergy thought I Verified 12/04/24 09:55 was going to Review of Systems Const: Denies: fever(s) or chills Card: Reports: chest pain and dyspnea on exertion; Denies: edema or swelling of feet/ankles Resp: Reports: productive cough, wheezing and chest congestion; Denies: dyspnea GI: Denies: abdominal pain : Denies: dysuria, urinary frequency or urinary urgency Musc: Denies: neck pain or back pain Skin/Breast: Denies: rash PFSH ED PFSH: Medical History Intermittent palpitations Carotid artery stenosis with cerebral infarction over 8 weeks ago History of CVA in 2008? 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-T changes. Mixed hyperlipidemia Benign essential HTN Dementia has appointment to see Neurology on September 12 Hyperthyroidism Heart attack Anxiety Congestive heart failure COPD (chronic obstructive pulmonary disease) ASHD (arteriosclerotic heart disease) Surgical History History of surgery on wrist S/P carotid endarterectomy Hx of tonsillectomy History of appendectomy Hx of cholecystectomy History of heart artery stent H/O tubal ligation Family History Mother CAD (coronary artery disease) Lung disease Grandmother Cancer Dementia Stroke Diabetes Grandfather Cancer Family/Other Dementia Other Hyperlipidemia Hypertension Denies family history of Clotting disorder Chronic kidney disease (CKD) Suicide Anesthesia complication Bleeding disorder Social History Smoking and tobacco/nicotine status: current every day tobacco/nicotine user Alcohol intake: never Substance/Drug Use: never Physical Exam Const: COMMON NORMALS: no acute distress GENERAL APPEARANCE: cooperative and comfortable ORIENTATION/CONSCIOUSNESS: Yes awake, Yes oriented to person, Yes oriented to place and Yes oriented to time HENMT: COMMON NORMALS: normocephalic, atraumatic and hearing grossly normal bilaterally HEAD & SCALP: normocephalic and atraumatic Resp: EFFORT & INSPECTION: Yes tachypneic and Yes uses accessory muscles AUSCULTATION: rhonchi and wheezes Cardio: COMMON NORMALS: regular rate, regular rhythm and No murmurs present (Cardio) RATE: regular rate RHYTHM: regular rhythm GI: COMMON NORMALS: Soft to palpation and No hepatosplenomegaly present AUSCULTATION: Yes normoactive bowel sounds PALPATION: Yes Soft to palpation, No Tenderness to palpation present (GI), No Guarding due to palpation present (GI) and Yes No hepatosplenomegaly present Extremity: COMMON NORMALS: normal to inspection, capillary refill normal, no clubbing, cyanosis or edema, no calf tenderness and no pedal edema Neuro: SENSORIUM/ORIENTATION: Yes oriented to person, Yes oriented to place and Yes oriented to time Skin: COMMON NORMALS: no rashes or lesions noted GENERAL SKIN EXAM: no rashes or lesions noted Course Vital Signs: Vital signs: Vital Signs Temperature 97.7 F 03/17/25 05:47 Pulse Rate 99 03/17/25 06:40 Respiratory Rate 26 H 03/17/25 06:40 Blood Pressure 161/75 03/17/25 06:06 Pulse Oximetry 92 03/17/25 06:40 Oxygen Delivery Me thod Nasal Cannula 03/17/25 06:40 Oxygen Flow Rate 4 03/17/25 06:40 MDM - SOB/Dyspnea Medical Decision Making ABG reviewed. With increased oxygen supplementation pCO2 is not elevated pO2 153 pH 735. Patient initially presented wheezing with rhonchi. After second nebulizer treatment her adventitious breath sounds improved notably. However she began to require up to 4 L/min by nasal cannula. She is now maintaining sats in the low 90s at 4 L. She still has a productive cough. Empirically started on ceftriaxone Zithromax will place on observation for asthma exacerbation. Medical Records I reviewed the patient's medical records. Echocardiogram CONCLUSIONS Normal left ventricular size with a borderline low ejection fraction of 50 to 55%, visual. Relative hypokinesis of the septum. Mild left ventricular hypertrophy. Grade I/IV diastolic dysfunction (abnormal relaxation filling pattern), normal to mildly elevated filling pressures. Mildly increased left atrial size. Mild aortic valve regurgitation. Thickened aortic valve. Trace mitral valve regurgitation. Compared to the study from 09/16/2019, there appears to be a drop in the LV ejection fraction. Dr Jess Green MD [facility] (Electronically Signed) Final Date: 29 October 2024 Lab Data I reviewed the patient's lab results. 03/17/25 06:18 03/17/25 06:41 Labs/Radiology: Radiology Impressions Chest X-Ray 03/17/25 05:50 IMPRESSION: Negative for acute chest pathology. Laboratory Results WBC 8.57 10^3/uL (3.29-11.43) 03/17/25 06:18 RBC 4.74 10^6/uL (3.85-5.65) 03/17/25 06:18 Hgb 14.20 g/dL (11.27-16.99) 03/17/25 06:18 Hct 43.8 % (36-47) 03/17/25 06:18 MCV 92.4 fl (85-98) 03/17/25 06:18 MCH 30.0 pg (27-33) 03/17/25 06:18 MCHC 32.4 g/dL (30-55) 03/17/25 06:18 RDW 15.8 % (12.1-15.1) H 03/17/25 06:18 Plt Count 374 10^3/cmm (157-399) 03/17/25 06:18 MPV 9.5 fL (7.4-10.4) 03/17/25 06:18 Neut % (Auto) 69.2 % 03/17/25 06:18 Lymph % (Auto) 17.6 % 03/17/25 06:18 Jennings % (Auto) 5.7 % 03/17/25 06:18 Eos % (Auto) 6.5 % 03/17/25 06:18 Baso % (Auto) 0.5 % 03/17/25 06:18 Neut # (Auto) 5.93 10^3/uL (1.8-7.7) 03/17/25 06:18 Lymph # (Auto) 1.5 10^3/uL (0.8-4.8) 03/17/25 06:18 Jennings # (Auto) 0.5 10^3/uL (0.2-0.9) 03/17/25 06:18 Eos # (Auto) 0.6 10^3/uL (0.0-0.8) 03/17/25 06:18 Baso # (Auto) 0.0 10^3/uL (0.0-0.1) 03/17/25 06:18 Nucleated RBC % (auto) 0 % 03/17/25 06:18 Nucleated RBCs # 0.0 /100WBC 03/17/25 06:18 Specimen Type Arterial 03/17/25 06:22 Sample Site Rr 03/17/25 06:22 ABG pH 7.35 (7.35-7.45) 03/17/25 06:22 ABG pCO2 43.2 mmHg (35-45) 03/17/25 06:22 ABG pO2 58.0 mmHg (80.0-100.0) L 03/17/25 06:22 ABG PO2/FiO2 Ratio 207 03/17/25 06:22 ABG HCO3 23.8 mmol/L (22-26) 03/17/25 06:22 ABG O2 Saturation 88.3 03/17/25 06:22 ABG Base Excess -1.9 mmol/L (-2.0-2.0) 03/17/25 06:22 Boris Test Pos 03/17/25 06:22 A-a O2 Gradient 11.7 mmHg (5-10) H 03/17/25 06:22 Hematocrit 44.2 % (37-47) 03/17/25 06:22 Hgb O2 Saturation 86.0 % (95-100) L 03/17/25 06:22 Carboxyhemoglobin 2.3 %THgb (0.4-20.1) 03/17/25 06:22 Methemoglobin 0.3 % (0.4-1.5) L 03/17/25 06:22 Total Hemoglobin 14.4 g/dL (12-16) 03/17/25 06:22 Sodium 140.0 mmol/L (131-143) 03/17/25 06:22 Potassium 3.5 mmol/L (3.5-5.0) 03/17/25 06:22 Glucose 146.0 mg/dL (70-115) H 03/17/25 06:22 Ionized Calcium 1.2 mmol/L (1.1-1.4) 03/17/25 06:22 O2 Delivery Device Nc 03/17/25 06:22 O2 Liters/Min 2.0 % 03/17/25 06:22 FiO2 28.0 % 03/17/25 06:22 Big Data Analytics Lead ID [email or web address] 03/17/25 06:22 Sodium 138 mmol/L (136-145) 03/17/25 06:41 Potassium 4.0 mmol/L (3.5-5.1) 03/17/25 06:41 Chloride 99 mmol/L (98-107) 03/17/25 06:41 Carbon Dioxide 19 mmol/L (22-29) L 03/17/25 06:41 Anion Gap 24.0 (5-19) H 03/17/25 06:41 BUN 11 mg/dL (8-23) 03/17/25 06:41 Creatinine 0.9 mg/dL (0.5-0.9) 03/17/25 06:41 GFR Calculation 62.3 mL/min (90-130) L 03/17/25 06:41 Glucose 133 mg/dL (65-115) H 03/17/25 06:41 Calculated Osmolality 287 mOsm/kg (285-295) 03/17/25 06:41 Calcium 9.8 mg/dL (8.5-10.5) 03/17/25 06:41 Total Bilirubin 0.2 mg/dL (0.15-1.2) 03/17/25 06:41 AST 23 U/L (0-32) 03/17/25 06:41 ALT 19 U/L (0-33) 03/17/25 06:41 Alkaline Phosphatase 87 U/L (35-105) 03/17/25 06:41 Troponin T Baseline 18 ng/L (0-10) H 03/17/25 06:41 C-Reactive Protein 6.0 mg/L (0.0-4.9) H 03/17/25 06:41 NT-Pro-B Natriuret Pep 230 pg/mL (0-125) H 03/17/25 06:41 Total Protein 7.2 g/dL (6.6-8.7) 03/17/25 06:41 Albumin 4.6 g/dL (3.5-5.2) 03/17/25 06:41 Globulin 2.6 g/dL (1.3-4.6) 03/17/25 06:41 All radiology interpretation(s) finalized by discharge EKG Data EKG 1: Interpretation: EKG 03/17/2025 558 normal sinus rhythm rate of 81 VA interval 152 QTc [address] changes noted. No significant change compared to 10/29/2024 EKG 2: Interpretation: EKG 03/17/2025 7:23 AM. Normal sinus rhythm rate of 82Q VA interval 142 QTc 428 no change from EKG done earlier same day Discharge Plan Discharge Patient Disposition: Placed in Observation Clinical Impression: Asthma exacerbation in COPD Coding Level of Care Code ED Mechanical System Technician for Yuli Beauchamp
[2025-03-17 06:26] LABS: Hematocrit 43.8 % (36-47); Hemoglobin 14.20 g/dL (11.27-16.99); Mean Corpuscular HGB Conc 32.4 g/dL (30-55); Mean Corpuscular Hemoglobin 30.0 pg (27-33); Mean Corpuscular Volume 92.4 fl (85-98); Nucleated Red Blood Cells % 0 %; Platelet Count 374 10^3/cmm (157-399); Red Blood Count 4.74 10^6/uL (3.85-5.65); White Blood Count 8.57 10^3/uL (3.29-11.43)
[2025-03-17 06:34] LABS: ABG PCO2 43.2 mmHg (35-45); ABG PH Result 7.35 (7.35-7.45); Alveolar-Arterial Oxygen Gradi 11.7 mmHg (5-10); Arterial Blood Gas Hematocrit 44.2 % (37-47); Blood Gas Allen Test Pos; Blood Gas LPM 2.0 %; Blood Gas Operator Identificat gerca; Blood Gas Sample Type Arterial; Carboxyhemoglobin 2.3 %THgb (0.4-20.1); Glucose Level-ABG 146.0 mg/dL (70-115); HCO3 ABG 23.8 mmol/L (22-26); Ionized Calcium Level - ABG 1.2 mmol/L (1.1-1.4); Methemoglobin 0.3 % (0.4-1.5); Oxygen Saturation ABG 88.3; PO2 ABG 58.0 mmHg (80.0-100.0); PO2 FiO2 Ratio Arterial Blood 207; Potassium Level - ABG 3.5 mmol/L (3.5-5.0); Sodium Level - ABG 140.0 mmol/L (131-143)
[2025-03-17 07:03] LABS: Troponin(5th) Baseline 18 ng/L (0-10)
[2025-03-17 07:19] LABS: Alanine Aminotransferase 19 U/L (0-33); Albumin Level 4.6 g/dL (3.5-5.2); Alkaline Phosphatase 87 U/L (35-105); Aspartate Amino Transferase 23 U/L (0-32); Blood Urea Nitrogen 11 mg/dL (8-23); Calcium 9.8 mg/dL (8.5-10.5); Carbon Dioxide 19 mmol/L (22-29); Chloride 99 mmol/L (98-107); Creatinine Clr Calc Pharmacy 51.6271; Globulin 2.6 g/dL (1.3-4.6); Glucose 133 mg/dL (65-115); NT Pro B Type Natriuretic Pept 230 pg/mL (0-125); Osmolality Calculated 287 mOsm/kg (285-295); Sodium 138 mmol/L (136-145); Total Protein 7.2 g/dL (6.6-8.7)
[2025-03-17 07:21] LABS: Anion Gap 24.0 (5-19); Potassium 4.0 mmol/L (3.5-5.1)
[2025-03-17 07:32] LABS: Blood Gas Sample Site RR
[2025-03-17] MEDS: cefTRIAXone 1,000 mg SDV 1000 MG IVP (07:40)
--- NOTE | 2025-03-17 07:50 | ECG_ITS ---
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
[2025-03-17 09:06] LABS: Troponin 5 2HR 44.83 ng/L (0-10)
[2025-03-17 09:12] LABS: Troponin 5 2HR Delta 26.83 ABS# (0-10)
--- NOTE | 2025-03-17 11:14 | PM.HP ---
Providers/Chief Complaint Admitting Physician: Preston Timmons Primary Care Provider: Trip Cunningham DO Chief Complaint: SOB History of Present Illness Eda Gann is a 70 year old woman with a history of chronic obstructive pulmonary disease (COPD), diastolic congestive heart failure, carotid stenosis, hypertension, hyperlipidemia, hyperthyroidism, prior myocardial infarction, prior coronary artery stenting, prior carotid endarterectomy, and dementia who was brought to the hospital for acute shortness of breath on awakening with a sense of impending doom. EMS and ED reports noted diffuse wheezing; she received a breathing treatment en route and an additional nebulizer treatment in the ED with some improvement. Chronically uses 2 L/min nasal oxygen at home; oxygen was increased to 4 L/min to maintain saturation around 92%. Reports productive cough with mostly clear phlegm. Denies fever, chills, sore throat, or sneezing; notes night sweats that she considers baseline for her. Denies chest pain but reports mid-back pain. [place] very nauseated this morning without vomiting. Bowel habits variable at baseline. Denies ankle swelling. Not typically short of breath lying back; occasionally needs to regulate breathing at bedtime. ED started antibiotics (ceftriaxone and azithromycin). Review of Systems Const: Denies: fever(s), chills, body aches or malaise ENMT: Denies: throat pain Card: Denies: chest pain, edema, pre-syncope or dyspnea on exertion Resp: Reports: dyspnea and productive cough; Denies: change in phlegm color or hemoptysis GI: Denies: abdominal pain, nausea, vomiting, diarrhea, constipation, hematochezia or melena : Denies: flank pain, urinary frequency or hematuria Musc: Reports: back pain; Denies: joint swelling or joint redness Skin/Breast: Denies: rash or new lesions Neuro: Denies: headache(s) or confusion Medications/Allergies Home Medications ?Medication ?Instructions ?Recorded ?Confirmed ?Last Taken ?Type metoprolol tartrate 25 mg tablet 12.5 mg PO BID 12/09/20 03/17/25 01/06/21 08:00 History aluminum-mag hydroxide-simethicone 30 ml PO Q4H PRN Constipation 10/28/24 03/17/25 Unknown History 400 mg-400 mg-40 mg/5 mL oral susp (Mylanta Maximum Strength) aspirin 81 mg tablet,delayed 81 mg PO DAILY 10/28/24 03/17/25 03/16/25 History release bisacodyl 5 mg tablet,delayed 10 mg PO DAILY 10/28/24 03/17/25 Unknown History release (Dulcolax (bisacodyl)) duloxetine 60 mg capsule,delayed 60 mg PO DAILY 10/28/24 03/17/25 03/16/25 History release fluticasone 250 mcg-salmeterol 50 1 ea inhalation BID 10/28/24 03/17/25 03/16/25 History mcg/dose blistr powdr for inhalation (Advair Diskus) gabapentin 400 mg capsule 400 mg PO BID 10/28/24 03/17/25 03/16/25 History hydrocodone 5 mg-acetaminophen 325 1 tab PO Q6H PRN Pain 10/28/24 03/17/25 10/27/24 History mg tablet ipratropium 20 mcg-albuterol 100 1 puff inhalation QID 10/28/24 03/17/25 03/16/25 History mcg/actuation mist for inhalation (Combivent Respimat) magnesium 250 mg tablet 250 mg PO DAILY 10/28/24 03/17/25 03/16/25 History rosuvastatin 10 mg tablet 10 mg PO DAILY 10/28/24 03/17/25 03/16/25 History alprazolam 0.5 mg tablet (Xanax) 0.5 mg PO Q6H PRN Anxiety #30 tabs 11/01/24 03/17/25 03/16/25 Rx ipratropium 0.5 mg-albuterol 3 mg 3 ml inhalation Q4H PRN shortness 11/02/24 03/17/25 03/16/25 Rx (2.5 mg base)/3 mL nebulization of breath #180 mL soln Sole Sopp[place] #1 ea 12/04/24 03/17/25 Unknown Rx diltiazem HCl 30 mg tablet 30 mg PO Q6H 03/17/25 03/17/25 03/16/25 History epinephrine 0.3 mg/0.3 mL See Rx Instructions .Route .COMPLEX 03/17/25 03/17/25 Unknown History injection, auto-injector Allergies Allergy/AdvReac Type Severity Reaction Status Date / Time [facility] Allergy Unknown unknown Verified 12/04/24 09:55 shellfish derived Allergy Unknown unknown Verified 12/04/24 09:55 Iodinated Contrast Media Allergy thought I Verified 12/04/24 09:55 was going to PFSH Acute PFSH: Medical History Cardiac arrest Ventricular tachycardia Intermittent palpitations Carotid artery stenosis with cerebral infarction over 8 weeks ago History of CVA in 2008? [place] [facility] [place] Chronic diastolic heart failure secondary to coronary artery disease Atherosclerotic heart disease of [place] coronary artery with angina pectoris The EKG done today showed sinus bradycardia with a rate of [address]-T changes. Mixed hyperlipidemia Benign essential HTN Dementia has appointment to see Neurology on September 12 Hyperthyroidism Heart attack Anxiety Congestive heart failure COPD (chronic obstructive pulmonary disease) ASHD (arteriosclerotic heart disease) Surgical History History of surgery on wrist S/P carotid endarterectomy Hx of tonsillectomy History of appendectomy Hx of cholecystectomy History of heart artery stent H/O tubal ligation Family History Mother CAD (coronary artery disease) Lung disease Grandmother Cancer Dementia Stroke Diabetes Grandfather Cancer Family/Other Dementia Other Hyperlipidemia Hypertension Denies family history of Clotting disorder Chronic kidney disease (CKD) Suicide Anesthesia complication Bleeding disorder Social History Smoking and tobacco/nicotine status: former use of tobacco/nicotine Alcohol intake: never Substance/Drug Use: never Vitals/I&O/Wt Last Vital Signs Temp 97.5 F L 03/17/25 11:09 Pulse 87 03/17/25 11:09 Resp 16 03/17/25 11:09 BP 151/67 03/17/25 11:09 Pulse Ox 100 03/17/25 11:09 O2 Del Method Nasal Cannula 03/17/25 11:09 O2 Flow Rate 3 03/17/25 09:15 03/16/25 03/17/25 03/17/25 22:59 06:59 14:59 Intake Total 250 / 250 Balance 250 / 250 Weight last 48 hrs Weight 58.06 kg Physical Exam Const: COMMON NORMALS: patient oriented x3 and alert GENERAL APPEARANCE: cooperative ORIENTATION/CONSCIOUSNESS: Yes awake HENMT: COMMON NORMALS: oropharynx normal Neck/C-Spine: COMMON NORMALS: no JVD Resp: AUSCULTATION: wheezes (mild) Cardio: COMMON NORMALS: no JVD, regular rhythm, S1 normal heart sound present, S2 normal heart sound present and No murmurs present (Cardio) RHYTHM: regular rhythm HEART SOUNDS: S1 normal heart sound present and S2 normal heart sound present GI: COMMON NORMALS: Normal to inspection, nondistended, normoactive bowel sounds present, Soft to palpation and non-tender PALPATION: Yes Soft to palpation Extremity: COMMON NORMALS: no joint enlargement and no pedal edema Neuro: COMMON NORMALS: patient oriented x3 and moves all extremities SENSORIUM/ORIENTATION: Yes alert Skin: COMMON NORMALS: no rashes or lesions noted GENERAL SKIN EXAM: no rashes or lesions noted Data 03/17/25 06:18 03/17/25 06:41 A&P Assessment and plan 1. Asthma exacerbation in COPD: Severe exacerbation of COPD with productive cough, dyspnea, severe wheezing diminished air entry. Will obtain respiratory viral studies for flu COVID and RSV. Obtain sputum culture, MRSA PCR. Acute dyspnea with diffuse wheezing at presentation; productive cough with clear sputum; improved after nebulizer treatments; ED started antibiotics for presumed COPD exacerbation. Reviewed vitals, CBC, ABG, CMP, chest x-ray, EKG, ED provider note, discussed with the provider. - Continue breathing treatments (respiratory therapy to assess and treat). - Give IV Solu-Medrol 40 mg; q4h to start. - Continue empiric antibiotics with ceftriaxone. - Obtain sputum culture. - Obtain MRSA nasal swab. 2. Elevated troponin: Reviewed recent angiogram from November 01, 2024 with noted ADVERTISING EDITOR mid circumflex, mild diffuse disease in other vessels LVEF 50%. At that time medical management was elected to be continued. Discussed with her troponin elevation: Possible NSTEMI, she is started on anticoagulation with heparin, continue aspirin statin, beta-briseida, monitor for risk of bleeding. Telemetry due to risk of arrhythmia. Monitor for risk of acute CHF. Possible demand ischemia secondary to respiratory distress and hypoxia with severe exacerbation of COPD. Elevated troponin (possible non?ST elevation myocardial infarction) : Troponin showed a rising trend; EKG with sinus rhythm and nonspecific ST-T abnormalities on my interpretation, pending official read; patient reports mid-back pain; history of coronary artery disease with prior stent. - Complete troponin series. - Obtain echocardiogram. - Monitor on telemetry for arrhythmia. - Continue antiplatelet therapy (aspirin). - Anticoagulation with heparin drip; monitor for bleeding risk. Monitor PTTs. - Further assessment if recurrent/worsening back pain or if troponin continues to rise; consider cardiology consultation. - Review prior documentation from October to determine whether coronary angiogram was performed. Plan: Hypoxemia requiring supplemental oxygen : Home O2 at 2 L/min; currently requiring 4 L/min via nasal cannula. - Continue oxygen support at 4 L/min now. - Target oxygen saturation 88?92%. - Wean to baseline as tolerated. Mid-thoracic back pain reported; discussed in the context of elevated troponin. - Assess in conjunction with troponin trend and cardiac evaluation as above. Coronary artery disease with prior stent : Known CAD with prior stenting; nonspecific EKG changes; evaluating current troponin rise. - Continue aspirin and statin. - Continue metoprolol (noted as ongoing). Hypertension : Known history; current BP 152/75 mmHg. - Monitor blood pressure. Hyperlipidemia : Chronic condition. - Continue statin (noted as ongoing). Hyperthyroidism : Chronic condition. Dementia : Chronic condition; patient has some uncertainty regarding prior procedures. [Unclear] Tobacco use status : Documented as current smoker initially; later patient states having quit. Steroid-associated hyperglycemia risk : Patient reports transient hyperglycemia with prior inpatient steroid use. - Monitor [id number] glucose. - Use consistent carbohydrate diet. - Monitor for risk of hypertension, encephalopathy, and gastritis while on steroids. She states has quit smoking. PDMP PDMP Reviewed: Not Reviewed Attestations Medical Necessity Statement*: Place in observation for additional assessment management of severe exacerbation of COPD with bronchospastic component, further workup of troponin rise, possible NSTEMI in a lady with known coronary disease, CAD risks. Diagnoses Asthma exacerbation in COPD J44.1 Elevated troponin R79.89
--- NOTE | 2025-03-17 11:54 | ECG_ITS ---
[email or web address] Test Date: 2025-03-17 Pat Name: Eda Gann Department: Room: 266 Gender: Female [employer]: : 1955 Requested By: Danie Mao Order Number: [id number] Hector MD: John Chaudhry M.D. Measurements Intervals [place] Rate: 90 P: 61 TN: 135 QRS: 66 QRSD: 88 T: 87 QT: 333 QTc: 409 Interpretive Statements SINUS RHYTHM WITH OCCASIONAL VENTRICULAR PREMATURE COMPLEXES NONSPECIFIC T-WAVE ABNORMALITY Compared to ECG 03/17/2025 07:23:04 Ventricular premature complex(es) now present T-wave abnormality still present Electronically Signed On 03-19-2025 22:53:02 CDT by John Chaudhry M.D. [email or web address]
[2025-03-17] MEDS: methylPREDNISolone sod succ 40 mg/mL INJ IVP ×3 (12:28→20:25)
[2025-03-17] MEDS: HYDROcodone-acetaminophen 5-325 mg Tablet 1 TAB PO ×2 (12:28→18:53)
[2025-03-17] MEDS: heparin drip 25,000 UNIT/500 ML PREMIX 17 UNIT IV (12:46)
[2025-03-17] MEDS: heparin 5,000 unit/mL INJ 1 mL IVP (12:49)
[2025-03-17 12:58] LABS: Glucose Urine UA Trace (Normal); Nitrate Urine Negative (Negative); Specific Gravity, Urine 1.015 (1.005-1.030)
[2025-03-17 13:03] LABS: Add Urine Microscopic? YES
[2025-03-17 13:13] LABS: Troponin 5 6HR 49.53 ng/L (0-10)
[2025-03-17 13:15] LABS: Troponin 5 6HR Delta 31.53 ng/L (0-12)
[2025-03-17 19:05] LABS: Partial Thromboplastin Time 87.5 SECONDS (23.9-36.7)
[2025-03-17] MEDS: fluticasone nasal spray 16gm Btl 2 SPRAY NASAL (20:26)
[2025-03-18] VITALS (14 sets, daily range): BP systolic 91–137; BP diastolic 50–69; PULSE 69–89; RESP 16–18; TEMP 36.4–36.7; O2SAT 90–97
[2025-03-18] MEDS: methylPREDNISolone sod succ 40 mg/mL INJ IVP ×4 (00:22→23:31)
[2025-03-18] MEDS: HYDROcodone-acetaminophen 5-325 mg Tablet 1 TAB PO ×3 (00:24→22:21)
[2025-03-18 01:22] LABS: Hematocrit 40.7 % (36-47); Hemoglobin 13.70 g/dL (11.27-16.99); Mean Corpuscular HGB Conc 33.7 g/dL (30-55); Mean Corpuscular Hemoglobin 30.2 pg (27-33); Mean Corpuscular Volume 89.8 fl (85-98); Nucleated Red Blood Cells % 0 %; Platelet Count 373 10^3/cmm (157-399); Red Blood Count 4.53 10^6/uL (3.85-5.65); White Blood Count 13.89 10^3/uL (3.29-11.43)
[2025-03-18 01:28] LABS: Partial Thromboplastin Time 61.3 SECONDS (23.9-36.7)
[2025-03-18 01:35] LABS: Anion Gap 22.1 (5-19); Blood Urea Nitrogen 16 mg/dL (8-23); Calcium 9.6 mg/dL (8.5-10.5); Carbon Dioxide 22 mmol/L (22-29); Chloride 96 mmol/L (98-107); Creatinine Clr Calc Pharmacy 59.2369; Glucose 164 mg/dL (65-115); Osmolality Calculated 287 mOsm/kg (285-295); Potassium 4.1 mmol/L (3.5-5.1); Sodium 136 mmol/L (136-145)
[2025-03-18 08:06] LABS: Partial Thromboplastin Time 54.4 SECONDS (23.9-36.7)
[2025-03-18] MEDS: heparin 5,000 unit/mL INJ 1 mL IVP ×2 (08:17→15:17)
[2025-03-18] MEDS: fluticasone nasal spray 16gm Btl 2 SPRAY NASAL ×2 (08:33→17:16)
[2025-03-18] MEDS: ATORVASTATIN 10 MG TABLET PO (08:33)
--- NOTE | 2025-03-18 08:49 | PC.NURSE ---
Dr. Timomns notified. Blood Pressure 110/58 hold medications this dose.
[2025-03-18 11:17] LABS: MRSA PCR OZH (swab) NOT DETECTED (Not Detecte)
[2025-03-18] MEDS: cefTRIAXone 1,000 mg SDV 1000 MG IVP (11:22)
[2025-03-18] MEDS: heparin drip 25,000 UNIT/500 ML PREMIX 16 UNIT IV (12:59)
--- NOTE | 2025-03-18 13:49 | PC.NURSE ---
Ptt late due to patient being outpatient obs. Spoke to Dr. Timmons and sent screen shot still not PTT ordered. Called Dr. Renee to please put PTT in stat for Heparin Drip
--- NOTE | 2025-03-18 13:56 | P.PN_ITS ---
Subjective 2 Subjective: Today she states she is improving. Breathing is gradually improving. She is still having wheezing. Cough is showing improvement. No chest pain or pressure. Vitals/I&O/Wt Last Vital Signs Temp 97.8 F 03/18/25 12:04 Pulse 89 03/18/25 12:04 Resp 17 03/18/25 12:04 BP 111/61 03/18/25 12:04 Pulse Ox 96 03/18/25 12:04 O2 Del Method Nasal Cannula 03/18/25 12:04 O2 Flow Rate 2 03/18/25 11:34 03/17/25 03/18/25 03/18/25 22:59 06:59 14:59 Intake Total 352.767 / 1082.767 95.5 / 1178.267 648.25 / 648.25 Output Total 600 / 1200 800 / 800 Balance -247.233 / -117.233 95.5 / -21.733 -151.75 / -151.75 Weight last 48 hrs Weight 57.788 kg Weight 60.781 kg Weight 58.06 kg Physical Exam 2 Const: COMMON NORMALS: patient oriented x3 and alert GENERAL APPEARANCE: c ooperative ORIENTATION/CONSCIOUSNESS: Yes awake HENMT: COMMON NORMALS: oropharynx normal Neck/C-Spine: COMMON NORMALS: no JVD Resp: AUSCULTATION: wheezes (mild) Cardio: COMMON NORMALS: no JVD, regular rhythm, S1 normal heart sound present, S2 normal heart sound present and No murmurs present (Cardio) RHYTHM: regular rhythm HEART SOUNDS: S1 normal heart sound present and S2 normal heart sound present GI: COMMON NORMALS: Normal to inspection, nondistended, normoactive bowel sounds present, Soft to palpation and non-tender PALPATION: Yes Soft to palpation Extremity: COMMON NORMALS: no joint enlargement and no pedal edema Neuro: COMMON NORMALS: patient oriented x3 and moves all extremities S ENSORIUM/ORIENTATION: Yes alert Skin: COMMON NORMALS: no rashes or lesions noted GENERAL SKIN EXAM: no rashes or lesions noted Data 03/18/25 01:09 03/18/25 01:09 Micro: Microbiology 03/17/25 08:57 Gram Stain - Final Sputum - Expectorated Sputum Sputum Culture - Preliminary A&P Assessment and plan 1. Asthma exacerbation in COPD: Showing improvement. Improving oxygenation. Persistent wheezing. Subjectively she is doing little better. Has weaned down from 4 L to 2 L nasal cannula. Continue treatment with IV corticosteroid as discussed with her, continue breathing treatments, empiric antibiotic. Severe exacerbation of COPD with productive cough, dyspnea, severe wheezing diminished air entry. Reviewed respiratory viral studies for flu COVID and RSV. Obtain sputum culture. Reviewed MRSA PCR, not detected. Acute dyspnea with diffuse wheezing at presentation; productive cough with clear sputum; improved after nebulizer treatments - Continue breathing treatments (respiratory therapy to assess and treat). - Give IV Solu-Medrol 40 mg; q4h to start. - Continue empiric antibiotics with ceftriaxone. Discussed with nursing, clinical case manager. 2. Elevated troponin: Noted positive troponin delta. She has not had chest pain. Continue to graduation with heparin for NSTEMI, monitor for risk of bleeding. Time 1 versus type II CA (demand secondary to respiratory failure and presentation). Will further assess echocardiogram. In case no drop in ejection fraction would further pursue stress test. In case of RWMA, ejection fraction dropped, may require consideration of reassessment with coronary angiogram. Reviewed recent angiogram from November 01, 2024 with noted QA TESTER mid circumflex, mild diffuse disease in other vessels LVEF 50%. At that time medical management was elected to be continued. Telemetry due to risk of arrhythmia. Monitor for risk of acute CHF. Possible demand ischemia secondary to respiratory distress and hypoxia with severe exacerbation of COPD. Plan: Hypoxemia requiring supplemental oxygen : Home O2 at 2 L/min; treat asthma/COPD overlap syndrome as above. - Continue to wean oxygen as tolerating - Target oxygen saturation 88?92%. - Wean to baseline as tolerated. Mid-thoracic back pain reported; discussed in the context of elevated troponin. Further assessment as above. - Assess in conjunction with troponin trend and cardiac evaluation as above. Coronary artery disease with prior stent : Known CAD with prior stenting; nonspecific EKG changes; evaluating current troponin rise. - Continue aspirin and statin. - Continue metoprolol (noted as ongoing). Hypertension : Known history; improved. - Monitor blood pressure. Hyperlipidemia : Chronic condition. - Continue statin (noted as ongoing). Hyperthyroidism : Chronic condition. Dementia : Chronic condition; patient has some uncertainty regarding prior procedures. [Unclear] Tobacco use status : Documented as current smoker initially; later patient states having quit. Steroid-associated hyperglycemia risk : Patient reports transient hyperglycemia with prior inpatient steroid use. - Monitor mlzay-zf-miji glucose. - Use consistent carbohydrate diet. - Monitor for risk of hypertension, encephalopathy, and gastritis while on steroids. She states has quit smoking. PDMP PDMP Reviewed: Not Reviewed Attestations 2 Medical Necessity Statement*: Continue admission for assessment management of severe exacerbation of asthma and asthma COPD overlap syndrome further workup of NSTEMI. and High MDM includes amount and/or complexity of data reviewed/ordered [ resulted lab(s)/test(s), ordered lab(s)/test(s) and other healthcare professional discussion] and described risk of complication, morbidity or mortality of management as documented Diagnoses Asthma exacerbation in COPD J44.1 Elevated troponin R79.89
--- NOTE | 2025-03-18 14:03 | USCV_ITS ---
Eda Gann Age: 70 Gender: F : 1955 Exam Date: 03/18/2025 18:43 Ordering Phys: Preston Timmons MD Technologist: ZAK [place] [facility] [place]: Limited study to re-evaluate EF. History of COPD, CHF, HTN, HL, prior MIs, CAD s/p PCI BP: 111 / 61 HR: 72 Rhythm: Sinus Technical Quality: Adequate MEASUREMENTS (Male / Female) Normal Values 2D ECHO LV Diastolic Diameter PLAX 4.2 cm 4.2 - 5.9 / 3.9 - 5.3 cm IVS Diastolic Thickness 1.1 cm 0.6 - 1.0 / 0.6 - 0.9 cm IVS Systolic Thickness 1.5 cm LVPW Diastolic Thickness 1.2 cm 0.6 - 1.0 / 0.6 - 0.9 cm LVPW Systolic Thickness 2.2 cm LV Ejection Fraction 2D Teich 58.2 % LV Ejection Fraction MOD 4C 52.1 % LV Ejection Fraction MOD 2C 64.2 % LV Ejection Fraction 2C AL 67.0 % FINDINGS Left Ventricle Normal left ventricular cavity size. Akinesis of the basal inferior, basal anterolateral, and mid and basal inferolateral wall segments with low normal EF of 54%. Right Ventricle Normal right ventricular size. Normal right ventricular systolic function. Right Atrium Left Atrium Mitral Valve Aortic Valve Tricuspid Valve Pulmonic Valve Pericardium Small pericardial effusion. Aorta IVC CONCLUSIONS 1. Segmental wall motion abnormalities of the left ventricle with overall low normal EF of 54%. 2. Small pericardial effusion. John Chaudhry MD, FACC (Electronically Signed) Final Date: 18 March 2025 20:41 S
[2025-03-18 14:37] LABS: Partial Thromboplastin Time 53.4 SECONDS (23.9-36.7)
--- NOTE | 2025-03-18 15:21 | PC.NURSE ---
Notified Dr. Timmons patient still does not have a Second IV and Heparin drip running in the other IV. ICU has been called to see if they could put in another one.
[2025-03-18 20:26] LABS: Partial Thromboplastin Time 75.2 SECONDS (23.9-36.7)
[2025-03-18 22:49] LABS: Alanine Aminotransferase 13 U/L (0-33); Albumin Level 4.3 g/dL (3.5-5.2); Alkaline Phosphatase 66 U/L (35-105); Anion Gap 18.3 (5-19); Aspartate Amino Transferase 15 U/L (0-32); Blood Urea Nitrogen 23 mg/dL (8-23); Calcium 9.7 mg/dL (8.5-10.5); Carbon Dioxide 22 mmol/L (22-29); Chloride 96 mmol/L (98-107); Creatinine Clr Calc Pharmacy 51.5244; Globulin 3.1 g/dL (1.3-4.6); Glucose 128 mg/dL (65-115); Magnesium 2.2 mg/dL (1.7-2.3); Osmolality Calculated 279 mOsm/kg (285-295); Potassium 4.3 mmol/L (3.5-5.1); Sodium 132 mmol/L (136-145); Total Protein 7.4 g/dL (6.6-8.7)
[2025-03-19] VITALS (15 sets, daily range): BP systolic 103–168; BP diastolic 48–68; PULSE 65–83; RESP 16–18; TEMP 36.3–36.6; O2SAT 91–97
--- NOTE | 2025-03-19 01:34 | PC.NURSE ---
US IV access in right upper arm Pt stated that previous IV in right upper arm caused pain to right palm and right hand when used for medication. Current IV established without complaints of pain, positive fluid movement through upper arm vein via US when flushed and adequate blood return. Placement confirmed by second nurse.
[2025-03-19] MEDS: methylPREDNISolone sod succ 40 mg/mL INJ IVP ×2 (02:27→06:07)
[2025-03-19 02:31] LABS: Hematocrit 39.8 % (36-47); Hemoglobin 13.00 g/dL (11.27-16.99); Mean Corpuscular HGB Conc 32.7 g/dL (30-55); Mean Corpuscular Hemoglobin 30.3 pg (27-33); Mean Corpuscular Volume 92.8 fl (85-98); Nucleated Red Blood Cells % 0 %; Platelet Count 351 10^3/cmm (157-399); Red Blood Count 4.29 10^6/uL (3.85-5.65); White Blood Count 21.66 10^3/uL (3.29-11.43)
[2025-03-19 02:44] LABS: Partial Thromboplastin Time 66.5 SECONDS (23.9-36.7)
[2025-03-19 02:52] LABS: Anion Gap 18.4 (5-19); Blood Urea Nitrogen 25 mg/dL (8-23); Calcium 9.5 mg/dL (8.5-10.5); Carbon Dioxide 23 mmol/L (22-29); Chloride 96 mmol/L (98-107); Creatinine Clr Calc Pharmacy 51.5244; Glucose 168 mg/dL (65-115); Osmolality Calculated 284 mOsm/kg (285-295); Potassium 4.4 mmol/L (3.5-5.1); Sodium 133 mmol/L (136-145)
[2025-03-19] MEDS: saline nasal spray 44mL Btl 1 SPRAY NASAL (08:42)
--- NOTE | 2025-03-19 08:53 | P.PN_ITS ---
Vitals/I&O/Wt Last Vital Signs Temp 97.5 F L 03/19/25 07:44 Pulse 75 03/19/25 08:13 Resp 16 03/19/25 08:07 BP 118/54 03/19/25 07:44 Pulse Ox 97 03/19/25 08:07 O2 Del Method Nasal Cannula 03/19/25 08:07 O2 Flow Rate 2 03/19/25 08:07 03/18/25 03/19/25 03/19/25 22:59 06:59 14:59 Intake Total 1481.333 / 2129.583 106.4 / 2235.983 240 / 240 Output Total 900 / 1700 400 / 2100 Balance 581.333 / 429.583 -293.6 / 135.983 240 / 240 Weight last 48 hrs Weight 58.967 kg Weight 57.788 kg Weight 60.781 kg Physical Exam 2 Const: COMMON NORMALS: patient oriented x3 and alert GENERAL APPEARANCE: c ooperative ORIENTATION/CONSCIOUSNESS: Yes awake HENMT: COMMON NORMALS: oropharynx normal Neck/C-Spine: COMMON NORMALS: no JVD Resp: AUSCULTATION: wheezes (mod) Cardio: COMMON NORMALS: no JVD, regular rhythm, S1 normal heart sound present, S2 normal heart sound present and No murmurs present (Cardio) RHYTHM: regular rhythm HEART SOUNDS: S1 normal heart sound present and S2 normal heart sound present GI: COMMON NORMALS: Normal to inspection, nondistended, normoactive bowel sounds present, Soft to palpation and non-tender PALPATION: Yes Soft to palpation Extremity: COMMON NORMALS: no joint enlargement and no pedal edema Neuro: COMMON NORMALS: patient oriented x3 and moves all extremities S ENSORIUM/ORIENTATION: Yes alert Skin: COMMON NORMALS: no rashes or lesions noted GENERAL SKIN EXAM: no rashes or lesions noted Data 03/19/25 02:23 03/19/25 02:23 Micro: Microbiology 03/17/25 08:57 Gram Stain - Final Sputum - Expectorated Sputum Sputum Culture - Preliminary A&P Assessment and plan 1. Asthma exacerbation in COPD: Showing improvement subjectively. But still moderate wheezing with still significant bronchospasm present. Not ready for discharge at current time. Continue intravenous corticosteroid, will increase Solu-Medrol to 60 mg IV push every 4 hours. Monitor for risk of hyperglycemia, reviewed glucose. Monitor for risk of hypertension, gastritis, encephalopathy. Has weaned down from 4 L to 2 L nasal cannula. Continue treatment with IV corticosteroid as discussed with her, continue breathing treatments, empiric antibiotic. Severe exacerbation of COPD with productive cough, dyspnea, severe wheezing diminished air entry. Reviewed vitals, CBC, sputum culture, chemistry. Sputum culture with moderate normal nik on day 1. Acute dyspnea with diffuse wheezing at presentation; productive cough with clear sputum; improved after nebulizer treatments - Continue breathing treatments (respiratory therapy to assess and treat). - Continue empiric antibiotics with ceftriaxone. Discussed with nursing, mattress spring encaser. 2. Elevated troponin: Not having current chest pain or back pain. Reviewed echocardiogram, discussed with her, noted normal ejection fraction, 54%. Slight improvement from prior. Discussed with her consideration of inpatient versus outpatient stress testing. She prefers to have stress test done outpatient within a few days after discharge. Continue treatment of asthma COPD overlap syndrome. 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 At that time medical management was elected to be continued. Telemetry due to risk of arrhythmia. Monitor for risk of acute CHF. Possible demand ischemia secondary to respiratory distress and hypoxia with severe exacerbation of COPD. Plan: Hypoxemia requiring supplemental oxygen : Home O2 at 2 L/min; treat asthma/COPD overlap syndrome as above. - Continue to wean oxygen as tolerating - Target oxygen saturation 88?92%. - Wean to baseline as tolerated. Mid-thoracic back pain reported; discussed in the context of elevated troponin. Further assessment as above. - Assess in conjunction with troponin trend and cardiac evaluation as above. Coronary artery disease with prior stent : Known CAD with prior stenting; nonspecific EKG changes; evaluating current troponin rise. - Continue aspirin and statin. - Continue metoprolol (noted as ongoing). Hypertension : Known history; improved. - Monitor blood pressure. Hyperlipidemia : Chronic condition. - Continue statin (noted as ongoing). Hyperthyroidism : Chronic condition. Dementia : Chronic condition; patient has some uncertainty regarding prior procedures. [Unclear] Tobacco use status : Has recently quit smoking. Steroid-associated hyperglycemia risk : Patient reports transient hyperglycemia with prior inpatient steroid use. - Monitor nnunv-bh-olep glucose. - Use consistent carbohydrate diet. - Monitor for risk of hypertension, encephalopathy, and gastritis while on steroids. PDMP PDMP Reviewed: Not Reviewed Attestations 2 Medical Necessity Statement*: Continue admission for assessment management of severe exacerbation of asthma and asthma COPD overlap syndrome further workup of NSTEMI. Diagnoses Asthma exacerbation in COPD J44.1 Elevated troponin R79.89
[2025-03-19] MEDS: cefTRIAXone 1,000 mg SDV 1000 MG IVP (09:06)
--- NOTE | 2025-03-19 09:18 | PC.CHAP ---
Pastoral Care Encounter/Spiritual Assessment Type of Contact [] Declined boring machine operator horizontal visit [] Patient/Family/Request visit [] Outpatient visit [] Follow-up visit [] Physician referral [] Code/Alert [x] Routine visit [] Staff referral [] Actively dying [] Patient sleeping [x] Family support [] [] Out of room [] Palliative care [] [] Receiving care in room [] Pre-surgical visit [] Trauma [] Long length of stay [] ICU visit [] Other: Relational/Emotional Strength [x] Patient feels connected with others/family/visitors/staff [] Distress [] Loneliness/isolation [] Abandonment Spirituality of Patient [x] Person of Rowena [] Attends Restorationist of their Rowena [x] Believes in Prayer [] Reads Bible or Druze materials [] There are Spiritual issues to be addressed Mobile Patrol Officer Interventions [x] Prayer [x] Active listening [x] Non-anxious presence [x] Spiritual/emotional support [] Crisis/trauma care [] Spiritual counseling [] Bereavement support [] Provided bereavement packet [] Provided Bible/devotional materials [] Provided toy/stuffed animal, coloring book to patient or family member [] Provided Communion [] Anointing/[place] [] Salvation [x] Completed spiritual assessment [] Other: Impact on Illness or Injury [] Angry [] Fearful [] Anxious [] Often cries [] Exhaustion [] Unable to work [] Unable to attend zoroastrianism [] Unable to walk/stand [] Unable to read [] Unable to drive [] Unable to eat/drink [] Unable to sleep [] Unable to be with family [] Patient intubated [] Other: Summary Time spent with patient 5 min
[2025-03-19] MEDS: ATORVASTATIN 10 MG TABLET PO (09:25)
[2025-03-19 10:17] LABS: Partial Thromboplastin Time 59.4 SECONDS (23.9-36.7)
[2025-03-19] MEDS: methylPREDNISolone sod succ 125 mg/2 mL INJ 60 MG IVP ×4 (11:34→23:33)
--- NOTE | 2025-03-19 14:00 | P.PN_ITS ---
Subjective 2 Subjective: Subjectively she is feeling better, however, still with significant wheezing and diminished air entry. Vitals/I&O/Wt Last Vital Signs Temp 97.6 F 03/20/25 11:08 Pulse 77 03/20/25 11:08 Resp 18 03/20/25 11:08 BP 109/56 03/20/25 11:08 Pulse Ox 97 03/20/25 11:08 O2 Del Method Nasal Cannula 03/20/25 08:00 O2 Flow Rate 2 03/20/25 08:00 Weight last 48 hrs Weight 59.421 kg Physical Exam 2 Const: COMMON NORMALS: patient oriented x3 and alert GENERAL APPEARANCE: c ooperative ORIENTATION/CONSCIOUSNESS: Yes awake HENMT: COMMON NORMALS: oropharynx normal Neck/C-Spine: COMMON NORMALS: no JVD Resp: AUSCULTATION: rhonchi (Mild) and no wheezes Cardio: COMMON NORMALS: no JVD, regular rhythm, S1 normal heart sound present, S2 normal heart sound present and No murmurs present (Cardio) RHYTHM: regular rhythm HEART SOUNDS: S1 normal heart sound present and S2 normal heart sound present GI: COMMON NORMALS: Normal to inspection, nondistended, normoactive bowel sounds present, Soft to palpation and non-tender PALPATION: Yes Soft to palpation Extremity: COMMON NORMALS: no joint enlargement and no pedal edema Neuro: COMMON NORMALS: patient oriented x3 and moves all extremities S ENSORIUM/ORIENTATION: Yes alert Skin: COMMON NORMALS: no rashes or lesions noted GENERAL SKIN EXAM: no rashes or lesions noted Data 03/20/25 04:42 03/20/25 04:42 Micro: Microbiology 03/17/25 08:57 Gram Stain - Final Sputum - Expectorated Sputum Sputum Culture - Preliminary Yeast species A&P Assessment and plan 1. Asthma exacerbation in COPD: Persistent wheezing Solu-Medrol dose was increased to 60 mg every 4 hours. Monitor for risk of hypertension, hyperglycemia, gastritis, encephalopathy. Remains on 2 L nasal cannula. Continue treatment with IV corticosteroid as discussed with her, continue breathing treatments, empiric antibiotic. Severe exacerbation of COPD with productive cough, dyspnea, severe wheezing diminished air entry. Reviewed vitals, CBC, sputum culture. Discussed with nursing, behavioral health case manager. - Continue breathing treatments (respiratory therapy to assess and treat). - Give IV Solu-Medrol 40 mg; q4h to start. - Continue empiric antibiotics with ceftriaxone. Discussed with nursing, behavioral health case manager. 2. Elevated troponin: Reviewed echocardiogram, discussed with her. Continuing heparin drip for 72 hours. Monitor for risk of bleeding, monitor PTT. Positive troponin delta. She has not had chest pain. Continue to graduation with heparin for NSTEMI, monitor for risk of bleeding. Time 1 versus type II KS (demand secondary to respiratory failure and presentation). Will further assess echocardiogram. In case no drop in ejection fraction would further pursue stress test. In case of RWMA, ejection fraction dropped, may require consideration of reassessment with coronary angiogram. 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 At that time medical management was elected to be continued. Telemetry due to risk of arrhythmia. Monitor for risk of acute CHF. Possible demand ischemia secondary to respiratory distress and hypoxia with severe exacerbation of COPD. Plan: Hypoxemia requiring supplemental oxygen : Home O2 at 2 L/min; treat asthma/COPD overlap syndrome as above. - Continue to wean oxygen as tolerating - Target oxygen saturation 88?92%. - Wean to baseline as tolerated. Mid-thoracic back pain reported; discussed in the context of elevated troponin. Further assessment as above. - Assess in conjunction with troponin trend and cardiac evaluation as above. Coronary artery disease with prior stent : Known CAD with prior stenting; nonspecific EKG changes; evaluating current troponin rise. - Continue aspirin and statin. - Continue metoprolol (noted as ongoing). Hypertension : Known history; improved. - Monitor blood pressure. Hyperlipidemia : Chronic condition. - Continue statin (noted as ongoing). Hyperthyroidism : Chronic condition. Dementia : Chronic condition; patient has some uncertainty regarding prior procedures. [Unclear] Tobacco use status : Documented as current smoker initially; later patient states having quit. Steroid-associated hyperglycemia risk : Patient reports transient hyperglycemia with prior inpatient steroid use. - Monitor [id number] glucose. - Use consistent carbohydrate diet. - Monitor for risk of hypertension, encephalopathy, and gastritis while on steroids. She states has quit smoking. PDMP PDMP Reviewed: Not Reviewed Attestations 2 Medical Necessity Statement*: Continue admission for assessment management of severe exacerbation of asthma and asthma COPD overlap syndrome further workup of NSTEMI. Diagnoses Asthma exacerbation in COPD J44.1 Elevated troponin R79.89
[2025-03-19] MEDS: fluticasone nasal spray 16gm Btl 2 SPRAY NASAL (16:09)
[2025-03-19 16:33] LABS: Partial Thromboplastin Time 55.2 SECONDS (23.9-36.7)
[2025-03-19] MEDS: HYDROcodone-acetaminophen 5-325 mg Tablet 1 TAB PO (18:04)
[2025-03-19] MEDS: heparin drip 25,000 UNIT/500 ML PREMIX 16 UNIT IV (19:18)
[2025-03-19 22:49] LABS: Partial Thromboplastin Time 52.1 SECONDS (23.9-36.7)
[2025-03-19] MEDS: heparin 5,000 unit/mL INJ 1 mL IVP (22:59)
[2025-03-20] VITALS: BP 125/56; PULSE 72; RESP 16; TEMP 36.3; O2SAT 96
[2025-03-20 03:57] VITALS: BP 119/54; PULSE 60; RESP 16; TEMP 36.3; O2SAT 94
[2025-03-20] MEDS: methylPREDNISolone sod succ 125 mg/2 mL INJ 60 MG IVP ×2 (04:26→08:40)
[2025-03-20 04:50] LABS: Hematocrit 38.9 % (36-47); Hemoglobin 12.50 g/dL (11.27-16.99); Mean Corpuscular HGB Conc 32.1 g/dL (30-55); Mean Corpuscular Hemoglobin 30.4 pg (27-33); Mean Corpuscular Volume 94.6 fl (85-98); Nucleated Red Blood Cells % 0 %; Platelet Count 346 10^3/cmm (157-399); Red Blood Count 4.11 10^6/uL (3.85-5.65); White Blood Count 17.51 10^3/uL (3.29-11.43)
[2025-03-20] MEDS: fluticasone nasal spray 16gm Btl 2 SPRAY NASAL (05:08)
[2025-03-20 05:11] LABS: Partial Thromboplastin Time 79.8 SECONDS (23.9-36.7)
[2025-03-20 05:13] LABS: Blood Urea Nitrogen 19 mg/dL (8-23); Calcium 9.1 mg/dL (8.5-10.5); Carbon Dioxide 22 mmol/L (22-29); Chloride 101 mmol/L (98-107); Creatinine Clr Calc Pharmacy 58.6589; Glucose 153 mg/dL (65-115); Osmolality Calculated 287 mOsm/kg (285-295); Sodium 136 mmol/L (136-145)
[2025-03-20 05:14] LABS: Anion Gap 17.5 (5-19); Potassium 4.5 mmol/L (3.5-5.1)
[2025-03-20 06:00] VITALS: PULSE 62
[2025-03-20 07:06] VITALS: BP 109/54; PULSE 59; RESP 17; TEMP 36.4; O2SAT 94
[2025-03-20 08:00] VITALS: PULSE 77; RESP 18; O2SAT 97
--- NOTE | 2025-03-20 08:05 | P.DS_ITS ---
Discharge Providers Date of Admission: 03/18/25 11:21 Date of Discharge: March 20, 2025 Attending Provider at Admission: Preston Timmons Attending Provider at Discharge: Preston Timmons Primary Care Provider: Trip Cunningham DO Diagnoses at Discharge Discharge Diagnosis 1. Asthma exacerbation in COPD: 2. Elevated troponin: Reason for Visit Reason for Visit: SOB Brief History: Eda Gann is a 70 year old woman with a history of chronic obstructive pulmonary disease (COPD), diastolic congestive heart failure, carotid stenosis, hypertension, hyperlipidemia, hyperthyroidism, prior myocardial infarction, prior coronary artery stenting, prior carotid endarterectomy, and dementia who was brought to the hospital for acute shortness of breath on awakening with a sense of impending doom. EMS and ED reports noted diffuse wheezing; she received a breathing treatment en route and an additional nebulizer treatment in the ED with some improvement. Chronically uses 2 L/min nasal oxygen at home; oxygen was increased to 4 L/min to maintain saturation around 92%. Reports productive cough with mostly clear phlegm. Denies fever, chills, sore throat, or sneezing; notes night sweats that she considers baseline for her. Denies chest pain but reports mid-back pain. [place] very nauseated this morning without vomiting. Bowel habits variable at baseline. Denies ankle swelling. Not typically short of breath lying back; occasionally needs to regulate breathing at bedtime. ED started antibiotics (ceftriaxone and azithromycin). Hospital Course Hospital Course Bronchospastic component/asthma exacerbation of asthma-COPD overlap syndrome improved slowly with IV corticosteroid treatment with breathing treatments, empiric antibiotic coverage with ceftriaxone. Wheezing gradually improved. Sputum culture with some yeast, suspected contaminant. She is otherwise feeling significantly better. Today wheezing mostly resolved, mild rhonchi. Oxygen requirement weaned down to baseline of 2 L. She had no chest pain or pressure. Has been feeling well otherwise. Discussed with her finding of elevated troponin, risk of CAD, and she completed 72 hours of heparin infusion. Discussed further assessment with stress testing which she elects to follow-up on as an outpatient. Echocardiogram with normal ejection fraction, no RWMA. Please follow-up stress test results, consider referral to cardiology depending on findings. She knows to seek medical attention in case of worsening or new concerning symptoms. She is given referral for follow-up with pulmonology. Physical Exam Const: COMMON NORMALS: patient oriented x3 and alert GENERAL APPEARANCE: cooperative ORIENTATION/CONSCIOUSNESS: Yes awake HENMT: COMMON NORMALS: oropharynx normal Neck/C-Spine: COMMON NORMALS: no JVD Resp: AUSCULTATION: rhonchi (Mild) and no wheezes Cardio: COMMON NORMALS: no JVD, regular rhythm, S1 normal heart sound present, S2 normal heart sound present and No murmurs present (Cardio) RHYTHM: regular rhythm HEART SOUNDS: S1 normal heart sound present and S2 normal heart sound present GI: COMMON NORMALS: Normal to inspection, nondistended, normoactive bowel sounds present, Soft to palpation and non-tender PALPATION: Yes Soft to palpation Extremity: COMMON NORMALS: no joint enlargement and no pedal edema Neuro: COMMON NORMALS: patient oriented x3 and moves all extremities SENSORIUM/ORIENTATION: Yes alert Skin: COMMON NORMALS: no rashes or lesions noted GENERAL SKIN EXAM: no rashes or lesions noted Discharge Data Studies Completed and Pending Completed Studies During Hospitalization Category Date Time Status XR chest 1V portable [id number] Stat Exams 03/17/25 05:50 Completed CV. echo limited [id number] Routine Ultrasound 03/18/25 14:03 Completed Pending at discharge Category Date Time Status PTT [Partial Thromboplastin Time] Timed Lab 03/20/25 11:25 Ordered Platelet Count Q2D Lab 03/21/25 04:00 Ordered Sputum Culture and Gram Stain Stat Lab 03/17/25 08:57 Results Radiology Impressions Chest X-Ray 03/17/25 05:50 IMPRESSION: Negative for acute chest pathology. Laboratory Results WBC 17.51 10^3/uL (3.29-11.43) H 03/20/25 04:42 RBC 4.11 10^6/uL (3.85-5.65) 03/20/25 04:42 Hgb 12.50 g/dL (11.27-16.99) 03/20/25 04:42 Hct 38.9 % (36-47) 03/20/25 04:42 MCV 94.6 fl (85-98) 03/20/25 04:42 MCH 30.4 pg (27-33) 03/20/25 04:42 MCHC 32.1 g/dL (30-55) 03/20/25 04:42 RDW 15.4 % (12.1-15.1) H 03/20/25 04:42 Plt Count 346 10^3/cmm (157-399) 03/20/25 04:42 MPV 9.4 fL (7.4-10.4) 03/20/25 04:42 Neut % (Auto) 92.7 % 03/20/25 04:42 Lymph % (Auto) 4.4 % 03/20/25 04:42 [place] % (Auto) 1.6 % 03/20/25 04:42 Eos % (Auto) 0.0 % 03/20/25 04:42 Baso % (Auto) 0.1 % 03/20/25 04:42 Neut # (Auto) 16.24 10^3/uL (1.8-7.7) H 03/20/25 04:42 Lymph # (Auto) 0.8 10^3/uL (0.8-4.8) 03/20/25 04:42 [place] # (Auto) 0.3 10^3/uL (0.2-0.9) 03/20/25 04:42 Eos # (Auto) 0.0 10^3/uL (0.0-0.8) 03/20/25 04:42 Baso # (Auto) 0.0 10^3/uL (0.0-0.1) 03/20/25 04:42 Nucleated RBC % (auto) 0 % 03/20/25 04:42 Nucleated RBCs # 0.0 /100WBC 03/20/25 04:42 APTT 79.8 SECONDS (23.9-36.7) H D 03/20/25 04:42 Specimen Type Arterial 03/17/25 06:22 Sample Site Rr 03/17/25 06:22 ABG pH 7.35 (7.35-7.45) 03/17/25 06:22 ABG pCO2 43.2 mmHg (35-45) 03/17/25 06:22 ABG pO2 58.0 mmHg (80.0-100.0) L 03/17/25 06:22 ABG PO2/FiO2 Ratio 207 03/17/25 06:22 ABG HCO3 23.8 mmol/L (22-26) 03/17/25 06:22 ABG O2 Saturation 88.3 03/17/25 06:22 ABG Base Excess -1.9 mmol/L (-2.0-2.0) 03/17/25 06:22 Boris Test Pos 03/17/25 06:22 A-a O2 Gradient 11.7 mmHg (5-10) H 03/17/25 06:22 Hematocrit 44.2 % (37-47) 03/17/25 06:22 Hgb O2 Saturation 86.0 % (95-100) L 03/17/25 06:22 Carboxyhemoglobin 2.3 %THgb (0.4-20.1) 03/17/25 06:22 Methemoglobin 0.3 % (0.4-1.5) L 03/17/25 06:22 Total Hemoglobin 14.4 g/dL (12-16) 03/17/25 06:22 Sodium 140.0 mmol/L (131-143) 03/17/25 06:22 Potassium 3.5 mmol/L (3.5-5.0) 03/17/25 06:22 Glucose 146.0 mg/dL (70-115) H 03/17/25 06:22 Ionized Calcium 1.2 mmol/L (1.1-1.4) 03/17/25 06:22 O2 Delivery Device Nc 03/17/25 06:22 O2 Liters/Min 2.0 % 03/17/25 06:22 FiO2 28.0 % 03/17/25 06:22 Forestry Consultant ID gerca 03/17/25 06:22 Sodium 136 mmol/L (136-145) 03/20/25 04:42 Potassium 4.5 mmol/L (3.5-5.1) 03/20/25 04:42 Chloride 101 mmol/L (98-107) 03/20/25 04:42 Carbon Dioxide 22 mmol/L (22-29) 03/20/25 04:42 Anion Gap 17.5 (5-19) 03/20/25 04:42 BUN 19 mg/dL (8-23) 03/20/25 04:42 Creatinine 0.8 mg/dL (0.5-0.9) 03/20/25 04:42 GFR Calculation 71.3 mL/min (90-130) L 03/20/25 04:42 Glucose 153 mg/dL (65-115) H 03/20/25 04:42 Calculated Osmolality 287 mOsm/kg (285-295) 03/20/25 04:42 Calcium 9.1 mg/dL (8.5-10.5) 03/20/25 04:42 Magnesium 2.2 mg/dL (1.7-2.3) 03/18/25 22:27 Total Bilirubin 0.2 mg/dL (0.15-1.2) 03/18/25 22:27 AST 15 U/L (0-32) 03/18/25 22:27 ALT 13 U/L (0-33) 03/18/25 22:27 Alkaline Phosphatase 66 U/L (35-105) 03/18/25 22:27 Troponin T Baseline 18 ng/L (0-10) H 03/17/25 06:41 Troponin T 120 Minute 44.83 ng/L (0-10) H 03/17/25 08:38 Delta Troponin T 26.83 ABS# (0-10) H* 03/17/25 08:38 Troponin T Hi Sens 6Hr 49.53 ng/L (0-10) H 03/17/25 12:40 Troponin T Hi Sens 6Hr Delta 31.53 ng/L (0-12) H* 03/17/25 12:40 C-Reactive Protein 6.0 mg/L (0.0-4.9) H 03/17/25 06:41 NT-Pro-B Natriuret Pep 230 pg/mL (0-125) H 03/17/25 06:41 Total Protein 7.4 g/dL (6.6-8.7) 03/18/25 22:27 Albumin 4.3 g/dL (3.5-5.2) 03/18/25 22:27 Globulin 3.1 g/dL (1.3-4.6) 03/18/25 22:27 Urine Color Yellow (Yellow) 03/17/25 12:40 Urine Appearance Clear (CLEAR) 03/17/25 12:40 Urine pH 5.5 (5-7) 03/17/25 12:40 Ur Specific [place] 1.015 (1.005-1.030) 03/17/25 12:40 Urine Protein 1+ (Negative) A 03/17/25 12:40 Urine Glucose (UA) Trace (Normal) H 03/17/25 12:40 Urine Ketones Negative (Negative) 03/17/25 12:40 Urine Blood Negative (Negative) 03/17/25 12:40 Urine Nitrate Negative (Negative) 03/17/25 12:40 Urine Bilirubin Negative (Negative) 03/17/25 12:40 Urine Urobilinogen 0.2 mg/dL (Negative) 03/17/25 12:40 Ur Leukocyte Esterase Negative (Negative) 03/17/25 12:40 Urine RBC 0-2 /hpf (0-2) 03/17/25 12:40 Urine WBC 0-5 /hpf (0-5) 03/17/25 12:40 Ur Squamous Epith Cells 0-5 /hpf (0-5) 03/17/25 12:40 Amorphous Sediment Not Reportable 03/17/25 12:40 Urine Bacteria None seen /hpf (NONE) 03/17/25 12:40 Hyaline Casts 0.81 /lpf 03/17/25 12:40 Nasal MRSA (PCR) Not detected (Not Detecte) 03/18/25 09:55 Vitals Last Vital Signs Temp 97.6 F 03/20/25 07:06 Pulse 59 L 03/20/25 07:06 Resp 17 03/20/25 07:06 BP 109/54 03/20/25 07:06 Pulse Ox 94 03/20/25 07:06 O2 Del Method Nasal Cannula 03/20/25 07:06 O2 Flow Rate 2 03/20/25 00:00 Discharge Plan Discharge Patient Disposition: Home Condition: Stable Prescriptions: New prednisone 20 mg tablet 20 mg PO DAILY Qty: 20 0RF Rx Instructions: 3 tab daily for 3 days, then 2 tab for 3 days, then 1 tab for 3 days, then 1/2 tab for 4 days. cefdinir 300 mg capsule 300 mg PO BID 3 Days Qty: 6 0RF metformin 500 mg tablet 500 mg PO BID Qty: 60 0RF Continued metoprolol tartrate 25 mg tablet 12.5 mg PO BID Rx Instructions: GIVE 1/2 TABLET BY MOUTH TWO TIMES DAILY HOLD IF SBP < THAN 100 (DME) S[employer] So[employer]orts See Rx Instructions .Route .MEDSUPPLY Qty: 1 0RF Rx Instructions: As directed by S[employer] Supp[employer] hydrocodone-acetaminophen 5-325 mg Tablet 1 tab PO Q6H PRN (Reason: Pain) alum-mag hydroxide-simeth [Mylanta Maximum Strength] 400-400-40 mg/5 mL Suspension 30 ml PO Q4H PRN (Reason: Constipation) fluticasone propion-salmeterol [Advair Diskus] 250-50 mcg/dose blister with device 1 ea INHALATION BID gabapentin 400 mg capsule 400 mg PO BID aspirin 81 mg Tablet,Delayed Release (Dr/Ec) 81 mg PO DAILY bisacodyl [Dulcolax (bisacodyl)] 5 mg Tablet,Delayed Release (Dr/Ec) 10 mg PO DAILY magnesium 250 mg Tablet 250 mg PO DAILY rosuvastatin 10 mg tablet 10 mg PO DAILY duloxetine 60 mg Capsule,Delayed Release(Dr/Ec) 60 mg PO DAILY Combivent Respimat 20-100 mcg/actuation mist 1 puff INHALATION QID alprazolam [Xanax] 0.5 mg tablet 0.5 mg PO Q6H PRN (Reason: Anxiety) Qty: 30 0RF ipratropium-albuterol 0.5 mg-3 mg(2.5 mg base)/3 mL solution for nebulization 3 ml inhalation Q4H PRN (Reason: shortness of breath) Qty: 180 0RF epinephrine 0.3 mg/0.3 mL auto-injector See Rx Instructions .ROUTE .COMPLEX Rx Instructions: Inject 0.3 ML INTRAMUSCULARLY ONCE NEEDED FOR anaphylaxis. diltiazem HCl 30 mg tablet 30 mg PO Q6H Discharge Order = DC NOW: Discharge Order (Routine); Ordered 03/20/25 Ordered By: Preston Timmons Other Ambulatory Orders: Sestamibi Stress Test Request (Routine) Timeframe: 1 Day Facility: [facility] - Location: Cardiac Diagnostic Laboratory Ordered By: Preston Timmons Referrals: Julita Grimaldo MD [Physician, Pulmonology] - 1 week Referral Note: Asthma We have notified your physician's clinic of the need for a follow-up appointment to be scheduled. If you have not heard from them within the next 2 business days, please call them directly. Trip Cunningham DO [Primary Care Provider, Family Practice] - 03/27/25 9:50 am Discharge Diet: Cardiac and Diabetic Patient Instructions: Prednisone (By mouth), Metformin (By mouth), Cefdinir (By mouth), Asthma (GEN), Heart Healthy Diet (GEN), COPD (Chronic Obstructive Pulmo nary Disease) (GEN), Prevent Cardiovascular Disease (GEN), Patient Portal & Guillermo Instructions Activity Restrictions/Additional Instructions: Complete prednisone taper for asthma exacerbation and antibiotic course for COPD exacerbation, follow-up with your primary provider and with licensing coordinator for reassessment. Further follow-up for assessment with stress test due to noted initial troponin with mild to moderate elevation at the time when you are coming into the hospital and risk factors of coronary disease. Continue to optimize continue to optimize coronary disease risk factors i ncluding monitoring your blood pressures and targeting blood pressures 120/80 long-term, treating elevated cholesterol continuing to abstain from smoking, continue to manage diabetes. As per discussion, you are started on metformin. Please have your primary provider recheck your A1c. Maintain heart healthy diet and 150 minutes of moderate density exercise a week after you recover from respiratory illness. Seek medical attention in case of any worsening or new concerning symptoms. Discharge Attestations Time Spent in Discharge Care*: greater than 30 min Status at Discharge: Cognitive status at discharge: cognitively intact , Behavioral status at discharge: cooperative , Quality Metrics Clinical Quality Measures [ Acute Myocardial Infaction { Clinical Trial Participant: No; Contraindication to aspirin: None; Aspirin prescribed; Contraindication to statin: None; Statin prescribed;}] Coding Level of Care Code 66877 Total time (in minutes) for Discharge: 45 Diagnoses Asthma exacerbation in COPD J44.1 Elevated troponin R79.89
[2025-03-20] MEDS: cefTRIAXone 1,000 mg SDV 1000 MG IVP (08:40)
[2025-03-20] MEDS: ATORVASTATIN 10 MG TABLET PO (08:41)
[2025-03-20 11:08] VITALS: BP 109/56; PULSE 77; RESP 18; TEMP 36.4; O2SAT 97
== END 2025-03-20 11:11 | disposition home or self-care (01) | DRG 189 ==
LOC: ER 07:54 → MEDSURG 09:37
PROVIDERS: Internal Medicine; Admitting Provider Internal Medicine; Emergency Provider Family Medicine; PCP Electrodiagnostic Medicine; Visit Provider Internal Medicine
DX: J96.91 Respiratory failure, unspecified with hypoxia (principal); I21.A1 Myocardial infarction type 2; J44.1 Chronic obstructive pulmonary disease with (acute) exacerbation; I50.30 Unspecified diastolic (congestive) heart failure; I65.29 Occlusion and stenosis of unspecified carotid artery; F03.90 Unspecified dementia, unspecified severity, without behavioral disturbance, psychotic disturbance, mood disturbance, and anxiety; I25.10 Atherosclerotic heart disease of native coronary artery without angina pectoris; I11.0 Hypertensive heart disease with heart failure; E78.5 Hyperlipidemia, unspecified; E05.90 Thyrotoxicosis, unspecified without thyrotoxic crisis or storm; F41.9 Anxiety disorder, unspecified; I25.2 Old myocardial infarction; Z95.5 Presence of coronary angioplasty implant and graft; Z99.81 Dependence on supplemental oxygen; Z87.891 Personal history of nicotine dependence; Z79.82 Long term (current) use of aspirin
CPT/HCPCS: 36415; 36600; 71045; 80048; 80051; 80053; 81001; 82330; 82805; 83735; 83880; 84484; 85025; 85730; 86140; 87070; 87205; 93005; 93308; 94640; 94664; 99285; G0378; J0456; J0696; J1644; J2919; J7050; J9999; Q0144

== ENCOUNTER → 2025-04-16 08:33 | Outpatient (BNVA) | payer OTHER, MEDICAID, SELFPAY | PROVIDERS: PCP Electrodiagnostic Medicine; Visit Provider Internal Medicine | DX: J44.89 Other specified chronic obstructive pulmonary disease (principal); R91.1 Solitary pulmonary nodule; Z87.891 Personal history of nicotine dependence; J44.9 Chronic obstructive pulmonary disease, unspecified | CPT/HCPCS: 36415; 85025; 99204; Q3014 ==

== ENCOUNTER 2025-04-24 16:43 | Outpatient (CLI) | payer OTHER, MEDICAID, SELFPAY ==
--- NOTE | 2025-04-24 16:45 | CT_ITS ---
WS: [id number] CT chest wo con [id number] REASON FOR EXAM: R91.1 - Solitary pulmonary nodule IV CONTRAST ADMINISTERED: None. TECHNIQUE: Multiple axial images of the chest without contrast. Coronal and sagittal reconstructions. COMPARISON EXAMINATION: Unenhanced CT scan of the chest 10/27/2024. TOTAL EXAM DLP: 275.[address] scans at [facility] use at least one of these dose optimization techniques: automated exposure control; mA and/or kV adjustment per patient size (includes targeted exams where dose is matched to clinical indication); or iterative reconstruction. FINDINGS: Central lobar emphysema. Sub-3 mm nodule in the anterior right upper lobe Compared to the previous examination the inflammatory changes involving the posterior right upper lobe have undergone significant resolution with minimal residual abnormality. No other interval change or new finding in the chest compared to the previous study. CT/CT chest wo con [id number] IMPRESSION: Centrilobular emphysema. Presumed inflammatory abnormality in the posterior right upper lung. L RADS 2 12-month follow-up.
== END 2025-04-24 16:44 | disposition home or self-care (01) ==
LOC: RAD 16:44
PROVIDERS: PCP Electrodiagnostic Medicine; Visit Provider Internal Medicine
DX: R91.1 Solitary pulmonary nodule (principal); J43.2 Centrilobular emphysema
CPT/HCPCS: 71250

== ENCOUNTER 2025-05-21 07:04 | Outpatient (CLI) | payer OTHER, MEDICAID, SELFPAY ==
[2025-05-21 07:24] VITALS: PULSE 85; RESP 18; O2SAT 93
== END 2025-05-21 07:05 | disposition home or self-care (01) ==
LOC: RT 07:06
PROVIDERS: PCP Electrodiagnostic Medicine; Visit Provider Internal Medicine
DX: J44.9 Chronic obstructive pulmonary disease, unspecified (principal)
CPT/HCPCS: 94060; 94726; 94729

== ENCOUNTER → 2025-05-22 15:02 | Outpatient (BNVA) | payer OTHER, MEDICAID, SELFPAY | PROVIDERS: PCP Electrodiagnostic Medicine; Visit Provider Internal Medicine | DX: J44.89 Other specified chronic obstructive pulmonary disease (principal); R91.1 Solitary pulmonary nodule; J30.89 Other allergic rhinitis; Z99.81 Dependence on supplemental oxygen; Z87.891 Personal history of nicotine dependence | CPT/HCPCS: 99214; Q3014 ==